=== PATIENT | male | born 1980 | race Caucasian/White ===

== ENCOUNTER 2016-11-24 21:15 | Emergency (ER) | payer OTHER, MEDICARE ==
[~2016-11-24 21:15] MED LIST: ATIVAN1 MG PO; BACTRIM SS PO; CLOZAPINE100 MG PO; FERROUS SULFAT325 M1 PO; FOLIC ACID 1 MG PO; FOLIC ACID1 M1 PO; K-DUR 20MEQ TA20 MEQ PO; KLOR-CON M2020 MEQ PO; KLOR-CON20 MEQ PO; LASIX40 MG PO; LORAZEPAM0.5 MG PO; LORAZEPAM1 MG PO; MASON NATURAL325 MG PO; MULTI VITAMINS1 TAB PO; NEXIUM20 M1 PO; NEXIUM40 M1 PO; NICOTINE PATCH1 EAC1 TOP; ONE DAILY MULT1 EAC2 PO; RISPERIDONE 1 MG1 MG PO; RISPERIDONE1 MG PO; RISPERIDONE2 MG PO; RISPERIDONE3 M1 PO; RISPERIDONE3 MG PO; TYLENOL TAB 32325 MG PO; VITAB121000 PO; VITAMIN B1100 MG PO
--- NOTE | 2016-11-24 22:12 | RADIOLOGY REPORT ---
EXAMINATION: XR PORTABLE CHEST CLINICAL INFORMATION: Cough. COMPARISON: Chest x-ray 03/17/2016 TECHNIQUE: Portable AP portable view of the chest was obtained. 9:50 PM FINDINGS: No significant abnormality is noted involving the heart, lungs, mediastinum, bony thorax or soft tissues. IMPRESSION: Unremarkable examination.
[2016-11-24 22:19] LABS: ABSOLUTE BASOPHIL COUNT 0 /CUMM (0.0-0.2); ABSOLUTE EOSINOPHIL COUNT 0 /CUMM (0.0-0.7); ABSOLUTE GRANULOCYTE CT 10.4 /CUMM (1.4-6.5); ABSOLUTE LYMPH COUNT 1.3 /CUMM (1.2-3.4); ABSOLUTE MONOCYTE COUNT 0.7 /CUMM (0.10-0.60); BASOPHIL % 0.2 % (0.0-2.0); EOSINOPHIL % 0.1 % (0-5); GRANULOCYTE % 83.6 % (42.2-75.2); MEAN CORPUSCULAR HGB 26.5 PG (27.0-31.0); MEAN CORPUSCULAR HGB CONC 31.5 G/DL (33.0-37.0); MEAN CORPUSCULAR VOLUME 84.2 FL (80.0-94.0); MEAN PLATELET VOLUME 8.3 FL (7.4-10.4); PLATELET COUNT 73 /CUMM (130-400); RBC DISTRIBUTION WIDTH 22.8 % (11.5-14.5); RED BLOOD CELL CT 3.32 /CUMM (4.70-6.10); WHITE BLOOD CELL COUNT 12.4 /CUMM (4.8-10.8)
--- NOTE | 2016-11-24 22:24 | ED AMS/SEIZURE/WEAK/DIZZY ---
History of Present Illness General Chief Complaint: Seizure Stated Complaint: BIBA, SEIZURE? Source: patient, family, old records, EMS Exam Limitations: intoxication Vital Signs & Intake/Output Vital Signs & Intake/Output Vital Signs Date Time Temp Pulse Resp B/P Pulse O2 O2 Flow FiO2 Ox Delivery Rate 11/24 2248 98.8 89 17 138/62 96 Room Air 11/24 2209 100 Room Air 11/248 99.9 106 17 132/67 97 Room Air Allergies Coded Allergies: shrimp (BLACKED OUT PER PT 01/22/16) Reconcile Medications Esomeprazole (Nexium) 40 MG CAPSULE.DR 1 TAB PO DAILY STOMACH (Reported) Esomeprazole Magnesium (Nexium) 20 MG CAPSULE.DR 20 MG PO BID ACID REFLUX ( Reported) Folic Acid 1 MG TABLET 1 TAB PO DAILY SUPPLEMENT Folic Acid 1 MG TAB 1 MG PO DAILY FOLIC ACID SUPPLEMENT Multivitamin (One Daily Multivitamin) 1 EACH TABLET 1 TAB PO DAILY SUPPLEMENT Multivitamin (One Daily Multivitamin) 1 TAB TAB 1 TAB PO DAILY SUpplement Nicotine (Nicotine Patch) 1 EACH PATCH.TD24 7 MG TOP DAILY smoking cessation Nicotine (Nicotine Patch) 1 EACH PATCH.TD24 7 MG TOP DAILY smoking cessation Risperidone 3 MG TABLET 1 TAB PO BID SCHIZOPHRENIA Risperidone 3 MG TAB 1 TAB PO BID SCIZOPHRENIA Triage Note: BIBA FROM HOME. PT WITH HISTORY OF SEIZURES. MOTHER CONCERNED PT IS GOING TO HAVE AN IMPENDING SEIZURE. PER EMS PT HAS BEEN DRINKING ALCOHOL AND SMOKING MARIJUANA TODAY. PT WITH HISTORY OF SEIZURES, ELCTROLYTE IMBALANCES. MOTHER STATES PT HAS SLURRED SPEECH WHICH OFTEN COMES BEFORE HIS SEIZURES. UPON ARRIVAL PT AWAKE, ALERT , ORIENTED. SPEECH SLURRED. SKIN WARM AND DRY, DENIES PAIN OR SOB. COMPLAINING OF POOR SLEEPING AND NOT EATING Triage Nurses Notes Reviewed? yes Onset: Just prior to arrival Duration: hour(s):, constant, continues in ED Timing: recent history Injury Environment: home Severity: severe No Modifying Factors: none Associated Symptoms: cough HPI: Patient admits to drinking alcohol and smoking marijuana all day. Mother called EMS presuming he was going to have a seizure. He denies fever chills nausea vomiting diarrhea abdominal pain chest pain shortness of breath headache dysuria rash bleeding. Past History Travel History Traveled to [place] past 21 day No Medical History Any Pertinent Medical History? see below for history Neurological: seizure EENT: NONE Cardiovascular: NONE Respiratory: history of aspiration pneumonia Gastrointestinal: alcoholic hepatitis, GERD, hiatal hernia, upper GI bleed Hepatic: alcoholic hepatitis Renal: NONE Musculoskeletal: NONE Psychiatric: alcohol dependence, anxiety, depression, substance abuse, SCHIZOPHRENIA alcohol abuse Endocrine: psychogenic polydipsia HYPOKALEMIA, HYPOMAGNESEMIA, HYPONATREMIA hypoK+, hypoNa, hypoMg hx hyponatremia hx hypokalemia Blood Disorders: anemia, coagulopathy (intermittent), thrombocytopenia ( intermittent) Cancer(s): NONE STAFF RADIOGRAPHER/Reproductive: N/A Other Medical Hx: Etoh dependence & polysubstance abuse History of MRSA: No History of VRE: Yes History of CDIFF: No Tetanus Vaccine: 05/15/13 Surgical History Surgical History: cholecystectomy Psychosocial History Who do you live with Mother Services at Home Nursing What is your primary language Venezuelan Tobacco Use: Refused to answer ETOH Use: heavy use Illicit Drug Use: marijuana Family History Family History, If Any: FATHER, , Age 27; Cause: Heroin overdose. MOTHER (diabetic). Age 60+. SISTER (healthy). Hx Contributory? No Review of Systems Review of Systems Constitutional: Reports: no symptoms. EENTM: Reports: no symptoms. Respiratory: Reports: no symptoms. Cardiovascular: Reports: no symptoms. GI: Reports: no symptoms. Genitourinary: Reports: no symptoms. Musculoskeletal: Reports: no symptoms. Skin: Reports: no symptoms. Neurological/Psychological: Reports: see HPI, cognitive dysfunction, confusion. Hematologic/Endocrine: Reports: no symptoms. Immunologic/Allergic: Reports: no symptoms. All Other Systems: Reviewed and Negative Physical Exam Physical Exam General Appearance: well developed/nourished, alert, awake, anxious, moderate distress, thin Head: atraumatic, normal appearance Eyes: Left: normal appearance. Right: other (injected). Bilateral: PERRL, EOMI. Ears, Nose, Throat: normal pharynx, normal ENT inspection Neck: normal inspection, supple, full range of motion, no midline tenderness Respiratory: chest non-tender, no respiratory distress, quiet respiration, decreased breath sounds Cardiovascular: regular rate/rhythm, normal peripheral pulses, norml femoral pulses equa Peripheral Pulses: 4+ carotid (R), 4+ carotid (L) Gastrointestinal: normal bowel sounds, soft, non-tender, no organomegaly Back: normal inspection, normal range of motion Extremities: normal range of motion, no ligament instability Neurologic/Psych: awake, alert, oriented x 3, 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 Skin: intact, normal color, warm/dry Lymphatic: no anterior cervical steve Core Measures ACS in differential dx? No CVA/TIA Diagnosis: No Severe Sepsis Present: No Septic Shock Present: No Progress Differential Diagnosis: alcohol intoxication, drug intoxication, electrolyte imbalance, hypoglycemia Plan of Care: Orders Procedure Date/time Status URINE DRUG SCREEN FOR ER ONLY 11/24 2133 Complete MAGNESIUM 11/24 2133 Complete ETHANOL 11/24 2133 Complete COMPREHENSIVE METABOLIC PANEL 11/24 2133 Complete CBC WITHOUT DIFFERENTIAL 11/24 2133 Complete Current Medications Sig/Olivia Start time Last Medication Dose Stop Time Status Admin Potassium Chloride 40 MEQ ONCE ONE 11/25 29 UNVr (Klor) 11/25 30 Laboratory Tests 11/24/162204: Anion Gap 15, Estimated GFR > 60, BUN/Creatinine Ratio 5.7 L, Glucose 115 H, Calcium 7.9 L, Magnesium 1.6, Total Bilirubin 1.4 H, AST 255 H, ALT 76 H, Alkaline Phosphatase 184 H, Total Protein 7.4, Albumin 3.3 L, Globulin 4.1, Albumin/Globulin Ratio 0.8 L, CBC w Diff NO MAN DIFF REQ, RBC 3.32 L, MCV 84.2 , MCH 26.5 L, RDW 22.8 H, MPV 8.3, Gran % 83.6 H, Lymphocytes % 10.4 L, Monocytes % 5.7, Eosinophils % 0.1, Basophils % 0.2, Absolute Granulocytes 10.4 H, Absolute Lymphocytes 1.3, Absolute Monocytes 0.7 H, Absolute Eosinophils 0, Absolute Basophils 0, PUBS MCHC 31.5 L, Serum Alcohol 380.0 11/24/162149: Urine Opiates Screen < 100.00, Methadone Screen < 40, Barbiturate Screen < 60, Ur Phencyclidine Scrn < 6.00, Amphetamines Screen < 100, U Benzodiazepines Scrn < 85, Urine Cocaine Screen < 50, Urine Cannabis Screen > 80.00 H Initial ED EKG: none Departure Departure Time of Disposition: 27 Disposition: HOME OR SELF CARE Condition: Stable Clinical Impression Primary Impression: Alcohol intoxication delirium Secondary Impressions: Hypokalemia Marijuana intoxication Qualifiers: Complication of substance-induced condition: uncomplicated Qualified Code: F12.920 - Cannabis use, unspecified with intoxication, uncomplicated Referrals: TAMIKA JUAN MD (PCP/Family) Departure Forms: General Discharge Information
[2016-11-24 22:48] VITALS: BP 138/62
== END 2016-11-25 00:37 ==
LOC: ERH 21:15
PROVIDERS: Emergency Medicine
DX: F10.121 Alcohol abuse with intoxication delirium (principal); F12.129 Cannabis abuse with intoxication, unspecified; E87.6 Hypokalemia
CPT/HCPCS: 80307; G0480

== ENCOUNTER 2016-12-28 11:10 | Inpatient (IN) | payer OTHER, MEDICARE ==
[~2016-12-28] VITALS: Ht 175.3 cm; Wt 74.8 kg
--- NOTE | 2016-12-28 11:13 | NUR ---
PT SENT IN BY PCP OR LOW K OF 2.6
--- NOTE | 2016-12-28 11:24 | NUR ---
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 PT STATING "THIS IS BULLSHIT, I WANT TO GO HOME, I HAD BLOODWORK LAST MONTH AND IT WAS FINE." PT AWARE OF THE POSSIBLE CONSEQUENCES OF HYPOKALEMIA "THEY TOLD ME I COULD AND THAT'S WHY I'M HERE." PT REPORTS "I HAVE SCHIZOPHRENIA" AND "I TOOK A FEW SIPS THIS MORNING, I'M BUZZED, BUT I'M OKAY. IF YOU LET ME GO HOME, I'LL STOP DRINKING. I DON'T REALLY LIKE TO DRINK MUCH I LIKE TO SMOKE." DENIES ANY SYMPTOMS "I FEEL FINE, JUST BUZZED." SR 70S ON MONITOR. TV ON, AWAITING PROVIDER EVAL.
--- NOTE | 2016-12-28 11:27 | NUR ---
JONO SCHILLING AT BEDSIDE FOR EVAL.
--- NOTE | 2016-12-28 11:42 | ED GI/GU/ABDOMINAL COMPLAINT ---
History of Present Illness General Chief Complaint: General Adult Stated Complaint: SENT IN FOR ABNORMAL LABS K 2.6 Source: patient Exam Limitations: no limitations Allergies Coded Allergies: shrimp (BLACKED OUT PER PT 01/22/16) Reconcile Medications Risperidone Microspheres (Risperdal Consta) 37.5 MG/2 ML SYRINGE 1 SYR IM Q2W SCHIZOPHRENIA (Reported) Triage Note: HERE FOR K OF 2.6 SENT IN BY PCP Triage Nurses Notes Reviewed? yes HPI: This patient is a 36-year-old male with a past medical history including schizophrenia who presented to the emergency department today for evaluation of low potassium. This patient had blood work drawn earlier today with a potassium of 2.6. The patient's mother reported that the patient had blood work done because his eyes have been, "yellow," lately. She reported that he has also not been able to eat or drink much of anything lately because he is violent, "violently," whenever he does. The patient reported, "I feel fine and I just want to go home." He is denying any current abdominal pain, nausea. He reported that he did have him vodka today. He denied any other illicit drug use. The patient denied any fevers, chills, difficulty breathing, chest, numbness or tingling in his extremities, or any other specific symptoms. (TONIE CHOPRA,PETAR) Vital Signs & Intake/Output Vital Signs & Intake/Output Vital Signs Date Time Temp Pulse Resp B/P Pulse O2 O2 Flow FiO2 Ox Delivery Rate 12/30 1430 98.0 68 20 118/70 96 12/30 1118 99.0 112 20 110/70 97 12/30 1100 99.0 112 20 110/70 12/30 0835 99.7 100 16 110/72 99 Room Air 12/29 2322 98.9 105 18 90/50 95 Room Air 12/29 2200 18 90/58 12/29 1800 100.0 102 18 116/80 12/29 1607 100.0 102 18 116/80 92 Room Air 12/29 1600 100.0 102 18 11680 ED Intake and Output 12/30 0000 12/29 1200 Intake Total 3483.5 2350 Output Total 2049 1550 Balance 1433.5 800 Intake, Blood 250 Product Intake, IV 1448.5 2350 Intake, Oral 1785 Number 4 Bowel Movements Output, Urine 2049 1550 Past History Travel History Traveled to [place] past 21 day No Medical History Any Pertinent Medical History? see below for history Neurological: seizure EENT: NONE Cardiovascular: NONE Respiratory: history of aspiration pneumonia Gastrointestinal: alcoholic hepatitis, GERD, hiatal hernia, upper GI bleed Hepatic: alcoholic hepatitis Renal: NONE Musculoskeletal: NONE Psychiatric: alcohol dependence, anxiety, depression, substance abuse, SCHIZOPHRENIA alcohol abuse Endocrine: psychogenic polydipsia HYPOKALEMIA, HYPOMAGNESEMIA, HYPONATREMIA hypoK+, hypoNa, hypoMg hx hyponatremia hx hypokalemia Blood Disorders: anemia, coagulopathy (intermittent), thrombocytopenia ( intermittent) Cancer(s): NONE RESTORATION ECOLOGIST/Reproductive: N/A Other Medical Hx: Etoh dependence & polysubstance abuse History of MRSA: No History of VRE: Yes History of CDIFF: No Tetanus Vaccine: 05/15/13 Surgical History Surgical History: cholecystectomy Psychosocial History Who do you live with Mother Services at Home Nursing What is your primary language Kinyarwanda Tobacco Use: Current Daily Use Daily Tobacco Use Amount/Type: => 5 Cigarettes daily ETOH Use: heavy use Illicit Drug Use: marijuana Family History Family History, If Any: FATHER, , Age 27; Cause: Heroin overdose. MOTHER (diabetic). Age 60+. SISTER (healthy). Hx Contributory? No (PETAR SCHILLING PA-C) Review of Systems Review of Systems Constitutional: Reports: no symptoms. EENTM: Reports: no symptoms. Respiratory: Reports: no symptoms. Cardiovascular: Reports: no symptoms. GI: Reports: see HPI. Genitourinary: Reports: no symptoms. Musculoskeletal: Reports: no symptoms. Skin: Reports: no symptoms. Neurological/Psychological: Reports: no symptoms. All Other Systems: Reviewed and Negative (PETAR SCHILLING PA-C) Physical Exam Physical Exam Gastrointestinal: normal bowel sounds, soft, non-tender, no organomegaly, no rebound or guarding. Negative Monteiro sign. No McBurney's point tenderness. Negative Rovsing sign. Negative psoas sign. Nondistended. No masses appreciated Comments: Well-developed well-nourished person in no acute distress HEENT: Normal EENT exam, head normocephalic/atraumatic Pupils equally round and reactive to light. No scleral icterus Nose is atraumatic. Neck: Supple, no lymphadenopathy Back: Normal gait. Normal inspection Cardiovascular: Regular rate and rhythm with no murmurs, rubs, or gallops Respiratory: Chest nontender. No respiratory distress. Breath sounds clear to auscultation bilaterally Extremity: Normal and equal pulses Neuro: Alert oriented x3, cranial nerves II through XII grossly intact. Skin: No appreciable rash on exposed skin, skin is warm and dry. Psych: Mood and affect is normal, memory and judgment is normal. Core Measures ACS in differential dx? Yes Severe Sepsis Present: No Septic Shock Present: No (PETAR SCHILLING PA-C) Progress Differential Diagnosis: AAA, AMI, appendicitis, biliary colic, bowel obstruction , colon cancer, cholecystitis, diverticulitis, gastritis, hepatitis, ischemic bowel, inflamm bowel dis, pancreatitis, PUD/GERD, perforated viscous, UTI/pyelo Diagnostic Imaging: Viewed by Me: CT Scan. Discussed w/RAD: CT Scan. Radiology Impression: PATIENT: GIOVANNA GARZA PRESENT AGE: 36 PATIENT ACCOUNT NO: [id number] : 80 LOCATION: [facility] ORDERING PHYSICIAN: DOMINIK OLIVER MD SERVICE DATE: 12/28/16- EXAM TYPE: CAT - CT ABD & PELVIS W IV CONTRAST; CT CHEST W IV CONTRAST EXAMINATION: CT CHEST, ABDOMEN AND PELVIS WITH CONTRAST CLINICAL INFORMATION: Cough. Pneumonia. Vomiting. Gastroenteritis, pancreatitis. COMPARISON: Portions of an abdomen pelvis CT performed without IV contrast 06/13/15. TECHNIQUE: Multidetector CT of the chest, abdomen and pelvis. The patient received: Oral contrast: No Intravenous contrast: 95 mL Optiray 320 No contrast reaction reported Sagittal and coronal reformatted images were obtained on the technologist workstation. Total exam dose-length product 441 mGy-cm FINDINGS: Digital actuary: There is no dense area of consolidation. Gas throughout the abdomen and pelvis to the region of rectum. Surgical clips right upper quadrant CHEST: LUNG: No abnormality the central airways. No suspicious mass or consolidation. No edema or groundglass disease. No honeycomb formation. There is equivocal trace thickening of the small airways. PLEURA: No pleural effusion or pneumothorax. MEDIASTINUM: There are no enlarged mediastinal or hilar lymph nodes. There is no pericardial fluid. There is a moderate hiatal hernia. The mid and distal esophageal wall is thickened. VASCULAR: There is no thoracic aortic aneurysm. CHEST WALL/AXILLA: No suspicious abnormality in the axilla or chest wall. ABDOMEN/PELVIS: LIVER, GALLBLADDER, AND BILIARY TREE: Heterogeneous low-attenuation throughout the liver. No suspicious focal liver lesion. Surgical clips in the expected region of the gallbladder. There is no biliary dilation. PANCREAS: No suspicious abnormality SPLEEN: Within normal limits ADRENAL GLANDS: Normal KIDNEYS AND URETERS: Homogeneous symmetric nephrograms. No suspicious mass. No renal calculus. There is no dilation of the urinary collecting system on either side. GASTROINTESTINAL TRACT: There is thickening of the sigmoid colon. There is stranding in the pericolonic fat. There are linear and irregular densities extending from the dome of the bladder and expected region of the uterus and sigmoid colon towards the region of the rectal remnant. This branching irregular pattern with a tiny focus of gas is suspicious for sinus tract/fistula. There is a tiny amount of gas within the urinary bladder. If there has been no instrumentation fistula suspected. There is poor definition of the dome of the bladder/cirrhosis interface with the colon. No abnormal appendix demonstrated. A normal appendix may extend into the midline of the pelvis near the sacral promontory. No significant small bowel dilation. No definite abnormality the stomach. As described there is a hiatal hernia. ABDOMINAL WALL: Small amount of fat protrudes into the left inguinal canal. LYMPHOVASCULAR STRUCTURES AND FLUID: There is no abdominal aortic aneurysm. The portal vein enhances. There are no measurably enlarged abdominal or pelvic lymph nodes. There is a nonspecific mesenteric lymph node in the midline. No drainable fluid collection. BLADDER: As described there is abnormal density and poor definition in the dome of the bladder extending toward the urachal remnant. There is gas present. There is poor definition of the surrounding tissue planes and there may be a fistula. PELVIC VISCERA: No definite abnormality. MUSCULOSKELETAL: No focal bony lesion IMPRESSION: No pneumonia or edema. Hiatal hernia. Thickening of the distal colon with angular and reticular opacities extending toward the dome of the bladder which is irregular and contains a small amount of gas. In the absence of instrumentation the pattern suggest the presence of colovesical fistula. This could be related to diverticulitis. Some clinical correlation is necessary. DICTATED BY: GERRY RODRIGUEZ MD DATE/TIME DICTATED:12/28/161747 MAGNETIC TESTING TECHNICIAN:ERVIN DATE/TIME TRANSCRIBED:12/28/161747 CONFIDENTIAL, DO NOT COPY WITHOUT APPROPRIATE AUTHORIZATION. <Electronically signed in Other Vendor System> SIGNED BY: GERRY RODRIGUEZ MD 12/28/16 1814 Initial ED EKG: normal axis, normal intervals, no ST T wave changes, sinus tachycardia, 90 bpm Comments: 12/28/2016 1:05:13 PM: RN informed me that the patient's mother reported blood in the patient's stool. Patient is refusing rectal examination. (TONIE CHOPRA,PETAR) Plan of Care: Orders Procedure Date/time Status Change service to 12/30 1337 Active Transfer Disposition 12/30 1048 Active Transfer patient to 12/30 0727 Active MAGNESIUM 12/30 0600 Complete CBC WITHOUT DIFFERENTIAL 12/30 0600 Complete BASIC ELECTROLYTES PLUS BUN&CR 12/30 0600 Complete MISSING MEDICATION FORM 12/30 UNK Active CBC WITHOUT DIFFERENTIAL 12/29 1800 Complete Current Medications Sig/Olivia Start time Last Medication Dose Stop Time Status Admin Folic Acid 1 MG DAILY 12/30 2111 AC (Folic Acid) Multivitamins 1 TAB DAILY 12/30 2111 AC (Theragran Vitamins) Thiamine HCl 100 MG DAILY 12/30 2111 AC (Vitamin B1) Risperidone 1 MG Q8P PRN 12/29 161 AC (Risperidone) Trimethobenzamide HCl 200 MG 4 TIMES/DAY PRN 12/28 161 AC (Tigan) Laboratory Tests 12/30/16 0610: Anion Gap 7, Estimated GFR > 60, BUN/Creatinine Ratio 3.3 L, Magnesium 1.7, CBC w Diff MAN DIFF ORDERED, RBC 3.17 L, MCV 88.9, MCH 28.5, RDW 19.5 H, MPV 9.5, Gran % 85.7 H, Lymphocytes % 6.6 L, Monocytes % 6.4, Eosinophils % 1.3, Basophils % 0 L, Absolute Granulocytes 5.8, Absolute Lymphocytes 0.4 L, Absolute Monocytes 0.4, Absolute Eosinophils 0.1, Absolute Basophils 0, Platelet Estimate DECREASED, Polychromasia 1+, Poikilocytosis 1+, Anisocytosis 1+, Stomatocytes 1+, PUBS MCHC 32.0 L 12/29/16 1805: Anion Gap 7, Estimated GFR > 60, BUN/Creatinine Ratio 3.3 L, CBC w Diff NO MAN DIFF REQ, RBC 3.29 L, MCV 87.4, MCH 28.0, RDW 19.4 H, MPV 8.6, Gran % 86.6 H, Lymphocytes % 6.4 L, Monocytes % 5.8, Eosinophils % 0.9, Basophils % 0.3, Absolute Granulocytes 5.7, Absolute Lymphocytes 0.4 L, Absolute Monocytes 0.4, Absolute Eosinophils 0.1, Absolute Basophils 0, PUBS MCHC 32.1 L Departure Departure Disposition: STILL A PATIENT Condition: Stable Clinical Impression Primary Impression: Hypokalemia Secondary Impressions: Pancreatitis Qualifiers: Chronicity: acute Pancreatitis type: alcohol induced Acute pancreatitis complication: unspecified Qualified Code: K85.20 - Alcohol induced acute pancreatitis without necrosis or infection Referrals: TAMIKA JUAN MD (PCP/Family) Departure Forms: Customer Survey General Discharge Information Admission Note Spoke With: SHAWN COELLO MD Documentation of Exam: Documentation of any treatments & extenuating circumstances including Concerns Regarding Discharge (functional status, medication knowledge or non-compliance, living conditions, etc.) that warrant an admission rather than observation: [ This patient is a 36 year old male who presented for low potassium. Potassium 2.4 Elevated pancreatic enzymes. Lactic acid 3.8. Reported rectal bleeding, refused rectal exam and CT abdomen. History of alcohol withdrawal seizures and currently intoxicated. Should be admitted for potassium repleation, IV fluids, follow-up cultures, IV antibiotics, NPO status, gastroenterology consult, possible colonoscopy, alcohol detox, and close monitoring. Premature discharge could prove medically harmful.] (TONIE CHOPRA,PETAR) PA/JEWEL STRINGER Co-Sign Statement Statement: ED Attending supervision documentation- x I saw and evaluated the patient. I have also reviewed all the pertinent lab results and diagnostic results. I agree with the findings and the plan of care as documented in the PA's/JEWEL STRINGER's documentation. [] I have reviewed the ED Record and agree with the PA's/JEWEL STRINGER's documentation. [] Additions or exceptions (if any) to the PAs/JEWEL STRINGER's note and plan are summarized below: [] (EMERSON CARPENTER,WANDY) Thiamine/Pyridoxine (Vitamin in I.V.) Dextrose/Water 1,000 ML (D5W 1000) Laboratory Tests 12/28/16 1622: Anion Gap 12, Estimated GFR > 60, BUN/Creatinine Ratio 6.7 L, Magnesium 1.2 L 12/28/16 1554: Sodium Cancelled, Potassium Cancelled, Chloride Cancelled, Carbon Dioxide Cancelled, Anion Gap Cancelled, BUN Cancelled, Creatinine Cancelled, BUN/ Creatinine Ratio Cancelled, Glucose Cancelled, Calcium Cancelled 12/28/16 1436: Lactic Acid 3.4 H 12/28/16 1300: Urine Opiates Screen < 100.00, Methadone Screen < 40, Barbiturate Screen < 60, Ur Phencyclidine Scrn < 6.00, Amphetamines Screen < 100, U Benzodiazepines Scrn < 85, Urine Cocaine Screen < 50, Urine Cannabis Screen > 80.00 H, Urine Color SHANEKA, Urine Clarity HAZY H, Urine pH 7.5, Ur Specific [place] 1.015, Urine Protein TRACE H, Urine Ketones NEG, Urine Nitrite POS H, Urine Bilirubin POS@ ICTO H, Urine Urobilinogen >=8.0 H, Ur Leukocyte Esterase MOD H, Ur Microscopic SEDIMENT EXAMINED, Urine RBC RARE, Urine WBC 50-75 H, Urine Bacteria MANY H, Urine Hemoglobin TRACE-INTACT H, Urine Glucose 100 H 12/28/16 1212: Magnesium 1.5 L, Total Bilirubin 5.3 H, Direct Bilirubin 4.0 H, AST 265 H, ALT 66, Alkaline Phosphatase 194 H, Total Protein 7.8, Albumin 3.6 12/28/16 1157: Anion Gap 17 H, Estimated GFR > 60, BUN/Creatinine Ratio 7.1, Glucose 117 H, Lactic Acid 3.8 H, Calcium 8.1 L, Total Bilirubin 5.2 H, Direct Bilirubin 3.9 H, AST 263 H, ALT 60, Alkaline Phosphatase 189 H, Troponin I < 0.01, Total Protein 7.7, Albumin 3.5, Globulin 4.2, Albumin/Globulin Ratio 0.8 L, Amylase 90, Lipase 434 H, PT 12.5, INR 1.19 H, APTT 30, CBC w Diff MAN DIFF ORDERED, RBC 3.18 L, MCV 86.3, MCH 27.2, RDW 21.1 H, MPV 8.0, Gran % 79.8 H, Lymphocytes % 9.6 L, Monocytes % 9.6 H, Eosinophils % 1.0, Basophils % 0 L, Absolute Granulocytes 4.6, Absolute Lymphocytes 0.6 L, Absolute Monocytes 0.6, Absolute Eosinophils 0.1, Absolute Basophils 0, Platelet Estimate DECREASED, Polychromasia 1+, Hypochromic-Microcytic 1+, Poikilocytosis FEW, Anisocytosis 1+ , PUBS MCHC 31.5 L, Serum Alcohol 293.0 Microbiology 12/28 1450 URINE ROUT: Urine Culture - CAN Cancelled: Cancelled via OE: ADD ON 12/28 1448 URINE ROUT: Urine Culture - RECD 12/28 1212 BLOOD: Blood Culture - RECD 12/28 1157 BLOOD: Blood Culture - RECD Departure Departure Disposition: STILL A PATIENT Condition: Stable Clinical Impression Primary Impression: Hypokalemia Secondary Impressions: Pancreatitis Qualifiers: Chronicity: acute Pancreatitis type: alcohol induced Acute pancreatitis complication: unspecified Qualified Code: K85.20 - Alcohol induced acute pancreatitis without necrosis or infection Referrals: TAMIKA JUAN MD (PCP/Family) Departure Forms: Customer Survey General Discharge Information Admission Note Spoke With: SHAWN COELLO MD Documentation of Exam: Documentation of any treatments & extenuating circumstances including Concerns Regarding Discharge (functional status, medication knowledge or non-compliance, living conditions, etc.) that warrant an admission rather than observation: [ This patient is a 36 year old male who presented for low potassium. Potassium 2.4 Elevated pancreatic enzymes. Lactic acid 3.8. Reported rectal bleeding, refused rectal exam and CT abdomen. History of alcohol withdrawal seizures and currently intoxicated. Should be admitted for potassium repleation, IV fluids, follow-up cultures, IV antibiotics, NPO status, gastroenterology consult, possible colonoscopy, alcohol detox, and close monitoring. Premature discharge could prove medically harmful.] (TONIE CHOPRA,PETAR) PA/JEWEL STRINGER Co-Sign Statement Statement: ED Attending supervision documentation- x I saw and evaluated the patient. I have also reviewed all the pertinent lab results and diagnostic results. I agree with the findings and the plan of care as documented in the PA's/JEWEL STRINGER's documentation. [] I have reviewed the ED Record and agree with the PA's/JEWEL STRINGER's documentation. [] Additions or exceptions (if any) to the PAs/JEWEL STRINGER's note and plan are summarized below: [] (EMERSON CARPENTER,WANDY)
[2016-12-28] MEDS ORDERED: RISPERDAL37.5 MG/2 IM (11:46)
[2016-12-28 12:14] LABS: ABSOLUTE BASOPHIL COUNT 0 /CUMM (0.0-0.2); ABSOLUTE EOSINOPHIL COUNT 0.1 /CUMM (0.0-0.7); ABSOLUTE GRANULOCYTE CT 4.6 /CUMM (1.4-6.5); ABSOLUTE LYMPH COUNT 0.6 /CUMM (1.2-3.4); ABSOLUTE MONOCYTE COUNT 0.6 /CUMM (0.10-0.60); BASOPHIL % 0 % (0.0-2.0); GRANULOCYTE % 79.8 % (42.2-75.2); HEMATOCRIT 27.4 % (42-52); MEAN CORPUSCULAR HGB 27.2 PG (27.0-31.0); MEAN CORPUSCULAR HGB CONC 31.5 G/DL (33.0-37.0); MEAN CORPUSCULAR VOLUME 86.3 FL (80.0-94.0); PLATELET COUNT 61 /CUMM (130-400); RBC DISTRIBUTION WIDTH 21.1 % (11.5-14.5); RED BLOOD CELL CT 3.18 /CUMM (4.70-6.10); WHITE BLOOD CELL COUNT 5.8 /CUMM (4.8-10.8)
--- NOTE | 2016-12-28 12:24 | NUR ---
IV KCL STARTED; PER PA PT TO RECIEVE PO POTASSIUM 40MEQ Q30MIN AFTER IV DOSE COMPLETE. PT REPEATEDLY ASKING TO GO HOME; AWARE OF PENDING LABS AND ORDERS TO REPLETE POTASSIUM. PT STATES HE CANNOT GIVE URINE SAMPLE AT THIS TIME, AWARE OF NEED.
--- NOTE | 2016-12-28 12:28 | NUR ---
SCRATCHES NOTED TO FOREARMS, ?SELF INFLICITED, HEALING, PT DENIES SI/HI, REPORTS "I JUST HEAR VOICES AND STUFF" STATES HE HAS BEEN MED COMPLIANT AND RECIEVES INJECTIONS OF ANTIPSYCHOTICS Q2WKS. REPORTS GOALS TO "STOP DRINKING, EAT BETTER AND GAIN SOME WEIGHT."
--- NOTE | 2016-12-28 12:37 | NUR ---
PA NOTIFIED THAT VISITING NURSE CALLED WITH CONCERNS FOR POSSIBLE RECTAL BLEEDING. VISITING NURSE REQUESTING TO BE CALLED WHEN PT ADMITTED-ESTEE MIMS [phone].
--- NOTE | 2016-12-28 12:41 | NUR ---
CRITICAL TEST RESULTS [id number] GIOVANNA GARZA 36 M TESTS AND RESULTS: POTASSIUM 2.4 Results received and read back by: THERON CHERY Results received date and time: 12/28/16 1241 The following provider was notified of the results, and read the results back: JONO COLE Notified date and time: 12/28/16 at 1241
--- NOTE | 2016-12-28 12:49 | NUR ---
CRITICAL TEST RESULTS [id number] GIOVANNA GARZA 36 M TESTS AND RESULTS: LACTIC 3.1 Results received and read back by: MIKE SPAULDING Results received date and time: 12/28/16 1249 The following provider was notified of the results, and read the results back: JONO SCHILLING Notified date and time: 12/28/16 at 1247
--- NOTE | 2016-12-28 13:02 | NUR ---
PT CURRENTLY REFUSING CT STATING "THIS IS BULLSHIT, I WANT TO DROP MY INSURANCE AND NEVER COME BACK TO THE HOSPITAL AGAIN." PT IS NOTABLY INTOXICATED AND UNABLE TO REASON WITH PT AT THIS TIME. PA AT BEDSIDE. PT CONTS YELLING OUT AND REPEATEDLY STATING "I WANT TO GO HOME SOON POSSIBLE. I'M NOT STAYING HERE ALL NIGHT."
[2016-12-28 13:03] LABS: PT 12.5 SEC (9.4-12.5); PTT 30 SEC (25-37)
--- NOTE | 2016-12-28 13:22 | NUR ---
PO KCL GIVEN, IV COMPLETE. PT REFUSING CT SCAN AT THIS TIME, PA AWARE.
--- NOTE | 2016-12-28 13:36 | NUR ---
PA INFORMED THAT PT IS REFUSING CT AND DEMANDING TO LEAVE, "I'M SOBER NOW AND I WANT TO GO HOME." PT WAS INFORMED THAT HIS ETOH LEVEL WAS 293 AND HE IS NOT SOBER. PA IN TO SPEAK WITH PT PLAN IS FOR ADMISSION WHICH PT CURRENTLY REFUSING TO PARTICIPATE IN.
[2016-12-28 13:52] VITALS: BP 102/62
--- NOTE | 2016-12-28 13:52 | NUR ---
PT AGREED TO STAY OVERNIGHT AFTER SPEAKING WITH PA. STILL REFUSING CT SCAN. MEDICATED PER EMAR, REMAINS INTOXICATED THOUGH CIWA SCORE 5 DUE TO CHRONIC ANXIETY R/T OTHER PSYCH ISSUES. URINE TRIO SENT.
--- NOTE | 2016-12-28 14:28 | NUR ---
CALL RECIEVED FROM PT'S MOTHER STATING SHE IS HIS CONSERVATOR AND SHE WANTS HIM TO HAVE THE RECTAL EXAM AND CT REGARDLESS OF WHETHER HE AGREES. D/W MOTHER THAT PT CURRENTLY IS INTOXICATED AND MAY BE MORE COOPERATIVE WHEN HE IS SOBER, SHE WAS AGREEABLE TO DISCUSSION OF GI ISSUES WITH HOSPITALIST TEAM TOMORROW AFTER PT IS SOBER. MOTHER UPDATED ON POC WITH AGREEMENT FROM PT. PA UPDATED WELL. AWAITING ADMISSION AT THIS TIME. CONTS TO STATE "I WANT TO GO HOME" EACH TIME HE IS APPROACHED BUT IS REDIRECTABLE AT THIS TIME.
--- NOTE | 2016-12-28 15:10 | NUR ---
CRITICAL TEST RESULTS [id number] GIOVANNA GARZA 36 M TESTS AND RESULTS: LACTIC ACID 3.4 Results received and read back by: THERON CHERY Results received date and time: 12/28/16 9137 The following provider was notified of the results, and read the results back: JONO COLE Notified date and time: 12/28/16 at 1517
--- NOTE | 2016-12-28 15:25 | NUR ---
PT CARE ASSUMED BY THIS RN AT THIS TIME. HOUSE STAFF TO BEDSIDE FOR PT EVALUATION AT THIS TIME.
[2016-12-28 16:14] VITALS: BP 122/78
--- NOTE | 2016-12-28 16:23 | NUR ---
PT BLOOD SENT TO THE LAB
--- NOTE | 2016-12-28 16:38 | PN- Att Addend ---
Attending Addendum Attending Brief Note 36 y/o M with [facility] sig for chronic alcohol abuse, alcoholic liver disease, pancytopenia secondary to alcohol use, alcoholic cardiomyopathy and schizophrenia, hyponatremia was sent by his primary care doctor secondary to having severe hypokalemia. History was partly obtained from the patient and partly from patient's mother over the phone. Patient was recently hospitalized to [facility] with alcohol withdrawal seizures. Upon follow-up with his primary care doctor, she ordered some blood work which shows that he has severe hypokalemia, abnormal LFTs and high bilirubin. Patient also complains off coughing as well as vomiting for the last few days. He also has been having epistaxis. He admits to smoking marijuana but denies snorting it. He denies picking at the nose. He does complain of dark urine and having some difficulty urination. He denies any abdominal pain. He denies any hematemesis but does mention that after he wipes himself he sees some blood. He also has high lactate level on the lab work and acute on chronic anemia. He has abnormal lipase. Patient lives in a separate apartment in his mother's house but she does not get to know about how much she drinks every day. Patient claims that he drinks 3-4 shots of vodka every day. Vital Signs Date Time Temp Pulse Resp B/P Pulse O2 O2 Flow FiO2 Ox Delivery Rate 12/28 1352 97.8 93 18 102/62 12/28 1351 97.8 93 18 102/62 94 Room Air 12/28 1254 97.4 71 20 95/57 96 Room Air 12/28 1226 94 12/28 1114 97.7 84 18 118/71 94 Room Air on exam; aox3, nad. heent; + jaundice, + dry mucous membranes. cv; s1,s2, rrr. resp; + somewhat junky bs. abd; soft, nt, bs+ ext; no edema. Laboratory Tests 12/28 12/28 12/28 1554 1436 1300 Chemistry Sodium Cancelled Potassium Cancelled Chloride Cancelled Carbon Dioxide Cancelled Anion Gap Cancelled BUN Cancelled Creatinine Cancelled BUN/Creatinine Ratio Cancelled Glucose Cancelled Lactic Acid (0.7 - 2.1 mmol/L) 3.4 H Calcium Cancelled Toxicology Urine Opiates Screen (>2000 NG/ML) < 100.00 Methadone Screen (>300 NG/ML) < 40 Barbiturate Screen (>200 NG/ML) < 60 Ur Phencyclidine Scrn (>25 NG/ML) < 6.00 Amphetamines Screen (>1000 NG/ML) < 100 U Benzodiazepines Scrn (>200 NG/ML) < 85 Urine Cocaine Screen (>300 NG/ML) < 50 Urine Cannabis Screen (>50 NG/ML) > 80.00 H Urines Urine Color (YEL,AMB,STR) SHANEKA Urine Clarity (CLEAR) HAZY H Urine pH (5.0 - 8.0) 7.5 Ur Specific [place] (1.001 - 1.035) 1.015 Urine Protein (NEG,<30 MG/DL) TRACE H Urine Ketones (NEG) NEG Urine Nitrite (NEG) POS H Urine Bilirubin (NEG) POS@ICTO H Urine Urobilinogen (0.1 - 1.0 EU/dl) >=8.0 H Ur Leukocyte Esterase (NEG) MOD H Ur Microscopic SEDIMENT EXAMINED Urine RBC (0 - 5 /HPF) RARE Urine WBC (0 - 2 /HPF) 50-75 H Urine Bacteria (NEG/NONE) MANY H Urine Hemoglobin (NEG) TRACE-INTACT H Urine Glucose (N MG/DL) 100 H 12/28 12/28 1212 1157 Chemistry Sodium (137 - 145 mmol/L) 135 L Potassium (3.5 - 5.1 mmol/L) 2.4 *L Chloride (98 - 107 mmol/L) 85 L Carbon Dioxide (22 - 30 mmol/L) 33 H Anion Gap (5 - 16) 17 H BUN (9 - 20 mg/dL) 5 L Creatinine (0.7 - 1.2 mg/dL) 0.7 Estimated GFR (>60 ml/min) > 60 BUN/Creatinine Ratio (7 - 25 %) 7.1 Glucose (65 - 99 mg/dL) 117 H Lactic Acid (0.7 - 2.1 mmol/L) 3.8 H Calcium (8.4 - 10.2 mg/dL) 8.1 L Magnesium (1.6 - 2.3 mg/dL) 1.5 L Total Bilirubin (0.2 - 1.3 mg/dL) 5.3 H 5.2 H Direct Bilirubin (< 0.4 mg/dL) 4.0 H 3.9 H AST (17 - 59 U/L) 265 H 263 H ALT (21 - 72 U/L) 66 60 Alkaline Phosphatase (< 127 U/L) 194 H 189 H Troponin I (<0.11 ng/ml) < 0.01 Total Protein (6.3 - 8.2 g/dL) 7.8 7.7 Albumin (3.5 - 5.0 g/dL) 3.6 3.5 Globulin (1.9 - 4.2 gm/dL) 4.2 Albumin/Globulin Ratio (1.1 - 2.2 %) 0.8 L Amylase (30 - 110 U/L) 90 Lipase (23 - 300 U/L) 434 H Coagulation PT (9.4 - 12.5 SEC) 12.5 INR (0.90 - 1.17) 1.19 H APTT (25 - 37 SEC) 30 Hematology CBC w Diff MAN DIFF ORDERED WBC (4.8 - 10.8 /CUMM) 5.8 RBC (4.70 - 6.10 /CUMM) 3.18 L Hgb (14.0 - 18.0 G/DL) 8.6 L Hct (42 - 52 %) 27.4 L MCV (80.0 - 94.0 FL) 86.3 MCH (27.0 - 31.0 PG) 27.2 RDW (11.5 - 14.5 %) 21.1 H Plt Count (130 - 400 /CUMM) 61 L MPV (7.4 - 10.4 FL) 8.0 Gran % (42.2 - 75.2 %) 79.8 H Lymphocytes % (20.5 - 51.1 %) 9.6 L Monocytes % (1.7 - 9.3 %) 9.6 H Eosinophils % (0 - 5 %) 1.0 Basophils % (0.0 - 2.0 %) 0 L Absolute Granulocytes (1.4 - 6.5 /CUMM) 4.6 Absolute Lymphocytes (1.2 - 3.4 /CUMM) 0.6 L Absolute Monocytes (0.10 - 0.60 /CUMM) 0.6 Absolute Eosinophils (0.0 - 0.7 /CUMM) 0.1 Absolute Basophils (0.0 - 0.2 /CUMM) 0 Platelet Estimate (ADEQUATE) DECREASED Polychromasia 1+ Hypochromic-Microcytic 1+ Poikilocytosis FEW Anisocytosis 1+ PUBS MCHC (33.0 - 37.0 G/DL) 31.5 L Toxicology Serum Alcohol (<10 MG/DL) 293.0 A/P; 36 y/o M with [facility] sig for chronic alcohol abuse, alcoholic liver disease, pancytopenia secondary to alcohol use, alcoholic cardiomyopathy and schizophrenia, hyponatremia is admitted with multiple issues. Patient has severe hypokalemia, hypomagnesemia, dehydration, jaundice with hyperbilirubinemia and abnormal LFTs, alcohol use with intoxication, epistaxis, ? aspiration, UTI. He also has GI bleed but he admits to having hemorrhoids. His last endoscopy and colonoscopy 2 years ago shows that he has nonerosive gastritis as well as diverticulosis. Patient will be admitted to telemetry or floor depending on his pending potassium levels. He will be hydrated with IV fluids. He will be started on banana bag, scheduled IV Ativan as well as CIWA protocol and when necessary Ativan per CIWA. Please type and cross. Please consult ENT for epistaxis. Please obtain a CT chest abdomen and pelvis with IV contrast secondary to patient's consistent vomiting as well as high lactate levels we need to rule out any intra-abdominal pathology. Patient also likely has a UTI. We'll follow-up on the urine culture and cover him with IV antibiotics. Will obtain blood cultures and sputum cultures. We will replete his potassium and magnesium aggressively. Please repeat his chemistries later today as well as his lactate. We'll keep an eye on his H&H and repeat levels in the morning. He will be typed and crossed in case he continues to drop. Pending CT abdomen and pelvis if there is any acute abnormality or pathology, will consider GI evaluation. Please notify psychiatry about patient's admission. DVT px: ALPS secondary to having some cytopenia as well as epistaxis and a drop in H&H. full code.
--- NOTE | 2016-12-28 16:42 | History & Physical ---
SLADE CARPENTER,[facility] 12/28/16 7671: General Information and HPI MD Statement: I have seen and personally examined GIOVANNA GARZA and documented this H& P. The patient is a 36 year old M who presented with a patient stated chief complaint of [weakness, jaundice, alcohol detox]. Source of Information: patient, family, old records Exam Limitations: poor historian History of Present Illness: 36-year-old man with extensive PMH including multiple drug abuse and seizure secondary to alcohol detox yellow 3 months ago, who was sent to the ED by his PCP after she found his potassium at 2.6. Patient is a poor historian, initially patient was refusing admission, he then agreed to stay for 24 hour after consequences of leaving AMA was explained to him. Patient had a seizure while was admitted for alcohol detox at [facility] on October 2016, he started drinking at least 2 shots of vodka immediately after he was discharged, he also uses marijuana daily and smoke 1 PPD since age of 14. For the past 3 weeks Patient was constipated with multiple episodes of nausea and vomiting of nonbloody food particles. He denies fever, chills, abdominal pain or diarrhea. He noticed bright red blood on toilet paper(has history of hemorrhoids). He had endoscopy and colonoscopy 2 years ago that showed nonerosive gastritis and diverticulosis. Patient reported multiple episodes of epistaxis. He almost get one episode a free 3-5 days. He reported bleeding massively on some of the episodes, however he would control the bleeding within 10 minutes on most of them. Patient reported visual and auditory hallucination, he received 1 dose of risperidone every 2 weeks. He denies suicidal ideation or any thoughts of harming others. His mother noticed that he started to drinks a lot of fluid recently. Patient reported increased urinary frequency, feeling of bladder incomplete emptying, and dark urine, but he denies dysuria Allergies/Medications Allergies: Coded Allergies: shrimp (BLACKED OUT PER PT 01/22/16) Past History Travel History Traveled to [place] past 21 day No Medical History Neurological: seizure (during alcohol detox) EENT: NONE Cardiovascular: alcoholic cardiomyopathy stage II Respiratory: history of aspiration pneumonia Gastrointestinal: alcoholic hepatitis, GERD, hiatal hernia, upper GI bleed Renal: NONE Musculoskeletal: NONE Psychiatric: alcohol dependence, anxiety, depression, substance abuse, SCHIZOPHRENIA alcohol abuse Endocrine: psychogenic polydipsia HYPOKALEMIA, HYPOMAGNESEMIA, HYPONATREMIA hypoK+, hypoNa, hypoMg hx hyponatremia hx hypokalemia Blood Disorders: anemia, coagulopathy (intermittent), thrombocytopenia ( intermittent) Cancer(s): NONE CANE WEIGHER/Reproductive: N/A Other Medical Hx: Hypokalemia and hypomagnesemia History of MRSA: No History of VRE: Yes History of CDIFF: No Tetanus Vaccine: 05/15/13 Surgical History Surgical History: cholecystectomy Past Family/Social History Family History Relations & Conditions if any FATHER, , Age 27; Cause: Heroin overdose. MOTHER (diabetic). Age 60+. SISTER (healthy). Psychosocial History Who Do You Live With? spouse (mother), parent Services at Home: Nursing Primary Language: Hungarian ETOH Use: heavy use Illicit Drug Use: marijuana Living Will? no Power of Pile Driver Operator Helper/HCP? yes Name of POA/HCP: Pt's motherMerly [phone] Functional Ability ADLs Independent: dressing, eating, toileting, bathing. Ambulation: independent IADLs Needs Assist: shopping, housework, finances, food prep, telephone, transportation, medication admin. Review of Systems Review of Systems Constitutional: Reports: weakness. Denies: chills, fever. EENTM: Reports: epistaxis. Denies: visual changes, hearing changes. Cardiovascular: Denies: chest pain, palpitations, peripheral edema, syncope. Respiratory: Reports: cough (yellow sputum). Denies: hemoptysis, short of breath, wheezing. GI: Reports: constipation, nausea, vomiting. Denies: diarrhea, distention. Genitourinary: Reports: frequency, hesitation, urgency. Denies: dysuria. Musculoskeletal: Denies: back pain, joint pain. Skin: Reports: no symptoms. Neurological/Psychological: Reports: anxiety, depressed. Comments Visual added due to hallucination Exam & Diagnostic Data Last 24 Hrs of Vital Signs/I&O Vital Signs Date Time Temp Pulse Resp B/P Pulse O2 O2 Flow FiO2 Ox Delivery Rate 12/28 1816 97.4 98 18 115/59 12/28 1739 18 95 Nasal 2.0L Cannula 12/28 1715 97.4 98 18 115/59 89 12/28 1614 97.5 98 18 122/78 12/28 1352 97.8 93 18 102/62 12/28 1351 97.8 93 18 62 94 Room Air 12/28 1254 97.4 71 20 95/57 96 Room Air 12/28 1226 94 12/28 1114 97.7 84 18 118/71 94 Room Air Intake & Output 12/28 1600 12/28 0800 12/28 0000 Intake Total 1500 Output Total 350 Balance 1150 Intake, IV 1100 Intake, Oral 400 Output, Urine 350 Patient 74.843 kg Weight Physical Exam General Appearance Alert, Oriented X3, looks agitated and would like to leave tomorrow morning Skin No Rashes HEENT Atraumatic, PERRLA, EOMI, dehydrated, dry blood around his nose Cardiovascular Regular Rate, Normal S1, Normal S2, No Murmurs Lungs Clear to Auscultation Abdomen Soft, No Tenderness Neurological Normal Speech Extremities No Clubbing, No Cyanosis, No Edema Last 24 Hrs of Labs/Guru: Laboratory Tests 12/28/16 1825: Lactic Acid 3.0 H 12/28/16 1622: Anion Gap 12, Estimated GFR > 60, BUN/Creatinine Ratio 6.7 L, Magnesium 1.2 L 12/28/16 1554: Sodium Cancelled, Potassium Cancelled, Chloride Cancelled, Carbon Dioxide Cancelled, Anion Gap Cancelled, BUN Cancelled, Creatinine Cancelled, BUN/ Creatinine Ratio Cancelled, Glucose Cancelled, Calcium Cancelled 12/28/16 1436: Lactic Acid 3.4 H 12/28/16 1300: Urine Opiates Screen < 100.00, Methadone Screen < 40, Barbiturate Screen < 60, Ur Phencyclidine Scrn < 6.00, Amphetamines Screen < 100, U Benzodiazepines Scrn < 85, Urine Cocaine Screen < 50, Urine Cannabis Screen > 80.00 H, Urine Color SHANEKA, Urine Clarity HAZY H, Urine pH 7.5, Ur Specific [place] 1.015, Urine Protein TRACE H, Urine Ketones NEG, Urine Nitrite POS H, Urine Bilirubin POS@ ICTO H, Urine Urobilinogen >=8.0 H, Ur Leukocyte Esterase MOD H, Ur Microscopic SEDIMENT EXAMINED, Urine RBC RARE, Urine WBC 50-75 H, Urine Bacteria MANY H, Urine Hemoglobin TRACE-INTACT H, Urine Glucose 100 H 12/28/16 1212: Magnesium 1.5 L, Total Bilirubin 5.3 H, Direct Bilirubin 4.0 H, AST 265 H, ALT 66, Alkaline Phosphatase 194 H, Total Protein 7.8, Albumin 3.6 12/28/16 1157: Anion Gap 17 H, Estimated GFR > 60, BUN/Creatinine Ratio 7.1, Glucose 117 H, Lactic Acid 3.8 H, Calcium 8.1 L, Total Bilirubin 5.2 H, Direct Bilirubin 3.9 H, AST 263 H, ALT 60, Alkaline Phosphatase 189 H, Troponin I < 0.01, Total Protein 7.7, Albumin 3.5, Globulin 4.2, Albumin/Globulin Ratio 0.8 L, Amylase 90, Lipase 434 H, PT 12.5, INR 1.19 H, APTT 30, CBC w Diff MAN DIFF ORDERED, RBC 3.18 L, MCV 86.3, MCH 27.2, RDW 21.1 H, MPV 8.0, Gran % 79.8 H, Lymphocytes % 9.6 L, Monocytes % 9.6 H, Eosinophils % 1.0, Basophils % 0 L, Absolute Granulocytes 4.6, Absolute Lymphocytes 0.6 L, Absolute Monocytes 0.6, Absolute Eosinophils 0.1, Absolute Basophils 0, Platelet Estimate DECREASED, Polychromasia 1+, Hypochromic-Microcytic 1+, Poikilocytosis FEW, Anisocytosis 1+ , PUBS MCHC 31.5 L, Serum Alcohol 293.0 Microbiology 12/28 1450 URINE ROUT: Urine Culture - CAN Cancelled: Cancelled via OE: ADD ON 12/28 1448 URINE ROUT: Urine Culture - RECD 12/28 1212 BLOOD: Blood Culture - RECD 12/28 1157 BLOOD: Blood Culture - RECD Assessment/Plan Assessment: 1-alcohol detox * Patient will receive Ativan per [facility] protocol * He will be given banana bag * He will be started on IV fluids 2. Hypomagnesemia and hypokalemia * Will be repleted * BEP daily 3. Hyponatremia * Patient will be given IV normal saline * We will repeat BEP daily 4. UTI * Urine culture was sent * Ceftriaxone 1 g daily IV 5. Epistaxis * CBC daily * Type and cross * ENT was called 6. Transaminitis with abnormal liver function tests and lactic acidosis * CT abdomen and pelvis with IV contrast * 500 mg IV Flagyl every 8 * Tigan for nausea 5. Cough productive of yellow sputum: possible aspiration pneumonia giving the history of vomiting and alcohol abuse * CT chest with IV contrast * Sputum was sent for culture * Blood culture * On IV ceftriaxone and IV Flagyl 7. Psychosis * Psychiatric evaluation the morning 8. Anemia * Most likely because of epistaxis * Given his GI presentation if he continued to drop H&H we will consider calling GI Nothing by mouth DVT Ppx with Alps and no anticoagulants(epistaxis and anemia) Full code As Ranked By This Provider Problem List: 1. ALCOHOL WITHDRAWAL 2. Hypokalemia 3. Elevated bilirubin 4. Elevated liver enzymes 5. UTI (urinary tract infection) 6. Thrombocytopenia 7. Psychosis 8. Cannabis abuse Core Measures/Miscellaneous Acute Coronary Syndrome ACS Diagnosis: No Cerebrovascular Accident CVA/TIA Diagnosis: No Congestive Heart Failure CHF Diagnosis: No Venous Thromboembolism VTE Risk Factors: Acute medical illness, Smoking [facility] prophylaxis d/t: No contraindications No VTE Pharm Prophylaxis d/t: Active bleeding VTE Diagnosis: No VTE Type: NONE VTE Confirmed by (Test): NONE Severe Sepsis Severe Sepsis Present: No BC x2: Yes Lactic Acid x2: Yes IV ABX Broad Spectrum: No Septic Shock Septic Shock Present: No IV Vasopressors started: No Miscellaneous Documentation Attending Case Discussed With: GALA ALVARADO MD Primary Care Physician: TAMIKA JUAN MD Patient sees these Specialists ENT Level of Patient Care: Telemetry DOMINIK OLIVER 12/28/16 1644: General Information and HPI Allergies/Medications Home Med list Risperidone Microspheres (Risperdal Consta) 37.5 MG/2 ML SYRINGE 1 SYR IM Q2W SCHIZOPHRENIA (Reported) Resident Review Statement Resident Statement: discussed with internal combustion engine assembler Other Findings: He is 36-year-old man with past medical history of alcohol abuse with multiple detoxing past, history of alcohol withdrawal seizures, schizophrenia and paranoia risperidone injections every 2 weeks, alcoholic liver disease, alcoholic cardiomyopathy (stage II diastolic heart failure), history of aspiration pneumonia, hyponatremia secondary to psychogenic polydipsia/beer photopenia, electrolyte imbalance like hypokalemia and hypomagnesemia, also history of chronic anemia and thrombocytopenia was sent in to ER by PCP after finding out that his potassium is low, 2.6. When he presented in ER his temperature was 97.7, pulse 84, respiratory rate 18, blood pressure 118/71 and oxygen saturation 94% on room air. Patient did not want to stay in hospital and continuously asking to leave. He is poor historian. Patient reports lightheadedness yesterday. He also admits having poor appetite, vomiting, productive cough bringing up clear phlegm, constipation and finding out bright red blood on toilet paper this morning after wiping, urinary frequency, straining, incomplete bladder emptying, dark urine. He denies any headache, chest pain or discomfort, abdominal pain, leg swelling. He admits smoking 1 pack per day since age of 14. According to patient he drinks 4 short support, every day. Last drink was this morning. He also admits smoking marijuana. He lives with his mother but in a separate apartment that is connected with mother' s house. I also spoke with his mother who told me that he has been vomiting a lot, not able to keep anything down and drinking lot of liquids. She is also concerned about yellowness of his eyes. She told that patient has lost almost 30 pounds in 2 months. Patient saw his psychiatrist, Dr. Lewis at [facility] yesterday. Please note that he was at [place] in October for alcohol withdrawal seizures. He had endoscopy and colonoscopy 2 years ago that showed nonerosive gastritis and diverticulosis. Positive physical exam findings: Yellow conjunctiva, dry mucous membranes Pertinent labs: H&H 8.6/27.4, platelets 61, sodium 135, potassium 2.4, lactic acid 3.8, magnesium 1.5, total bilirubin 5.2, AST 263, alkaline phosphatase 189, lipase 434, INR 1.19. U tox is positive for cannabis. Serum alcohol 293. UA shows hazy urine with positive urine nitrite and leukocyte esterase. Urine WBC count is 50-75. EKG did not show any acute ST-T wave changes. QTC 480 Patient refused any diagnostic imaging including chest x-ray and CT scan. In ER he was given IV fluids, potassium was repleted with both IV and by mouth. He was also given Ativan 2 mg. Mg was also repleted. Assessment and plan He is 36-year-old man with above-mentioned past medical history is going to be admitted on general medicine floor. Problem list 1. Nausea, Vomiting and dehydration most likely secondary to intra-abdominal pathology either biliary or pancreatic 2. Electrolyte imbalance. Hypokalemia and hypomagnesemia 3. Hyponatremia most likely secondary to psychogenic polydipsia versus beer potomania 4. Alcohol abuse 5. Urinary tract infection 6. Elevated liver enzymes most likely secondary to alcohol abuse 7. Epistaxis. No active bleeding right now 8. History of chronic anemia 9. History of thrombocytopenia most likely secondary to myelosuppression because of alcohol abuse 10. Lactic acidosis 11. History of schizophrenia and paranoia We will repeat electrolytes and if potassium is persistently low then we can transfer patient on telemetry. Continue IV hydration. We will convince patient to do CTA chest, abdomen and pelvis. Follow blood and urine cultures. Will start patient on IV ceftriaxone and Flagyl for now. Will start patient on CIWA protocol, IV Ativan 2 mg every 6 hours scheduled and as needed IV Ativan per CIWA. Banana bag. Trend lactic acid. Repeat LFTs in a.m. For epistaxis we will consult ENT. We will also inform psych about patient's admission. Watch for any active bleeding. Will call GI for overt GI bleed. Type and crossmatch. Replete electrolytes as needed. Will keep patient nothing by mouth for now. Pain management pathway. Alps for DVT prophylaxis. Full code. MotherMerly is conservator. CHRISTIANO CARPENTER,[facility] 12/29/16 1229: Attending MD Review Statement Attending Statement Attending MD Statement: examined this patient, discuss w/resident/PA/CELL PHONE REPAIR TECHNICIAN, agreed w/resident/PA/CELL PHONE REPAIR TECHNICIAN, reviewed EMR data (avail), discussed with nursing, reviewed images, amended to note Attending Assessment/Plan: Also see my note.
--- NOTE | 2016-12-28 16:57 | NUR ---
PT AGREEABLE TO CAT SCAN AFTER DISCUSSION WITH HIGH TENSION TESTER. PT TO CAT SCAN VIA STRETCHER AT THIS TIME.
--- NOTE | 2016-12-28 17:07 | NUR ---
PT ASSIGNED ROOM 225.
--- NOTE | 2016-12-28 17:21 | NUR ---
CRITICAL TEST RESULTS [id number] GIOVANNA GARZA 36 M TESTS AND RESULTS: POTASSIUM 2.7 Results received and read back by: PATI SMITH Results received date and time: 12/28/16 1721 The following provider was notified of the results, and read the results back: MEHREEN DYE Notified date and time: 12/28/16 at 1722
--- NOTE | 2016-12-28 18:01 | NUR ---
KCL 20MEQ D5W INFUISNG PER ORDER AT 75ML/HR
--- NOTE | 2016-12-28 18:14 | CT SCAN REPORT ---
EXAMINATION: CT CHEST, ABDOMEN AND PELVIS WITH CONTRAST CLINICAL INFORMATION: Cough. Pneumonia. Vomiting. Gastroenteritis, pancreatitis. COMPARISON: Portions of an abdomen pelvis CT performed without IV contrast 06/13/15. TECHNIQUE: Multidetector CT of the chest, abdomen and pelvis. The patient received: Oral contrast: No Intravenous contrast: 95 mL Optiray 320 No contrast reaction reported Sagittal and coronal reformatted images were obtained on the technologist workstation. Total exam dose-length product 441 mGy-cm FINDINGS: Digital international travel consultant: There is no dense area of consolidation. Gas throughout the abdomen and pelvis to the region of rectum. Surgical clips right upper quadrant CHEST: LUNG: No abnormality the central airways. No suspicious mass or consolidation. No edema or groundglass disease. No honeycomb formation. There is equivocal trace thickening of the small airways. PLEURA: No pleural effusion or pneumothorax. MEDIASTINUM: There are no enlarged mediastinal or hilar lymph nodes. There is no pericardial fluid. There is a moderate hiatal hernia. The mid and distal esophageal wall is thickened. VASCULAR: There is no thoracic aortic aneurysm. CHEST WALL/AXILLA: No suspicious abnormality in the axilla or chest wall. ABDOMEN/PELVIS: LIVER, GALLBLADDER, AND BILIARY TREE: Heterogeneous low-attenuation throughout the liver. No suspicious focal liver lesion. Surgical clips in the expected region of the gallbladder. There is no biliary dilation. PANCREAS: No suspicious abnormality SPLEEN: Within normal limits ADRENAL GLANDS: Normal KIDNEYS AND URETERS: Homogeneous symmetric nephrograms. No suspicious mass. No renal calculus. There is no dilation of the urinary collecting system on either side. GASTROINTESTINAL TRACT: There is thickening of the sigmoid colon. There is stranding in the pericolonic fat. There are linear and irregular densities extending from the dome of the bladder and expected region of the uterus and sigmoid colon towards the region of the rectal remnant. This branching irregular pattern with a tiny focus of gas is suspicious for sinus tract/fistula. There is a tiny amount of gas within the urinary bladder. If there has been no instrumentation fistula suspected. There is poor definition of the dome of the bladder/cirrhosis interface with the colon. No abnormal appendix demonstrated. A normal appendix may extend into the midline of the pelvis near the sacral promontory. No significant small bowel dilation. No definite abnormality the stomach. As described there is a hiatal hernia. ABDOMINAL WALL: Small amount of fat protrudes into the left inguinal canal. LYMPHOVASCULAR STRUCTURES AND FLUID: There is no abdominal aortic aneurysm. The portal vein enhances. There are no measurably enlarged abdominal or pelvic lymph nodes. There is a nonspecific mesenteric lymph node in the midline. No drainable fluid collection. BLADDER: As described there is abnormal density and poor definition in the dome of the bladder extending toward the urachal remnant. There is gas present. There is poor definition of the surrounding tissue planes and there may be a fistula. PELVIC VISCERA: No definite abnormality. MUSCULOSKELETAL: No focal bony lesion IMPRESSION: No pneumonia or edema. Hiatal hernia. Thickening of the distal colon with angular and reticular opacities extending toward the dome of the bladder which is irregular and contains a small amount of gas. In the absence of instrumentation the pattern suggest the presence of colovesical fistula. This could be related to diverticulitis. Some clinical correlation is necessary.
[2016-12-28 18:16] VITALS: BP 115/59
--- NOTE | 2016-12-28 18:52 | NUR ---
CRITICAL TEST RESULTS [id number] GIOVANNA GARZA 36 M TESTS AND RESULTS: LACTIC 3.0 Results received and read back by: PATI SMITH Results received date and time: 12/28/161851 The following provider was notified of the results, and read the results back: ADMINISTRATIVE TECH MARNIE Notified date and time: 12/28/16 at 1856
--- NOTE | 2016-12-28 19:40 | NUR ---
REPORT GIVEN TO YAHAIRA CERVANTES PAGED AT 033 REGARDING MAINTENENCE FLUIDS AND BANANA BAG.
--- NOTE | 2016-12-28 20:17 | NUR ---
PER PROGRAM CONTROL ANALYST ISMAIL RUN BANANA BAG PER EMAR AND HOLD D5W 1/2 NS WITH 20 MEQ K AT 75ML/HR AND NS AT 100ML/HR UNTIL ORDERS ARE UPDATED AFTER EVALUATION OF ORDERS. DISTRIBUTION BOOKED AT THIS TIME.
[2016-12-28 20:38] VITALS: BP 122/68
[2016-12-28 20:58] VITALS: BP 122/64
[2016-12-28 22:53] LABS: ABSOLUTE BASOPHIL COUNT 0 /CUMM (0.0-0.2); ABSOLUTE EOSINOPHIL COUNT 0 /CUMM (0.0-0.7); ABSOLUTE LYMPH COUNT 0.6 /CUMM (1.2-3.4); ABSOLUTE MONOCYTE COUNT 0.3 /CUMM (0.10-0.60); BASOPHIL % 0 % (0.0-2.0); EOSINOPHIL % 0.5 % (0-5); GRANULOCYTE % 81.9 % (42.2-75.2); MEAN CORPUSCULAR HGB 26.9 PG (27.0-31.0); MEAN CORPUSCULAR HGB CONC 31.2 G/DL (33.0-37.0); MEAN CORPUSCULAR VOLUME 86.3 FL (80.0-94.0); MEAN PLATELET VOLUME 8.5 FL (7.4-10.4); RBC DISTRIBUTION WIDTH 21.5 % (11.5-14.5); RED BLOOD CELL CT 2.59 /CUMM (4.70-6.10); WHITE BLOOD CELL COUNT 4.9 /CUMM (4.8-10.8)
[2016-12-28 22:57] LABS: HEMATOCRIT 22.4 % (42-52)
[2016-12-28 22:58] LABS: PLATELET COUNT 49 /CUMM (130-400)
--- NOTE | 2016-12-28 23:27 | Event Note ---
Event Note Event Note: Patient noted to drop his H&H with hgb of 7. His mother was called to obtain consent for blood transfusion and she aggreed to any intervention needed, including blood transfusion. This was witnessed by Dr. Cesar MD. Patient is to receive 2 U along with both KCL and Mag boluses due to hypokalemia/ hypomagnesemia. Due to acute blood loss anemia, history of blood in stool and imaging findings suggestive of colovesical fistula, we have consulted GI. I have discussed patient with Dr. Vaca who suggested monitoring patient closely, watch for further bleeding and transfuse patient as needed. He will see patient in AM. Discussed case with Dr. Allred who suggested obtaining surgical consult for AM. Surgical consult placed for AM with Dr. Sydney DO due to possible colovesicle fistula. Will make surgical PA aware. AM team to be made aware of overnight events.
[2016-12-29] VITALS (9 sets, daily range): BP systolic 90–118; BP diastolic 50–80
--- NOTE | 2016-12-29 02:10 | NUR ---
UPON ASSESSMENT PT'S 02 SAT 84% ON RA. PT DENIES FEELING SOB NO VISIBLE DISTRESS NOTED. WHEEZING HEARD THROUGHOUT, PT REFUSING CXR AT THIS TIME. PT WAS STARTED ON 3L NC, 02 SAT NOW 97%. MARY HOWARD MD AWARE. WILL CONTINE TO MONITOR.
--- NOTE | 2016-12-29 08:16 | PN- Housestaff ---
ANGELA CARPENTER,FRANK 12/29/16 0815: Subjective Follow-up For: Hypokalemia Hypomagnesemia Alcoholic hepatitis UTI Anemia secondary to GI bleed, epistaxis, thrombocytopenia Chronic diarrhea Complaints: no complaints, want to go home Tele-Events Since Last Visit: Know sinus rhythm, heart rate between 90 -100, no any overnight events Subjective: Patient is seen and examined at the bedside. He was oriented to time, place and person. He was following on verbal command. There were tremors in his hands. His sclera is anicteric. He denies of any nausea, vomiting, palpitation, abdominal pain, diarrhea, bleeding per rectum. Review of Systems Constitutional: Reports: weakness. Cardiovascular: Denies: chest pain, edema, orthopena, palpitations. Respiratory: Denies: cough, hemoptysis, orthopnea, short of breath. Gastrointestinal: Denies: abdominal pain, bloating, constipation, diarrhea, distention. Genitourinary: Denies: discharge, dysuria, frequency, hematuria, hesitation. Musculoskeletal: Denies: back pain, gout, joint pain, joint swelling. Skin: Reports: change in skin color. Neurological/Psychological: Reports: anxiety. Objective Last 24 Hrs of Vital Signs/I&O Vital Signs Date Time Temp Pulse Resp B/P Pulse O2 O2 Flow FiO2 Ox Delivery Rate 12/29 1800 100.0 102 18 116/80 12/29 1607 100.0 102 18 116/80 92 Room Air 12/29 1600 100.0 102 18 116/80 12/29 1200 99.9 102 18 118/64 12/29 1000 99.8 102 18 118/64 12/29 0815 99.0 114 18 110/60 93 Room Air 12/29 0800 99.0 114 18 110/60 12/29 0800 93 Room Air 12/29 0230 99.8 12/29 0134 99.6 12/29 0000 Room Air 12/28 2058 100.0 112 18 122/64 93 Room Air Intake & Output 12/29 1600 12/29 0800 12/29 0000 Intake Total 1307.5 2350 250 Output Total 875 1550 300 Balance 432.5 800 -50 Intake, Blood 250 Product Intake, IV 937.5 2350 250 Intake, Oral 120 0 Number 2 Bowel Movements Output, Urine 875 1550 300 Physical Exam General Appearance: Alert, Oriented X3, Cooperative, No Acute Distress Skin: palor HEENT: Atraumatic, PERRLA, EOMI, icterus in sclera Neck: No JVD Cardiovascular: Normal S1, Normal S2 Lungs: Clear to Auscultation, Normal Air Movement Abdomen: Soft, No Tenderness Neurological: Normal Speech, tremors, ? asterexis Extremities: No Clubbing, No Cyanosis, No Edema Vascular: Normal Pulses Current Medications: Current Medications Sig/Olivia Start time Last Medication Dose Route Stop Time Status Admin Acetaminophen 650 MG Q6P PRN 12/28 2345 AC 12/29 PO 0134 Calcium Gluconate 1 GM ONCE ONE 12/29 0800 DC 12/29 Sodium Chloride 100 ML IV 12/29 0859 1036 Ceftriaxone Sodium 1,000 MG DAILY 12/28 1642 AC 12/29 IV 0931 Cyanocobalamin/ 1 BAG DAILY 12/28 1611 AC 12/29 Thiamine/Pyridoxine IV 0931 Dextrose/Water 1,000 ML Lorazepam 0.5 MG ONCE 01/02 0000 DC PO 01/02 0001 Lorazepam 0.5 MG Q6H 01/01 0000 DC PO 01/01 1801 Lorazepam 0.5 MG ONCE ONE 12/31 1800 DC PO 12/31 1801 Lorazepam 1 MG Q6H 12/31 0000 DC PO 12/31 1201 Lorazepam 1.5 MG Q12H 12/30 0600 DC PO 12/30 1801 Lorazepam 1 MG Q12H 12/30 0000 DC PO 12/30 1201 Lorazepam 2 MG Q6 12/28 1800 AC 12/29 IV 1752 Lorazepam 0 Q1P PRN 12/28 1615 AC 12/29 IV 1406 Magnesium Sulfate 1 GM Q2H 12/28 2330 DC 12/29 Dextrose/Water 100 ML IV 12/29 0329 0220 Magnesium Sulfate 1 GM ONCE ONE 12/28 1715 DC 12/28 Dextrose/Water 100 ML IV 12/28 2114 1944 Metronidazole 500 MG Q8H 12/29 0600 AC 12/29 N/A 1 UNIT IV 1322 Metronidazole 500 MG Q8H 12/29 0300 DC N/A 1 UNIT IV Metronidazole 500 MG IQ8 12/28 1645 DC 12/28 N/A 1 UNIT IV 1846 Nicotine 7 MG DAILY 12/28 2153 AC 12/29 TOP 0931 Omeprazole 40 MG BID 12/29 2200 AC PO Patient Medication 1 ED ONE ONE 12/29 1145 DC Teaching ED 12/29 1146 Potassium Chloride 40 MEQ ONCE ONE 12/29 2014 DC PO 12/30 2015 Potassium Chloride 20 MEQ ONCE ONE 12/29 2014 DC PO 12/30 2015 Potassium Chloride 20 MEQ ONCE ONE 12/29 171 DC 12/29 PO 12/29 171 1753 Potassium Chloride 10 MEQ Q1H 12/28 2330 DC 12/29 IV 12/29 0131 0456 Potassium Chloride 20 MEQ Q10H 12/28 2030 DC 12/28 Sodium Chloride 1,000 ML IV 12/29 162 2227 Potassium Chloride 20 MEQ Q13H 12/28 1800 DC 12/28 Dextrose/Sodium 1,000 ML IV 12/29 1959 1801 Chloride Risperidone 1 MG Q8P PRN 12/29 161 AC PO Trimethobenzamide HCl 200 MG 4 TIMES/DAY PRN 12/28 161 AC IM Last 24 Hrs of Lab/Guru Results Last 24 Hrs of Labs/Mics: Laboratory Tests 12/29/16 1805: Anion Gap 7, Estimated GFR > 60, BUN/Creatinine Ratio 3.3 L, CBC w Diff NO MAN DIFF REQ, RBC 3.29 L, MCV 87.4, MCH 28.0, RDW 19.4 H, MPV 8.6, Gran % 86.6 H, Lymphocytes % 6.4 L, Monocytes % 5.8, Eosinophils % 0.9, Basophils % 0.3, Absolute Granulocytes 5.7, Absolute Lymphocytes 0.4 L, Absolute Monocytes 0.4, Absolute Eosinophils 0.1, Absolute Basophils 0, PUBS MCHC 32.1 L 12/29/16 1110: Anion Gap 8, Estimated GFR > 60, BUN/Creatinine Ratio 5.0 L, CBC w Diff NO MAN DIFF REQ, RBC 3.34 L, MCV 87.4, MCH 28.0, RDW 19.3 H, MPV 9.1, Gran % 88.3 H, Lymphocytes % 5.0 L, Monocytes % 5.5, Eosinophils % 0.4, Basophils % 0.8, Absolute Granulocytes 5.7, Absolute Lymphocytes 0.3 L, Absolute Monocytes 0.4, Absolute Eosinophils 0, Absolute Basophils 0.1, PUBS MCHC 32.0 L 12/29/16 1036: CBC w Diff Cancelled, WBC Cancelled, RBC Cancelled, Hgb Cancelled, Hct Cancelled , MCV Cancelled, MCH Cancelled, RDW Cancelled, Plt Count Cancelled, MPV Cancelled, PUBS MCHC Cancelled 12/29/16 1019: Haptoglobin Pending 12/29/16 0628: Anion Gap 5, Estimated GFR > 60, BUN/Creatinine Ratio 5.0 L, Magnesium 1.9, Iron 199 H, TIBC 352, % Saturation 56 H, Ferritin 24.5, Total Bilirubin 7.1 H , Direct Bilirubin 4.9 H, AST 205 H, ALT 52, Alkaline Phosphatase 161 H, Total Protein 6.3, Albumin 2.6 L, PT 13.2 H, INR 1.26 H 12/29/16 0130: Lactic Acid 1.4 12/28/16 2200: Anion Gap 11, Estimated GFR > 60, BUN/Creatinine Ratio 6.7 L, Lactic Acid 2.5 H, Magnesium 1.4 L, CBC w Diff NO MAN DIFF REQ, RBC 2.59 L, MCV 86.3, MCH 26.9 L, RDW 21.5 H, MPV 8.5, Gran % 81.9 H, Lymphocytes % 11.6 L, Monocytes % 6.0 , Eosinophils % 0.5, Basophils % 0 L, Absolute Granulocytes 4.0, Absolute Lymphocytes 0.6 L, Absolute Monocytes 0.3, Absolute Eosinophils 0, Absolute Basophils 0, PUBS MCHC 31.2 L 12/28/16 2100: Magnesium Cancelled Assessment/Plan Assessment: Problem list - Hypokalemia Hypomagnesemia Alcoholic hepatitis Stage II alcoholic cardiomyopathy Anemia secondary to GI bleed, epistaxis, thrombocytopenia Chronic diarrhea Colovesical fistula Multiple substance abuse- marijuana Chronic smoker-1PPD History of hemorrhoids Nonerosive gastritis (endoscopy GERD Hiatal hernia History of upper GI bleed Diverticulosis(colonoscopy History of aspiration pneumonia Schizophrenia Psychogenic polydipsia History of cholecystectomy Hyperkalemia/ Hypomagnesemia - * We will supplement it. * it is K-3.1 today * Advised to give 20meq BID PO Anemia secondary to GI bleed * According to Dr. Antonio patient recently had endoscopy and does not require it now * He advised to continue regular diet * Watch for bleeding * If patient bleed acutely and become hemodynamically unstable than call GI immediately Colovesical fistula - * According to Dr. Antonio. Patient has colovesical fistula since couple of years and according to him. It does not require any repair. * Although patient is complaining of frequency, dysuria and dark urine * We will discuss tomorrow and plan is to place urological consult * we will continue ceftriaxone and metronidazole Chronic alcoholism * Patient is still drinking 2 Vodka daily * We will continue banana bag/thiamine/multivitamin * Regularly watch for withdrawal symptoms including tremors, tachycardia, diarrhea * Ativan according to [facility] protocol * Strict intake output charting * we will follow psyche recommendation Epistaxis - * Patient denies any active bleeding today * We will watch for any signs of bleeding * We will follow ENT recommendations Schizophrenia * Patient does not understand his medical condition and does not have capacity to make the decision according to psychiatrist. * His mother, Omayra is his conservator * He may not leave AMA * The next resperidon Consta 37.5 mg IM every 2 weeks injection is due on January 09, 2017. * We added tablet risperidone 1 milligram every 8 hourly as needed for agitation and injection haloperidol 2 milligrams IM for severe aggression * We will watch for QTC * we will follow psyche rcms Diet-regular diet DVT prophylaxis- early ambulation, avoid haprine CODE STATUS-full code Problem List: 1. Psychogenic polydipsia 2. Hypokalemia 3. ALCOHOL WITHDRAWAL 4. Schizophrenia 5. Anemia 6. Schizophrenia Pain Ratin Pain Location: upper abd Pain Goal: Remain pain free Pain Plan: mild, avoid sedatives Tomorrow's Labs & Rationales: cbc - f/u anemia and GI bleed BEP - f/u hypokalemia Magnesium - Hypomagnesemia DVT/Prophylaxis: SHAWN Hererra MD 12/29/16 1241: Attending MD Review Statement Attending Statement Attending MD Statement: examined this patient, discuss w/resident/PA/[employer] [place], agreed w/resident/PA/[employer] [place], reviewed EMR data (avail) Attending Assessment/Plan: 36M PMH EtOH abuse admitted for acute pancreatitis, alcoholic hepatitis, hypokalemia, and alcohol withdrawal. Patient is confused today and appears tremulous. Hemodynamically stable. Potassium was 2.4 yesterday, received supplementation, now 6.2 today. EKG NSR with no acute changes. Also with rectal bleeding and melena, with drop of Hgb overnight. CT abdomen reads as possible colovesicular fistula. Plan - Continue on telemetry - Recheck potassium - Transfuse if Hgb <7 - GI and surgery consults - Ativan per CIWA - Continue Ceftriaxone and Flagyl for now for possible fistula - Continue IV fluids - DVT PPx
--- NOTE | 2016-12-29 08:21 | Cons- Gastroenterology ---
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 He also indicates occasional BRBPR but does have a history of hemorrhoids, reports history of epistaxis every 3-5 days that resolved within 10 minutes. Previous GI workup: Laparoscopic Partial cholecystectomy (02/06/2013): pathology revealing acute hemorrhagic necrotizing cholecystitis with benign adhesed liver tissue Colonoscopy 01/17/2014) with findings consistent with left-sided diverticulosis/ no evidence of IBD EGD (06/17/2015) findings LA grade D reflux esophagitis status post biopsies. 4 cm hiatal hernia without Vasiliy erosions. Grossly normal small bowel and gastric mucosa s/p random biopsies. H. pylori negative, biopsies at GE junction showed focal goblet cell metaplasia, unremarkable squamous mucosa. EGD (02/15/2016): 1+ nonerosive distal GERD, with minimally irregular Z line at 33 cm. No ectopic islands or gross Jarquin's esophagus seen. 5 cm hiatal hernia pouch, from 33-38 cm. No active upper GI bleeding seen. No evidence of peptic ulcer disease, Lor-Castillo tear, varices, or portal gastropathy. VS on admission: BP 118/71, HR 84, RR 18, SPO2 94% on RA: T 97.7 Physical exam findings on admission: AAO 3, no acute distress. Dried blood around his nostrils. RRR, normal S1/S2. Lungs CTA BL. Normal bowel sounds with no tenderness to palpation. Pertinent labs on admission: H&H 8.6/27.4, platelets 61K, sodium 135, potassium 2.4, chloride 85, bicarbonate 33, BUN/CR 5/0.7 Lactic acid 3.8, glucose 117, calcium 8.1, albumin 3.5, bilirubin 5.2, direct bilirubin 3.9, AST/ALT 263/189, amylase 90, lipase 434, INR 1.19 UA: Hazy, trace protein, positive nitrites, urine bilirubin positive, urobilinogen > 8.0, moderate leukocyte esterase, 50-75 WBCs, many bacteria He is currently being managed for worsening anemia, thrombocytopenia, hypokalemia, hypomagnesemia, hyponatremia, elevated lactic acid, transaminitis, elevated bilirubin/alkaline phosphatase. Mr Woo endorses occasional nosebleeds over the past month, every 1-2 days lasting a few minutes. He also reports occasional bleeding from the piercing on his left ear during this time. He denies any N/V abdominal pain associated with eating, bloody or dark stools. He however does report malodorous stools over the pat 2 days and dizziness that coincides with having a BM. Allergies/Medications Allergies: Coded Allergies: shrimp (BLACKED OUT PER PT 01/22/16) Home Med List: Risperidone Microspheres (Risperdal Consta) 37.5 MG/2 ML SYRINGE 1 SYR IM Q2W SCHIZOPHRENIA (Reported) Past History Travel History Traveled to [place] past 21 day No Medical History Neurological: seizure (during alcohol detox) EENT: NONE Cardiovascular: alcoholic cardiomyopathy stage II Respiratory: history of aspiration pneumonia Gastrointestinal: alcoholic hepatitis, GERD, hiatal hernia, upper GI bleed Renal: NONE Musculoskeletal: NONE Psychiatric: alcohol dependence, anxiety, depression, substance abuse, SCHIZOPHRENIA alcohol abuse Endocrine: psychogenic polydipsia HYPOKALEMIA, HYPOMAGNESEMIA, HYPONATREMIA hypoK+, hypoNa, hypoMg hx hyponatremia hx hypokalemia Blood Disorders: anemia, coagulopathy (intermittent), thrombocytopenia ( intermittent) Cancer(s): NONE WOOL PULLER/Reproductive: N/A Other Medical Hx: Hypokalemia and hypomagnesemia Surgical History Surgical History: cholecystectomy Family History Relations & Conditions If Any: FATHER, , Age 27; Cause: Heroin overdose. MOTHER (diabetic). Age 60+. SISTER (healthy). Psychosocial History Where Do You Live? Home Who Do You Live With? spouse (mother), parent Services at Home: Nursing Primary Language: Occitan Smoking Status: Current Everyday Smoker ETOH Use: heavy use Illicit Drug Use: marijuana Living Will? no Power of Food Selector/HCP? yes Name of POA/HCP: Pt's mother, Merly Woo [phone] Functional Ability ADLs Independent: dressing, eating, toileting, bathing. Ambulation: independent IADLs Needs Assist: shopping, housework, finances, food prep, telephone, transportation, medication admin. Review of Systems Review of Systems Constitutional: Reports: see HPI. EENTM: Reports: see HPI. Cardiovascular: Reports: no symptoms. Respiratory: Reports: cough. GI: Reports: see HPI. Musculoskeletal: Reports: no symptoms. Hematologic/Endocrine: Reports: see HPI. Exam & Diagnostic Data Vital Signs and I&O Vital Signs Date Time Temp Pulse Resp B/P Pulse O2 O2 Flow FiO2 Ox Delivery Rate 12/29 0815 99.0 114 18 110/60 93 Room Air 12/29 0800 99.0 114 18 110/60 12/29 0800 93 Room Air 12/29 0230 99.8 12/29 0134 99.6 12/29 0000 Room Air 12/28 2057 100.0 112 18 122/64 93 Room Air 12/28 2037 97.8 103 18 122/68 12/28 2036 97.9 103 18 122/68 95 Room Air Room Air 12/28 1816 97.4 98 18 115/59 12/28 1739 18 95 Nasal 2.0L Cannula 12/28 1715 97.4 98 18 115/59 89 12/28 1614 97.5 98 18 122/78 12/28 1352 97.8 93 18 102/62 12/28 1351 97.8 93 18 102/62 94 Room Air 12/28 1254 97.4 71 20 95/57 96 Room Air 12/28 1226 94 12/28 1114 97.7 84 18 118/71 94 Room Air Intake & Output 12/29 1600 12/29 0400 12/28 1600 12/28 0400 12/27 1600 12/27 0400 Intake Total 2350 250 1500 Output Total 1550 300 350 Balance 800 -50 1150 Intake, IV 2350 250 1100 Intake, Oral 0 400 Output, Urine 1550 300 350 Patient 165 lb Weight Physical Exam General Appearance: no apparent distress, alert, awake, comfortable Head: normal appearance Eyes: Bilateral: EOMI, other (SCleral icterus present). Ears, Nose, Throat: hearing grossly normal Respiratory: normal breath sounds, Mild expiratory stridor Cardiovascular: regular rate/rhythm, normal peripheral pulses Gastrointestinal: normal bowel sounds, soft, non-tender Extremities: normal range of motion, no edema Results Pertinent Lab Results: Laboratory Tests 12/29 12/29 12/28 0628 0130 2200 Chemistry Sodium (137 - 145 mmol/L) 126 L 127 L Potassium (3.5 - 5.1 mmol/L) 6.2 *H 2.9 *L Chloride (98 - 107 mmol/L) 95 L 90 L Carbon Dioxide (22 - 30 mmol/L) 26 26 Anion Gap (5 - 16) 5 11 BUN (9 - 20 mg/dL) 3 L 4 L Creatinine (0.7 - 1.2 mg/dL) 0.6 L 0.6 L Estimated GFR (>60 ml/min) > 60 > 60 BUN/Creatinine Ratio (7 - 25 %) 5.0 L 6.7 L Lactic Acid (0.7 - 2.1 mmol/L) 1.4 2.5 H Magnesium (1.6 - 2.3 mg/dL) 1.9 1.4 L Total Bilirubin (0.2 - 1.3 mg/dL) 7.1 H Direct Bilirubin (< 0.4 mg/dL) 4.9 H AST (17 - 59 U/L) 205 H ALT (21 - 72 U/L) 52 Alkaline Phosphatase (< 127 U/L) 161 H Total Protein (6.3 - 8.2 g/dL) 6.3 Albumin (3.5 - 5.0 g/dL) 2.6 L Coagulation PT (9.4 - 12.5 SEC) 13.2 H INR (0.90 - 1.17) 1.26 H Hematology CBC w Diff NO MAN DIFF REQ WBC (4.8 - 10.8 /CUMM) 4.9 RBC (4.70 - 6.10 /CUMM) 2.59 L Hgb (14.0 - 18.0 G/DL) 7.0 *L Hct (42 - 52 %) 22.4 L MCV (80.0 - 94.0 FL) 86.3 MCH (27.0 - 31.0 PG) 26.9 L RDW (11.5 - 14.5 %) 21.5 H Plt Count (130 - 400 /CUMM) 49 L MPV (7.4 - 10.4 FL) 8.5 Gran % (42.2 - 75.2 %) 81.9 H Lymphocytes % (20.5 - 51.1 %) 11.6 L Monocytes % (1.7 - 9.3 %) 6.0 Eosinophils % (0 - 5 %) 0.5 Basophils % (0.0 - 2.0 %) 0 L Absolute Granulocytes (1.4 - 6.5 /CUMM) 4.0 Absolute Lymphocytes (1.2 - 3.4 /CUMM) 0.6 L Absolute Monocytes (0.10 - 0.60 /CUMM) 0.3 Absolute Eosinophils (0.0 - 0.7 /CUMM) 0 Absolute Basophils (0.0 - 0.2 /CUMM) 0 PUBS MCHC (33.0 - 37.0 G/DL) 31.2 L 12/28 12/28 12/28 12/28 12/28 2100 1825 1622 1554 1436 Chemistry Sodium (137 - 145 mmol/L) 130 L Cancelled Potassium (3.5 - 5.1 mmol/L) 2.7 *L Cancelled Chloride (98 - 107 mmol/L) 88 L Cancelled Carbon Dioxide (22 - 30 mmol/L) 30 Cancelled Anion Gap (5 - 16) 12 Cancelled BUN (9 - 20 mg/dL) 4 L Cancelled Creatinine (0.7 - 1.2 mg/dL) 0.6 L Cancelled Estimated GFR (>60 ml/min) > 60 BUN/Creatinine Ratio (7 - 25 %) 6.7 L Cancelled Glucose Cancelled Lactic Acid (0.7 - 2.1 mmol/L) 3.0 H 3.4 H Calcium Cancelled Magnesium (1.6 - 2.3 mg/dL) Cancelled 1.2 L 12/28 12/28 1300 1212 Chemistry Magnesium (1.6 - 2.3 mg/dL) 1.5 L Total Bilirubin (0.2 - 1.3 mg/dL) 5.3 H Direct Bilirubin (< 0.4 mg/dL) 4.0 H AST (17 - 59 U/L) 265 H ALT (21 - 72 U/L) 66 Alkaline Phosphatase (< 127 U/L) 194 H Total Protein (6.3 - 8.2 g/dL) 7.8 Albumin (3.5 - 5.0 g/dL) 3.6 Toxicology Urine Opiates Screen (>2000 NG/ML) < 100.00 Methadone Screen (>300 NG/ML) < 40 Barbiturate Screen (>200 NG/ML) < 60 Ur Phencyclidine Scrn (>25 NG/ML) < 6.00 Amphetamines Screen (>1000 NG/ML) < 100 U Benzodiazepines Scrn (>200 NG/ML) < 85 Urine Cocaine Screen (>300 NG/ML) < 50 Urine Cannabis Screen (>50 NG/ML) > 80.00 H Urines Urine Color (YEL,AMB,STR) SHANEKA Urine Clarity (CLEAR) HAZY H Urine pH (5.0 - 8.0) 7.5 Ur Specific [place] (1.001 - 1.035) 1.015 Urine Protein (NEG,<30 MG/DL) TRACE H Urine Ketones (NEG) NEG Urine Nitrite (NEG) POS H Urine Bilirubin (NEG) POS@ICTO H Urine Urobilinogen (0.1 - 1.0 EU/dl) >=8.0 H Ur Leukocyte Esterase (NEG) MOD H Ur Microscopic SEDIMENT EXAMINED Urine RBC (0 - 5 /HPF) RARE Urine WBC (0 - 2 /HPF) 50-75 H Urine Bacteria (NEG/NONE) MANY H Urine Hemoglobin (NEG) TRACE-INTACT H Urine Glucose (N MG/DL) 100 H 12/28 1157 Chemistry Sodium (137 - 145 mmol/L) 135 L Potassium (3.5 - 5.1 mmol/L) 2.4 *L Chloride (98 - 107 mmol/L) 85 L Carbon Dioxide (22 - 30 mmol/L) 33 H Anion Gap (5 - 16) 17 H BUN (9 - 20 mg/dL) 5 L Creatinine (0.7 - 1.2 mg/dL) 0.7 Estimated GFR (>60 ml/min) > 60 BUN/Creatinine Ratio (7 - 25 %) 7.1 Glucose (65 - 99 mg/dL) 117 H Lactic Acid (0.7 - 2.1 mmol/L) 3.8 H Calcium (8.4 - 10.2 mg/dL) 8.1 L Total Bilirubin (0.2 - 1.3 mg/dL) 5.2 H Direct Bilirubin (< 0.4 mg/dL) 3.9 H AST (17 - 59 U/L) 263 H ALT (21 - 72 U/L) 60 Alkaline Phosphatase (< 127 U/L) 189 H Troponin I (<0.11 ng/ml) < 0.01 Total Protein (6.3 - 8.2 g/dL) 7.7 Albumin (3.5 - 5.0 g/dL) 3.5 Globulin (1.9 - 4.2 gm/dL) 4.2 Albumin/Globulin Ratio (1.1 - 2.2 %) 0.8 L Amylase (30 - 110 U/L) 90 Lipase (23 - 300 U/L) 434 H Coagulation PT (9.4 - 12.5 SEC) 12.5 INR (0.90 - 1.17) 1.19 H APTT (25 - 37 SEC) 30 Hematology CBC w Diff MAN DIFF ORDERED WBC (4.8 - 10.8 /CUMM) 5.8 RBC (4.70 - 6.10 /CUMM) 3.18 L Hgb (14.0 - 18.0 G/DL) 8.6 L Hct (42 - 52 %) 27.4 L MCV (80.0 - 94.0 FL) 86.3 MCH (27.0 - 31.0 PG) 27.2 RDW (11.5 - 14.5 %) 21.1 H Plt Count (130 - 400 /CUMM) 61 L MPV (7.4 - 10.4 FL) 8.0 Gran % (42.2 - 75.2 %) 79.8 H Lymphocytes % (20.5 - 51.1 %) 9.6 L Monocytes % (1.7 - 9.3 %) 9.6 H Eosinophils % (0 - 5 %) 1.0 Basophils % (0.0 - 2.0 %) 0 L Absolute Granulocytes (1.4 - 6.5 /CUMM) 4.6 Absolute Lymphocytes (1.2 - 3.4 /CUMM) 0.6 L Absolute Monocytes (0.10 - 0.60 /CUMM) 0.6 Absolute Eosinophils (0.0 - 0.7 /CUMM) 0.1 Absolute Basophils (0.0 - 0.2 /CUMM) 0 Platelet Estimate (ADEQUATE) DECREASED Polychromasia 1+ Hypochromic-Microcytic 1+ Poikilocytosis FEW Anisocytosis 1+ PUBS MCHC (33.0 - 37.0 G/DL) 31.5 L Toxicology Serum Alcohol (<10 MG/DL) 293.0 Assessment/Plan Assessment/Recommendations: 36-year-old gentleman with a PMH of stage II diastolic dysfunction, paranoid schizophrenia, aspiration pneumonia, GERD, multifactorial anemia, colocolonic/ colovesicular fistula on CT in 2013, cholecystitis s/p cholecystectomy in 2012, multiple admissions to [facility] associated with EtOH dependence w/ withdrawal seizures, marijuana use, daily tobacco use at 1 PPD, hyponatremia secondary to beer potomania/polydipsia, hypokalemia and hypomagnesemia who is currently admitted for worsening anemia, thrombocytopenia, hypokalemia, hypomagnesemia, hyponatremia, elevated lactic acid, transaminitis, elevated bilirubin/alkaline phosphatase. CT abdomen pelvis: Thickening of the distal colon with angular and reticular opac the absence of instrumentation the pattern suggest theities extending toward the dome of the bladder which is irregular and contains a small amount of gas. In presence of colovesical fistula. This could be related to diverticulitis. Some clinical correlation is necessary. Problem list: 1. Iron deficiency anemia 2. Elevated bilirubin 3. Transaminitis 4. Elevated lipase 5. Elevated INR 6. Hypokalemia/hyponatremia/Hypomagnesemia Recommendations: 1. Iron deficiency anemia/thrombocytopenia/levated bilirubin * Evidence of iron deficiency/low ferritin in May 2016. Follow-up iron studies on admission sample collected prior to transfusion. Supplement with ferrous sulfate 325mg PO BID if persistently low * In the absence of elevated BUN and previous EGD reports as indicated upper GI bleed less likely at this time. However, in the setting of possible underlying malnutrition 2/2 chronic EtOH use, BUN may not correlate appropriately. Patient may benefit from repeat EGD * Bone marrow suppression in the setting of chronic alcohol use could also be playing a part in anemia/thrombocytopenia * Persistent elevation in direct and total bilirubin. Could be secondary to hemolysis. Obtain workup for hemolysis: LDH, haptoglobin, reticulocyte count. Low-grade temperature with MAXIMUM TEMPERATURE of 100.0. Patient is s/p laparoscopic cholecystectomy but could potentially have developed bile duct stones/sludge/choledocholithiasis. Consider RUQ ultrasound to assess for biliary duct dilation that could explain the elevated bilirubin * CT findings of thickened distal colon may represent diverticulitis/colitis. Guaic stools and if overt BRBPR obtain colorectal/surgical consult 2. Transaminitis * Likely secondary to alcohol hepatitis * Maddreys discriminant function: 12.6. No utility for steroid use * Follow LFTs still normalization, CIWA per protocol, thiamine/folate supplementation 3. Elevated lipase (434) * Negative abdominal pain, CT findings. DDX of pancreatitis unlikely at this time 4. Elevated INR (1.26) * Likely secondary to chronic EtOH use. Continue to monitor 5. Hypokalemia/hyponatremia/Hypomagnesemia * Daily supplementation and follow-up labs Problem List: 1. Iron deficiency anemia 2. Elevated bilirubin 3. Abnormal LFTs 4. Thrombocytopenia 5. Hyponatremia 6. Hypokalemia 7. Hypophosphatemia Consult Acknowledgment - Thank you for your consult request. HARRIET CARPENTER,ALLIE 12/29/16 1534: General Information and HPI Consulting Request Reason for Consult: Abnormal ct scan showing colovesicular fistula, anemia and incrased LFTs. Allergies/Medications Current Medications: Current Medications Sig/Olivia Start time Last Medication Dose Route Stop Time Status Admin Acetaminophen 650 MG Q6P PRN 12/28 2345 AC 12/29 PO 0134 Calcium Gluconate 1 GM ONCE ONE 12/29 0800 DC 12/29 Sodium Chloride 100 ML IV 12/29 0859 1036 Ceftriaxone Sodium 0 .STK-MED ONE 12/28 1737 DC .ROUTE Ceftriaxone Sodium 1,000 MG DAILY 12/28 1642 AC 12/29 IV 0931 Cyanocobalamin/ 1 BAG DAILY 12/28 1611 AC 12/29 Thiamine/Pyridoxine IV 0931 Dextrose/Water 1,000 ML Folic Acid 1 MG DAILY 12/28 1343 DC 12/28 PO 12/30 1001 1351 Lorazepam 0.5 MG ONCE 01/02 0000 DC PO 01/02 0001 Lorazepam 0.5 MG Q6H 01/01 0000 DC PO 01/01 1801 Lorazepam 0.5 MG ONCE ONE 12/31 1800 DC PO 12/31 1801 Lorazepam 1 MG Q6H 12/31 0000 DC PO 12/31 1201 Lorazepam 1.5 MG Q12H 12/30 0600 DC PO 12/30 1801 Lorazepam 1 MG Q12H 12/30 0000 DC PO 12/30 1201 Lorazepam 1.5 MG Q6 12/29 0600 CAN PO 12/29 1801 Lorazepam 2 MG Q6 12/28 1800 AC 12/29 IV 1245 Lorazepam 0 Q1P PRN 12/28 1615 AC 12/29 IV 1406 Lorazepam 2 MG Q2P PRN 12/28 1345 DC PO Lorazepam 1 MG Q2P PRN 12/28 1345 DC PO Lorazepam 2 MG Q6 12/28 1343 DC 12/28 PO 12/29 0001 1351 Magnesium Sulfate 1 GM Q2H 12/28 2330 DC 12/29 Dextrose/Water 100 ML IV 12/29 0329 0220 Magnesium Sulfate 1 GM Q2H 12/28 1800 DC 12/28 Dextrose/Water 100 ML IV 12/28 2159 2039 Magnesium Sulfate 1 GM ONCE ONE 12/28 1715 DC 12/28 Dextrose/Water 100 ML IV 12/28 2114 1944 Metronidazole 500 MG Q8H 12/29 0600 AC 12/29 N/A 1 UNIT IV 1322 Metronidazole 500 MG Q8H 12/29 0300 DC N/A 1 UNIT IV Metronidazole 500 MG IQ8 12/28 1645 DC 12/28 N/A 1 UNIT IV 1846 Multivitamins 1 TAB DAILY 12/28 1343 DC 12/28 PO 1351 Nicotine 7 MG DAILY 12/28 2153 AC 12/29 TOP 0931 Pantoprazole Sodium 0 .STK-MED ONE 12/28 1737 DC IV Pantoprazole Sodium 40 MG ONCE ONE 12/28 1715 DC 12/28 IV 12/28 1716 1750 Patient Medication 1 ED ONE ONE 12/29 1145 DC Teaching ED 12/29 1146 Potassium Chloride 10 MEQ Q1H 12/28 2330 DC 12/29 IV 12/29 0131 0456 Potassium Chloride 20 MEQ Q10H 12/28 2030 DC 12/28 Sodium Chloride 1,000 ML IV 12/29 1629 2227 Potassium Chloride 0 .STK-MED ONE 12/28 1838 DC PO Potassium Chloride 20 MEQ Q13H 12/28 1800 DC 12/28 Dextrose/Sodium 1,000 ML IV 12/29 1959 1801 Chloride Potassium Chloride 40 MEQ ONCE ONE 12/28 1800 DC 12/28 PO 12/28 1801 1846 Sodium Chloride 1,000 ML Q10H 12/28 1645 DC 12/28 IV 12/29 0244 1718 Sodium Chloride 1,000 ML Q13H 12/28 1615 DC 12/28 IV 12/29 1814 1649 Thiamine HCl 100 MG DAILY 12/28 1342 DC 12/28 PO 12/30 1001 1351 Trimethobenzamide HCl 200 MG 4 TIMES/DAY PRN 12/28 1615 AC IM Assessment/Plan Consult Acknowledgment - Thank you for your consult request. Attending MD Review Statement Attending Statement Attending MD Statement: examined this patient, discuss w/resident/PA/BARREL FINISHER, agreed w/resident/PA/BARREL FINISHER, discussed w/nursing Attending Assessment/Plan: Assessment: Mr. Woo is a 36 year old male with multiple medical problems admitted with electrolyte abnormalities and worsening anemia. He has been found to have guaiac positive stool, but he is without over GI bleeding and his hgb has corrected appropriately with transfusion. He has had several endoscopies over the past few years which have shown erosive esophagitis and a hiatal hernia and while it may be reasonable to repeat that as long as he remains without evidence of overt GI bleeding it isn't urgent and it probably is not necessary on this admission as it would be unlikely to global climate change researcher. His LFTs are moderately elevated which is almost certainly secondary to etoh based on the ast /alt ratio and positive etoh level in the ER. His ct scan didn't show any changes suggestive of cirrhosis or biliary dilatation so other than checking an US I don't feel that any further intervention is necessary for this at this time. Finally, he has been noted to have a colon-vesicula fistula on his ct scan which he has had for many years and I suspect it is related to diverticular disease considering his lack of evidence of IBD on a previous colonoscopy. He also apparently has a UTI right now based on the UA so it is possible the tract has now become more formed and this may be the etiology of his UTI so if he continues to have recurrent UTIs it may become necessary to surgically repair the fistula. Recommendations: 1. Advance diet as tolearted. 2. Change to a PO PPI BID 3. Anti-reflux regimen and keep the head of his bed elevated as much as possible, but particulary after meals 4. Follow CBC q12 hours and transfuse as needed to keep hgb > 7 5. Maintain 2 large bore IVs at all times 6. Check a RUQ US 7. Notify GI for signs of overt GI bleeding 8. Send stool studies for c. diff, o and p, culture if diarrhea persists. 9. Correction of electrolytes as per primary medical team 10. Monitor for signs of etoh withdrawal and treat with benzodiazepenes as needed. 11. Treatment of UTI per primary care team 12. Consideration will be given for a gastrogaffin enema and a surgical referral for repair of the fistula if it is appreciated on the gastrogaffin enema, If pt remains without evidence of overt GI bleeding and electrolyte abnormalitites are improved and he is tolerating an oral diet consideration should be given to discharge him home in the am.
[2016-12-29 08:30] LABS: PT 13.2 SEC (9.4-12.5)
--- NOTE | 2016-12-29 11:56 | Cons- Psychiatry ---
Psychiatric Consult Date of Consult: 12/29/16 Reason for Consult: "drug abuse, etoh abuse, visual and auditory hallucinations, psychosis." History of Present Illness: 36 M set to the ED by his PCP for hypokalemia of 2.6 on 12/28/16 at 1113. The patient is well-known to us from previous admissions for ETOH detox, hyponatremia, schizophrenia. He is followed by [facility], Dr. Michel Lewis, psychiatrist. He is on risperidone Consta 37.5 mg IM injection every 2 weeks. The VNA is [facility], and the last visit with Consta injection was on 12/26/16, per Idris, his pillowcase cutter. The next Consta 37.5 mg IM every 2 weeks injection is due on January 09, 2017. Last EKG on 12/29/16 0822: ST, 102 bpm, QTc 464 mS; reviewed by cardiology. He was admitted for hyperkalemia and alcohol detox. Per the H&P: Patient had a seizure while was admitted for alcohol detox at [facility] on October 2016, he started drinking at least 2 shots of vodka immediately after he was discharged, he also uses marijuana daily and smoke 1 PPD since age of 14. For the past 3 weeks Patient was constipated with multiple episodes of nausea and vomiting of nonbloody food particles. He denies fever, chills, abdominal pain or diarrhea. He noticed bright red blood on toilet paper(has history of hemorrhoids). He had endoscopy and colonoscopy 2 years ago that showed nonerosive gastritis and diverticulosis. Patient reported multiple episodes of epistaxis. He almost get one episode a free 3-5 days. He reported bleeding massively on some of the episodes, however he would control the bleeding within 10 minutes on most of them. Patient reported visual and auditory hallucination, he received 1 dose of risperidone every 2 weeks. He denies suicidal ideation or any thoughts of harming others. His mother noticed that he started to drinks a lot of fluid recently. Patient reported increased urinary frequency, feeling of bladder incomplete emptying, and dark urine, but he denies dysuria. Please see the H&P for a full medical history. Last visit with Dr. Lewis, psychiatrist on 12/27/16, who notes continued need of Consta for psychosis despite QTc 527. Patient had refused talk therapies, ??, and Campral. He will return in 2 months. Last visit to home by [facility] 12/23/16 due to mother's call 11/10 ncreased alcohol use and medical issues. Labile affect, anxiety about his mother's possible noted. Patient sleeping during the day, awake at night. He drinks alcohol upon awakening and smokes cannabis. He denies AH, but reports frequent VH, though not disturbing or scary. During a previous visit, he reported AH, which worsened with video mounika. Allergies: Coded Allergies: shrimp (BLACKED OUT PER PT 01/22/16) Current Medications: Current Medications Sig/Olivia Start time Last Medication Dose Route Stop Time Status Admin Acetaminophen 650 MG Q6P PRN 12/28 2345 AC 12/29 PO 0134 Calcium Gluconate 1 GM ONCE ONE 12/29 0800 DC 12/29 Sodium Chloride 100 ML IV 12/29 0859 1036 Ceftriaxone Sodium 0 .STK-MED ONE 12/28 1737 DC .ROUTE Ceftriaxone Sodium 1,000 MG DAILY 12/28 1642 AC 12/29 IV 0931 Cyanocobalamin/ 1 BAG DAILY 12/28 1611 AC 12/29 Thiamine/Pyridoxine IV 0931 Dextrose/Water 1,000 ML Folic Acid 0 .STK-MED ONE 12/28 1348 DC PO Folic Acid 1 MG DAILY 12/28 1343 DC 12/28 PO 12/30 1001 1351 Lorazepam 0.5 MG ONCE 01/02 0000 DC PO 01/02 0001 Lorazepam 0.5 MG Q6H 01/01 0000 DC PO 01/01 1801 Lorazepam 0.5 MG ONCE ONE 12/31 1800 DC PO 12/31 1801 Lorazepam 1 MG Q6H 12/31 0000 DC PO 12/31 1201 Lorazepam 1.5 MG Q12H 12/30 0600 DC PO 12/30 1801 Lorazepam 1 MG Q12H 12/30 0000 DC PO 12/30 1201 Lorazepam 1.5 MG Q6 12/29 0600 CAN PO 12/29 1801 Lorazepam 2 MG Q6 12/28 1800 AC 12/29 IV 0524 Lorazepam 0 Q1P PRN 12/28 1615 AC IV Lorazepam 0 .STK-MED ONE 12/28 1348 DC PO Lorazepam 2 MG ONCE ONE 12/28 1345 DC PO 12/28 1346 Lorazepam 2 MG Q2P PRN 12/28 1345 DC PO Lorazepam 1 MG Q2P PRN 12/28 1345 DC PO Lorazepam 2 MG Q6 12/28 1343 DC 12/28 PO 12/29 0001 1351 Magnesium Oxide 400 MG ONE ONE 12/28 1500 DC 12/28 PO 12/28 1501 1538 Magnesium Sulfate 1 GM Q2H 12/28 2330 DC 12/29 Dextrose/Water 100 ML IV 12/29 0329 0220 Magnesium Sulfate 1 GM Q2H 12/28 1800 DC 12/28 Dextrose/Water 100 ML IV 12/28 2159 2039 Magnesium Sulfate 1 GM ONCE ONE 12/28 1715 DC 12/28 Dextrose/Water 100 ML IV 12/28 2114 1944 Metronidazole 500 MG Q8H 12/29 0600 AC 12/29 N/A 1 UNIT IV 0524 Metronidazole 500 MG Q8H 12/29 0300 DC N/A 1 UNIT IV Metronidazole 500 MG IQ8 12/28 1645 DC 12/28 N/A 1 UNIT IV 1846 Multivitamins 0 .STK-MED ONE 12/28 1349 DC PO Multivitamins 1 TAB DAILY 12/28 1343 DC 12/28 PO 1351 Nicotine 7 MG DAILY 12/28 2153 AC 12/29 TOP 0931 Pantoprazole Sodium 0 .STK-MED ONE 12/28 1737 DC IV Pantoprazole Sodium 40 MG ONCE ONE 12/28 1715 DC 12/28 IV 12/28 1716 1750 Potassium Chloride 10 MEQ Q1H 12/28 2330 DC 12/29 IV 12/29 0131 0456 Potassium Chloride 20 MEQ Q10H 12/28 2030 DC 12/28 Sodium Chloride 1,000 ML IV 12/29 1629 2227 Potassium Chloride 0 .STK-MED ONE 12/28 1838 DC PO Potassium Chloride 20 MEQ Q13H 12/28 1800 DC 12/28 Dextrose/Sodium 1,000 ML IV 12/29 1959 1801 Chloride Potassium Chloride 40 MEQ ONCE ONE 12/28 1800 DC 12/28 PO 12/28 1801 1846 Potassium Chloride 0 .STK-MED ONE 12/28 1349 DC PO Potassium Chloride 0 .STK-MED ONE 12/28 1322 DC PO Potassium Chloride 40 MEQ ONCE ONE 12/28 1305 DC 12/28 PO 12/28 1306 1350 Potassium Chloride 40 MEQ ONCE ONE 12/28 1235 DC 12/28 PO 12/28 1236 1321 Potassium Chloride 10 MEQ ONCE ONE 12/28 1215 DC 12/28 IV 12/28 1216 1224 Sodium Chloride 1,000 ML Q10H 12/28 1645 DC 12/28 IV 12/29 0244 1718 Sodium Chloride 1,000 ML Q13H 12/28 1615 DC 12/28 IV 12/29 1814 1649 Sodium Chloride 1,000 ML BOLUS ONE 12/28 1300 DC 12/28 IV 12/28 1359 1250 Thiamine HCl 0 .STK-MED ONE 12/28 1349 DC PO Thiamine HCl 100 MG DAILY 12/28 1342 DC 12/28 PO 12/30 1001 1351 Trimethobenzamide HCl 200 MG 4 TIMES/DAY PRN 12/28 1615 AC IM Past History Past Medical History Neurological: seizure (during alcohol detox) EENT: NONE Cardiovascular: alcoholic cardiomyopathy stage II Respiratory: history of aspiration pneumonia Gastrointestinal: alcoholic hepatitis, GERD, hiatal hernia, upper GI bleed Renal: NONE Musculoskeletal: NONE Psychiatric: alcohol dependence, anxiety, depression, substance abuse, SCHIZOPHRENIA alcohol abuse Endocrine: psychogenic polydipsia HYPOKALEMIA, HYPOMAGNESEMIA, HYPONATREMIA hypoK+, hypoNa, hypoMg hx hyponatremia hx hypokalemia Blood Disorders: anemia, coagulopathy (intermittent), thrombocytopenia ( intermittent) Cancer(s): NONE 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 Physical Limitations (Interventions): None noted Psychiatric Treatment History Diagnosis: Schizophrenia Alcohol use disorder, severe, recurrent Cannabis use disorder Risk Factors: SA/MH hospitalized, substance abuse, isolate/no social support, poor impulse control, arson, male, Conserved Substance Use/Abuse History Drug Use/Abuse Substances Used/Abused Yes Substance Used/Abused Alcohol How much used/taken 4 shots, per patient How often daily Substance Abuse Treatment Substance Abuse Treatment Past Substance Abuse [place] Yes Assessment/Plan Mental Status Mental Status Exam: A+OX3, knows that he has been admitted for potassium derangement. Denies current AVH, but reports seeing faces this morning at 0300. The patient has auditory disturbances frequently, but not at present. He minimizes his alcohol and cannabis use. He does not believe he needs to be in the hospital, but agrees to stay for now. He denies SI/HI. Reports he feels safe in the hospital. Thought processes are partly linear, but not logical. He perseverates on asking for something to drink, despite just verbalizing understanding the need to limit fluids for his hyponatremia. Lab Results: Laboratory Tests 12/29 12/29 12/29 1110 0628 0130 Chemistry Sodium (137 - 145 mmol/L) Pending 126 L Potassium (3.5 - 5.1 mmol/L) Pending 6.2 *H Chloride (98 - 107 mmol/L) Pending 95 L Carbon Dioxide (22 - 30 mmol/L) Pending 26 Anion Gap (5 - 16) Pending 5 BUN (9 - 20 mg/dL) Pending 3 L Creatinine (0.7 - 1.2 mg/dL) Pending 0.6 L Estimated GFR (>60 ml/min) > 60 BUN/Creatinine Ratio (7 - 25 %) Pending 5.0 L Lactic Acid (0.7 - 2.1 mmol/L) 1.4 Magnesium (1.6 - 2.3 mg/dL) 1.9 Iron (49 - 181 ug/dL) 199 H TIBC (261 - 462 ug/dL) 352 % Saturation (16 - 45 %) 56 H Ferritin (17.9 - 464 ng/mL) Pending Total Bilirubin (0.2 - 1.3 mg/dL) 7.1 H Direct Bilirubin (< 0.4 mg/dL) 4.9 H AST (17 - 59 U/L) 205 H ALT (21 - 72 U/L) 52 Alkaline Phosphatase (< 127 U/L) 161 H Total Protein (6.3 - 8.2 g/dL) 6.3 Albumin (3.5 - 5.0 g/dL) 2.6 L Coagulation PT (9.4 - 12.5 SEC) 13.2 H INR (0.90 - 1.17) 1.26 H Hematology CBC w Diff Pending WBC Pending RBC Pending Hgb Pending Hct Pending MCV Pending MCH Pending RDW Pending Plt Count Pending MPV Pending PUBS MCHC Pending 12/28 12/28 12/28 2200 2100 1825 Chemistry Sodium (137 - 145 mmol/L) 127 L Potassium (3.5 - 5.1 mmol/L) 2.9 *L Chloride (98 - 107 mmol/L) 90 L Carbon Dioxide (22 - 30 mmol/L) 26 Anion Gap (5 - 16) 11 BUN (9 - 20 mg/dL) 4 L Creatinine (0.7 - 1.2 mg/dL) 0.6 L Estimated GFR (>60 ml/min) > 60 BUN/Creatinine Ratio (7 - 25 %) 6.7 L Lactic Acid (0.7 - 2.1 mmol/L) 2.5 H 3.0 H Magnesium (1.6 - 2.3 mg/dL) 1.4 L Cancelled Hematology CBC w Diff NO MAN DIFF REQ WBC (4.8 - 10.8 /CUMM) 4.9 RBC (4.70 - 6.10 /CUMM) 2.59 L Hgb (14.0 - 18.0 G/DL) 7.0 *L Hct (42 - 52 %) 22.4 L MCV (80.0 - 94.0 FL) 86.3 MCH (27.0 - 31.0 PG) 26.9 L RDW (11.5 - 14.5 %) 21.5 H Plt Count (130 - 400 /CUMM) 49 L MPV (7.4 - 10.4 FL) 8.5 Gran % (42.2 - 75.2 %) 81.9 H Lymphocytes % (20.5 - 51.1 %) 11.6 L Monocytes % (1.7 - 9.3 %) 6.0 Eosinophils % (0 - 5 %) 0.5 Basophils % (0.0 - 2.0 %) 0 L Absolute Granulocytes (1.4 - 6.5 /CUMM) 4.0 Absolute Lymphocytes (1.2 - 3.4 /CUMM) 0.6 L Absolute Monocytes (0.10 - 0.60 /CUMM) 0.3 Absolute Eosinophils (0.0 - 0.7 /CUMM) 0 Absolute Basophils (0.0 - 0.2 /CUMM) 0 PUBS MCHC (33.0 - 37.0 G/DL) 31.2 L 12/28 12/28 12/28 1622 1554 1436 Chemistry Sodium (137 - 145 mmol/L) 130 L Cancelled Potassium (3.5 - 5.1 mmol/L) 2.7 *L Cancelled Chloride (98 - 107 mmol/L) 88 L Cancelled Carbon Dioxide (22 - 30 mmol/L) 30 Cancelled Anion Gap (5 - 16) 12 Cancelled BUN (9 - 20 mg/dL) 4 L Cancelled Creatinine (0.7 - 1.2 mg/dL) 0.6 L Cancelled Estimated GFR (>60 ml/min) > 60 BUN/Creatinine Ratio (7 - 25 %) 6.7 L Cancelled Glucose Cancelled Lactic Acid (0.7 - 2.1 mmol/L) 3.4 H Calcium Cancelled Magnesium (1.6 - 2.3 mg/dL) 1.2 L 12/28 12/28 1300 1212 Chemistry Magnesium (1.6 - 2.3 mg/dL) 1.5 L Total Bilirubin (0.2 - 1.3 mg/dL) 5.3 H Direct Bilirubin (< 0.4 mg/dL) 4.0 H AST (17 - 59 U/L) 265 H ALT (21 - 72 U/L) 66 Alkaline Phosphatase (< 127 U/L) 194 H Total Protein (6.3 - 8.2 g/dL) 7.8 Albumin (3.5 - 5.0 g/dL) 3.6 Toxicology Urine Opiates Screen (>2000 NG/ML) < 100.00 Methadone Screen (>300 NG/ML) < 40 Barbiturate Screen (>200 NG/ML) < 60 Ur Phencyclidine Scrn (>25 NG/ML) < 6.00 Amphetamines Screen (>1000 NG/ML) < 100 U Benzodiazepines Scrn (>200 NG/ML) < 85 Urine Cocaine Screen (>300 NG/ML) < 50 Urine Cannabis Screen (>50 NG/ML) > 80.00 H Urines Urine Color (YEL,AMB,STR) SHANEKA Urine Clarity (CLEAR) HAZY H Urine pH (5.0 - 8.0) 7.5 Ur Specific [place] (1.001 - 1.035) 1.015 Urine Protein (NEG,<30 MG/DL) TRACE H Urine Ketones (NEG) NEG Urine Nitrite (NEG) POS H Urine Bilirubin (NEG) POS@ICTO H Urine Urobilinogen (0.1 - 1.0 EU/dl) >=8.0 H Ur Leukocyte Esterase (NEG) MOD H Ur Microscopic SEDIMENT EXAMINED Urine RBC (0 - 5 /HPF) RARE Urine WBC (0 - 2 /HPF) 50-75 H Urine Bacteria (NEG/NONE) MANY H Urine Hemoglobin (NEG) TRACE-INTACT H Urine Glucose (N MG/DL) 100 H 12/28 1157 Chemistry Sodium (137 - 145 mmol/L) 135 L Potassium (3.5 - 5.1 mmol/L) 2.4 *L Chloride (98 - 107 mmol/L) 85 L Carbon Dioxide (22 - 30 mmol/L) 33 H Anion Gap (5 - 16) 17 H BUN (9 - 20 mg/dL) 5 L Creatinine (0.7 - 1.2 mg/dL) 0.7 Estimated GFR (>60 ml/min) > 60 BUN/Creatinine Ratio (7 - 25 %) 7.1 Glucose (65 - 99 mg/dL) 117 H Lactic Acid (0.7 - 2.1 mmol/L) 3.8 H Calcium (8.4 - 10.2 mg/dL) 8.1 L Total Bilirubin (0.2 - 1.3 mg/dL) 5.2 H Direct Bilirubin (< 0.4 mg/dL) 3.9 H AST (17 - 59 U/L) 263 H ALT (21 - 72 U/L) 60 Alkaline Phosphatase (< 127 U/L) 189 H Lactate Dehydrogenase (313 - 618 U/L) 670 H Troponin I (<0.11 ng/ml) < 0.01 Total Protein (6.3 - 8.2 g/dL) 7.7 Albumin (3.5 - 5.0 g/dL) 3.5 Globulin (1.9 - 4.2 gm/dL) 4.2 Albumin/Globulin Ratio (1.1 - 2.2 %) 0.8 L Amylase (30 - 110 U/L) 90 Lipase (23 - 300 U/L) 434 H Coagulation PT (9.4 - 12.5 SEC) 12.5 INR (0.90 - 1.17) 1.19 H APTT (25 - 37 SEC) 30 Hematology CBC w Diff MAN DIFF ORDERED WBC (4.8 - 10.8 /CUMM) 5.8 RBC (4.70 - 6.10 /CUMM) 3.18 L Hgb (14.0 - 18.0 G/DL) 8.6 L Hct (42 - 52 %) 27.4 L MCV (80.0 - 94.0 FL) 86.3 MCH (27.0 - 31.0 PG) 27.2 RDW (11.5 - 14.5 %) 21.1 H Plt Count (130 - 400 /CUMM) 61 L MPV (7.4 - 10.4 FL) 8.0 Gran % (42.2 - 75.2 %) 79.8 H Lymphocytes % (20.5 - 51.1 %) 9.6 L Monocytes % (1.7 - 9.3 %) 9.6 H Eosinophils % (0 - 5 %) 1.0 Basophils % (0.0 - 2.0 %) 0 L Absolute Granulocytes (1.4 - 6.5 /CUMM) 4.6 Absolute Lymphocytes (1.2 - 3.4 /CUMM) 0.6 L Absolute Monocytes (0.10 - 0.60 /CUMM) 0.6 Absolute Eosinophils (0.0 - 0.7 /CUMM) 0.1 Absolute Basophils (0.0 - 0.2 /CUMM) 0 Platelet Estimate (ADEQUATE) DECREASED Polychromasia 1+ Hypochromic-Microcytic 1+ Poikilocytosis FEW Anisocytosis 1+ PUBS MCHC (33.0 - 37.0 G/DL) 31.5 L Toxicology Serum Alcohol (<10 MG/DL) 293.0 Diffential Diagnosis: Schizophrenia Alcohol use disorder, severe, recurrent Cannabis use disorder Impression: The patient will need appropriate alcohol detox management. He will need redirection and distraction to manage his pleas for fluid to drink, as he is prone to hyponatremia. The patient does not understand his medical condition, and does not have the capacity to make a decision about discharge planning. His mother, Merly, is his conservator. We expect that after he is medically clear, he will discharge to home in the care of his mother/conservator. Provisional Treatment Plan: 1. He may not leave AMA, or otherwise, until cleared by psychiatry. 2. Continue ETOH detox management. The patient is a daily drinker, and has a history of seizure in the setting of alcohol withdrawal. 3. Please restart daily thiamine, folate and MVI as the banana bag is finishing. 4. We are awaiting a call from [facility] to verify the patient's last dose and timing of Consta. [NOTE: The [facility] has informed case management of the last injection, so thisis resolved.] 5. Please add risperidone 1 mg PO every 8 hours, as needed, for agitation/ disturbing hallucinations. a. Monitor EKG and hold for arrhythmia or QTc greater than 475 mS. b. Monitor and replete electrolytes to the upper portion of the normal range, especially potassium and magnesium. 6. If violent agitation or aggression, consider haloperidol 2 mg IM as needed, one time, and notify psychiatry for further suggestions. a. Monitor EKG and hold for arrhythmia or QTc greater than 475 mS. b. Monitor and replete electrolytes to the upper portion of the normal range, especially potassium and magnesium. 7. Discharge summary to [facility], Dr. Lewis. 8. The next Consta 37.5 mg IM every 2 weeks injection is due on January 09, 2017. 9. Please advise [facility] of the expected discharge date, so care can be resumed the say of discharge. 10. We will be available for a family meeting, if necessary. We will continue to follow along with you. Juan Farias APRN. Pager [phone]
[2016-12-29 12:12] LABS: ABSOLUTE EOSINOPHIL COUNT 0 /CUMM (0.0-0.7); ABSOLUTE LYMPH COUNT 0.3 /CUMM (1.2-3.4); ABSOLUTE MONOCYTE COUNT 0.4 /CUMM (0.10-0.60)
[2016-12-29 12:37] LABS: ABSOLUTE BASOPHIL COUNT 0.1 /CUMM (0.0-0.2); ABSOLUTE GRANULOCYTE CT 5.7 /CUMM (1.4-6.5); BASOPHIL % 0.8 % (0.0-2.0); EOSINOPHIL % 0.4 % (0-5); GRANULOCYTE % 88.3 % (42.2-75.2); MEAN CORPUSCULAR VOLUME 87.4 FL (80.0-94.0); MEAN PLATELET VOLUME 9.1 FL (7.4-10.4); RBC DISTRIBUTION WIDTH 19.3 % (11.5-14.5)
[2016-12-29 12:39] LABS: HEMATOCRIT 29.1 % (42-52); RED BLOOD CELL CT 3.34 /CUMM (4.70-6.10)
[2016-12-29 13:02] LABS: PLATELET COUNT 51 /CUMM (130-400); WHITE BLOOD CELL COUNT 6.4 /CUMM (4.8-10.8)
--- NOTE | 2016-12-29 16:14 | Patient Discharge Instructions ---
Discharge Instructions General Discharge Information Special Instructions: The next Consta 37.5 mg IM every 2 weeks injection is due on January 09, 2017. Acute Coronary Syndrome Inclusion Criteria At DC or during hospital stay patient has or had the following: Discharge Core Measures Meds if any: Prescribed or Continued at Discharge Meds if any: NOT Prescribed or Continued at Discharge Congestive Heart Failure Inclusion Criteria At DC or during hospital stay patient has or had the following: Discharge Core Measures Meds if any: Prescribed or Continued at Discharge Meds if any: NOT Prescribed or Continued at Discharge Cerebrovascular accident Inclusion Criteria At DC or during hospital stay patient has or had the following: CVA/TIA Diagnosis No Discharge Core Measures Meds if any: Prescribed or Continued at Discharge Meds if any: NOT Prescribed or Continued at Discharge Venous thromboembolism Discharge Core Measures - Per Current guidelines, there needs to be overlap - treatment for the first 5 days of Warfarin therapy. - If discharged on Warfarin prior to 5 days of - overlap therapy, the patient will need to be - assessed for post discharge needs including - *Post discharge parental anticoagulation - *Warfarin and/or parental anticoagulation education - *Follow up date to check INR post discharge Meds if any: Prescribed or Continued at Discharge Note: Overlap Therapy is Warfarin and Anticoagulant Meds if any: NOT Prescribed or Continued at Discharge
[2016-12-29 18:48] LABS: ABSOLUTE BASOPHIL COUNT 0 /CUMM (0.0-0.2); ABSOLUTE EOSINOPHIL COUNT 0.1 /CUMM (0.0-0.7); ABSOLUTE GRANULOCYTE CT 5.7 /CUMM (1.4-6.5); ABSOLUTE LYMPH COUNT 0.4 /CUMM (1.2-3.4); ABSOLUTE MONOCYTE COUNT 0.4 /CUMM (0.10-0.60); BASOPHIL % 0.3 % (0.0-2.0); EOSINOPHIL % 0.9 % (0-5); GRANULOCYTE % 86.6 % (42.2-75.2); HEMATOCRIT 28.8 % (42-52); MEAN CORPUSCULAR HGB CONC 32.1 G/DL (33.0-37.0); MEAN CORPUSCULAR VOLUME 87.4 FL (80.0-94.0); MEAN PLATELET VOLUME 8.6 FL (7.4-10.4); PLATELET COUNT 51 /CUMM (130-400); RBC DISTRIBUTION WIDTH 19.4 % (11.5-14.5); RED BLOOD CELL CT 3.29 /CUMM (4.70-6.10); WHITE BLOOD CELL COUNT 6.6 /CUMM (4.8-10.8)
--- NOTE | 2016-12-29 23:26 | ULTRASOUND REPORT ---
EXAMINATION: US ABDOMEN LIMITED CLINICAL INFORMATION: Right upper quadrant pain. Elevated bilirubin and alkaline phosphatase. COMPARISON: CT chest 12/28/2016 TECHNIQUE: Real-time imaging of the right upper quadrant abdominal viscera. Color Doppler exam utilized. FINDINGS: PANCREAS: Pancreatic head is normal. The pancreatic tail is obscured by bowel gas. LIVER: There is diffuse fatty change with increased echogenicity of liver parenchyma. Liver is enlarged. Right lobe liver measures greater than 25 cm in length. No focal liver lesion. No intrahepatic bile duct dilatation The liver demonstrates normal size, contour and echogenicity. No focal lesion or intrahepatic biliary duct dilatation. GALLBLADDER: Status post cholecystectomy. COMMON BILE DUCT: Normal in caliber measuring 0.6 cm in diameter. RIGHT KIDNEY: Normal. No hydronephrosis. No renal calculi or focal parenchymal lesions. The kidney measures 11.1 cm in maximum dimension. FREE FLUID: None. IMPRESSION: Diffuse fatty change of liver. Hepatomegaly. Status post cholecystectomy. No bile duct dilatation.
[2016-12-30 08:04] LABS: ABSOLUTE BASOPHIL COUNT 0 /CUMM (0.0-0.2); ABSOLUTE EOSINOPHIL COUNT 0.1 /CUMM (0.0-0.7); ABSOLUTE GRANULOCYTE CT 5.8 /CUMM (1.4-6.5); ABSOLUTE LYMPH COUNT 0.4 /CUMM (1.2-3.4); ABSOLUTE MONOCYTE COUNT 0.4 /CUMM (0.10-0.60); BASOPHIL % 0 % (0.0-2.0); EOSINOPHIL % 1.3 % (0-5); GRANULOCYTE % 85.7 % (42.2-75.2); HEMATOCRIT 28.1 % (42-52); MEAN CORPUSCULAR HGB 28.5 PG (27.0-31.0); MEAN CORPUSCULAR VOLUME 88.9 FL (80.0-94.0); MEAN PLATELET VOLUME 9.5 FL (7.4-10.4); PLATELET COUNT 62 /CUMM (130-400); RBC DISTRIBUTION WIDTH 19.5 % (11.5-14.5); RED BLOOD CELL CT 3.17 /CUMM (4.70-6.10)
[2016-12-30 08:35] VITALS: BP 110/72
--- NOTE | 2016-12-30 08:58 | PN- Housestaff ---
ANGELA CARPENTER,FRANK 12/30/16 0858: Subjective Follow-up For: Hypokalemia Hypomagnesemia Alcoholic hepatitis UTI Anemia secondary to GI bleed, epistaxis, thrombocytopenia Chronic diarrhea Complaints: he was agitated, refused for all medication, he was repetatidly asking to go home Tele-Events Since Last Visit: JACI ANDERS Subjective: Patient is seen at the bedside. He was not very cooperative. He was continuously refusing for on medication, and asking for going home. We discussed about his clinical condition and advised to stay in the hospital for further management. It seems that he was not having any insight of his situation. I also discussed with the mother Gayl /Conservator everything in detail and told the situation. She want patient should stay in the hospital and take his all treatment. I also updated that the patient is going to general medical floor and does not need any cardiac monitoring, Review of Systems Constitutional: Denies: no symptoms. Comments: cannt comment because of the patient's clinical situation Objective Last 24 Hrs of Vital Signs/I&O Vital Signs Date Time Temp Pulse Resp B/P Pulse O2 O2 Flow FiO2 Ox Delivery Rate 12/30 1430 98.0 68 20 118/70 96 12/30 1118 99.0 112 20 110/70 97 12/30 0835 99.7 100 16 110/72 99 Room Air 12/29 2322 98.9 105 18 90/50 95 Room Air 12/29 2200 18 90/58 12/29 1800 100.0 102 18 116/80 12/29 1607 100.0 102 18 116/80 92 Room Air 12/29 1600 100.0 102 18 116/80 Intake & Output 12/30 1600 12/30 0800 12/30 0000 Intake Total 840 2176 Output Total 776 1175 Balance 64 1001 Intake, IV 511 Intake, Oral 840 1665 Number 2 Bowel Movements Output, 1 Emesis Output, Urine 775 1175 Physical Exam General Appearance: Alert, Mild Distress HEENT: sclera icteric Current Medications: Current Medications Sig/Olivia Start time Last Medication Dose Route Stop Time Status Admin Acetaminophen 650 MG Q6P PRN 12/28 2345 AC 12/29 PO 0134 Ceftriaxone Sodium 1,000 MG DAILY 12/28 1642 AC 12/30 IV 1115 Cyanocobalamin/ 1 BAG DAILY 12/28 1611 AC 12/29 Thiamine/Pyridoxine IV 0931 Dextrose/Water 1,000 ML Folic Acid 1 MG DAILY 12/30 2111 AC PO Lorazepam 0.5 MG ONCE 01/02 0000 DC PO 01/02 0001 Lorazepam 0.5 MG Q6H 01/01 0000 DC PO 01/01 1801 Lorazepam 0.5 MG ONCE ONE 12/31 1800 DC PO 12/31 1801 Lorazepam 1 MG Q6H 12/31 0000 DC PO 12/31 1201 Lorazepam 2 MG Q8 12/30 1400 AC 12/30 IV 1406 Lorazepam 1.5 MG Q12H 12/30 0600 DC PO 12/30 1801 Lorazepam 1 MG Q12H 12/30 0000 DC PO 12/30 1201 Lorazepam 2 MG Q6 12/28 1800 DC 12/29 IV 1752 Lorazepam 0 Q1P PRN 12/28 1615 AC 12/30 IV 0939 Metronidazole 500 MG Q8H 12/29 0600 AC 12/30 N/A 1 UNIT IV 1116 Multivitamins 1 TAB DAILY 12/30 2111 AC PO Nicotine 14 MG DAILY 12/30 1000 DC 12/30 TOP 0439 Nicotine 21 MG DAILY 12/30 1000 AC 12/30 TOP 0926 Nicotine 7 MG DAILY 12/28 2153 DC 12/29 TOP 0931 Omeprazole 40 MG BID 12/29 2200 AC 12/30 PO 0818 Potassium Chloride 40 MEQ .STK-MED ONE 12/30 0027 DC PO 12/30 0028 Potassium Chloride 40 MEQ ONCE ONE 12/29 2014 DC 12/29 PO 12/30 2015 2253 Potassium Chloride 20 MEQ ONCE ONE 12/29 2014 DC PO 12/29 2016 Potassium Chloride 20 MEQ ONCE ONE 12/29 1715 DC 12/29 PO 12/29 1716 1753 Risperidone 1 MG Q8P PRN 12/29 161 AC PO Thiamine HCl 100 MG DAILY 12/30 2111 AC PO Trimethobenzamide HCl 200 MG 4 TIMES/DAY PRN 12/28 161 AC IM Last 24 Hrs of Lab/Ugru Results Last 24 Hrs of Labs/Mics: Laboratory Tests 12/30/16 0610: Anion Gap 7, Estimated GFR > 60, BUN/Creatinine Ratio 3.3 L, Magnesium 1.7, CBC w Diff MAN DIFF ORDERED, RBC 3.17 L, MCV 88.9, MCH 28.5, RDW 19.5 H, MPV 9.5, Gran % 85.7 H, Lymphocytes % 6.6 L, Monocytes % 6.4, Eosinophils % 1.3, Basophils % 0 L, Absolute Granulocytes 5.8, Absolute Lymphocytes 0.4 L, Absolute Monocytes 0.4, Absolute Eosinophils 0.1, Absolute Basophils 0, Platelet Estimate DECREASED, Polychromasia 1+, Poikilocytosis 1+, Anisocytosis 1+, Stomatocytes 1+, PUBS MCHC 32.0 L 12/29/16 1805: Anion Gap 7, Estimated GFR > 60, BUN/Creatinine Ratio 3.3 L, CBC w Diff NO MAN DIFF REQ, RBC 3.29 L, MCV 87.4, MCH 28.0, RDW 19.4 H, MPV 8.6, Gran % 86.6 H, Lymphocytes % 6.4 L, Monocytes % 5.8, Eosinophils % 0.9, Basophils % 0.3, Absolute Granulocytes 5.7, Absolute Lymphocytes 0.4 L, Absolute Monocytes 0.4, Absolute Eosinophils 0.1, Absolute Basophils 0, PUBS MCHC 32.1 L Assessment/Plan Assessment: Problem list - Hypokalemia Hypomagnesemia Alcoholic hepatitis Stage II alcoholic cardiomyopathy Anemia secondary to GI bleed, epistaxis, thrombocytopenia Chronic diarrhea Colovesical fistula Multiple substance abuse- marijuana Chronic smoker-1PPD History of hemorrhoids Nonerosive gastritis (endoscopy GERD Hiatal hernia History of upper GI bleed Diverticulosis(colonoscopy History of aspiration pneumonia Schizophrenia Psychogenic polydipsia History of cholecystectomy Plan - Transferred to general medical floor. Discussed to , and updated the treatment. Patient is agitated and refusing for all medication. Hyperkalemia/ Hypomagnesemia/hyponatremia - * We will supplement it. * it is K-3.2 today * Advised to give K -20meq BID PO, patient refuses for it. According to nurse he vomited after that. * we will give K 10mEq two infusion today * We will follow BEP/magnesium daily Anemia secondary to GI bleed - Hb 9.0 * According to Dr. Antonio patient recently had endoscopy and does not require it now * He advised to continue regular diet * Watch for bleeding * If patient bleed acutely and become hemodynamically unstable than call GI immediately * We'll follow GI recommendation Colovesical fistula - * According to Dr. Antonio. Patient has colovesical fistula since couple of years and according to him. It does not require any repair. * Although patient is complaining of frequency, dysuria and dark urine * We will consider to place urological consult if needed in future. * We will continue IV ceftriaxone/metronidazole for total 10 to 14 days Chronic alcoholism * Patient is still drinking 2 Vodka daily * we will continue IV fluid-100 mL per hour * We will continue banana bag/thiamine/multivitamin * Regularly watch for withdrawal symptoms including tremors, tachycardia, diarrhea * Ativan according to CIWA protocol * Strict intake output charting * Daily CBC, BEP, LFT, till stabilized * We will follow GI recommendation Epistaxis - * Patient denies any active bleeding today * We will watch for any signs of bleeding * We will follow ENT recommendations Schizophrenia * Patient does not understand his medical condition and does not have capacity to make the decision according to psychiatrist. * His mother, Gina is his conservator * He may not leave AMA * The next resperidon Consta 37.5 mg IM every 2 weeks injection is due on January 09, 2017. * We added tablet risperidone 1 milligram every 8 hourly as needed for agitation and injection haloperidol 2 milligrams IM for severe aggression * We will watch for QTC * We will follow psychiatrist recommendation Diet-regular diet DVT prophylaxis- early ambulation, avoid haprine CODE STATUS-full code Problem List: 1. Alcoholic hepatitis 2. Polysubstance abuse 3. Cannabis abuse 4. Colovesical fistula 5. Psychosis 6. Schizophrenia Pain Ratin Pain Location: upper abdoman Pain Goal: Remain pain free Pain Plan: avoid NSAIDs Tomorrow's Labs & Rationales: CBC -because of anemia and GI bleed, BEP -because of hypokalemia, magnesium -because of hypomagnesemia, LFT -because of alcoholic hepatitis DVT/Prophylaxis: SHAWN Herrera MD 12/30/16 1040: Attending MD Review Statement Attending Statement Attending MD Statement: examined this patient, discuss w/resident/PA/DIRECTOR OF PHYSICAL SECURITY, agreed w/resident/PA/DIRECTOR OF PHYSICAL SECURITY, reviewed EMR data (avail) Attending Assessment/Plan: 36M PMH EtOH abuse admitted for acute pancreatitis, alcoholic hepatitis, hypokalemia, and alcohol withdrawal. Hemodynamically stable. Potassium was 2.4 on admission, received supplementation, then 6.2, now 3.2. EKG NSR with no acute changes. Also with rectal bleeding and melena, Hgb now stable after transfusion. CT abdomen reads as possible colovesicular fistula. Patient is agitated and combative today. He wishes to go home. He does not have capacity at this time to make decisions, as he has no insight and has disorganized speech. He is refusing all his medications at this time. Plan - Discontinue telemetry, transfer to general medicine - Monitor CBC, BEP and LFTs daily until stabilized - Follow psychiatry recommendations - Transfuse if Hgb <7 - GI and surgery consults - Ativan per [facility]WA - Continue Ceftriaxone and Flagyl for now for possible fistula - Continue IV fluids - DVT PPx
[2016-12-30 09:12] LABS: WHITE BLOOD CELL COUNT 6.8 /CUMM (4.8-10.8)
--- NOTE | 2016-12-30 10:29 | NUR ---
HEART RATE 120'S; BP 110/72; TEMP 99.7. MD CRESCENCIO MILLER MADE AWARE.
[2016-12-30 11:00] VITALS: BP 110/70
--- NOTE | 2016-12-30 11:00 | NUR ---
PT TX FROM TELE WITH DX: HYPOKALEMIA, GI BLEED. PT AXO, DENIES PAIN, PT ON RA, HX: VRE, PT ORIENTED TO ROOM, CALL LIGHT AND PLAN OF CARE, PT'S MOTHER AT BEDSIDE.
[2016-12-30 11:18] VITALS: BP 110/70
[2016-12-30 14:30] VITALS: BP 118/70
--- NOTE | 2016-12-30 14:31 | PN- Gastroenterology ---
Assessment/Plan Assessment/Recommendations: Assessment: Mr. Woo is a 36 year old male admitted with electrolyte abnormalities, increased LFTs from etoh and anemia who is currently doing well without evidence of ongoing over GI bleeding. He is tolerating a diet and his hgb has corrected appropriately with transfusion and is stable. He does appear to have a colovesicular fistula on his ct scan which has been there for some time and he had a colonoscopy for this a few years ago which was negative for IBD so I suspect it is diverticular in etiology. He does have a UTI now so it is possible that the fisula may have transformed into a more definitive tract and if he continues to get recurrent UTIs this may require further evaluation and surgical repair if further imaging confirms an abnormal communication, but this can be done as an outpatient. Recommendations: 1. Adavnce diet as tolearted 2. Follow daily CBC and transfuse as needed to maintain hgb > 7 3. Notify GI for signs of overt GI bleeding 4. Treatment of UTI as per primary team 5. Further work up of his possible colovesicular fistual with a gastrograffin enema can be pursued an an outpatient. 6. Monitor for signs of etoh withdrawal and treat with benzodiazepenes as needed 7. Periodically follow LFTs Will sign off at this time, please have him follow up as an outpatient for further work up of the fistula and would ask that GI be consutled for any new GI issues while he is an inpatient. Subjective Subjective: Pt had his diet advanced last night which he is tolerating albeit with a small amount of bilious vomiting after breakfast. He nots seeing a small amount of blood on the toilet paper after having a normal bm. He denies any signficant abdominal pain or diarrhea. Objective Vital Signs and I&Os Vital Signs Date Time Temp Pulse Resp B/P Pulse O2 O2 Flow FiO2 Ox Delivery Rate 12/30 1118 99.0 112 20 110/70 97 12/30 0835 99.7 100 16 110/72 99 Room Air 12/29 2322 98.9 105 18 90/50 95 Room Air 12/29 2200 18 90/58 12/29 1800 100.0 102 18 116/80 12/29 1607 100.0 102 18 116/80 92 Room Air 12/29 1600 100.0 102 18 116/80 Intake & Output 12/30 1600 12/30 0400 12/29 1600 12/29 0400 12/28 1600 12/28 0400 Intake Total 840 2176 3657.5 250 1500 Output Total 776 1175 2425 300 350 Balance 64 1001 1232.5 -50 1150 Intake, Blood 250 Product Intake, IV 511 3287.5 250 1100 Intake, Oral 840 1665 120 0 400 Number 2 2 Bowel Movements Output, 1 Emesis Output, Urine 775 1175 2425 300 350 Patient 165 lb Weight Physical Exam General Appearance: well developed/nourished, no apparent distress, comfortable Head: atraumatic, normal appearance, + scleral icterus Neck: normal inspection, supple, full range of motion Respiratory: normal breath sounds Cardiovascular: regular rate/rhythm Abdomen: normal bowel sounds, soft, non-tender Back: normal inspection, normal range of motion Extremities: normal inspection Skin: intact, normal color Current Medications: Current Medications Sig/Olivia Start time Last Medication Dose Route Stop Time Status Admin Acetaminophen 650 MG Q6P PRN 12/28 2345 AC 12/29 PO 0134 Ceftriaxone Sodium 1,000 MG DAILY 12/28 1642 AC 12/30 IV 1115 Cyanocobalamin/ 1 BAG DAILY 12/28 1611 AC 12/29 Thiamine/Pyridoxine IV 0931 Dextrose/Water 1,000 ML Folic Acid 1 MG DAILY 12/30 2111 AC PO Lorazepam 0.5 MG ONCE 01/02 0000 DC PO 01/02 0001 Lorazepam 0.5 MG Q6H 01/01 0000 DC PO 01/01 1801 Lorazepam 0.5 MG ONCE ONE 12/31 1800 DC PO 12/31 1801 Lorazepam 1 MG Q6H 12/31 0000 DC PO 12/31 1201 Lorazepam 2 MG Q8 12/30 1400 AC 12/30 IV 1406 Lorazepam 1.5 MG Q12H 12/30 0600 DC PO 12/30 1801 Lorazepam 1 MG Q12H 12/30 0000 DC PO 12/30 1201 Lorazepam 2 MG Q6 12/28 1800 DC 12/29 IV 1752 Lorazepam 0 Q1P PRN 12/28 1615 AC 12/30 IV 0939 Metronidazole 500 MG Q8H 12/29 0600 AC 12/30 N/A 1 UNIT IV 1116 Multivitamins 1 TAB DAILY 12/30 2111 AC PO Nicotine 14 MG DAILY 12/30 1000 DC 12/30 TOP 0439 Nicotine 21 MG DAILY 12/30 1000 AC 12/30 TOP 0926 Nicotine 7 MG DAILY 12/28 2153 DC 12/29 TOP 0931 Omeprazole 40 MG BID 12/29 2200 AC 12/30 PO 0818 Potassium Chloride 40 MEQ .STK-MED ONE 12/30 0027 DC PO 12/30 0028 Potassium Chloride 40 MEQ ONCE ONE 12/29 2014 DC 12/29 PO 12/29 Potassium Chloride 20 MEQ ONCE ONE 12/29 2014 DC PO 12/30 2015 Potassium Chloride 20 MEQ ONCE ONE 12/29 1715 DC 12/29 PO 12/29 171 1753 Risperidone 1 MG Q8P PRN 12/29 1615 AC PO Thiamine HCl 100 MG DAILY 12/30 2111 AC PO Trimethobenzamide HCl 200 MG 4 TIMES/DAY PRN 12/28 161 AC IM Results Pertinent Lab Results: Laboratory Tests 12/30 12/29 0610 1805 Chemistry Sodium (137 - 145 mmol/L) 128 L 127 L Potassium (3.5 - 5.1 mmol/L) 3.2 L 3.1 L Chloride (98 - 107 mmol/L) 95 L 93 L Carbon Dioxide (22 - 30 mmol/L) 26 27 Anion Gap (5 - 16) 7 7 BUN (9 - 20 mg/dL) 2 L < 2 L Creatinine (0.7 - 1.2 mg/dL) 0.6 L 0.6 L Estimated GFR (>60 ml/min) > 60 > 60 BUN/Creatinine Ratio (7 - 25 %) 3.3 L 3.3 L Magnesium (1.6 - 2.3 mg/dL) 1.7 Hematology CBC w Diff MAN DIFF ORDERED NO MAN DIFF REQ WBC (4.8 - 10.8 /CUMM) 6.8 6.6 RBC (4.70 - 6.10 /CUMM) 3.17 L 3.29 L Hgb (14.0 - 18.0 G/DL) 9.0 L 9.2 L Hct (42 - 52 %) 28.1 L 28.8 L MCV (80.0 - 94.0 FL) 88.9 87.4 MCH (27.0 - 31.0 PG) 28.5 28.0 RDW (11.5 - 14.5 %) 19.5 H 19.4 H Plt Count (130 - 400 /CUMM) 62 L 51 L MPV (7.4 - 10.4 FL) 9.5 8.6 Gran % (42.2 - 75.2 %) 85.7 H 86.6 H Lymphocytes % (20.5 - 51.1 %) 6.6 L 6.4 L Monocytes % (1.7 - 9.3 %) 6.4 5.8 Eosinophils % (0 - 5 %) 1.3 0.9 Basophils % (0.0 - 2.0 %) 0 L 0.3 Absolute Granulocytes (1.4 - 6.5 /CUMM) 5.8 5.7 Absolute Lymphocytes (1.2 - 3.4 /CUMM) 0.4 L 0.4 L Absolute Monocytes (0.10 - 0.60 /CUMM) 0.4 0.4 Absolute Eosinophils (0.0 - 0.7 /CUMM) 0.1 0.1 Absolute Basophils (0.0 - 0.2 /CUMM) 0 0 Platelet Estimate (ADEQUATE) DECREASED Polychromasia 1+ Poikilocytosis 1+ Anisocytosis 1+ Stomatocytes 1+ PUBS MCHC (33.0 - 37.0 G/DL) 32.0 L 32.1 L 12/29 12/29 12/29 1110 1036 1019 Chemistry Sodium (137 - 145 mmol/L) 128 L Potassium (3.5 - 5.1 mmol/L) 3.1 L Chloride (98 - 107 mmol/L) 92 L Carbon Dioxide (22 - 30 mmol/L) 28 Anion Gap (5 - 16) 8 BUN (9 - 20 mg/dL) 3 L Creatinine (0.7 - 1.2 mg/dL) 0.6 L Estimated GFR (>60 ml/min) > 60 BUN/Creatinine Ratio (7 - 25 %) 5.0 L Hematology CBC w Diff NO MAN DIFF REQ Cancelled WBC (4.8 - 10.8 /CUMM) 6.4 Cancelled RBC (4.70 - 6.10 /CUMM) 3.34 L Cancelled Hgb (14.0 - 18.0 G/DL) 9.3 L Cancelled Hct (42 - 52 %) 29.1 L Cancelled MCV (80.0 - 94.0 FL) 87.4 Cancelled MCH (27.0 - 31.0 PG) 28.0 Cancelled RDW (11.5 - 14.5 %) 19.3 H Cancelled Plt Count (130 - 400 /CUMM) 51 L Cancelled MPV (7.4 - 10.4 FL) 9.1 Cancelled Gran % (42.2 - 75.2 %) 88.3 H Lymphocytes % (20.5 - 51.1 %) 5.0 L Monocytes % (1.7 - 9.3 %) 5.5 Eosinophils % (0 - 5 %) 0.4 Basophils % (0.0 - 2.0 %) 0.8 Absolute Granulocytes (1.4 - 6.5 /CUMM) 5.7 Absolute Lymphocytes (1.2 - 3.4 /CUMM) 0.3 L Absolute Monocytes (0.10 - 0.60 /CUMM) 0.4 Absolute Eosinophils (0.0 - 0.7 /CUMM) 0 Absolute Basophils (0.0 - 0.2 /CUMM) 0.1 PUBS MCHC (33.0 - 37.0 G/DL) 32.0 L Cancelled Haptoglobin Pending 12/29 12/29 12/28 0628 0130 2200 Chemistry Sodium (137 - 145 mmol/L) 126 L 127 L Potassium (3.5 - 5.1 mmol/L) 6.2 *H 2.9 *L Chloride (98 - 107 mmol/L) 95 L 90 L Carbon Dioxide (22 - 30 mmol/L) 26 26 Anion Gap (5 - 16) 5 11 BUN (9 - 20 mg/dL) 3 L 4 L Creatinine (0.7 - 1.2 mg/dL) 0.6 L 0.6 L Estimated GFR (>60 ml/min) > 60 > 60 BUN/Creatinine Ratio (7 - 25 %) 5.0 L 6.7 L Lactic Acid (0.7 - 2.1 mmol/L) 1.4 2.5 H Magnesium (1.6 - 2.3 mg/dL) 1.9 1.4 L Iron (49 - 181 ug/dL) 199 H TIBC (261 - 462 ug/dL) 352 % Saturation (16 - 45 %) 56 H Ferritin (17.9 - 464 ng/mL) 24.5 Total Bilirubin (0.2 - 1.3 mg/dL) 7.1 H Direct Bilirubin (< 0.4 mg/dL) 4.9 H AST (17 - 59 U/L) 205 H ALT (21 - 72 U/L) 52 Alkaline Phosphatase (< 127 U/L) 161 H Total Protein (6.3 - 8.2 g/dL) 6.3 Albumin (3.5 - 5.0 g/dL) 2.6 L Coagulation PT (9.4 - 12.5 SEC) 13.2 H INR (0.90 - 1.17) 1.26 H Hematology CBC w Diff NO MAN DIFF REQ WBC (4.8 - 10.8 /CUMM) 4.9 RBC (4.70 - 6.10 /CUMM) 2.59 L Hgb (14.0 - 18.0 G/DL) 7.0 *L Hct (42 - 52 %) 22.4 L MCV (80.0 - 94.0 FL) 86.3 MCH (27.0 - 31.0 PG) 26.9 L RDW (11.5 - 14.5 %) 21.5 H Plt Count (130 - 400 /CUMM) 49 L MPV (7.4 - 10.4 FL) 8.5 Gran % (42.2 - 75.2 %) 81.9 H Lymphocytes % (20.5 - 51.1 %) 11.6 L Monocytes % (1.7 - 9.3 %) 6.0 Eosinophils % (0 - 5 %) 0.5 Basophils % (0.0 - 2.0 %) 0 L Absolute Granulocytes (1.4 - 6.5 /CUMM) 4.0 Absolute Lymphocytes (1.2 - 3.4 /CUMM) 0.6 L Absolute Monocytes (0.10 - 0.60 /CUMM) 0.3 Absolute Eosinophils (0.0 - 0.7 /CUMM) 0 Absolute Basophils (0.0 - 0.2 /CUMM) 0 PUBS MCHC (33.0 - 37.0 G/DL) 31.2 L 12/28 12/28 12/28 12/28 12/28 2100 1825 1622 1554 1436 Chemistry Sodium (137 - 145 mmol/L) 130 L Cancelled Potassium (3.5 - 5.1 mmol/L) 2.7 *L Cancelled Chloride (98 - 107 mmol/L) 88 L Cancelled Carbon Dioxide (22 - 30 mmol/L) 30 Cancelled Anion Gap (5 - 16) 12 Cancelled BUN (9 - 20 mg/dL) 4 L Cancelled Creatinine (0.7 - 1.2 mg/dL) 0.6 L Cancelled Estimated GFR (>60 ml/min) > 60 BUN/Creatinine Ratio (7 - 25 %) 6.7 L Cancelled Glucose Cancelled Lactic Acid (0.7 - 2.1 mmol/L) 3.0 H 3.4 H Calcium Cancelled Magnesium (1.6 - 2.3 mg/dL) Cancelled 1.2 L 12/28 12/28 1300 1212 Chemistry Magnesium (1.6 - 2.3 mg/dL) 1.5 L Total Bilirubin (0.2 - 1.3 mg/dL) 5.3 H Direct Bilirubin (< 0.4 mg/dL) 4.0 H AST (17 - 59 U/L) 265 H ALT (21 - 72 U/L) 66 Alkaline Phosphatase (< 127 U/L) 194 H Total Protein (6.3 - 8.2 g/dL) 7.8 Albumin (3.5 - 5.0 g/dL) 3.6 Toxicology Urine Opiates Screen (>2000 NG/ML) < 100.00 Methadone Screen (>300 NG/ML) < 40 Barbiturate Screen (>200 NG/ML) < 60 Ur Phencyclidine Scrn (>25 NG/ML) < 6.00 Amphetamines Screen (>1000 NG/ML) < 100 U Benzodiazepines Scrn (>200 NG/ML) < 85 Urine Cocaine Screen (>300 NG/ML) < 50 Urine Cannabis Screen (>50 NG/ML) > 80.00 H Urines Urine Color (YEL,AMB,STR) SHANEKA Urine Clarity (CLEAR) HAZY H Urine pH (5.0 - 8.0) 7.5 Ur Specific [place] (1.001 - 1.035) 1.015 Urine Protein (NEG,<30 MG/DL) TRACE H Urine Ketones (NEG) NEG Urine Nitrite (NEG) POS H Urine Bilirubin (NEG) POS@ICTO H Urine Urobilinogen (0.1 - 1.0 EU/dl) >=8.0 H Ur Leukocyte Esterase (NEG) MOD H Ur Microscopic SEDIMENT EXAMINED Urine RBC (0 - 5 /HPF) RARE Urine WBC (0 - 2 /HPF) 50-75 H Urine Bacteria (NEG/NONE) MANY H Urine Hemoglobin (NEG) TRACE-INTACT H Urine Glucose (N MG/DL) 100 H 12/28 1157 Chemistry Sodium (137 - 145 mmol/L) 135 L Potassium (3.5 - 5.1 mmol/L) 2.4 *L Chloride (98 - 107 mmol/L) 85 L Carbon Dioxide (22 - 30 mmol/L) 33 H Anion Gap (5 - 16) 17 H BUN (9 - 20 mg/dL) 5 L Creatinine (0.7 - 1.2 mg/dL) 0.7 Estimated GFR (>60 ml/min) > 60 BUN/Creatinine Ratio (7 - 25 %) 7.1 Glucose (65 - 99 mg/dL) 117 H Lactic Acid (0.7 - 2.1 mmol/L) 3.8 H Calcium (8.4 - 10.2 mg/dL) 8.1 L Total Bilirubin (0.2 - 1.3 mg/dL) 5.2 H Direct Bilirubin (< 0.4 mg/dL) 3.9 H AST (17 - 59 U/L) 263 H ALT (21 - 72 U/L) 60 Alkaline Phosphatase (< 127 U/L) 189 H Lactate Dehydrogenase (313 - 618 U/L) 670 H Troponin I (<0.11 ng/ml) < 0.01 Total Protein (6.3 - 8.2 g/dL) 7.7 Albumin (3.5 - 5.0 g/dL) 3.5 Globulin (1.9 - 4.2 gm/dL) 4.2 Albumin/Globulin Ratio (1.1 - 2.2 %) 0.8 L Amylase (30 - 110 U/L) 90 Lipase (23 - 300 U/L) 434 H Coagulation PT (9.4 - 12.5 SEC) 12.5 INR (0.90 - 1.17) 1.19 H APTT (25 - 37 SEC) 30 Hematology CBC w Diff MAN DIFF ORDERED WBC (4.8 - 10.8 /CUMM) 5.8 RBC (4.70 - 6.10 /CUMM) 3.18 L Hgb (14.0 - 18.0 G/DL) 8.6 L Hct (42 - 52 %) 27.4 L MCV (80.0 - 94.0 FL) 86.3 MCH (27.0 - 31.0 PG) 27.2 RDW (11.5 - 14.5 %) 21.1 H Plt Count (130 - 400 /CUMM) 61 L MPV (7.4 - 10.4 FL) 8.0 Gran % (42.2 - 75.2 %) 79.8 H Lymphocytes % (20.5 - 51.1 %) 9.6 L Monocytes % (1.7 - 9.3 %) 9.6 H Eosinophils % (0 - 5 %) 1.0 Basophils % (0.0 - 2.0 %) 0 L Absolute Granulocytes (1.4 - 6.5 /CUMM) 4.6 Absolute Lymphocytes (1.2 - 3.4 /CUMM) 0.6 L Absolute Monocytes (0.10 - 0.60 /CUMM) 0.6 Absolute Eosinophils (0.0 - 0.7 /CUMM) 0.1 Absolute Basophils (0.0 - 0.2 /CUMM) 0 Platelet Estimate (ADEQUATE) DECREASED Polychromasia 1+ Hypochromic-Microcytic 1+ Poikilocytosis FEW Anisocytosis 1+ PUBS MCHC (33.0 - 37.0 G/DL) 31.5 L Toxicology Serum Alcohol (<10 MG/DL) 293.0
--- NOTE | 2016-12-30 18:44 | NUR ---
PATIENT REQUESTED NICOTINE PATCH. I NOTED ONE WAS PLACED THIS AM. PATIENT SAID HE TOOK IT OFF, BUT WANTS ONE NOW. PLACED A NEW ONE ON GALLO, AN UNSCHEDULED MED TIME. ORDERED NEW PATCH FOR THE AM. PATIENT STATES HE WILL PROBABLY TAKE OFF TONIGHT.
--- NOTE | 2016-12-30 19:03 | Cons- General Surgery ---
General Information and HPI Consulting Request Date of Consult: 12/30/16 Requested By: CHRISTIANO CARPENTER,GALA History of Present Illness: Patient seen and examined studies especially CTs reviewed on PACS myself to be completed By the imaging, it appears he's possibly had a colovesical fistula for years Very difficult to get a clear history for example whether or not he's had pneumaturia, agree with current antibiotics, consider cystoscopy, other medical conditions also need attention but he will most likely need resection with primary anastomosis. Allergies/Medications Allergies: Coded Allergies: shrimp (BLACKED OUT PER PT 01/22/16) Home Med List: Risperidone Microspheres (Risperdal Consta) 37.5 MG/2 ML SYRINGE 1 SYR IM Q2W SCHIZOPHRENIA (Reported) Current Medications: I reviewed Current Medications Sig/Olivia Start time Last Medication Dose Route Stop Time Status Admin Acetaminophen 650 MG Q6P PRN 12/28 2345 AC 12/29 PO 0134 Ceftriaxone Sodium 1,000 MG DAILY 12/28 1642 AC 12/30 IV 1115 Cyanocobalamin/ 1 BAG DAILY 12/28 1611 AC 12/29 Thiamine/Pyridoxine IV 0931 Dextrose/Water 1,000 ML Folic Acid 1 MG DAILY 12/29 2112 AC PO Lorazepam 0.5 MG ONCE 01/02 0000 DC PO 01/02 0001 Lorazepam 0.5 MG Q6H 01/01 0000 DC PO 01/01 1801 Lorazepam 0.5 MG ONCE ONE 12/31 1800 DC PO 12/31 1801 Lorazepam 1 MG Q6H 12/31 0000 DC PO 12/31 1201 Lorazepam 2 MG Q8 12/30 1400 AC 12/30 IV 1406 Lorazepam 1.5 MG Q12H 12/30 0600 DC PO 12/30 1801 Lorazepam 1 MG Q12H 12/30 0000 DC PO 12/30 1201 Lorazepam 2 MG Q6 12/28 1800 DC 12/29 IV 1752 Lorazepam 0 Q1P PRN 12/28 1615 AC 12/30 IV 0939 Metronidazole 500 MG Q8H 12/29 0600 AC 12/30 N/A 1 UNIT IV 1116 Multivitamins 1 TAB DAILY 12/29 2112 AC PO Nicotine 14 MG DAILY 12/30 1000 DC 12/30 TOP 0439 Nicotine 21 MG DAILY 12/30 1000 AC 12/30 TOP 1841 Nicotine 7 MG DAILY 12/28 2153 DC 12/29 TOP 0931 Omeprazole 40 MG BID 12/29 2200 AC 12/30 PO 0818 Potassium Chloride 10 MEQ Q1H 12/30 1615 DC 12/30 IV 12/30 1716 1639 Potassium Chloride 10 MEQ ONCE ONE 12/30 1500 CAN IV 12/30 1501 Potassium Chloride 10 MEQ ONCE ONE 12/30 1500 CAN IV 12/30 1501 Potassium Chloride 40 MEQ .STK-MED ONE 12/30 0027 DC PO 12/30 0028 Potassium Chloride 40 MEQ ONCE ONE 12/29 2014 DC 12/29 PO 12/29 2016 2253 Potassium Chloride 20 MEQ ONCE ONE 12/29 2014 DC PO 12/30 2015 Risperidone 1 MG Q8P PRN 12/29 161 AC PO Thiamine HCl 100 MG DAILY 12/30 2111 AC PO Trimethobenzamide HCl 200 MG 4 TIMES/DAY PRN 12/28 1615 AC IM Past History Medical History Neurological: seizure (during alcohol detox) EENT: NONE Cardiovascular: alcoholic cardiomyopathy stage II Respiratory: history of aspiration pneumonia Gastrointestinal: alcoholic hepatitis, GERD, hiatal hernia, upper GI bleed Renal: NONE Musculoskeletal: NONE Psychiatric: alcohol dependence, anxiety, depression, substance abuse, SCHIZOPHRENIA alcohol abuse Endocrine: psychogenic polydipsia HYPOKALEMIA, HYPOMAGNESEMIA, HYPONATREMIA hypoK+, hypoNa, hypoMg hx hyponatremia hx hypokalemia Blood Disorders: anemia, coagulopathy (intermittent), thrombocytopenia ( intermittent) Cancer(s): NONE AIR COMMODORE/Reproductive: N/A Other Medical Hx: Hypokalemia and hypomagnesemia Surgical History Pertinent Surgical History: cholecystectomy Family History Relations & Conditions If Any: FATHER, , Age 27; Cause: Heroin overdose. MOTHER (diabetic). Age 60+. SISTER (healthy). Psychosocial History Where Do You Live? Home Who Do You Live With? spouse (mother), parent Services at Home: Nursing Primary Language: [place] Smoking Status: Current Everyday Smoker ETOH Use: heavy use Illicit Drug Use: marijuana Living Will? no Power of User Experience Manager/HCP? yes Name of POA/HCP: Pt's motherMerly [phone] Functional Ability ADLs Independent: dressing, eating, toileting, bathing. Ambulation: independent IADLs Needs Assist: shopping, housework, finances, food prep, telephone, transportation, medication admin. Exam & Diagnostic Data Vital Signs and I&O I reviewed Vital Signs Date Time Temp Pulse Resp B/P Pulse O2 O2 Flow FiO2 Ox Delivery Rate 12/30 1430 98.0 68 20 118/70 96 12/30 1118 99.0 112 20 110/70 97 12/30 1100 99.0 112 20 110/70 12/30 0835 99.7 100 16 110/72 99 Room Air 12/29 2322 98.9 105 18 90/50 95 Room Air 12/29 2200 18 90/58 I reviewed Intake & Output 12/30 1600 12/30 0800 12/30 0000 12/29 1600 12/29 0800 12/29 0000 Intake Total 556 541 7652 1307.5 2350 250 Output Total 776 0999 058 1468 300 Balance 928 43 9398 432.5 800 -50 Intake, Blood 250 Product Intake, IV 511 937.5 2350 250 Intake, Oral 287 003 7360 120 0 Number 2 2 Bowel Movements Output, 1 Emesis Output, Urine 775 2616 583 2292 300 Last 24 Hours of Labs: I reviewed Laboratory Tests 12/30 0610 Chemistry Sodium (137 - 145 mmol/L) 128 L Potassium (3.5 - 5.1 mmol/L) 3.2 L Chloride (98 - 107 mmol/L) 95 L Carbon Dioxide (22 - 30 mmol/L) 26 Anion Gap (5 - 16) 7 BUN (9 - 20 mg/dL) 2 L Creatinine (0.7 - 1.2 mg/dL) 0.6 L Estimated GFR (>60 ml/min) > 60 BUN/Creatinine Ratio (7 - 25 %) 3.3 L Magnesium (1.6 - 2.3 mg/dL) 1.7 Hematology CBC w Diff MAN DIFF ORDERED WBC (4.8 - 10.8 /CUMM) 6.8 RBC (4.70 - 6.10 /CUMM) 3.17 L Hgb (14.0 - 18.0 G/DL) 9.0 L Hct (42 - 52 %) 28.1 L MCV (80.0 - 94.0 FL) 88.9 MCH (27.0 - 31.0 PG) 28.5 RDW (11.5 - 14.5 %) 19.5 H Plt Count (130 - 400 /CUMM) 62 L MPV (7.4 - 10.4 FL) 9.5 Gran % (42.2 - 75.2 %) 85.7 H Lymphocytes % (20.5 - 51.1 %) 6.6 L Monocytes % (1.7 - 9.3 %) 6.4 Eosinophils % (0 - 5 %) 1.3 Basophils % (0.0 - 2.0 %) 0 L Absolute Granulocytes (1.4 - 6.5 /CUMM) 5.8 Absolute Lymphocytes (1.2 - 3.4 /CUMM) 0.4 L Absolute Monocytes (0.10 - 0.60 /CUMM) 0.4 Absolute Eosinophils (0.0 - 0.7 /CUMM) 0.1 Absolute Basophils (0.0 - 0.2 /CUMM) 0 Platelet Estimate (ADEQUATE) DECREASED Polychromasia 1+ Poikilocytosis 1+ Anisocytosis 1+ Stomatocytes 1+ PUBS MCHC (33.0 - 37.0 G/DL) 32.0 L Assessment/Plan Assessment/Plan Patient seen and examined studies especially CTs reviewed on PACS myself to be completed By the imaging, it appears he's possibly had a colovesical fistula for years Very difficult to get a clear history for example whether or not he's had pneumaturia, agree with current antibiotics, consider cystoscopy, other medical conditions also need attention but he will most likely need resection with primary anastomosis. Consult Acknowledgment - Thank you for your consult request.
[2016-12-30 20:00] VITALS: BP 120/70
[2016-12-30 20:11] VITALS: BP 120/70
[2016-12-31] VITALS (8 sets, daily range): BP systolic 104–124; BP diastolic 66–80
[2016-12-31 08:05] LABS: HEMATOCRIT 28.8 % (42-52); MEAN CORPUSCULAR HGB 28.6 PG (27.0-31.0); MEAN CORPUSCULAR HGB CONC 31.7 G/DL (33.0-37.0); MEAN CORPUSCULAR VOLUME 90.2 FL (80.0-94.0); MEAN PLATELET VOLUME 9.4 FL (7.4-10.4); RBC DISTRIBUTION WIDTH 20.1 % (11.5-14.5); RED BLOOD CELL CT 3.19 /CUMM (4.70-6.10)
[2016-12-31 08:12] LABS: ABSOLUTE LYMPH COUNT 0.8 /CUMM (1.2-3.4); BASOPHIL % 0.1 % (0.0-2.0); EOSINOPHIL % 1.9 % (0-5); GRANULOCYTE % 74.5 % (42.2-75.2); PLATELET COUNT 69 /CUMM (130-400); WHITE BLOOD CELL COUNT 6.5 /CUMM (4.8-10.8)
[2016-12-31 08:13] LABS: ABSOLUTE BASOPHIL COUNT 0 /CUMM (0.0-0.2); ABSOLUTE EOSINOPHIL COUNT 0.1 /CUMM (0.0-0.7); ABSOLUTE GRANULOCYTE CT 4.9 /CUMM (1.4-6.5); ABSOLUTE MONOCYTE COUNT 0.7 /CUMM (0.10-0.60)
--- NOTE | 2016-12-31 08:23 | PN- Housestaff ---
VLAD CARPENTER,GE 12/31/16 0822: Subjective Follow-up For: Colovesical fistula Anemia Alcohol withdrawal Hypokalemia Alcoholic hepatitis Epistaxis Schizophrenia Subjective: No acute events overnight. Patient appears agitated and has been asking repeatedly to be discharged home today. Otherwise, he feels well and has no complaints. Review of Systems Constitutional: Reports: no symptoms. Objective Last 24 Hrs of Vital Signs/I&O Vital Signs Date Time Temp Pulse Resp B/P Pulse O2 O2 Flow FiO2 Ox Delivery Rate 12/31 1449 100.2 108 18 108/68 97 12/31 0410 98.9 104 16 110/66 99 Room Air 12/31 0400 98.9 104 16 110/66 12/31 0032 98.5 80 20 114/70 97 Room Air 12/31 0000 98.5 80 20 114/70 12/30 2010 100.3 78 20 120/70 94 Room Air 12/31 1999 100.3 78 20 120/70 Intake & Output 12/31 1600 12/31 0800 12/31 0000 Intake Total 480 500 800 Output Total Balance 480 500 800 Intake, Oral 480 500 800 Number 1 Bowel Movements Physical Exam General Appearance: Alert, Oriented X3, No Acute Distress Skin: Jaundice HEENT: Atraumatic, Mucous Membr. moist/pink, Scleral Icterus Neck: Supple Cardiovascular: Regular Rate, Normal S1, Normal S2 Lungs: Clear to Auscultation Abdomen: Soft, No Tenderness, Positive Bowel Sounds Extremities: No Clubbing, No Cyanosis, No Edema Current Medications: Current Medications Sig/Olivia Start time Last Medication Dose Route Stop Time Status Admin Acetaminophen 650 MG Q6P PRN 12/28 2345 AC 12/29 PO 0134 Ceftriaxone Sodium 1,000 MG DAILY 12/28 1642 AC 12/30 IV 1115 Cyanocobalamin/ 1 BAG DAILY 12/28 1611 AC 12/29 Thiamine/Pyridoxine IV 0931 Dextrose/Water 1,000 ML Folic Acid 1 MG DAILY 12/29 2112 AC PO Lorazepam 0.5 MG ONCE 01/02 0000 DC PO 01/02 0001 Lorazepam 0.5 MG Q6H 01/01 0000 DC PO 01/01 1801 Lorazepam 0.5 MG ONCE ONE 12/31 1800 DC PO 12/31 1801 Lorazepam 1 MG Q6H 12/31 0000 DC PO 12/31 1201 Lorazepam 2 MG Q8 12/30 1400 AC 12/30 IV 2116 Lorazepam 0 Q1P PRN 12/28 1615 AC 12/30 IV 0939 Magnesium Oxide 400 MG Q2 12/31 1000 DC 12/31 PO 12/31 1201 1153 Metronidazole 500 MG Q8H 12/29 0600 AC 12/30 N/A 1 UNIT IV 2240 Multivitamins 1 TAB DAILY 12/30 2111 AC PO Nicotine 21 MG DAILY 12/30 1000 AC 12/31 TOP 0829 Omeprazole 40 MG BID 12/29 2200 AC 12/31 PO 0829 Potassium Chloride 40 MEQ ONCE ONE 12/31 0845 DC 12/31 PO 12/31 0846 1039 Potassium Chloride 10 MEQ Q1H 12/30 1615 DC 12/30 IV 12/30 1716 1935 Potassium Chloride 10 MEQ ONCE ONE 12/30 1500 CAN IV 12/30 1501 Potassium Chloride 10 MEQ ONCE ONE 12/30 1500 CAN IV 12/30 1501 Risperidone 1 MG Q8P PRN 12/29 1615 AC PO Thiamine HCl 100 MG DAILY 12/30 2111 AC PO Trimethobenzamide HCl 200 MG 4 TIMES/DAY PRN 12/28 1615 AC IM Last 24 Hrs of Lab/Guru Results Last 24 Hrs of Labs/Mics: Laboratory Tests 12/31/16 0655: CBC w Diff NO MAN DIFF REQ, RBC 3.19 L, MCV 90.2, MCH 28.6, RDW 20.1 H, MPV 9.4, Gran % 74.5, Lymphocytes % 12.4 L, Monocytes % 11.1 H, Eosinophils % 1.9, Basophils % 0.1, Absolute Granulocytes 4.9, Absolute Lymphocytes 0.8 L, Absolute Monocytes 0.7 H, Absolute Eosinophils 0.1, Absolute Basophils 0, PUBS MCHC 31.7 L 12/31/16 0635: Anion Gap 9, Estimated GFR > 60, BUN/Creatinine Ratio 3.3 L, Magnesium 1.6, Total Bilirubin 6.9 H, Direct Bilirubin 5.8 H, AST 110 H, ALT 45, Alkaline Phosphatase 142 H, Total Protein 6.5, Albumin 2.8 L Assessment/Plan Assessment: 36 y/o F with PMHx of chronic alcohol abuse c/b alcoholic hepatitis, alcoholic cardiomyopathy and pancytopenia and schizophrenia who is admitted with multiple electrolyte abnormalities, elevated LFTs and anemia. #Colovesical fistula: Likely has been present for many years. * Per surgery, patient likely needs cystoscopy and eventually resection with primary anastomosis. * Urology consulted regarding cystoscopy. Appreciate their recs. * Per GI, patient needs gastrograffin enema for further evaluation which can be pursued as outpatient. * Continue ceftriaxone 1 g IV daily and Flagyl 500 mg IV Q8H. #Anemia: H/H stable. No further episodes of GI bleeding. * Continue to monitor H/H with daily CBCs and transfuse as needed to maintain Hgb > 7. * Notify GI for signs of overt GI bleeding including hemodynamical instability. #Alcohol withdrawal: CIWA scores have been running low, mostly 0's. * CIWA protocol to monitor for signs/symptoms of alcohol withdrawal. * Continue oral MVI, thiamine and folic acid. * Continue IV Ativan Q1H PRN per CIWA protocol. #Hypokalemia: K improved, 3.6 today. Mg 1.6. * Repleted with 40 mEq of oral potassium and 800 mEq of oral magnesium. * Continue to monitor K and Mg and replete to K >4 and Mg >2. #Alcoholic hepatitis: LFTs have improved slightly, but still elevated today. AST /ALT 110/45, alkaline phosphatase 142 and total bilirubin 6.9. * Continue to monitor LFTs periodically. #Epistaxis: * ENT consulted. Appreciate their recs. #Schizophrenia: * Psych following. Appreciate their recs. * Patient cannot leave AMA. * Continue risperidone 1 mg PO Q8H PRN for agitation. Diet: Regular DVT PPx: ALPs CODE: FULL Problem List: 1. Colovesical fistula 2. Schizophrenia 3. Alcoholic hepatitis 4. Hypokalemia 5. ALCOHOL WITHDRAWAL 6. Epistaxis 7. Anemia Pain Ratin Pain Location: N/A Pain Goal: Remain pain free Pain Plan: Tylenol 650 mg PO Q6H PRN Tomorrow's Labs & Rationales: CBC to monitor H/H in the setting of anemia BMP to monitor lytes and kidney function in the setting of hypokalemia LFTs in the setting of alcoholic hepatitis CONNOR PEDRO MD 12/31/16 1404: Attending MD Review Statement Attending Statement Attending MD Statement: examined this patient, discuss w/resident/PA/SEAFOOD SPECIALIST, agreed w/resident/PA/SEAFOOD SPECIALIST, discussed with family, reviewed EMR data (avail), discussed with nursing, discussed with case mgmt, reviewed images, amended to note Attending Assessment/Plan: Patient actively ambulating. Does not offer any complaint. Has been seen by GI and surgery. Currently they do not recommend any intervention. As per GI he'll need a Gastrografin enema to delineate the fistula further what can be done as an outpatient. Her surgery patient needs cystoscopy and eventually resection with anastomosis in future. We need urology evaluation for cystoscopy. Continue Ativan as per CIWA protocol for now. Continue antibiotics. Replete potassium as needed. Follow-up psych.
--- NOTE | 2016-12-31 15:55 | NUR ---
PATIENT ALERT AND ORIENTED X 3. AMBULATING IN ALFONSO. REFUSED SOME OF THE 10 AM MEDICATIONS WELL THE 1400 ANTIBIOTICS. SUEDING MACHINE TENDER IMGE AWARE. IMGE IN TO SPEAK WITH PATIENT. PATIENT DENIES ANY PAIN OR DISCOMFORT. ANXIOUS TO GO HOME. SUEDING MACHINE TENDER IN TO LET PATIENT KNOW THAT HE WILL NOT BE DISCHARGED TODAY. WILL CONTINUE TO MONITOR.
--- NOTE | 2016-12-31 23:30 | NUR ---
PT REFUSED 2200 ABX. NIR AWARE . WILL MONITOR
[2017-01-01 06:35] VITALS: BP 114/72
[2017-01-01 07:42] LABS: PT 13.8 SEC (9.4-12.5)
[2017-01-01 07:46] LABS: HEMATOCRIT 28.9 % (42-52); MEAN CORPUSCULAR HGB 28.8 PG (27.0-31.0); MEAN CORPUSCULAR HGB CONC 31.7 G/DL (33.0-37.0); MEAN CORPUSCULAR VOLUME 90.7 FL (80.0-94.0); MEAN PLATELET VOLUME 8.9 FL (7.4-10.4); RBC DISTRIBUTION WIDTH 20.4 % (11.5-14.5); RED BLOOD CELL CT 3.19 /CUMM (4.70-6.10)
--- NOTE | 2017-01-01 08:35 | PN- Housestaff ---
See Addendum Subjective Follow-up For: Colovesical fistula Anemia Alcohol withdrawal Hypokalemia Alcoholic hepatitis Epistaxis Schizophrenia Subjective: Afebrile, patient mildly agitated, he repeatedly ask when he will be discharged. He denies any current complaints. He saturating well on room air. Denies any symptom or signs suggestive of alcohol withdrawal. He denies any recent epistaxis or GI bleeding. Review of Systems Constitutional: Reports: no symptoms. Objective Last 24 Hrs of Vital Signs/I&O Vital Signs Date Time Temp Pulse Resp B/P Pulse O2 O2 Flow FiO2 Ox Delivery Rate 01/01 0635 99.4 88 16 114/72 99 Room Air 12/31 2329 99.3 104 18 124/80 98 Room Air 12/31 2000 98.7 98 14 104/74 12/31 1600 Room Air 12/31 1600 99.7 102 16 108/70 12/31 1449 100.2 108 18 108/68 97 Intake & Output 01/01 1600 01/01 0800 01/01 0000 Intake Total 470 1520 Output Total 400 200 Balance 70 1320 Intake, IV 120 20 Intake, Oral 350 1500 Number 0 Bowel Movements Output, Urine 400 200 Physical Exam General Appearance: Alert, Oriented X3, Cooperative, mildly agitated Skin: No Rashes HEENT: Atraumatic, PERRLA, EOMI, Mucous Membr. moist/pink Cardiovascular: Regular Rate, Normal S1, Normal S2, No Murmurs Lungs: Clear to Auscultation Abdomen: Normal Bowel Sounds, Soft, No Tenderness Neurological: Normal Speech Extremities: No Clubbing, No Cyanosis, No Edema Current Medications: Current Medications Sig/Olivia Start time Last Medication Dose Route Stop Time Status Admin Acetaminophen 650 MG Q6P PRN 12/28 2345 AC 12/29 PO 0134 Ceftriaxone Sodium 1,000 MG DAILY 12/28 1642 AC 01/01 IV 0908 Cyanocobalamin/ 1 BAG DAILY 12/28 1611 AC 12/29 Thiamine/Pyridoxine IV 0931 Dextrose/Water 1,000 ML Folic Acid 1 MG DAILY 12/29 2112 AC PO Lorazepam 0.5 MG ONCE 01/02 0000 DC PO 01/02 0001 Lorazepam 0.5 MG Q6H 01/01 0000 DC PO 01/01 1801 Lorazepam 0.5 MG ONCE ONE 12/31 1800 DC PO 12/31 1801 Lorazepam 2 MG Q8 12/30 1400 AC 01/01 IV 0526 Lorazepam 0 Q1P PRN 12/28 1615 AC 01/01 IV 0324 Magnesium Oxide 400 MG Q2 12/31 1000 DC 12/31 PO 12/31 1201 1153 Magnesium Sulfate 1 GM ONCE ONE 01/01 1145 AC Dextrose/Water 100 ML IV 01/01 1544 Metronidazole 500 MG Q8H 12/29 0600 AC 01/01 N/A 1 UNIT IV 05 Multivitamins 1 TAB DAILY 12/29 211 AC PO Nicotine 21 MG DAILY 12/30 1000 AC 01/01 TOP 0908 Omeprazole 40 MG BID 12/29 2200 AC 01/01 PO 0907 Potassium Chloride 20 MEQ ONCE ONE 01/01 1145 AC PO 01/01 1146 Potassium Chloride 10 MEQ Q1H 01/01 1145 AC IV 01/01 1246 Risperidone 1 MG Q8P PRN 12/29 1615 AC PO Thiamine HCl 100 MG DAILY 12/30 2111 AC PO Trimethobenzamide HCl 200 MG 4 TIMES/DAY PRN 12/28 1615 AC IM Last 24 Hrs of Lab/Guru Results Last 24 Hrs of Labs/Mics: Laboratory Tests 01/01/17 0640: Anion Gap 10, Estimated GFR > 60, BUN/Creatinine Ratio 5.0 L, Magnesium 1.5 L, Total Bilirubin 6.7 H, Direct Bilirubin 5.3 H, AST 110 H, ALT 39, Alkaline Phosphatase 127 H, Total Protein 6.7, Albumin 2.9 L, PT 13.8 H, INR 1.32 H, CBC w Diff NO MAN DIFF REQ, RBC 3.19 L, MCV 90.7, MCH 28.8, RDW 20.4 H, MPV 8.9, Gran % 54.1, Lymphocytes % 31.0, Monocytes % 13.0 H, Eosinophils % 1.9, Basophils % 0 L, Absolute Granulocytes 2.7, Absolute Lymphocytes 1.5, Absolute Monocytes 0.6, Absolute Eosinophils 0.1, Absolute Basophils 0, PUBS MCHC 31.7 L Assessment/Plan Assessment: 36 y/o F with PMHx of chronic alcohol abuse c/b alcoholic hepatitis, alcoholic cardiomyopathy and pancytopenia and schizophrenia who is admitted with multiple electrolyte abnormalities, elevated LFTs and anemia. #Colovesical fistula: Likely has been present for many years. Patient UTI at presentation can be simply because of the fistula. Per surgery, patient likely needs cystoscopy and eventually resection with primary anastomosis. * Urology consulted regarding cystoscopy, we will follow their recommendations. * Per GI, patient needs gastrograffin enema for further evaluation which can be pursued as outpatient. * Continue ceftriaxone 1 g IV daily and Flagyl 500 mg IV Q8H. #Anemia: H/H stable. No further episodes of GI bleeding. * Continue to monitor H/H with daily CBCs and transfuse as needed to maintain Hgb > 7. * Notify GI for signs of overt GI bleeding including hemodynamical instability. #Alcohol withdrawal: CIWA scores have been running low, mostly 0's. * CIWA protocol to monitor for signs/symptoms of alcohol withdrawal. * Continue oral MVI, thiamine and folic acid. * Continue IV Ativan Q1H PRN per CIWA protocol. #Hypokalemia: Today K is 3.3 and Mg is 1.5. We try to replete with IV potassium and magnesium however patient refused any IV medications * Repleted with 40 mEq of oral potassium and 800 mEq of oral magnesium. * Continue to monitor K and Mg and replete to K >4 and Mg >2. #Alcoholic hepatitis: LFTs have improved slightly, but still elevated today. AST /ALT 110/39, alkaline phosphatase 127 and total bilirubin 6.7. * Continue to monitor LFTs periodically. * We ordered a hepatitis panel #Epistaxis: * ENT consulted. Appreciate their recs. #Schizophrenia: * Psych following. Appreciate their recs. * Patient cannot leave AMA. * Continue risperidone 1 mg PO Q8H PRN for agitation. Diet: Regular DVT PPx: ALPs CODE: FULL Problem List: 1. ALCOHOL WITHDRAWAL 2. Hypokalemia 3. Hyponatremia 4. Epistaxis 5. Psychosis Pain Ratin Pain Location: None Pain Goal: Remain pain free Pain Plan: See A&P Tomorrow's Labs & Rationales: CBC and BEP
[2017-01-01 09:20] LABS: PLATELET COUNT 79 /CUMM (130-400); WHITE BLOOD CELL COUNT 4.9 /CUMM (4.8-10.8)
[2017-01-01 09:21] LABS: ABSOLUTE BASOPHIL COUNT 0 /CUMM (0.0-0.2); ABSOLUTE EOSINOPHIL COUNT 0.1 /CUMM (0.0-0.7); ABSOLUTE GRANULOCYTE CT 2.7 /CUMM (1.4-6.5); ABSOLUTE LYMPH COUNT 1.5 /CUMM (1.2-3.4); ABSOLUTE MONOCYTE COUNT 0.6 /CUMM (0.10-0.60); BASOPHIL % 0 % (0.0-2.0); EOSINOPHIL % 1.9 % (0-5); GRANULOCYTE % 54.1 % (42.2-75.2)
--- NOTE | 2017-01-01 11:52 | NUR ---
NOTIFIED PATIENT OF ORDER FOR IV POTASSIUM AND MAGNESIUM FOR LOW ELECTROLYTE LEVELS. PT REFUSED IV AND REQUESTED PO MEDICATIONS. NOTIFIED DR. MARNIE JUNE OF PTS REQUEST.
[2017-01-01 12:00] VITALS: BP 114/70
--- NOTE | 2017-01-01 12:41 | NUR ---
WAS TOLD BY PATIENT THAT HE HAS BEEN VOMITING ON A NEAR DAILY BASIS SINCE MOVING TO [place] IN 2008 AND THAT HE FEELS HE VOMITS MORE WHEN HE GETS STRESSED. PT ALSO SAID HE DRINKS MORE A DAY THAN HE INITIALLY ADMITTED TO. PT VERY ANXIOUS ABOUT PROGNOSIS AND PLAN OF CARE. EXPLAINED TO PATIENT PLAN OF CARE AND GAVE EMOTIONAL SUPPORT. WILL CONTINUE TO MONITOR PT.
--- NOTE | 2017-01-01 13:30 | Transfer of Care Summary ---
Hospital Course Course Hospital Course: Patient is 36 y/o M with PMH of multiple drug abuse,Chronic alcohol abuse ( Seizures at [place] in 2017), alcoholic hepatitis, alcoholic, schizophrenia who was sent to the ED by his PCP after she found his potassium at 2.6. On evaluation he was having hypokalemia, hypomagnesemia, hyponatremia, elevated LFT and Colovesical fistula on CT scan. We admitted patient in telemetry for cardiac monitoring. we repleted K/Mg, transfused 2 Units of blood and took GI consult and psyche consult. GI - advised,no intervention for colovesical fistula and planned endo/conoscopy in future. Psyche advised -Pt cannt leave AMA and use risperidon for Agitation. We requested surgery and urology consult. Pt was continuosly refusing all medication and want to leave. We talked to Omayral/ mother + conservator, she wanted him to be get treated. Later we transfered pt to floor for further management. Assessment/Plan: Problem list - Hypokalemia Hypomagnesemia Alcoholic hepatitis Stage II alcoholic cardiomyopathy Anemia secondary to GI bleed, epistaxis, thrombocytopenia Chronic diarrhea Colovesical fistula Multiple substance abuse- marijuana Chronic smoker-1PPD History of hemorrhoids Nonerosive gastritis (endoscopy GERD Hiatal hernia History of upper GI bleed Diverticulosis(colonoscopy History of aspiration pneumonia Schizophrenia Psychogenic polydipsia History of cholecystectomy Plan - Transferred to general medical floor. Discussed with , and updated the treatment. Patient is agitated and refusing for any treatment. Hyperkalemia/ Hypomagnesemia/hyponatremia - * We will supplement it. * We will follow BEP/magnesium daily Anemia secondary to GI bleed - Hb 9.0 * According to Dr. Antonio patient recently had endoscopy and does not require it now * He advised to continue regular diet * Watch for bleeding * If patient bleed acutely and become hemodynamically unstable than call GI immediately * We'll follow GI recommendation Colovesical fistula - * According to Dr. Antonio. Patient has colovesical fistula since couple of years and according to him. It does not require any repair. * Although patient is complaining of frequency, dysuria and dark urine * We will consider to place urological consult if needed in future. * We will continue IV ceftriaxone/metronidazole for total 10 to 14 days Chronic alcoholism * we will continue IV fluid-100 mL per hour * We will continue banana bag/thiamine/multivitamin * Regularly watch for withdrawal symptoms including tremors, tachycardia, diarrhea * Ativan according to [facility] protocol * Daily CBC, BEP, LFT, till stabilized * We will follow GI recommendation Epistaxis - * Patient denies any active bleeding today * We will watch for any signs of bleeding * We will follow ENT recommendations Schizophrenia * Patient does not understand his medical condition and does not have capacity to make the decision according to psychiatrist. * His mother, Gina is his conservator * He may not leave AMA * The next resperidon Consta 37.5 mg IM every 2 weeks injection is due on January 09, 2017. * We added tablet risperidone 1 milligram every 8 hourly as needed for agitation and injection haloperidol 2 milligrams IM for severe aggression * We will watch for QTC We will follow psychiatrist recommendation Diet-regular diet DVT prophylaxis- early ambulation, avoid haprine CODE STATUS-full code
--- NOTE | 2017-01-01 14:02 | Cons- Urology ---
See Addendum General Information and HPI Consulting Request Date of Consult: 01/01/17 Requested By: GALA ALVARADO MD Reason for Consult: colo-vesical fistula Source of Information: patient Exam Limitations: poor historian History of Present Illness: 36 year old male with electrolyte abnormalities, ethanolism, anemia has on catscan clinical sigmoid colon inflammatory disease?diverticulitis with fistulization to bladder: air in bladder,thickened distal colon, irregular bladder dome pt has pneumaturia. no dysuria ."abdominal fullnes" Allergies/Medications Allergies: Coded Allergies: shrimp (BLACKED OUT PER PT 01/22/16) Home Med List: Risperidone Microspheres (Risperdal Consta) 37.5 MG/2 ML SYRINGE 1 SYR IM Q2W SCHIZOPHRENIA (Reported) Past History Medical History Neurological: seizure (during alcohol detox) EENT: NONE Cardiovascular: alcoholic cardiomyopathy stage II Respiratory: history of aspiration pneumonia Gastrointestinal: alcoholic hepatitis, GERD, hiatal hernia, upper GI bleed Renal: NONE Musculoskeletal: NONE Psychiatric: alcohol dependence, anxiety, depression, substance abuse, SCHIZOPHRENIA alcohol abuse Endocrine: psychogenic polydipsia HYPOKALEMIA, HYPOMAGNESEMIA, HYPONATREMIA hypoK+, hypoNa, hypoMg hx hyponatremia hx hypokalemia Blood Disorders: anemia, coagulopathy (intermittent), thrombocytopenia ( intermittent) Cancer(s): NONE S IRON WORKER/Reproductive: N/A Other Medical Hx: Hypokalemia and hypomagnesemia Surgical History Pertinent Surgical History: cholecystectomy Family History Relations & Conditions If Any: FATHER, , Age 27; Cause: Heroin overdose. MOTHER (diabetic). Age 60+. SISTER (healthy). Psychosocial History Where Do You Live? Home Who Do You Live With? spouse (mother), parent Services at Home: Nursing Primary Language: Greek Smoking Status: Current Everyday Smoker ETOH Use: heavy use Illicit Drug Use: marijuana Living Will? no Power of Java Analyst/HCP? yes Name of POA/HCP: Pt's motherMerly [phone] Functional Ability ADLs Independent: dressing, eating, toileting, bathing. Ambulation: independent IADLs Needs Assist: shopping, housework, finances, food prep, telephone, transportation, medication admin. Exam & Diagnostic Data Vital Signs and I&O Vital Signs Date Time Temp Pulse Resp B/P Pulse O2 O2 Flow FiO2 Ox Delivery Rate 03/26 1200 98.4 110 18 114/70 01/01 0635 99.4 88 16 114/72 99 Room Air 12/31 2329 99.3 104 18 124/80 98 Room Air 12/31 2000 98.7 98 14 104/74 12/31 1600 Room Air 12/31 1600 99.7 102 16 108/70 12/31 1449 100.2 108 18 108/68 97 Intake & Output 01/01 1600 01/01 0800 01/01 0000 12/31 1600 12/31 0800 12/31 0000 Intake Total 470 1520 480 500 800 Output Total 400 200 Balance 70 1320 480 500 800 Intake, IV 120 20 Intake, Oral 350 1500 480 500 800 Number 0 1 Bowel Movements Output, Urine 400 200 Assessment/Plan Assessment/Plan has an e.coli uti warranting antibiotic therapy uti secondary to colo-vesical fistula suggest: cystoscopy per dr. laguna consider renographin enema imaging study eventual colon resection with takedown of fistula Consult Acknowledgment - Thank you for your consult request. Attending MD Review Statement Attending Statement Attending Assessment/Plan: aria munoz md urologist covering for dr. laguna
--- NOTE | 2017-01-01 14:47 | NUR ---
PT REFUSED [address] MARNIE GALEAS NOTIFIED
[2017-01-01 15:18] VITALS: BP 118/78
[2017-01-01 20:00] VITALS: BP 130/80
[2017-01-01 23:34] VITALS: BP 124/90
[2017-01-02 02:18] VITALS: BP 130/64
[2017-01-02 06:00] VITALS: BP 122/78
[2017-01-02 08:00] LABS: HEMATOCRIT 28.1 % (42-52); MEAN CORPUSCULAR HGB 28.8 PG (27.0-31.0); MEAN CORPUSCULAR HGB CONC 31.2 G/DL (33.0-37.0); MEAN CORPUSCULAR VOLUME 92.4 FL (80.0-94.0); MEAN PLATELET VOLUME 8.7 FL (7.4-10.4); PLATELET COUNT 90 /CUMM (130-400); RBC DISTRIBUTION WIDTH 21.6 % (11.5-14.5); RED BLOOD CELL CT 3.05 /CUMM (4.70-6.10); WHITE BLOOD CELL COUNT 5.1 /CUMM (4.8-10.8)
--- NOTE | 2017-01-02 08:21 | PN- Housestaff ---
SLADE CARPENTER,ISORIL 01/02/17 0820: Subjective Follow-up For: Colovesical fistula Anemia Alcohol withdrawal Hypokalemia Alcoholic hepatitis Epistaxis Schizophrenia Subjective: Afebrile, no acute overnight events reported. His potassium still low, nurse yesterday reported that patient induce vomiting. Patient denies any current complaints including abdominal pain, nausea, vomiting, diarrhea or constipation. He reported having dark urine. Review of Systems Constitutional: Reports: see HPI. Objective Last 24 Hrs of Vital Signs/I&O Vital Signs Date Time Temp Pulse Resp B/P Pulse O2 O2 Flow FiO2 Ox Delivery Rate 01/02 06 98.4 87 18 122/78 99 Room Air 01/02 0218 98.1 70 18 130/64 98 Room Air 01/02 0000 Room Air 01/01 2334 98.3 84 18 124/90 99 Room Air 01/01 2000 98.0 80 16 130/80 94 Room Air 01/01 1518 99.3 98 20 118/78 100 Intake & Output 01/02 1600 01/02 0800 01/02 0000 Intake Total 420 580 Output Total Balance 420 580 Intake, IV 120 100 Intake, Oral 300 480 Patient 74.843 kg Weight Physical Exam General Appearance: Alert, Oriented X3, Cooperative, No Acute Distress Skin: No Rashes HEENT: Atraumatic, PERRLA, EOMI, Mucous Membr. moist/pink Cardiovascular: Regular Rate, Normal S1, Normal S2, No Murmurs Lungs: Clear to Auscultation Abdomen: Soft, No Tenderness Extremities: No Edema Current Medications: Current Medications Sig/Olivia Start time Last Medication Dose Route Stop Time Status Admin Acetaminophen 650 MG Q6P PRN 12/28 2345 AC 12/29 PO 0134 Ceftriaxone Sodium 1,000 MG DAILY 12/28 1642 AC 01/02 IV 1001 Cyanocobalamin/ 1 BAG DAILY 12/28 1611 DC 12/29 Thiamine/Pyridoxine IV 0931 Dextrose/Water 1,000 ML Folic Acid 1 MG DAILY 12/29 2112 AC PO Lorazepam 1 MG BID 01/02 1000 AC 01/02 PO 0955 Lorazepam 0.5 MG ONCE 01/02 0000 DC PO 01/02 0001 Lorazepam 2 MG Q8 12/30 1400 DC 01/02 IV 0558 Lorazepam 0 Q1P PRN 12/28 1615 AC 01/01 IV 1231 Metronidazole 500 MG Q8H 01/02 0615 AC 01/02 N/A 1 UNIT IV 0614 Metronidazole 500 MG Q8H 12/29 0600 DC 01/01 N/A 1 UNIT IV 2028 Multivitamins 1 TAB DAILY 12/30 2111 AC 01/01 PO 2028 Nicotine 21 MG DAILY 12/30 1000 AC 01/02 TOP 1001 Omeprazole 40 MG BID 12/29 2200 AC 01/02 PO 1001 Potassium Chloride 10 MEQ Q1H 01/02 0845 DC IV 01/02 0946 Potassium Chloride 40 MEQ ONCE ONE 01/02 0845 DC 01/02 PO 01/02 0846 1000 Potassium Chloride 20 MEQ ONCE ONE 01/01 1800 DC 01/01 PO 01/01 1801 1808 Risperidone 1 MG Q8P PRN 12/29 161 AC PO Thiamine HCl 100 MG DAILY 12/30 2111 AC PO Trimethobenzamide HCl 200 MG 4 TIMES/DAY PRN 12/28 1615 AC IM Last 24 Hrs of Lab/Guru Results Last 24 Hrs of Labs/Mics: Laboratory Tests 01/02/17 0710: Anion Gap 8, Estimated GFR > 60, BUN/Creatinine Ratio 5.0 L, CBC w Diff MAN DIFF ORDERED, RBC 3.05 L, MCV 92.4, MCH 28.8, RDW 21.6 H, MPV 8.7, Segmented Neutrophils 61, Lymphocytes 24, Monocytes 12 H, Eosinophils 3, Platelet Estimate DECREASED, Polychromasia 1+, Hypochromic-Microcytic 1+, Poikilocytosis 1+, Anisocytosis 1+, PUBS MCHC 31.2 L Assessment/Plan Assessment: 36 y/o F with PMHx of chronic alcohol abuse c/b alcoholic hepatitis, alcoholic cardiomyopathy and pancytopenia and schizophrenia who is admitted with multiple electrolyte abnormalities, elevated LFTs and anemia. 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 Patient UTI at presentation can be simply because of the fistula. Patient will go for cystoscopy tomorrow morning. Per GI, patient needs gastrograffin enema. * Continue ceftriaxone 1 g IV daily and Flagyl 500 mg IV Q8H. * We will order Gastrografin enema. * We'll keep patient nothing by mouth starting midnight #Anemia: H/H stable. No further episodes of GI bleeding or epistaxis. * Continue to monitor H/H with daily CBCs and transfuse as needed to maintain Hgb > 7. * Notify GI for signs of overt GI bleeding including hemodynamical instability. #Alcohol withdrawal: CIWA scores have been running low, mostly 0's. * CIWA protocol to monitor for signs/symptoms of alcohol withdrawal. * Continue oral MVI, thiamine and folic acid. #Hypokalemia and hypomagnesemia: Today K is 3.2. * We will replete with 2 runs of 10 mEq IV potassium and oral 40 mEq of potassium. * We will replete magnesium with 1 g IV magnesium sulfate. * Continue to monitor K and Mg and replete to K >4 and Mg >2. #Alcoholic hepatitis: LFTs have improved slightly yesterday, but still elevated to AST/ALT 110/39, alkaline phosphatase 127 and total bilirubin 6.7. * Continue to monitor LFTs periodically. * We ordered a hepatitis panel #Epistaxis: * ENT consulted. #Schizophrenia: Psych following. Appreciate their recs. Patient cannot leave AMA. Continue risperidone 1 mg PO Q8H PRN for agitation. Diet: Regular DVT PPx: ALPs CODE: FULL #Schizophrenia: * Psych following. Appreciate their recs. * Patient cannot leave AMA. * Continue risperidone 1 mg PO Q8H PRN for agitation. Diet: Regular DVT PPx: ALPs CODE: FULL Problem List: 1. Hypokalemia 2. Hyponatremia 3. Schizophrenia 4. Elevated bilirubin 5. Anemia 6. Alcohol intoxication 7. UTI (urinary tract infection) 8. Epistaxis Pain Ratin Pain Location: na Pain Goal: Remain pain free Pain Plan: see A&P Tomorrow's Labs & Rationales: cbc and bep CHRISTIANO CARPENTER,[facility] 01/02/17 1120: Attending MD Review Statement Attending Statement Attending MD Statement: examined this patient, discuss w/resident/PA/SHIP SCRAPER, agreed w/resident/PA/SHIP SCRAPER, discussed with family, discussed with nursing, discussed with case mgmt, reviewed images, amended to note Attending Assessment/Plan: Patient seen and examined, feels ok. Concerned about the cystoscopy. He continues to complain of having dark urine. His potassium is slightly better but his sodium continues to remain on the low side. Vital Signs Date Time Temp Pulse Resp B/P Pulse O2 O2 Flow FiO2 Ox Delivery Rate 01/02 0600 98.4 87 18 122/78 99 Room Air 01/02 0218 98.1 70 18 130/64 98 Room Air 01/02 0000 Room Air 01/01 2334 98.3 84 18 124/90 99 Room Air 01/01 2000 98.0 80 16 130/80 94 Room Air 01/01 1518 99.3 98 20 118/78 100 01/01 1200 98.4 110 18 114/70 on exam; aox3, nad. cv; s1,s2, rrr. resp; clear b/l abd; soft, nt, bs+ ext; no edema. Laboratory Tests 01/02 0710 Chemistry Sodium (137 - 145 mmol/L) 129 L Potassium (3.5 - 5.1 mmol/L) 3.2 L Chloride (98 - 107 mmol/L) 98 Carbon Dioxide (22 - 30 mmol/L) 23 Anion Gap (5 - 16) 8 BUN (9 - 20 mg/dL) 3 L Creatinine (0.7 - 1.2 mg/dL) 0.6 L Estimated GFR (>60 ml/min) > 60 BUN/Creatinine Ratio (7 - 25 %) 5.0 L Hematology CBC w Diff MAN DIFF ORDERED WBC (4.8 - 10.8 /CUMM) 5.1 RBC (4.70 - 6.10 /CUMM) 3.05 L Hgb (14.0 - 18.0 G/DL) 8.8 L Hct (42 - 52 %) 28.1 L MCV (80.0 - 94.0 FL) 92.4 MCH (27.0 - 31.0 PG) 28.8 RDW (11.5 - 14.5 %) 21.6 H Plt Count (130 - 400 /CUMM) 90 L MPV (7.4 - 10.4 FL) 8.7 Segmented Neutrophils (42.2 - 75.2 %) 61 Lymphocytes (20.5 - 51.1 %) 24 Monocytes (1.7 - 9.3 %) 12 H Eosinophils (0 - 5.0 %) 3 Platelet Estimate (ADEQUATE) DECREASED Polychromasia 1+ Hypochromic-Microcytic 1+ Poikilocytosis 1+ Anisocytosis 1+ PUBS MCHC (33.0 - 37.0 G/DL) 31.2 L A/P; 36 y/o M with pmh sig for chronic alcohol abuse, alcoholic liver disease, pancytopenia secondary to alcohol use, alcoholic cardiomyopathy and schizophrenia, hyponatremia was admitted with multiple issues. Patient had severe hypokalemia, hypomagnesemia, dehydration, jaundice with hyperbilirubinemia and abnormal LFTs, alcohol use with intoxication, epistaxis, UTI. During the hospital course patient was also found to have possibility of cholelithiasis fistula. He is on treatment with antibiotics currently for UTI. Patient was seen by urology as well as general surgery. Plan is to do the cystoscopy tomorrow. At this point he is on Ativan taper for his alcohol use. Continue medical regimen folate and thiamine. We will continue to replete his potassium as well as his magnesium. Please repeat magnesium IV. Patient is throwing up and can also replete potassium IV. Patient to go for cystoscopy tomorrow. Depending on the results, will proceed further and will speak with the general surgery. Epistaxis has been resolving H&H is relatively stable after transfusion. Continue risperidone. DVT px: ALPS. D/W patient's mother over the phone.
--- NOTE | 2017-01-02 09:10 | NUR ---
pt attempted to refuse blood work this am. after education provided, pt allowed blood work. refused room to be cleaned. continues to leave room and ambulate around unit after education provided on isolation precautions. POTASSIUM THIS AM 3.2. TO RECEIVE SUPPLEMENT. PT HAS BEEN REFUSING PO MEDICATIONS OR TAKING THEM AND THROWING UP AFTER. SPOKE WITH MD REGARDING THIS. NEED TO MAKE PLAN. WILL REASSESS.
--- NOTE | 2017-01-02 13:05 | NUR ---
PT HAS BEEN REFUSING IV POTASSIUM TODAY. HAVE ATTEMPTED TO GIVE TWICE. PT REFUSED. PT IS NOW REFUSING MAGNESIUM IV AND FLAGYL IV. EDUCATED ON NEED BUT STILL REFUSING. PT'S IV OUT OF DATE AND REFUSING NEW PLACEMENT. CURRENT IV FUNCTIONING AND LOCKED. LODGE OFFICER ISMAIL NOTIFIED. WILL COME SPEAK WITH PT AFTER PT HAS TIME TO CALM DOWN. PT HAD TAKEN PO POTASSIUM THIS AM BUT IT HAS BEEN PASSED IN VERBAL REPORT THAT PT VOMITS PILLS UP. PT STATES HE FEELS LIKE HE IS "BEING POISONED OR OVERDOSE WITH MEDS I DO NOT NEED". RESISTANT TO TEACHING. CHARGE NURSE NOTIFIED. WILL REATTEMPT.
[2017-01-02 14:21] VITALS: BP 112/70
--- NOTE | 2017-01-02 15:41 | NUR ---
AFTER DR. JUNE SPOKE WITH PT REGARDING NEED FOR CT SCAN WITH BOONE AND IV MEDICATIONS, PT ALLOWED NURSING STAFF TO PLACE BOONE. EDUCATION PROVIDED AND CT SCAN CALLED FOR PICKUP FOLLOWING PLACEMENT. IV FLAGYL INTIATED, PT AGREEABLE TO MEDICATIONS KNOWING HE "WILL LEAVE FASTER ONCE HIS MEDICATIONS ARE COMPLETE" AND HE "FEELS BETTER". TWO RNS PRESENT FOR BOONE PLACEMENT AND MEDICATION ADMINISTRATION.
--- NOTE | 2017-01-02 17:22 | CT SCAN REPORT ---
EXAMINATION: CT ABDOMEN AND PELVIS WITHOUT CONTRAST CLINICAL INFORMATION: Evaluate for colovesicular fistula. COMPARISON: CT from 12/28/2016 TECHNIQUE: Multidetector volumetric imaging was performed from the superior aspect of the liver through the pubic symphysis. Sagittal and coronal reformatted images were obtained on the technologist's workstation. Scans were performed before and after introduction of water soluble contrast into the Silva catheter. DLP: 903 mGy-cm FINDINGS: LUNG BASES: The visualized lung bases are unremarkable. LIVER, GALLBLADDER, AND BILIARY TREE: The liver is enlarged, measuring 21 cm in CC dimension. It demonstrates normal shape with decreased attenuation.. No focal hepatic lesion or biliary ductal dilatation is present. Status post cholecystectomy. PANCREAS: Unremarkable. SPLEEN: Unremarkable. ADRENAL GLANDS: Unremarkable. KIDNEYS AND URETERS: The kidneys are normal in size, shape, and attenuation. No hydronephrosis, hydroureter, or calculi seen. No perinephric stranding. BLADDER: A Silva catheter is in place within the bladder lumen. There is again noted abnormal soft tissue thickening at the dome of the bladder with an associated urachal remnant. Gas is present in the region of the urachal remnant. The soft tissue fullness extends to and abuts the sigmoid colon, as seen on coronal image 48/96. After contrast instillation, there is contrast seen filling the bladder lumen. There is no evidence of contrast extravasation. There is no contrast visualized extending into the region of soft tissue at the dome of the bladder which extends to the sigmoid colon. There is therefore no evidence of a colovesicular fistula. GASTROINTESTINAL TRACT: Moderate to large hiatal hernia. The small bowel is not obstructed. There is colonic diverticulosis. Mild inflammatory changes are again noted in the region of the sigmoid colon which could be associated with mild diverticulitis. ABDOMINAL WALL: No significant hernia is appreciated. LYMPH NODES: Normal. VASCULAR: Unremarkable. PELVIC VISCERA: The prostate and seminal vesicles are unremarkable. OSSEOUS STRUCTURES: Unremarkable. IMPRESSION: Abnormal soft tissue thickening in the dome of the bladder associated with a urachal remnant. There is soft tissue attenuation which abuts the adjacent sigmoid colon. Contrast does not extend into this region after instillation, with no definite colovesicular fistula visualized. Of note, this does not fully exclude the presence of a fistula, as the pressure of the cyst may not be sufficient to cause the contrast to extend into this region. There is diverticulosis with mild inflammatory changes in the region of the sigmoid colon which again could represent mild diverticulitis. Hepatobiliary with hepatic steatosis. Moderate to large hiatal hernia.
--- NOTE | 2017-01-02 17:27 | NUR ---
PT ARRIVED TO FLOOR FROM CAT SCAN AT THIS TIME. PER ORDER BOONE REMOVED, 1000 CC CLEAR YELLOW URINE IN BOONE BAG AT THIS TIME. IV ABX STILL INFUSING, ONCE COMPLETED, IV K BOLUSES WILL BE STARTED. PT DENIES PAIN AT THIS TIME, NO C/O'S.
--- NOTE | 2017-01-02 17:56 | PN- Psychiatry ---
Assessment/Plan Impression: 36 M admitted 12/28/16 for hypokalemia of 2.6, hypomagnesemia and other electrolyte abnormalities, elevated LFTs, anemia, epistaxis and alcohol detox. PMHx includes chronic alcohol abuse, schizophrenia, alcoholic hepatitis, alcoholic cardiomyopathy, pancytopenia.He is also being treated for a colovesical fistula/UTI Potassium low today at 3.2; sodium low at 129; last magnesium 0n 01/01/17 low at 1.5 Last EKG on 12/29/[address] 102 bpm, QTc 464 mS The patient has free access to fluids. There are multiple cans of Karena ice tea available, as well as Pepsi soda in his room. The patient is not distressed by his intermittent visual hallucinations, which may be due to alcohol withdrawal. I will leave the as needed (PRN) risperidone order in place, but ask that nursing assess him for worsening of these, or the emergence of auditory hallucinations. Please notify on-call psychiatry, if frightening hallucinations, agitation or confused thinking. CIWA 01/02/17 1600: 6-8-5-9-5-0-8-6-4-8-4-5-5 No scores reflect the presence of AVH. VS 01/02/17 1421: 112/70, 88HR, 97.9m 20RR, 100%RA Last 24 hours, the patient has received lorazepam 5 mg total, all from scheduled dosing. Suggestion: 1. Continue alcohol detox protocol. We suggest that the taper of this medication be no more than 20% daily reduction. Continue daily thiamine, folate and MVI. 2. Please consider a follow-up EKG, since the patient is on a depot antipsychotic medication with as needed doses available, and he has hypomagnesemia and hypokalemia. We are concerned about QTc prolongation and with the electrolyte abnormalities, the possibilty of torsades. 3. Monitor and continue to replete electrolyte abnormalities, especially potassium and magnesium, to the upper portion of their normal ranges. 4. Continue to offer risperidone 1 mg PO every 8 hours, as needed for agitation/ disturbing hallucinations. a. Hold if the EKG shows arrhythmia or if QTc greater than 475 mS. 5. In the event that the patient will be in the hospital on January 09, please arrange for risperidone Consta injection of 37.5 mg IM on that day. The next Consta 37.5 mg IM every 2 weeks injection is due on January 09, 2017. We will continue to follow along with you. Max Farias APRN, PAger 100 Subjective Subjective: The patient was seen today, 01/02/17, at 1730 in room 232. He is dressed in his usual skater clothes, and is enjoying his supper. A+OX3. Denies SI/HI. Denies auditory and visual hallucinations, at this time, but reports that visual disturbances, including seeing a baby in his room, body parts, his friend, and something dripping from the wall recently. These hallucinations are not distressing the patient. He states that he feels safe here. Thought processes are basically logical and linear, but he has little insight into his mental or medical condition, and his judgment is poor. Objective Last 24 Hrs of Vital Signs/I&O Vital Signs Date Time Temp Pulse Resp B/P Pulse O2 O2 Flow FiO2 Ox Delivery Rate 01/02 1421 97.9 88 20 112/70 100 Room Air 01/02 0600 98.4 87 18 122/78 99 Room Air 01/02 0218 98.1 70 18 130/64 98 Room Air 01/02 0000 Room Air 01/01 2334 98.3 84 18 124/90 99 Room Air 01/01 2000 98.0 80 16 130/80 94 Room Air Intake & Output 01/02 1600 01/02 0800 01/02 0000 Intake Total 1030 420 580 Output Total Balance 1030 420 580 Intake, IV 30 120 100 Intake, Oral 1000 300 480 Number 0 Bowel Movements Patient 165 lb Weight Current Medications: Current Medications Sig/Olivia Start time Last Medication Dose Route Stop Time Status Admin Acetaminophen 650 MG Q6P PRN 12/28 2345 AC 12/29 PO 0134 Ceftriaxone Sodium 1,000 MG DAILY 12/28 1642 AC 01/02 IV 1001 Cyanocobalamin/ 1 BAG DAILY 12/28 1611 DC 12/29 Thiamine/Pyridoxine IV 0931 Dextrose/Water 1,000 ML Folic Acid 1 MG DAILY 12/29 2112 AC PO Lorazepam 1 MG BID 01/02 1000 AC 01/02 PO 0955 Lorazepam 0.5 MG ONCE 01/02 0000 DC PO 01/02 0001 Lorazepam 2 MG Q8 12/30 1400 DC 01/02 IV 0558 Lorazepam 0 Q1P PRN 12/28 1615 AC 01/01 IV 1231 Magnesium Sulfate 1 GM ONCE ONE 01/02 1230 DC Dextrose/Water 100 ML IV 01/02 1629 Metronidazole 500 MG Q8H 01/02 0615 AC 01/02 N/A 1 UNIT IV 1527 Metronidazole 500 MG Q8H 12/29 0600 DC 01/01 N/A 1 UNIT IV 202 Multivitamins 1 TAB DAILY 12/29 211 AC 01/01 PO 202 Nicotine 21 MG DAILY 12/30 1000 AC 01/02 TOP 1001 Omeprazole 40 MG BID 12/29 2200 AC 01/02 PO 1001 Patient Medication 1 ED .STK-MED ONE 01/02 1403 DC Teaching ED 01/02 1404 Potassium Chloride 10 MEQ Q1H 01/02 0845 DC IV 01/02 0946 Potassium Chloride 40 MEQ ONCE ONE 01/02 0845 DC 01/02 PO 01/02 0846 1000 Risperidone 1 MG Q8P PRN 12/29 1615 AC PO Thiamine HCl 100 MG DAILY 12/30 2111 AC PO Trimethobenzamide HCl 200 MG 4 TIMES/DAY PRN 12/28 161 AC IM Results Last 24 Hrs of Labs/Mics: Laboratory Tests 01/02 0710 Chemistry Sodium (137 - 145 mmol/L) 129 L Potassium (3.5 - 5.1 mmol/L) 3.2 L Chloride (98 - 107 mmol/L) 98 Carbon Dioxide (22 - 30 mmol/L) 23 Anion Gap (5 - 16) 8 BUN (9 - 20 mg/dL) 3 L Creatinine (0.7 - 1.2 mg/dL) 0.6 L Estimated GFR (>60 ml/min) > 60 BUN/Creatinine Ratio (7 - 25 %) 5.0 L Hematology CBC w Diff MAN DIFF ORDERED WBC (4.8 - 10.8 /CUMM) 5.1 RBC (4.70 - 6.10 /CUMM) 3.05 L Hgb (14.0 - 18.0 G/DL) 8.8 L Hct (42 - 52 %) 28.1 L MCV (80.0 - 94.0 FL) 92.4 MCH (27.0 - 31.0 PG) 28.8 RDW (11.5 - 14.5 %) 21.6 H Plt Count (130 - 400 /CUMM) 90 L MPV (7.4 - 10.4 FL) 8.7 Segmented Neutrophils (42.2 - 75.2 %) 61 Lymphocytes (20.5 - 51.1 %) 24 Monocytes (1.7 - 9.3 %) 12 H Eosinophils (0 - 5.0 %) 3 Platelet Estimate (ADEQUATE) DECREASED Polychromasia 1+ Hypochromic-Microcytic 1+ Poikilocytosis 1+ Anisocytosis 1+ PUBS MCHC (33.0 - 37.0 G/DL) 31.2 L
[2017-01-02 22:30] VITALS: BP 116/78
[2017-01-03] VITALS (9 sets, daily range): BP systolic 100–120; BP diastolic 50–78
--- NOTE | 2017-01-03 04:45 | NUR ---
LATE ENTRY NURSING NOTE: PT ANXIOUS ABOUT PROCEDURE TOMORROW. CLAIMS TO BE EXTREMELY HUNGRY AND THIRSTY. DOES NOT WANT TO BE NPO. REQUESTING TO SPEAK WITH DOCTOR. MD ALEGRIA REPORTED TO BEDSIDE. EXPLAINED PROCEDURE AND MEDICAL RECOMMENDATIONS. PT STATING HE WILL REFUSE PROCEDURE IN AM. RN WILL CONTINUE TO MONITOR.
--- NOTE | 2017-01-03 07:16 | PN- Resident CRCU ---
Impression/Plan Plan DVT/Prophylaxis: mechanical
--- NOTE | 2017-01-03 07:16 | PN- Housestaff ---
See Addendum Subjective Follow-up For: Colovesical fistula Anemia Alcohol withdrawal Hypokalemia Alcoholic hepatitis Epistaxis Schizophrenia Subjective: Afebrile, hemodynamically and H&H stable, patient was agitated and refused all blood work, medications, procedures today, I spoke to the mother who presented later during the day and spoke to her son after which she agreed for our management plan. He reported dysuria that started after the Silva catheter was placed yesterday for the CT scan. Patient will most likely go for cystoscopy by Dr. Fiore later today. Review of Systems Constitutional: Denies: chills, fever, weakness. Cardiovascular: Denies: chest pain, palpitations. Respiratory: Denies: cough, short of breath, wheezing. Gastrointestinal: Denies: abdominal pain, constipation, diarrhea, nausea, vomiting. Genitourinary: Reports: dysuria. Objective Last 24 Hrs of Vital Signs/I&O Vital Signs Date Time Temp Pulse Resp B/P Pulse O2 O2 Flow FiO2 Ox Delivery Rate 01/03 0800 98.0 88 16 100/70 01/03 0600 98.0 88 16 100/70 99 Room Air 01/03 0400 98.1 86 16 100/60 01/03 0306 98.1 86 16 100/60 98 Room Air 01/03 0200 98.1 86 16 100/60 01/03 0000 99.6 89 20 116/78 01/02 2230 99.6 89 20 /78 100 01/02 1421 97.9 88 20 112/70 100 Room Air Intake & Output 01/03 1600 01/03 0800 01/03 0000 Intake Total 600 950 Output Total 2350 1974 Balance -1750 -1025 Intake, IV 600 250 Intake, Oral 0 700 Output, Urine 2350 1974 Physical Exam General Appearance: Alert, Oriented X3, not cooperative and agitated Skin: No Rashes HEENT: Atraumatic, PERRLA, EOMI, Mucous Membr. moist/pink, jaundiced on eye b/l Cardiovascular: Regular Rate, Normal S1, Normal S2, No Murmurs Lungs: Clear to Auscultation, Normal Air Movement Abdomen: Soft, No Tenderness Neurological: Normal Gait, Normal Speech Extremities: No Clubbing, No Cyanosis, No Edema Current Medications: Current Medications Sig/Olivia Start time Last Medication Dose Route Stop Time Status Admin Acetaminophen 650 MG Q6P PRN 12/28 2345 AC 12/29 PO 0134 Ceftriaxone Sodium 1,000 MG DAILY 12/28 1642 AC 01/03 IV 0940 Folic Acid 1 MG AT BEDTIME 01/03 2200 AC PO Folic Acid 1 MG DAILY 12/29 2112 DC PO Lorazepam 0.5 MG BID 01/03 1000 AC 01/03 PO / 0959 0940 Lorazepam 1 MG BID 01/02 1000 DC 01/02 PO 2119 Lorazepam 0 Q1P PRN 12/28 1615 AC 01/01 IV 1231 Magnesium Sulfate 1 GM ONCE ONE 01/02 1230 DC 01/03 Dextrose/Water 100 ML IV 01/02 1629 0005 Metronidazole 500 MG Q8H 01/02 0615 AC 01/03 N/A 1 UNIT IV 0940 Multivitamins 1 TAB AT BEDTIME 01/03 2200 AC PO Multivitamins 1 TAB 0800 01/03 0800 DC PO Multivitamins 1 TAB DAILY 12/29 2112 DC 01/01 PO 2029 Nicotine 21 MG DAILY 12/30 1000 AC 01/03 TOP 0939 Omeprazole 40 MG BID 12/29 2200 AC 01/03 PO 0938 Patient Medication 1 ED .STK-MED ONE 01/02 1403 DC Teaching ED 01/02 1404 Risperidone 1 MG Q8P PRN 12/29 1615 AC PO Sodium Chloride 1,000 ML ONCE ONE 01/02 2345 AC 01/03 IV 01/03 1304 0005 Thiamine HCl 100 MG AT BEDTIME 01/03 2200 AC PO Thiamine HCl 100 MG DAILY 12/29 211 DC PO Trimethobenzamide HCl 200 MG .STK-MED ONE 01/02 2002 DC IM 01/02 2003 Trimethobenzamide HCl 200 MG 4 TIMES/DAY PRN 12/28 1615 AC IM Last 24 Hrs of Lab/Guru Results Last 24 Hrs of Labs/Mics: Laboratory Tests 01/03/17 1023: Sodium Pending, Potassium Pending, Chloride Pending, Carbon Dioxide Pending, Anion Gap Pending, BUN Pending, Creatinine Pending, BUN/Creatinine Ratio Pending , PT 14.3 H, INR 1.37 H, APTT 32, CBC w Diff MAN DIFF ORDERED, RBC 3.16 L, MCV 92.8, MCH 28.7, RDW 20.7 H, MPV 9.1, Gran % 57.2, Lymphocytes % 26.3, Monocytes % 14.9 H, Eosinophils % 1.6, Basophils % 0 L, Absolute Granulocytes 2.8, Absolute Lymphocytes 1.3, Absolute Monocytes 0.7 H, Absolute Eosinophils 0.1, Absolute Basophils 0, Platelet Estimate VERIFIED BY SMEAR, Polychromasia 1+ , Anisocytosis 2+, Stomatocytes 1+, PUBS MCHC 31.0 L Microbiology 01/02 1544 URINE ROUT: Urine Culture - CAN Cancelled: Cancelled via OE: Per MD Decision Assessment/Plan Assessment: 36 y/o F with PMHx of chronic alcohol abuse c/b alcoholic hepatitis, alcoholic cardiomyopathy and pancytopenia and schizophrenia who is admitted with multiple electrolyte abnormalities, elevated LFTs and anemia. #Colovesical fistula/UTI Patient has UTI at presentation that can be simply because of the fistula. Per GI, patient needs gastrograffin enema. CT abdomen and pelvis without contrast; Abnormal soft tissue thickening in the dome of the bladder associated with a urachal remnant. no definite colovesicular fistula visualized. Patient will go for cystoscopy by Dr. Fiore later today. * Continue ceftriaxone 1 g IV daily and Flagyl 500 mg IV Q8H.. * We will follow patient after cystoscopy #Anemia: H/H stable. No further episodes of GI bleeding or epistaxis. * Continue to monitor H/H with daily CBCs and transfuse as needed to maintain Hgb > 7. * Notify GI for signs of overt GI bleeding including hemodynamical instability. #Alcohol withdrawal: CIWA scores have been running low, mostly 0's. * CIWA protocol to monitor for signs/symptoms of alcohol withdrawal. * Continue oral MVI, thiamine and folic acid. #Hypokalemia and hypomagnesemia: Patient refused blood work earlier today, his labs results still pending * We will replete if necessary #Alcoholic hepatitis: Hepatitis panel was negative. He still has elevated bilirubin and jaundice. * Continue to monitor LFTs periodically. #Epistaxis: No further episodes since admission * ENT consulted. #Schizophrenia: He received risperidone every 2 weeks. Psych following. Appreciate their recs. Patient cannot leave AMA. Continue risperidone 1 mg PO Q8H PRN for agitation. * The next Consta 37.5 mg IM every 2 weeks injection is due on January 09, 2017. Diet: This morning he is nothing by mouth for the cystoscopy DVT PPx: ALPs CODE: FULL Problem List: 1. ALCOHOL WITHDRAWAL 2. Hypokalemia 3. Hyponatremia 4. Schizophrenia 5. Elevated bilirubin 6. Anemia 7. Elevated liver enzymes 8. UTI (urinary tract infection) 9. Hiatal hernia 10. Cannabis abuse 11. Epistaxis Pain Ratin Pain Location: na Pain Goal: Remain pain free Pain Plan: see A&P Tomorrow's Labs & Rationales: cbc, bep
--- NOTE | 2017-01-03 09:17 | NUR ---
PT REFUSING IV ABX AND BLOOD WORK, NOTIFIED AND AT BEDSIDE TO ASSESS PT
[2017-01-03 10:41] LABS: ABSOLUTE BASOPHIL COUNT 0 /CUMM (0.0-0.2); ABSOLUTE EOSINOPHIL COUNT 0.1 /CUMM (0.0-0.7); ABSOLUTE GRANULOCYTE CT 2.8 /CUMM (1.4-6.5); ABSOLUTE LYMPH COUNT 1.3 /CUMM (1.2-3.4); ABSOLUTE MONOCYTE COUNT 0.7 /CUMM (0.10-0.60); BASOPHIL % 0 % (0.0-2.0); EOSINOPHIL % 1.6 % (0-5); GRANULOCYTE % 57.2 % (42.2-75.2); HEMATOCRIT 29.3 % (42-52); MEAN CORPUSCULAR HGB 28.7 PG (27.0-31.0); MEAN CORPUSCULAR VOLUME 92.8 FL (80.0-94.0); MEAN PLATELET VOLUME 9.1 FL (7.4-10.4); PLATELET COUNT 135 /CUMM (130-400); RBC DISTRIBUTION WIDTH 20.7 % (11.5-14.5); RED BLOOD CELL CT 3.16 /CUMM (4.70-6.10); WHITE BLOOD CELL COUNT 4.8 /CUMM (4.8-10.8)
[2017-01-03 10:48] LABS: PT 14.3 SEC (9.4-12.5); PTT 32 SEC (25-37)
--- NOTE | 2017-01-03 14:45 | NUR ---
PT TO OR FOR CYSTOSCOPY
--- NOTE | 2017-01-03 20:11 | NUR ---
PT ASKING MULTIPLE QUESTIONS/ APPEARS ANXIOUS, REFUSING ATIVAN AT THIS TIME, SCHEDULED DOSE FOR HS WILL BE GIVEN, ASKING "WHY AM I HERE? IM FINE, THEY DIDNT FIND ANYTHING TODAY, DID THEY?" "IS MY BLOOD OKAY? IS THERE ANYTHING WRONG" "MY PEE IS DARK" CALL PLACED TO DIE STORAGE WORKER AT THIS TIME TO COME SPEAK WITH PT REGARDING RESULTS OF TODAYS CYSTO AND TO ANSWER PT'S QUESTIONS. WILL CONTINUE TO MONITOR. SHIFT NOTE- PT IS ALERT ORIENTED X 3, ARRIVED FROM PACU APPROX 1700. DENIED PAIN AT THAT TIME, UNABLE TO VOID INITIALLY, VOIDED AT THIS TIME 50 CC DARK [place]/ORANGE COLOR URINE. STATES SOME BURNING UPON URINATION. IVF DC. TOLERATING PO FLUIDS AND FOOD WELL. NO N/V. INDEP IN ROOM. WILL CONTINUE TO MONITOR.
[2017-01-04 02:00] VITALS: BP 116/78
[2017-01-04 02:18] VITALS: BP 116/78
[2017-01-04 08:00] VITALS: BP 116/78
--- NOTE | 2017-01-04 08:00 | NUR ---
PT REFUSE BLOOD WORK, AWARE, CONTINUE TO MONITOR
--- NOTE | 2017-01-04 08:09 | PN- Housestaff ---
[facility] 0809: Subjective Follow-up For: Bladder mass Anemia Alcohol withdrawal Hypokalemia Alcoholic hepatitis Epistaxis Schizophrenia Subjective: Afebrile, hemodynamically stable, patient was agitated and refused all blood work, medications, procedures this morning. He went for cystoscopy by Dr. Fiore yesterday. He want to know the result of cystoscopy. he reported mild dysuria, with n hematouria Review of Systems Constitutional: Reports: see HPI. Objective Last 24 Hrs of Vital Signs/I&O Vital Signs Date Time Temp Pulse Resp B/P Pulse O2 O2 Flow FiO2 Ox Delivery Rate 01/04 1507 98.2 88 20 120/70 99 01/04 0800 98.9 100 20 116/78 01/04 0218 98.9 100 20 11678 97 Room Air 01/04 0200 98.9 100 20 11678 01/03 2235 99.6 99 20 102/50 98 01/03 2008 98.9 97 20 110/70 98 Room Air Intake & Output 01/04 1600 01/04 0800 01/04 0000 Intake Total 1620 700 Output Total 200 50 Balance 1420 650 Intake, IV 120 Intake, Oral 1500 700 Number 0 Bowel Movements Output, Urine 200 50 Physical Exam General Appearance: Alert, Oriented X3, Mild Distress, non coperative Skin: No Rashes, jaundiced HEENT: Atraumatic, PERRLA, EOMI, Mucous Membr. moist/pink Cardiovascular: Regular Rate, Normal S1, Normal S2, No Murmurs Lungs: Clear to Auscultation, Normal Air Movement Abdomen: Soft, No Tenderness Neurological: Normal Gait, Normal Speech Extremities: No Clubbing, No Cyanosis, No Edema Current Medications: Current Medications Sig/Olivia Start time Last Medication Dose Route Stop Time Status Admin Acetaminophen 650 MG Q6P PRN 12/28 2345 AC 12/29 PO 0134 Ceftriaxone Sodium 1,000 MG DAILY 12/28 1642 DC 01/04 IV 1033 Folic Acid 1 MG AT BEDTIME 01/03 2200 AC PO Lorazepam 0.5 MG BID 01/03 1000 DC 01/04 PO 01/10 0959 1032 Lorazepam 0 Q1P PRN 12/28 1615 DC 01/01 IV 1231 Metronidazole 500 MG Q8H 01/02 0615 AC 01/03 N/A 1 UNIT IV 2303 Multivitamins 1 TAB AT BEDTIME 01/03 2200 AC 01/03 PO 2105 Nicotine 21 MG DAILY 12/30 1000 AC 01/03 TOP 0939 Omeprazole 40 MG BID 12/29 2199 AC 01/04 PO 1032 Potassium Chloride 40 MEQ ONCE ONE 01/04 1630 DC PO 01/04 1631 Risperidone 1 MG Q8P PRN 12/29 1615 AC PO Thiamine HCl 100 MG AT BEDTIME 01/03 2200 AC PO Trimethobenzamide HCl 200 MG 4 TIMES/DAY PRN 12/28 1615 AC IM Last 24 Hrs of Lab/Guru Results Last 24 Hrs of Labs/Mics: Laboratory Tests 01/04/17 1600: Sodium Pending, Potassium Pending, Chloride Pending, Carbon Dioxide Pending, Anion Gap Pending, BUN Pending, Creatinine Pending, BUN/Creatinine Ratio Pending , Magnesium Pending, Total Bilirubin Pending, Direct Bilirubin Pending, AST Pending, ALT Pending, Alkaline Phosphatase Pending, Total Protein Pending, Albumin Pending, CBC w Diff NO MAN DIFF REQ, RBC 3.08 L, MCV 92.7, MCH 28.9, RDW 20.5 H, MPV 9.2, Gran % 57.2, Lymphocytes % 22.4, Monocytes % 18.0 H, Eosinophils % 1.6, Basophils % 0.8, Absolute Granulocytes 3.6, Absolute Lymphocytes 1.4, Absolute Monocytes 1.1 H, Absolute Eosinophils 0.1, Absolute Basophils 0.1, PUBS MCHC 31.2 L Assessment/Plan Assessment: 36 y/o F with PMHx of chronic alcohol abuse c/b alcoholic hepatitis, alcoholic cardiomyopathy and pancytopenia and schizophrenia who is admitted with multiple electrolyte abnormalities, elevated LFTs and anemia. #Bladder mass/UTI Patient has UTI at presentation.. CT abdomen and pelvis without contrast; Abnormal soft tissue thickening in the dome of the bladder associated with a urachal remnant. no definite colovesicular fistula visualized. Yesterday patient went for cystoscopy by Dr. Fiore, no fistula was visualized however there was a mass, a biopsy was taken the results will be back after 1 week. Patient can be discharged tomorrow if otherwise stable. * Continue ceftriaxone 1 g IV daily * We will switch Flagyl 500 mg IV Q8H. to oral * We will instruct patient to follow-up with Dr. Fiore after 1 week to review the biopsy results #Anemia: H/H stable. No further episodes of GI bleeding or epistaxis. * Continue to monitor H/H with daily CBCs and transfuse as needed to maintain Hgb > 7. * Notify GI for signs of overt GI bleeding including hemodynamical instability. #Alcohol withdrawal: CIWA scores have been running low, mostly 0's. * We will DC Ativan today * Continue oral MVI, thiamine and folic acid. #Hypokalemia and hypomagnesemia: Patient refused blood work earlier today, his labs results still pending * We will replete if necessary * Patient will be started on potassium 20 mg daily #Alcoholic hepatitis: Hepatitis panel was negative. He still has elevated bilirubin and jaundice. * We will repeat LFTs tomorrow #Epistaxis: No further episodes since admission * ENT consulted. #Schizophrenia: He received risperidone every 2 weeks. Patient cannot leave AMA. Continue risperidone 1 mg PO Q8H PRN for agitation. * The next Consta 37.5 mg IM every 2 weeks injection is due on January 09, 2017. Diet: Regular diet DVT PPx: ALPs CODE: FULL Problem List: 1. ALCOHOL WITHDRAWAL 2. Hypokalemia 3. Hyponatremia 4. Schizophrenia 5. Elevated bilirubin 6. Anemia 7. UTI (urinary tract infection) 8. Hiatal hernia 9. Epistaxis Pain Ratin Pain Location: na Pain Goal: Remain pain free Pain Plan: see A&P Tomorrow's Labs & Rationales: cbc, bep, liver function, mg CHRISTIANO CARPENTER,[facility] 01/04/17 1307: Attending MD Review Statement Attending Statement Attending MD Statement: examined this patient, discuss w/resident/PA/TEACHER OF THE EMOTIONALLY DISTURBED, agreed w/resident/PA/TEACHER OF THE EMOTIONALLY DISTURBED, reviewed EMR data (avail), discussed with nursing, reviewed images, amended to note Attending Assessment/Plan: Patient seen and he had a lot of questions. He wants to know when can go home. At this point we are trying to contact Dr. Fiore to see exactly what he found during the procedure yesterday with cystoscopy. We need to know Estelle to call the surgery. At this point patient is currently on ceftriaxone and metronidazole for possible colovesical fistula. Recommend changing metronidazole to oral. Last dose of Ativan this morning. He stopped Ativan. Further management and disposition plan depends on the details of urologic procedure as well as question if patient needs to be seen by surgery or not. I explained all this to the patient and he understood. He still refusing his blood work.
[2017-01-04 15:07] VITALS: BP 120/70
[2017-01-04 16:27] LABS: ABSOLUTE BASOPHIL COUNT 0.1 /CUMM (0.0-0.2); ABSOLUTE EOSINOPHIL COUNT 0.1 /CUMM (0.0-0.7); ABSOLUTE GRANULOCYTE CT 3.6 /CUMM (1.4-6.5); ABSOLUTE LYMPH COUNT 1.4 /CUMM (1.2-3.4); ABSOLUTE MONOCYTE COUNT 1.1 /CUMM (0.10-0.60); BASOPHIL % 0.8 % (0.0-2.0); EOSINOPHIL % 1.6 % (0-5); GRANULOCYTE % 57.2 % (42.2-75.2); HEMATOCRIT 28.5 % (42-52); MEAN CORPUSCULAR HGB 28.9 PG (27.0-31.0); MEAN CORPUSCULAR HGB CONC 31.2 G/DL (33.0-37.0); MEAN CORPUSCULAR VOLUME 92.7 FL (80.0-94.0); MEAN PLATELET VOLUME 9.2 FL (7.4-10.4); PLATELET COUNT 167 /CUMM (130-400); RBC DISTRIBUTION WIDTH 20.5 % (11.5-14.5); RED BLOOD CELL CT 3.08 /CUMM (4.70-6.10); WHITE BLOOD CELL COUNT 6.3 /CUMM (4.8-10.8)
[2017-01-04 22:45] VITALS: BP 110/78
[2017-01-05 06:43] VITALS: BP 118/80
--- NOTE | 2017-01-05 07:48 | PN- Housestaff ---
[facility] 01/05/17 0748: Subjective Follow-up For: Bladder mass Anemia Alcohol withdrawal Hypokalemia Alcoholic hepatitis Epistaxis Schizophrenia Subjective: Afebrile, hemodynamically stable, alert and oriented X3. Patient reported seeing shadows of people walk all over his room throughout the night. He also was hearing voices. Patient denies any suicidal or homicidal thoughts, however every time I asked about what the voices is telling him he changed the subject. Patient did not sleep last night, he says most likely because I'm excited for being discharged today. Review of Systems Constitutional: Reports: see HPI. Objective Last 24 Hrs of Vital Signs/I&O Vital Signs Date Time Temp Pulse Resp B/P Pulse O2 O2 Flow FiO2 Ox Delivery Rate 01/05 0643 98.9 103 20 118/80 99 Room Air 01/04 2245 99.5 115 20 110/78 98 Room Air 01/04 1507 98.2 88 20 120/70 99 01/04 0800 98.9 100 20 116/78 Intake & Output 01/05 0800 01/05 0000 01/04 1600 Intake Total 320 409 9624 Output Total 350 Balance 0 700 1500 Intake, Oral 372 140 6867 Number 0 Bowel Movements Output, Urine 350 Physical Exam General Appearance: Alert, Oriented X3, Cooperative, No Acute Distress HEENT: Atraumatic, PERRLA, EOMI, Mucous Membr. moist/pink Cardiovascular: Regular Rate, Normal S1, Normal S2, No Murmurs Lungs: Clear to Auscultation, Normal Air Movement Abdomen: Soft, No Tenderness Neurological: Normal Gait, Normal Speech Extremities: No Clubbing, No Cyanosis, No Edema Other Physical Findings: Tattoos all over his body Current Medications: Current Medications Sig/Olivia Start time Last Medication Dose Route Stop Time Status Admin Acetaminophen 650 MG Q6P PRN 12/28 2345 AC 12/29 PO 0134 Ceftriaxone Sodium 1,000 MG DAILY 12/28 1642 DC 01/04 IV 1033 Folic Acid 1 MG AT BEDTIME 01/03 2200 AC PO Lorazepam 0.5 MG BID 01/03 1000 DC 01/04 PO 01/10 0959 1032 Lorazepam 0 Q1P PRN 12/28 1615 DC 01/01 IV 1231 Metronidazole 500 MG Q8 01/04 1738 AC 01/05 PO 0635 Metronidazole 500 MG Q8 01/04 1735 DC PO Metronidazole 500 MG Q8H 01/02 0615 DC 01/03 N/A 1 UNIT IV 2303 Multivitamins 1 TAB AT BEDTIME 01/03 2200 AC 01/04 PO 1953 Nicotine 21 MG DAILY 12/30 1000 AC 01/03 TOP 0939 Omeprazole 40 MG BID 12/29 2199 AC 01/04 PO 1953 Potassium Chloride 40 MEQ ONCE ONE 01/04 1630 DC 01/04 PO 01/04 163 195 Risperidone 1 MG Q8P PRN 12/29 161 AC PO Thiamine HCl 100 MG AT BEDTIME 01/03 2200 AC PO Trimethobenzamide HCl 200 MG 4 TIMES/DAY PRN 12/28 161 AC IM Last 24 Hrs of Lab/Guru Results Last 24 Hrs of Labs/Mics: Laboratory Tests 01/04/17 1600: Anion Gap 10, Estimated GFR > 60, BUN/Creatinine Ratio 3.3 L, Magnesium 1.6, Total Bilirubin 3.2 H, Direct Bilirubin 2.4 H, AST 92 H, ALT 43, Alkaline Phosphatase 123, Total Protein 6.9, Albumin 3.0 L, CBC w Diff NO MAN DIFF REQ, RBC 3.08 L, MCV 92.7, MCH 28.9, RDW 20.5 H, MPV 9.2, Gran % 57.2, Lymphocytes % 22.4, Monocytes % 18.0 H, Eosinophils % 1.6, Basophils % 0.8, Absolute Granulocytes 3.6, Absolute Lymphocytes 1.4, Absolute Monocytes 1.1 H, Absolute Eosinophils 0.1, Absolute Basophils 0.1, PUBS MCHC 31.2 L Assessment/Plan Assessment: 36 y/o F with PMHx of chronic alcohol abuse c/b alcoholic hepatitis, alcoholic cardiomyopathy and pancytopenia and schizophrenia who is admitted with multiple electrolyte abnormalities, elevated LFTs and anemia. #Bladder mass/UTI Patient has UTI at presentation. CT abdomen and pelvis without contrast; Abnormal soft tissue thickening in the dome of the bladder associated with a urachal remnant. no definite colovesicular fistula visualized. 2 days ago patient went for cystoscopy by Dr. Fiore, no fistula was visualized however there was a mass, a biopsy was taken the results will be back after 1 week. Patient is stable, if his blood work come back within normal limits he most likely will be discharged later today. This morning he had one episode of vomiting and was found to have +1 lower extremity edema bilaterally up to the ankle. The mother was updated about the patient care plan by me personally. * We will switch him to Cipro to finish a total of 10 days * We will discontinue Flagyl 500 mg IV Q8H. to oral * Patient will receive 20 mg of IV Lasix * We will watch him until the end of the day, if he tolerates lunch without any further episodes of vomiting he will be discharged. * We will instruct patient to follow-up with Dr. Fiore after 1 week to review the biopsy results #Anemia: H/H stable. No further episodes of GI bleeding or epistaxis. * Continue to monitor H/H with daily CBCs and transfuse as needed to maintain Hgb > 7. * Notify GI for signs of overt GI bleeding including hemodynamical instability. #Alcohol withdrawal: CIWA scores have been running low, mostly 0's. * Ativan was DC'd yesterday after tapered per CIWA * Continue oral MVI, thiamine and folic acid. #Hypokalemia and hypomagnesemia: Potassium is within normal limits however his magnesium still low * We will replete his magnesium today * Patient will be discharged on potassium 20 mg daily and magnesium 400 twice a day. He'll be instructed to follow up with his primary care doctor within 1 week. #Alcoholic hepatitis: Hepatitis panel was negative. He still has elevated bilirubin and jaundice. * We will repeat LFTs tomorrow #Epistaxis: No further episodes since admission * ENT consulted. #Schizophrenia: He received risperidone every 2 weeks. Patient cannot leave AMA. Continue risperidone 1 mg PO Q8H PRN for agitation. * The next Consta 37.5 mg IM every 2 weeks injection is due on January 09, 2017. Diet: Regular diet DVT PPx: ALPs CODE: FULL Problem List: 1. ALCOHOL WITHDRAWAL 2. Hypokalemia 3. Hyponatremia 4. Schizophrenia 5. Elevated bilirubin 6. Epistaxis 7. Bladder mass Pain Ratin Pain Location: na Pain Goal: Remain pain free Pain Plan: see A&P Tomorrow's Labs & Rationales: None as patient most likely discharged today, if he stays we will order CBC and BEP GALA ALVARADO MD 01/05/17 1137: Attending MD Review Statement Attending Statement Attending MD Statement: examined this patient, discuss w/resident/PA/IMPORT CUSTOMS CLEARING AGENT, agreed w/resident/PA/IMPORT CUSTOMS CLEARING AGENT, discussed with family, reviewed EMR data (avail), discussed with nursing, discussed with case mgmt, amended to note Attending Assessment/Plan: Patient seen and examined, he was vomiting this morning. He claims that he ate too much and he ate peppers patient did not agree with him. Patient's nurse is also concerned that his legs are swollen. Vital Signs Date Time Temp Pulse Resp B/P Pulse O2 O2 Flow FiO2 Ox Delivery Rate 01/05 0800 98.9 103 20 118/80 01/05 0643 98.9 103 20 118/80 99 Room Air 01/04 2245 99.5 115 20 110/78 98 Room Air 01/04 1507 98.2 88 20 120/70 99 on exam; aox3, nad cv; s1,s2,rrr resp; clear abd; soft, nt, bs+ ext; no edema. Laboratory Tests 01/05 01/04 0745 1600 Chemistry Sodium (137 - 145 mmol/L) 134 L 131 L Potassium (3.5 - 5.1 mmol/L) 3.9 3.9 Chloride (98 - 107 mmol/L) 98 97 L Carbon Dioxide (22 - 30 mmol/L) 25 23 Anion Gap (5 - 16) 10 10 BUN (9 - 20 mg/dL) < 2 L < 2 L Creatinine (0.7 - 1.2 mg/dL) 0.6 L 0.6 L Estimated GFR (>60 ml/min) > 60 > 60 BUN/Creatinine Ratio (7 - 25 %) 3.3 L 3.3 L Magnesium (1.6 - 2.3 mg/dL) 1.5 L 1.6 Total Bilirubin (0.2 - 1.3 mg/dL) 3.1 H 3.2 H Direct Bilirubin (< 0.4 mg/dL) 2.3 H 2.4 H AST (17 - 59 U/L) 79 H 92 H ALT (21 - 72 U/L) 42 43 Alkaline Phosphatase (< 127 U/L) 126 123 Total Protein (6.3 - 8.2 g/dL) 7.3 6.9 Albumin (3.5 - 5.0 g/dL) 3.2 L 3.0 L Hematology CBC w Diff NO MAN DIFF REQ NO MAN DIFF REQ WBC (4.8 - 10.8 /CUMM) 6.4 6.3 RBC (4.70 - 6.10 /CUMM) 3.29 L 3.08 L Hgb (14.0 - 18.0 G/DL) 9.7 L 8.9 L Hct (42 - 52 %) 30.5 L 28.5 L MCV (80.0 - 94.0 FL) 92.6 92.7 MCH (27.0 - 31.0 PG) 29.4 28.9 RDW (11.5 - 14.5 %) 20.3 H 20.5 H Plt Count (130 - 400 /CUMM) 194 167 MPV (7.4 - 10.4 FL) 9.5 9.2 Gran % (42.2 - 75.2 %) 57.4 57.2 Lymphocytes % (20.5 - 51.1 %) 23.4 22.4 Monocytes % (1.7 - 9.3 %) 16.7 H 18.0 H Eosinophils % (0 - 5 %) 1.4 1.6 Basophils % (0.0 - 2.0 %) 1.1 0.8 Absolute Granulocytes (1.4 - 6.5 /CUMM) 3.7 3.6 Absolute Lymphocytes (1.2 - 3.4 /CUMM) 1.5 1.4 Absolute Monocytes (0.10 - 0.60 /CUMM) 1.1 H 1.1 H Absolute Eosinophils (0.0 - 0.7 /CUMM) 0.1 0.1 Absolute Basophils (0.0 - 0.2 /CUMM) 0.1 0.1 PUBS MCHC (33.0 - 37.0 G/DL) 31.7 L 31.2 L A/P; 36 y/o M with pmh sig for chronic alcohol abuse, alcoholic liver disease, pancytopenia secondary to alcohol use, alcoholic cardiomyopathy and schizophrenia, hyponatremia was admitted with multiple issues. Patient had severe hypokalemia, hypomagnesemia, dehydration, jaundice with hyperbilirubinemia and abnormal LFTs, alcohol use with intoxication, epistaxis, UTI. During the hospital course patient underwent cystoscopy for a possibility of colovesical fistula. Cystoscopy did not show any evidence of fistula but it does show a bladder mass which has been biopsied. Results are pending. ELectrolytes have improved including his potassium and sodium. Magnesium was still low therefore will give him some magnesium. Initial plan was to discharge the patient this morning but because he had vomited this a.m., will watch him for a few more hours to make sure that the vomiting does not happen again. Also for his 1+ lower extremity edema, will give him a dose of IV Lasix with some potassium repletion as well as magnesium repletion. We'll continue him on his multivitamin, folate and thiamine and later today he will be discharged if he remains stable. He will follow up with his PCP, Dr. Antonio, Dr. Fiore and psych as outpatient. He will be continued on cipro x 2 more days. His mother was updated by Dr. Dupont.
[2017-01-05 08:00] VITALS: BP 118/80
--- NOTE | 2017-01-05 08:36 | Patient Discharge Instructions ---
Discharge Instructions General Discharge Information You were seen/treated for: -Blood in urin -Alcohol detox -yellow colored skin and eyes (Jaundice) -Abnormal liver function Special Instructions: Please follow up to take you next Consta 37.5 mg IM every 2 weeks, injection is due on January 09, 2017. please follow up with PCP, urology, and GI within one week. PLEASE FOLLOW UP WITH UROLOGY DR. WERNER WITHIN ONE WEEK TO DISCUSS THE RESULT OF YOUR BLADDER SAMPLE please come back if symptoms did not improve or got worse Diet Continue normal diet: Yes Recommended Diet: Regular Activity Full Activity/No Limits: Yes Activity Self Limited: Yes Acute Coronary Syndrome Inclusion Criteria At DC or during hospital stay patient has or had the following: ACS DIAGNOSIS No Discharge Core Measures Meds if any: Prescribed or Continued at Discharge Meds if any: NOT Prescribed or Continued at Discharge Congestive Heart Failure Inclusion Criteria At DC or during hospital stay patient has or had the following: CHF DIAGNOSIS No Discharge Core Measures Meds if any: Prescribed or Continued at Discharge Meds if any: NOT Prescribed or Continued at Discharge Cerebrovascular accident Inclusion Criteria At DC or during hospital stay patient has or had the following: CVA/TIA Diagnosis No Discharge Core Measures Meds if any: Prescribed or Continued at Discharge Meds if any: NOT Prescribed or Continued at Discharge Venous thromboembolism Inclusion Criteria VTE Diagnosis No VTE Type NONE VTE Confirmed by (Test) NONE Discharge Core Measures - Per Current guidelines, there needs to be overlap - treatment for the first 5 days of Warfarin therapy. - If discharged on Warfarin prior to 5 days of - overlap therapy, the patient will need to be - assessed for post discharge needs including - *Post discharge parental anticoagulation - *Warfarin and/or parental anticoagulation education - *Follow up date to check INR post discharge At least 5 days overlap therapy as Inpatient No Meds if any: Prescribed or Continued at Discharge Note: Overlap Therapy is Warfarin and Anticoagulant Meds if any: NOT Prescribed or Continued at Discharge
[2017-01-05 08:53] LABS: ABSOLUTE BASOPHIL COUNT 0.1 /CUMM (0.0-0.2); ABSOLUTE EOSINOPHIL COUNT 0.1 /CUMM (0.0-0.7); ABSOLUTE GRANULOCYTE CT 3.7 /CUMM (1.4-6.5); ABSOLUTE LYMPH COUNT 1.5 /CUMM (1.2-3.4); ABSOLUTE MONOCYTE COUNT 1.1 /CUMM (0.10-0.60); BASOPHIL % 1.1 % (0.0-2.0); EOSINOPHIL % 1.4 % (0-5); GRANULOCYTE % 57.4 % (42.2-75.2); HEMATOCRIT 30.5 % (42-52); MEAN CORPUSCULAR HGB 29.4 PG (27.0-31.0); MEAN CORPUSCULAR HGB CONC 31.7 G/DL (33.0-37.0); MEAN CORPUSCULAR VOLUME 92.6 FL (80.0-94.0); MEAN PLATELET VOLUME 9.5 FL (7.4-10.4); PLATELET COUNT 194 /CUMM (130-400); RBC DISTRIBUTION WIDTH 20.3 % (11.5-14.5); RED BLOOD CELL CT 3.29 /CUMM (4.70-6.10); WHITE BLOOD CELL COUNT 6.4 /CUMM (4.8-10.8)
[2017-01-05] MEDS ORDERED: FLAGYL250 M1 PO (09:00)
[2017-01-05] MEDS ORDERED: POTASSIUM CHLO20 ME2 PO (09:00)
[2017-01-05] MEDS ORDERED: CIPRO500 M1 PO (09:00)
[2017-01-05] MEDS ORDERED: MAGNESIUM400 M1 PO (09:57)
--- NOTE | 2017-01-05 12:57 | Operative Report ---
Operative/Inv Procedure Report Surgery Date: 01/03/17 Name of Procedure: cystoscopy: turbt Pre-Operative Diagnosis: bladder mass. gross hematuria Post-Operative Diagnosis: same Estimated Blood Loss: scant Surgeon/Factory Superintendent: AMANDEEP WERNER MD-UROLOGY Anesthesia: local monitored anesthesi Specimens: BLADDER MASS CHIPS Complications: NONE Operative/Procedure Note Note: The patient was taken to the operating room, and placed on the OR table in supine position. Timeout was performed, with the patient awake, to confirm correct patient, procedure, anesthesia, antibiotics, and other pertinent marce- operative information. After adequate anesthesia and antibiotics, the patient was then placed in lithotomy stirrups, draped and prepped in usual surgical fashion. A 26 Grenadian resectoscope sheath with a 30 angle lens, and 24 Grenadian loop, was inserted into the urethra, and advanced into the bladder without difficulty. Upon entering the bladder, the bladder was noted to be mildly trabeculated. Both ureteral orifices were in their orthotopic position, with clear reflux bilaterally. A solitary 3 Cm smooth SOLID-CESSIL lesion was visualized on the dome of the bladder. No other tumors were seen on thorough and systematic surveillance. Under direct visualization, a 1.5 cm portion of the lesion was resected from superficial to deeper layers.The tumor fragments were evacuated, and sent to pathology. Cauterization of the base of the tumor resection was performed, in order to achieve good hemostasis. The bladder was copiously irrigated once again with 3 L of sorbitol. The resectoscope was removed leaving the bladder full. The bladder was drained by placing a 16 Grenadian Silva catheter, without difficulty, and with clear fluid. 10 mL of sterile water was placed in the balloon, and the Silva will be removed in the recovery room. The patient tolerated procedure well was then taken to recovery room in satisfactory condition. Findings: SOLID CESSILE MASS AT DOME OF BLADDER: NO FISTULA Discharge Disposition: PACU CC: AMANDEEP WERNER MD
--- NOTE | 2017-01-05 13:42 | Discharge Summary ---
Visit Information Visit Dates Admission Date: 12/28/16 Discharge Date: 01/06/17 Hospital Course Course Attending Physician: GALA ALVARADO MD Primary Care Physician: DRAKE CARPENTER,TAMIKA Hospital Course: 36 -year-old male with PMHx of chronic alcohol abuse, alcoholic hepatitis, alcoholic cardiomyopathy and schizophrenia who is admitted with multiple electrolyte abnormalities, elevated LFTs and anemia. #Bladder mass/UTI Patient had UTI at presentation. CT abdomen and pelvis without contrast showed Abnormal soft tissue thickening in the dome of the bladder associated with a urachal remnant but no definite colovesicular fistula visualized. He had cystoscopy done by Dr. Fiore, no fistula was visualized however there was a mass, a biopsy was taken during the procedure and results will be back after 1 week of the procedure. During this admission patient was treated for UTI by IV ceftriaxone that was switched to Cipro (total 10 days). He received a Flagyl IV for possible gastroenteritis. He was instructed to follow-up with Dr. Fiore within 1 week of discharge to review the biopsy results. #Normocytic Anemia: Patient presented with multiple episodes of epistaxis and few episodes of bright red blood on the toilet paper. His H&H on admission was low for which she received 2 packed RBCs. Through the admission his H/H was stable and no further episodes of GI bleeding or epistaxis was observed. On discharge patient was instructed to follow up with GI within 1 week. Patient was instructed to follow with ENT as an outpatient to address epistaxis episodes. #Alcohol withdrawal: Patient had a chronic alcohol abuse history, he was on Ativan as per [facility] protocol. He received banana bag, patient was discharged on MVI, thiamine and folic acid. #Hypokalemia and hypomagnesemia: During admission patient had multiple blood work that shows hypokalemia and hypomagnesemia. Patient reported multiple episodes of vomiting. Induced vomiting is suspected. We measured and repleted magnesium and potassium as necessary during this admission.he was discharged on potassium 20 mg daily and magnesium 400 twice a day. He was instructed to follow up with his primary care doctor within 1 week. #Abnormal liver function most likely secondary to alcoholic hepatitis: Patient has a chronic alcohol abuse history. On admission he had transaminitis and abnormally elevated bilirubin . He had jaundice on examination. Hepatitis panel was negative. We trended his liver function. Patient was instructed to follow up with GI and primary care doctor as an outpatient #Schizophrenia: He receives risperidone every 2 weeks. He was started on risperidone 1 mg PO Q8H PRN for agitation as per psychiatric recommendation.his next dose of Consta 37.5 mg IM is due on January 09, 2017. He was instructed to follow-up with his psychiatric [facility] to receive his scheduled dose. All details of imaging that was done during this admission can be found below Allergies: Coded Allergies: shrimp (BLACKED OUT PER PT 01/22/16) Pertinent Lab Results: SERVICE DATE: 12/28/16-EXAM TYPE: CAT - CT ABD & PELVIS W IV CONTRAST; CT CHEST W IV CONTRAST EXAMINATION: CT CHEST, ABDOMEN AND PELVIS WITH CONTRAST CLINICAL INFORMATION: Cough. Pneumonia. Vomiting. Gastroenteritis, pancreatitis. COMPARISON: Portions of an abdomen pelvis CT performed without IV contrast 06/13/15. TECHNIQUE: Multidetector CT of the chest, abdomen and pelvis. The patient received: Oral contrast: No Intravenous contrast: 95 mL Optiray 320 No contrast reaction reported Sagittal and coronal reformatted images were obtained on the technologist workstation. Total exam dose-length product 441 mGy-cm FINDINGS: Digital powertrain engineer: There is no dense area of consolidation. Gas throughout the abdomen and pelvis to the region of rectum. Surgical clips right upper quadrant CHEST: LUNG: No abnormality the central airways. No suspicious mass or consolidation. No edema or groundglass disease. No honeycomb formation. There is equivocal trace thickening of the small airways. PLEURA: No pleural effusion or pneumothorax. MEDIASTINUM: There are no enlarged mediastinal or hilar lymph nodes. There is no pericardial fluid. There is a moderate hiatal hernia. The mid and distal esophageal wall is thickened. VASCULAR: There is no thoracic aortic aneurysm. CHEST WALL/AXILLA: No suspicious abnormality in the axilla or chest wall. ABDOMEN/PELVIS: LIVER, GALLBLADDER, AND BILIARY TREE: Heterogeneous low-attenuation throughout the liver. No suspicious focal liver lesion. Surgical clips in the expected region of the gallbladder. There is no biliary dilation. PANCREAS: No suspicious abnormality SPLEEN: Within normal limits ADRENAL GLANDS: Normal KIDNEYS AND URETERS: Homogeneous symmetric nephrograms. No suspicious mass. No renal calculus. There is no dilation of the urinary collecting system on either side. GASTROINTESTINAL TRACT: There is thickening of the sigmoid colon. There is stranding in the pericolonic fat. There are linear and irregular densities extending from the dome of the bladder and expected region of the uterus and sigmoid colon towards the region of the rectal remnant. This branching irregular pattern with a tiny focus of gas is suspicious for sinus tract/fistula. There is a tiny amount of gas within the urinary bladder. If there has been no instrumentation fistula suspected. There is poor definition of the dome of the bladder/cirrhosis interface with the colon. No abnormal appendix demonstrated. A normal appendix may extend into the midline of the pelvis near the sacral promontory. No significant small bowel dilation. No definite abnormality the stomach. As described there is a hiatal hernia. ABDOMINAL WALL: Small amount of fat protrudes into the left inguinal canal. LYMPHOVASCULAR STRUCTURES AND FLUID: There is no abdominal aortic aneurysm. The portal vein enhances. There are no measurably enlarged abdominal or pelvic lymph nodes. There is a nonspecific mesenteric lymph node in the midline. No drainable fluid collection. BLADDER: As described there is abnormal density and poor definition in the dome of the bladder extending toward the urachal remnant. There is gas present. There is poor definition of the surrounding tissue planes and there may be a fistula. PELVIC VISCERA: No definite abnormality. MUSCULOSKELETAL: No focal bony lesion IMPRESSION: No pneumonia or edema. Hiatal hernia. Thickening of the distal colon with angular and reticular opacities extending toward the dome of the bladder which is irregular and contains a small amount of gas. In the absence of instrumentation the pattern suggest the presence of colovesical fistula. This could be related to diverticulitis. Some clinical correlation is necessary. DICTATED BY: GERRY RODRIGUEZ MD DATE/TIME DICTATED:12/28/161747 CORRECTIONAL GUARD:ERVIN DATE/TIME TRANSCRIBED:12/28/161747 CONFIDENTIAL, DO NOT COPY WITHOUT APPROPRIATE AUTHORIZATION. SERVICE DATE: 12/28/16-EXAM TYPE: CAT - CT ABD & PELVIS W IV CONTRAST; CT CHEST W IV CONTRAST EXAMINATION: CT CHEST, ABDOMEN AND PELVIS WITH CONTRAST CLINICAL INFORMATION: Cough. Pneumonia. Vomiting. Gastroenteritis, pancreatitis. COMPARISON: Portions of an abdomen pelvis CT performed without IV contrast 06/13/15. TECHNIQUE: Multidetector CT of the chest, abdomen and pelvis. The patient received: Oral contrast: No Intravenous contrast: 95 mL Optiray 320 No contrast reaction reported Sagittal and coronal reformatted images were obtained on the technologist workstation. Total exam dose-length product 441 mGy-cm FINDINGS: Digital powertrain engineer: There is no dense area of consolidation. Gas throughout the abdomen and pelvis to the region of rectum. Surgical clips right upper quadrant CHEST: LUNG: No abnormality the central airways. No suspicious mass or consolidation. No edema or groundglass disease. No honeycomb formation. There is equivocal trace thickening of the small airways. PLEURA: No pleural effusion or pneumothorax. MEDIASTINUM: There are no enlarged mediastinal or hilar lymph nodes. There is no pericardial fluid. There is a moderate hiatal hernia. The mid and distal esophageal wall is thickened. VASCULAR: There is no thoracic aortic aneurysm. CHEST WALL/AXILLA: No suspicious abnormality in the axilla or chest wall. ABDOMEN/PELVIS: LIVER, GALLBLADDER, AND BILIARY TREE: Heterogeneous low-attenuation throughout the liver. No suspicious focal liver lesion. Surgical clips in the expected region of the gallbladder. There is no biliary dilation. PANCREAS: No suspicious abnormality SPLEEN: Within normal limits ADRENAL GLANDS: Normal KIDNEYS AND URETERS: Homogeneous symmetric nephrograms. No suspicious mass. No renal calculus. There is no dilation of the urinary collecting system on either side. GASTROINTESTINAL TRACT: There is thickening of the sigmoid colon. There is stranding in the pericolonic fat. There are linear and irregular densities extending from the dome of the bladder and expected region of the uterus and sigmoid colon towards the region of the rectal remnant. This branching irregular pattern with a tiny focus of gas is suspicious for sinus tract/fistula. There is a tiny amount of gas within the urinary bladder. If there has been no instrumentation fistula suspected. There is poor definition of the dome of the bladder/cirrhosis interface with the colon. No abnormal appendix demonstrated. A normal appendix may extend into the midline of the pelvis near the sacral promontory. No significant small bowel dilation. No definite abnormality the stomach. As described there is a hiatal hernia. ABDOMINAL WALL: Small amount of fat protrudes into the left inguinal canal. LYMPHOVASCULAR STRUCTURES AND FLUID: There is no abdominal aortic aneurysm. The portal vein enhances. There are no measurably enlarged abdominal or pelvic lymph nodes. There is a nonspecific mesenteric lymph node in the midline. No drainable fluid collection. BLADDER: As described there is abnormal density and poor definition in the dome of the bladder extending toward the urachal remnant. There is gas present. There is poor definition of the surrounding tissue planes and there may be a fistula. PELVIC VISCERA: No definite abnormality. MUSCULOSKELETAL: No focal bony lesion IMPRESSION: No pneumonia or edema. Hiatal hernia. Thickening of the distal colon with angular and reticular opacities extending toward the dome of the bladder which is irregular and contains a small amount of gas. In the absence of instrumentation the pattern suggest the presence of colovesical fistula. This could be related to diverticulitis. Some clinical correlation is necessary. DICTATED BY: GERRY RODRIGUEZ MD DATE/TIME DICTATED:12/28/161747 CORRECTIONAL GUARD:RAD.DE LA O DATE/TIME TRANSCRIBED:12/28/161747 CONFIDENTIAL, DO NOT COPY WITHOUT APPROPRIATE AUTHORIZATION. SERVICE DATE: 12/29/16-EXAM TYPE: US - US-LIMITED ABDOMEN EXAMINATION: US ABDOMEN LIMITED CLINICAL INFORMATION: Right upper quadrant pain. Elevated bilirubin and alkaline phosphatase. COMPARISON: CT chest 12/28/2016 TECHNIQUE: Real-time imaging of the right upper quadrant abdominal viscera. Color Doppler exam utilized. FINDINGS: PANCREAS: Pancreatic head is normal. The pancreatic tail is obscured by bowel gas. LIVER: There is diffuse fatty change with increased echogenicity of liver parenchyma. Liver is enlarged. Right lobe liver measures greater than 25 cm in length. No focal liver lesion. No intrahepatic bile duct dilatation The liver demonstrates normal size, contour and echogenicity. No focal lesion or intrahepatic biliary duct dilatation. GALLBLADDER: Status post cholecystectomy. COMMON BILE DUCT: Normal in caliber measuring 0.6 cm in diameter. RIGHT KIDNEY: Normal. No hydronephrosis. No renal calculi or focal parenchymal lesions. The kidney measures 11.1 cm in maximum dimension. FREE FLUID: None. IMPRESSION: Diffuse fatty change of liver. Hepatomegaly. Status post cholecystectomy. No bile duct dilatation. DICTATED BY: TIM ZUNIGA MD DATE/TIME DICTATED:12/29/162319 CORRECTIONAL GUARD:RAD.DE LA O DATE/TIME TRANSCRIBED:12/29/162319 CONFIDENTIAL, DO NOT COPY WITHOUT APPROPRIATE AUTHORIZATION. SERVICE DATE: 01/02/17-EXAM TYPE: CAT - CT ABD & PELVIS W/O IV CONTRAS EXAMINATION: CT ABDOMEN AND PELVIS WITHOUT CONTRAST CLINICAL INFORMATION: Evaluate for colovesicular fistula. COMPARISON: CT from 12/28/2016 TECHNIQUE: Multidetector volumetric imaging was performed from the superior aspect of the liver through the pubic symphysis. Sagittal and coronal reformatted images were obtained on the technologist's workstation. Scans were performed before and after introduction of water soluble contrast into the Silva catheter. DLP: 903 mGy-cm FINDINGS: LUNG BASES: The visualized lung bases are unremarkable. LIVER, GALLBLADDER, AND BILIARY TREE: The liver is enlarged, measuring 21 cm in CC dimension. It demonstrates normal shape with decreased attenuation.. No focal hepatic lesion or biliary ductal dilatation is present. Status post cholecystectomy. PANCREAS: Unremarkable. SPLEEN: Unremarkable. ADRENAL GLANDS: Unremarkable. KIDNEYS AND URETERS: The kidneys are normal in size, shape, and attenuation. No hydronephrosis, hydroureter, or calculi seen. No perinephric stranding. BLADDER: A Silva catheter is in place within the bladder lumen. There is again noted abnormal soft tissue thickening at the dome of the bladder with an associated urachal remnant. Gas is present in the region of the urachal remnant. The soft tissue fullness extends to and abuts the sigmoid colon, as seen on coronal image 48/96. After contrast instillation, there is contrast seen filling the bladder lumen. There is no evidence of contrast extravasation. There is no contrast visualized extending into the region of soft tissue at the dome of the bladder which extends to the sigmoid colon. There is therefore no evidence of a colovesicular fistula. GASTROINTESTINAL TRACT: Moderate to large hiatal hernia. The small bowel is not obstructed. There is colonic diverticulosis. Mild inflammatory changes are again noted in the region of the sigmoid colon which could be associated with mild diverticulitis. ABDOMINAL WALL: No significant hernia is appreciated. LYMPH NODES: Normal. VASCULAR: Unremarkable. PELVIC VISCERA: The prostate and seminal vesicles are unremarkable. OSSEOUS STRUCTURES: Unremarkable. IMPRESSION: Abnormal soft tissue thickening in the dome of the bladder associated with a urachal remnant. There is soft tissue attenuation which abuts the adjacent sigmoid colon. Contrast does not extend into this region after instillation, with no definite colovesicular fistula visualized. Of note, this does not fully exclude the presence of a fistula, as the pressure of the cyst may not be sufficient to cause the contrast to extend into this region. There is diverticulosis with mild inflammatory changes in the region of the sigmoid colon which again could represent mild diverticulitis. Hepatobiliary with hepatic steatosis. Moderate to large hiatal hernia. DICTATED BY: LETICIA CARPENTER,SARAH DATE/TIME DICTATED:01/02/171709 CORRECTIONAL GUARD:ERVIN DATE/TIME TRANSCRIBED:01/02/171709 CONFIDENTIAL, DO NOT COPY WITHOUT APPROPRIATE AUTHORIZATION. Disposition Summary Disposition Principal Diagnosis: 1.Bladder mass 2.Normocytic anemia 3.Alcoholic hepatitis Additional Diagnosis: 1.Hypokalemia 2.Hypomagnesemia 3.Alcohol withdrawal 4.Epistaxis Discharge Disposition: home or self care Discharge Instructions General Discharge Information Code Status: Full Code Patient's Diet: Regular as tolerated Patient's Activity: Patient can be active as tolerated Follow-Up Instructions/Appts: 1.Please follow-up with primary care doctor within 1 week 2.Please follow-up with GI within 1 week 3.Please follow-up with ENT within 1 week 4.Please follow-up with urology Dr. Fiore within 1 week 5.Please follow up with [facility] to receive your scheduled dose. Medications at Discharge Discharge Medications: Continue taking these medications: Risperidone Microspheres (Risperdal Consta) 37.5 MG/2 ML SYRINGE 1 Syringe INTRAMUSC EVERY 2 WEEKS Qty = 1 Start taking the following new medications: Ciprofloxacin HCl (Cipro) 500 MG TABLET 1 Tablet ORAL TWICE DAILY Qty = 3 No Refills Potassium Chloride (Potassium Chloride) 20 MEQ TAB.ER.PRT 1 Tablet ORAL DAILY Qty = 15 No Refills Magnesium Oxide (Magnesium) 400 MG CAPSULE 1 Capsule ORAL TWICE DAILY Qty = 30 No Refills Instructions: . Folic Acid (Folic Acid) 1 MG TABLET 1 Milligram ORAL AT BEDTIME Qty = 30 No Refills Comments: Last Taken: Time:REFUSED AT THE HOSP Thiamine HCl (Vitamin B-1) 100 MG TABLET 100 Milligram ORAL AT BEDTIME Qty = 30 No Refills Multivitamin (One Daily Multivitamin) 1 EACH TABLET 1 Tablet ORAL AT BEDTIME Qty = 30 No Refills Comments: Last Taken:01/05/2017 Time:10PM Copies To: DRAKE CARPENTER,TAMIKA; SONNY FIORE MD, MD,ALLIE
--- NOTE | 2017-01-05 14:16 | PN- Urology ---
Surgical Brief Attending Note Brief Attending Note: PT OVERALL COMFORTABLE. VSS AFEBRILE. ABD SOFT. VOIDING WELL. PATHOLOGY PENDING DISCUSSED WITH PT ; OK TO DISCHARGE PER MEDICINE AND F/U IN 2 WEEKS FOR PATHOLOGY RESULT AND PLAN.
--- NOTE | 2017-01-05 14:20 | NUR ---
PT VOMITTED AFTER EATING BREAKFAST AND LUNCH TODAY, NOTIFIED
[2017-01-05 22:36] VITALS: BP 120/70
[2017-01-06] VITALS: BP 120/70
[2017-01-06 02:00] VITALS: BP 120/70
[2017-01-06 04:00] VITALS: BP 120/70
[2017-01-06 06:00] VITALS: BP 120/70
[2017-01-06 06:42] VITALS: BP 114/70
--- NOTE | 2017-01-06 07:18 | PN- Housestaff ---
[facility] 01/06/17 0718: Subjective Follow-up For: Bladder mass Anemia Alcohol withdrawal Hypokalemia Alcoholic hepatitis Epistaxis Schizophrenia Subjective: Afebrile, hemodynamically stable. His lower extremity edema improved. He did not have any further episodes of nausea or vomiting. He denies any current complaints. Patient is stable and will most likely be discharged this morning. Review of Systems Constitutional: Reports: no symptoms. Objective Last 24 Hrs of Vital Signs/I&O Vital Signs Date Time Temp Pulse Resp B/P Pulse O2 O2 Flow FiO2 Ox Delivery Rate 01/06 08 98.4 86 18 120/72 01/06 0642 98.9 90 20 114/70 98 Room Air 01/06 0600 99.5 94 18 120/70 01/06 0400 99.5 94 18 120/70 01/06 0200 99.5 94 18 120/70 01/06 0000 99.5 94 18 120/70 01/05 2236 99.5 94 20 120/70 99 Room Air Intake & Output 01/06 1600 01/06 0800 01/06 0000 Intake Total 300 720 Output Total Balance 300 720 Intake, Oral 300 720 Physical Exam General Appearance: Alert, Oriented X3, Cooperative, No Acute Distress Skin: No Rashes HEENT: Atraumatic, PERRLA, EOMI, Mucous Membr. moist/pink Cardiovascular: Regular Rate, Normal S1, Normal S2, No Murmurs Lungs: Clear to Auscultation, Normal Air Movement Abdomen: Normal Bowel Sounds, Soft, No Tenderness Neurological: Normal Gait, Normal Speech Extremities: No Clubbing, No Cyanosis, No Edema Current Medications: Current Medications Sig/Olivia Start time Last Medication Dose Route Stop Time Status Admin Acetaminophen 650 MG Q6P PRN 12/28 2345 DCD 12/29 PO 0134 Diphenhydramine HCl 25 MG ONCE ONE 01/06 0045 CAN PO 01/06 0046 Folic Acid 1 MG AT BEDTIME 01/03 2200 DCD PO Insulin Human Regular 4 UNITS .STK-MED ONE 01/06 0537 DC IV 01/06 0538 Metronidazole 500 MG Q8 01/04 1738 DCD 01/06 PO 0619 Multivitamins 1 TAB AT BEDTIME 01/03 2200 DCD 01/05 PO 2138 Nicotine 21 MG DAILY 12/30 1000 DCD 01/06 TOP 0834 Omeprazole 40 MG BID 12/29 2199 DCD 01/06 PO 0834 Risperidone 1 MG Q8P PRN 12/29 1615 DCD PO Thiamine HCl 100 MG AT BEDTIME 01/03 2200 DCD PO Trimethobenzamide HCl 200 MG 4 TIMES/DAY PRN 12/28 1615 DCD IM Assessment/Plan Assessment: 36 y/o F with PMHx of chronic alcohol abuse c/b alcoholic hepatitis, alcoholic cardiomyopathy and pancytopenia and schizophrenia who is admitted with multiple electrolyte abnormalities, elevated LFTs and anemia. #Bladder mass/UTI Patient has UTI at presentation. CT abdomen and pelvis without contrast; Abnormal soft tissue thickening in the dome of the bladder associated with a urachal remnant. no definite colovesicular fistula visualized. 3 days ago patient went for cystoscopy by Dr. Fiore, no fistula was visualized however there was a mass, a biopsy was taken the results will be back after 1 week. Patient is stable and will be discharged today. * He will be discharged on ciprofloxacin to finish a total of 10 days * We will instruct patient to follow-up with Dr. Fiore after 1 week to review the biopsy results. #Anemia: H/H stable. No further episodes of GI bleeding or epistaxis. * Continue to monitor H/H with daily CBCs and transfuse as needed to maintain Hgb > 7. * Notify GI for signs of overt GI bleeding including hemodynamical instability #Hypokalemia and hypomagnesemia: Potassium is within normal limits however his magnesium still low * We will replete his magnesium today * Patient will be discharged on potassium 20 mg daily and magnesium 400 twice a day. He'll be instructed to follow up with his primary care doctor within 1 week. #Alcoholic hepatitis: Hepatitis panel was negative. He still has elevated bilirubin and jaundice. * We will repeat LFTs tomorrow #Epistaxis: No further episodes since admission * ENT consulted. #Schizophrenia: He received risperidone every 2 weeks. Patient cannot leave AMA. * The next Consta 37.5 mg IM every 2 weeks injection is due on January 09, 2017. Diet: Regular diet DVT PPx: ALPs CODE: FULL Problem List: 1. Epistaxis 2. Schizophrenia 3. Bladder mass 4. Iron deficiency anemia Pain Ratin Pain Location: na Pain Goal: Remain pain free Pain Plan: See A&P Tomorrow's Labs & Rationales: none as he is discharged today GALA ALVARADO MD 01/06/17 1141: Attending MD Review Statement Attending Statement Attending MD Statement: examined this patient, discuss w/resident/PA/FOOD SERVICE WORKER, agreed w/resident/PA/FOOD SERVICE WORKER, discussed with family, reviewed EMR data (avail), discussed with nursing, discussed with case mgmt, amended to note Attending Assessment/Plan: Patient seen and examined, feeling overall better. He has not vomited this morning. He continues to refuse labs. Overall his vital signs are stable. He is medically stable for discharge home today. He will follow per Dr. Fiore as an outpatient. He will be discharged on couple of more days of antibiotics. We will continue him on his multivitamin, folate and thiamine. Patient to follow-up with his primary care doctor as an outpatient.
[2017-01-06 08:00] VITALS: BP 120/72
[2017-01-06] MEDS ORDERED: CIPRO500 M1 PO (09:16)
[2017-01-06] MEDS ORDERED: POTASSIUM CHLO20 ME2 PO (09:16)
--- NOTE | 2017-01-06 09:38 | NUR ---
PT REFUSING AM LABS TODAY. ATTENDING PHYSICAN DR. ALVARADO NOTIFIED. NO FURTHER ORDERS AT THIS TIME. WILL CONT TO MONITOR
[2017-01-06] MEDS ORDERED: FOLIC ACID1 M1 PO (10:22)
[2017-01-06] MEDS ORDERED: ONE DAILY MULT1 EAC2 PO (10:22)
[2017-01-06] MEDS ORDERED: MAGNESIUM400 M1 PO (10:22)
[2017-01-06] MEDS ORDERED: VITAMIN B-1100 MG PO (10:22)
== END 2017-01-06 11:00 | disposition home health service (06) | DRG 669 ==
LOC: ENRESERVTM → ENRESERVDT → CANRESERV → ERH 11:10 → 2NA 15:40 → 1NO 15:40 → ERHI 15:40 → EDBEDREQ 17:43 → 1NO 20:42 → 2NA 12-30 10:49
PROVIDERS: Dermatology; Internal Medicine; Internal Medicine Hematology & Oncology; Physician Assistant; Student in an Organized Health Care Education/Training Program; ADMIT Hospitalist
PROC: 30233N1 Transfusion of Nonautologous Red Blood Cells into Peripheral Vein, Percutaneous Approach (ICD-10-PCS; 2016-12-29)
PROC: 0TBB8ZZ Excision of Bladder, Via Natural or Artificial Opening Endoscopic (ICD-10-PCS; principal; 2017-01-03)
DX: N32.89 Other specified disorders of bladder (principal); D61.818 Other pancytopenia; E87.2 Acidosis; I42.6 Alcoholic cardiomyopathy; E87.1 Hypo-osmolality and hyponatremia; D62 Acute posthemorrhagic anemia; F20.0 Paranoid schizophrenia; K92.2 Gastrointestinal hemorrhage, unspecified; D69.59 Other secondary thrombocytopenia; E83.42 Hypomagnesemia; F50.89 Other specified eating disorder; F10.239 Alcohol dependence with withdrawal, unspecified; N39.0 Urinary tract infection, site not specified; N32.1 Vesicointestinal fistula; E87.6 Hypokalemia; R31.0 Gross hematuria; E86.0 Dehydration; F12.10 Cannabis abuse, uncomplicated; K70.10 Alcoholic hepatitis without ascites; K44.9 Diaphragmatic hernia without obstruction or gangrene; B96.20 Unspecified Escherichia coli [E. coli] as the cause of diseases classified elsewhere; K21.9 Gastro-esophageal reflux disease without esophagitis; F17.210 Nicotine dependence, cigarettes, uncomplicated
CPT/HCPCS: 1NP; 2NAP; 36415; 74176; 74177; 80307; 81001; 82436; 83010; 86920; 87040; 87086; 88305; 93005; 93010; 96365; 96366; 96374; 96375; 99233; 99291; G0480; J0610; J0696; J1815; J1940; J3250; J3490; J7042; J7060; P9016

== ENCOUNTER 2017-02-10 07:04 | Inpatient (IN) | payer OTHER, MEDICARE ==
[2017-02-10] VITALS (7 sets, daily range): BP systolic 100–129; BP diastolic 52–70
[~2017-02-10] VITALS: Ht 175.3 cm; Wt 80.5 kg
[~2017-02-10 07:04] MED LIST changes: +CIPRO500 M1 PO; +FLAGYL250 M1 PO; +MAGNESIUM400 M1 PO; +POTASSIUM CHLO20 ME2 PO; +RISPERDAL37.5 MG/2 IM; +VITAMIN B-1100 MG PO
--- NOTE | 2017-02-10 07:15 | ED CRITICAL CARE ---
History of Present Illness General Chief Complaint: General Adult Stated Complaint: ? GI BLEED Source: patient, old records, EMS Exam Limitations: confusion Vital Signs & Intake/Output Vital Signs & Intake/Output Vital Signs Date Time Temp Pulse Resp B/P B/P Pulse O2 O2 Flow FiO2 Mean Ox Delivery Rate 02/20 1531 99.0 18 18 100/70 98 02/20 0648 99.0 96 18 100/68 100 Room Air 02/20 0600 99.0 96 18 100/68 02/20 0400 99.3 98 20 98/58 02/20 0000 99.3 98 20 98/58 02/19 2221 99.3 98 20 98/58 100 Room Air 02/19 2200 99.3 98 20 98/58 02/19 2000 98.7 94 20 90/58 ED Intake and Output 02/20 0000 02/19 1200 Intake Total 1320 600 Output Total Balance 1320 600 Intake, Oral 1320 600 Number 3 Bowel Movements Allergies Coded Allergies: shrimp (BLACKED OUT PER PT 01/22/16) Reconcile Medications Folic Acid 1 MG TABLET 1 MG PO AT BEDTIME SUPPLEMENT Magnesium Oxide (Magnesium) 400 MG CAPSULE 1 CAP PO BID hypomagnesemia . Multivitamin (One Daily Multivitamin) 1 EACH TABLET 1 TAB PO AT BEDTIME SUPPLEMENT Potassium Chloride 20 MEQ TAB.ER.PRT 1 TAB PO DAILY hypokalemia Risperidone Microspheres (Risperdal Consta) 37.5 MG/2 ML SYRINGE 1 SYR IM Q2W SCHIZOPHRENIA (Reported) Thiamine HCl (Vitamin B-1) 100 MG TABLET 100 MG PO AT BEDTIME SUPPLEMENTS Triage Nurses Notes Reviewed? yes Onset: Gradual Duration: day(s): (few) Timing: recent history Injury Environment: home Severity: moderate, severe Associated Symptoms: confusion, headache HPI: This is a 36-year-old male with a well-known history of alcohol abuse, alcoholic liver and heart disease who presents via EMS from home for chief complaint of multiple similar episodes. The family called EMS yesterday to the house twice but he refused to come. Today he presents hypotensive. He had a few syncopal episodes in the field. Patient was found to be hypotensive 70 over for 40. They report that he had multiple episodes of vomiting overnight. Patient denies diarrhea but that was reported initially. He denies any chest pain or pressure as of breath. He is alert and awake and oriented 2. He states he last drank 2 days ago. Typically he drinks 4 shots of vodka daily. He gets Risperdal injections every 2 weeks by visiting nurses to his home. He admits to smoking marijuana and cigarettes but denies any other illicit drug use. Patient denies any abdominal pain or back pain. He is covered in some over table 2 days ago. He was having and headaches initially but states that the headaches since resolved. Past History Travel History Traveled to [place] past 21 day No Medical History Any Pertinent Medical History? see below for history Neurological: seizure (during alcohol detox) EENT: NONE Cardiovascular: alcoholic cardiomyopathy stage II Respiratory: history of aspiration pneumonia Gastrointestinal: alcoholic hepatitis, GERD, hiatal hernia, upper GI bleed Renal: NONE Musculoskeletal: NONE Psychiatric: alcohol dependence, anxiety, depression, substance abuse, SCHIZOPHRENIA alcohol abuse Endocrine: psychogenic polydipsia HYPOKALEMIA, HYPOMAGNESEMIA, HYPONATREMIA hypoK+, hypoNa, hypoMg hx hyponatremia hx hypokalemia Blood Disorders: anemia, coagulopathy (intermittent), thrombocytopenia ( intermittent) Cancer(s): NONE PEARL MAKER/Reproductive: N/A Other Medical Hx: Hypokalemia and hypomagnesemia History of MRSA: No History of VRE: Yes History of CDIFF: No Tetanus Vaccine: 05/15/13 Surgical History Surgical History: cholecystectomy Psychosocial History Who do you live with Mother Services at Home Nursing What is your primary language Burkinan Tobacco Use: Current Daily Use Daily Tobacco Use Amount/Type: => 5 Cigarettes daily ETOH Use: heavy use Illicit Drug Use: marijuana Family History Family History, If Any: FATHER, , Age 27; Cause: Heroin overdose. MOTHER (diabetic). Age 60+. SISTER (healthy). Hx Contributory? No Review of Systems Review of Systems Constitutional: Denies: chills, fever. Eyes: Denies: blurred vision. Ears, Nose, Throat, Mouth: Reports: no symptoms. Respiratory: Denies: cough, short of breath. Cardiovascular: Denies: chest pain. Gastrointestinal/Abdominal: Reports: nausea, vomiting. Genitourinary: Reports: no symptoms. Musculoskeletal: Reports: no symptoms. Skin: Reports: no symptoms. Neurological/Psychological: Reports: confusion, headache. All Other Systems: Reviewed and Negative Physical Exam Physical Exam General Appearance: alert, awake, mild distress, moderate distress, thin Head: atraumatic Eyes: Bilateral: PERRL, EOMI. Ears, Nose, Throat, Mouth: hearing grossly normal, moist mucous membrane Neck: normal inspection, supple, full range of motion Respiratory: normal breath sounds, chest non-tender, no respiratory distress Cardiovascular: regular rate/rhythm Peripheral Pulses: 2+ radial (R), 2+ radial (L) Gastrointestinal: soft, non-tender Back: normal inspection, normal range of motion, BRUISING Neurologic/Psych: awake, alert, ORIENTED X 2 Core Measures ACS in differential dx? No CVA/TIA Diagnosis: No Severe Sepsis Present: No Septic Shock Present: No Progress Differential Diagnoses I considered the following diagnoses in my evaluation of the patient: [Alcohol abuse, alcoholic gastritis, GI bleed, intracranial hemorrhage, alcoholic liver disease, varices,] Plan of Care: Orders Procedure Date/time Status CBC WITHOUT DIFFERENTIAL 02/20 0840 Complete Continuous Observation Monitor 02/20 0800 Active BASIC ELECTROLYTES PLUS BUN&CR 02/20 0600 Complete Current Medications Sig/Olivia Start time Last Medication Dose Stop Time Status Admin Risperidone 37.5 MG Q 2 WEEKS 02/20 1000 AC 02/20 (RisperdalCONSTA 0922 37.5MG INJ) Omeprazole 40 MG DAILY AC 02/18 1325 AC 02/20 (Prilosec) 0528 Nicotine 21 MG DAILY 02/16 2007 AC 02/20 (Nicoderm) 0920 Folic Acid 1 MG DAILY 02/14 1301 AC 02/17 (Folic Acid) 0902 Multivitamins 1 TAB DAILY 02/14 1301 AC 02/20 (Theragran Vitamins) 0920 Thiamine HCl 50 MG DAILY 02/14 1301 AC 02/17 (Vitamin B1) 0903 Docusate Sodium 100 MG DAILY NEEDED PRN 02/14 1015 AC (Colace) Senna 187 MG AT BEDTIME PRN 02/14 1015 AC 02/14 (Senokot) 1538 Trimethobenzamide HCl 200 MG TID PRN 02/10 1630 AC 02/16 (Tigan) 1427 Potassium Chloride 20 MEQ BID 02/10 1000 AC 02/20 (K-Dur) 0920 Laboratory Tests 02/20/17 0932: CBC w Diff NO MAN DIFF REQ, RBC 3.01 L, MCV 90.1, MCH 29.0, RDW 19.6 H, MPV 10.5 H, Gran % 78.9 H, Lymphocytes % 11.8 L, Monocytes % 7.8, Eosinophils % 0.9, Basophils % 0.6, Absolute Granulocytes 7.1 H, Absolute Lymphocytes 1.1 L, Absolute Monocytes 0.7 H, Absolute Eosinophils 0.1, Absolute Basophils 0.1, PUBS MCHC 32.2 L 02/20/17 0725: Anion Gap 9, Estimated GFR > 60, BUN/Creatinine Ratio 6.7 L saline, reglan, iv fluids ordered. labs ordered. iv potassium ordered in fluids. sodium 121. patient awake, alert, oriented x 2. d/wdr hola for admission covering the ICU. (DANY CARPENTER,LAST) Diagnostic Imaging: Viewed by Me: CT Scan. Discussed w/RAD: CT Scan. Radiology Impression: PATIENT: GIOVANNA GARZA PRESENT AGE: 36 PATIENT ACCOUNT NO: [id number] : 80 LOCATION: [facility] ORDERING PHYSICIAN: LAST SAENZ MD SERVICE DATE: 02/10/17 EXAM TYPE: CAT - CT HEAD WO IV CONTRAST EXAMINATION: CT HEAD WITHOUT CONTRAST CLINICAL INFORMATION: Multiple full, bruising, confused. COMPARISON: CT scan of the head 10/28/2015. TECHNIQUE: Contiguous axial imaging was performed from the skull base to vertex without intravenous administration of contrast. DLP: 623.9 mGy-cm FINDINGS: There is no evidence of acute intracranial hemorrhage or territorial infarction. No abnormal mass effect or midline shift is seen. Allen to white matter differentiation is well preserved. No extra-axial fluid collections are identified. The ventricles are normal in size. There is no abnormal attenuation within the brain parenchyma. There are no acute osseous findings. There is a mild scalp contusion over the right parietal area. The mastoid air cells and visualized portions of the paranasal sinuses are well aerated. IMPRESSION: 1. There are no acute intracranial findings. 2. There is a right parietal scalp contusion. DICTATED BY: SAY RENNER MD DATE/TIME DICTATED:02/10/17805 COMMUNICATIONS TECH:ERVIN DATE/TIME TRANSCRIBED:02/10/17805 CONFIDENTIAL, DO NOT COPY WITHOUT APPROPRIATE AUTHORIZATION. <Electronically signed in Other Vendor System> SIGNED BY: SAY RENNER MD 02/10/1715 Initial ED EKG: SINUS RHYTHM, PROLONGED qtc Departure Departure Time of Disposition: 853 Disposition: STILL A PATIENT Condition: Stable Clinical Impression Primary Impression: STEPHANIE (acute kidney injury) Secondary Impressions: Alcohol abuse, GI bleed, Hypochloremic alkalosis, Hypokalemia, Lactic acid acidosis Referrals: TAMIKA JUAN MD (PCP/Family) Departure Forms: Customer Survey General Discharge Information Admission Note Spoke With: DELPHINE HECK MD Documentation of Exam: Documentation of any treatments & extenuating circumstances including Concerns Regarding Discharge (functional status, medication knowledge or non-compliance, living conditions, etc.) that warrant an admission rather than observation: [ICU ] Critical Care Note Critical Care Note Critical Care Time: 75-104 min Microbiology 02/11 940 URINE ROUT: Urine Culture - ORD 02/10 900 BLOOD: Blood Culture - RECD 02/10 849 BLOOD: Blood Culture - RECD 02/11 820 URINE ROUT: Urine Culture - RECD Diagnostic Imaging: Viewed by Me: CT Scan. Discussed w/RAD: CT Scan. Radiology Impression: PATIENT: GIOVANNA GARZA PRESENT AGE: 36 PATIENT ACCOUNT NO: [id number] : 80 LOCATION: [facility] ORDERING PHYSICIAN: LAST SAENZ MD SERVICE DATE: 02/10/17 EXAM TYPE: CAT - CT HEAD WO IV CONTRAST EXAMINATION: CT HEAD WITHOUT CONTRAST CLINICAL INFORMATION: Multiple full, bruising, confused. COMPARISON: CT scan of the head 10/28/2015. TECHNIQUE: Contiguous axial imaging was performed from the skull base to vertex without intravenous administration of contrast. DLP: 623.9 mGy-cm FINDINGS: There is no evidence of acute intracranial hemorrhage or territorial infarction. No abnormal mass effect or midline shift is seen. Allen to white matter differentiation is well preserved. No extra-axial fluid collections are identified. The ventricles are normal in size. There is no abnormal attenuation within the brain parenchyma. There are no acute osseous findings. There is a mild scalp contusion over the right parietal area. The mastoid air cells and visualized portions of the paranasal sinuses are well aerated. IMPRESSION: 1. There are no acute intracranial findings. 2. There is a right parietal scalp contusion. DICTATED BY: SAY RENNER MD DATE/TIME DICTATED:02/10/17805 COMMUNICATIONS TECH:ERVIN DATE/TIME TRANSCRIBED:02/10/17805 CONFIDENTIAL, DO NOT COPY WITHOUT APPROPRIATE AUTHORIZATION. <Electronically signed in Other Vendor System> SIGNED BY: SAY RENNER MD 02/10/17814 Initial ED EKG: SINUS RHYTHM, PROLONGED qtc Departure Departure Time of Disposition: 853 Disposition: STILL A PATIENT Condition: Stable Clinical Impression Primary Impression: GI bleed Secondary Impressions: STEPHANIE (acute kidney injury), Hyperchloremic metabolic acidosis, Hypokalemia, Lactic acid acidosis Referrals: TAMIKA JUAN MD (PCP/Family) Departure Forms: Customer Survey General Discharge Information Admission Note Spoke With: HOLA CARPENTER,DELPHINE Santana Documentation of Exam: Documentation of any treatments & extenuating circumstances including Concerns Regarding Discharge (functional status, medication knowledge or non-compliance, living conditions, etc.) that warrant an admission rather than observation: [ICU ]
[2017-02-10 07:38] LABS: ABSOLUTE BASOPHIL COUNT 0 /CUMM (0.0-0.2); ABSOLUTE EOSINOPHIL COUNT 0 /CUMM (0.0-0.7); ABSOLUTE LYMPH COUNT 1.5 /CUMM (1.2-3.4); ABSOLUTE MONOCYTE COUNT 2.3 /CUMM (0.10-0.60); BASOPHIL % 0 % (0.0-2.0); EOSINOPHIL % 0 % (0-5); GRANULOCYTE % 78.5 % (42.2-75.2); HEMATOCRIT 33.9 % (42-52); MEAN CORPUSCULAR HGB 28.6 PG (27.0-31.0); MEAN CORPUSCULAR HGB CONC 32.4 G/DL (33.0-37.0); MEAN CORPUSCULAR VOLUME 88.2 FL (80.0-94.0); MEAN PLATELET VOLUME 11.4 FL (7.4-10.4); PLATELET COUNT 99 /CUMM (130-400); RBC DISTRIBUTION WIDTH 20.4 % (11.5-14.5); RED BLOOD CELL CT 3.85 /CUMM (4.70-6.10); WHITE BLOOD CELL COUNT 17.8 /CUMM (4.8-10.8)
--- NOTE | 2017-02-10 08:15 | CT SCAN REPORT ---
EXAMINATION: CT HEAD WITHOUT CONTRAST CLINICAL INFORMATION: Multiple full, bruising, confused. COMPARISON: CT scan of the head 10/28/2015. TECHNIQUE: Contiguous axial imaging was performed from the skull base to vertex without intravenous administration of contrast. DLP: 623.9 mGy-cm FINDINGS: There is no evidence of acute intracranial hemorrhage or territorial infarction. No abnormal mass effect or midline shift is seen. Allen to white matter differentiation is well preserved. No extra-axial fluid collections are identified. The ventricles are normal in size. There is no abnormal attenuation within the brain parenchyma. There are no acute osseous findings. There is a mild scalp contusion over the right parietal area. The mastoid air cells and visualized portions of the paranasal sinuses are well aerated. IMPRESSION: 1. There are no acute intracranial findings. 2. There is a right parietal scalp contusion.
[2017-02-10 08:26] LABS: PT 15.1 SEC (9.4-12.5); PTT 27 SEC (25-37)
--- NOTE | 2017-02-10 09:57 | History & Physical ---
SOREN STONE 02/10/17 0957: General Information and HPI MD Statement: I have seen and personally examined GIOVANNA GARZA and documented this H& P. The patient is a 36 year old M who presented with a patient stated chief complaint of intractable vomiting and dizziness since yesterday []. Source of Information: patient, old records Exam Limitations: poor historian History of Present Illness: Patient is 36-year-old gentleman with past medical history significant for chronic alcohol abuse with alcoholic hepatitis, alcoholic cardiomyopathy, schizophrenia, bladder mass status post biopsy not significant for any malignancy with questionable colovesical fistula, multiple episodes of severe electrolyte imbalance in the past, history of polydipsia came with chief complaint of intractable vomiting which was coffee-ground and dizziness with fall. Patient lives at home with his mother who is taking care of him call 911 twice yesterday but patient refused to come to ER and this morning he became very dizzy and fell and at last agreeable to come to emergency room. He was given IV fluids en route to emergency room and he had one episode of coffee- ground emesis in ER. On admission his blood pressure was 81/43 mmHg that dropped down to 76/45 and was given 2 boluses of normal saline resulted in normal blood pressure to 120/60 which later on again dipped down to systolic 90s. His oxygen saturation was fine on 2 L of nasal cannula he remained afebrile He denied fever, cough, hemoptysis, lower extremity edema, shortness of breath, chest pain, chest pressure, any urinary complaints. He endorses for having dizziness and lightheadedness. He admits that he had couple of shots of vodka yesterday and multiple episodes of vomiting which was dark brown in color. His history was very unreliable and he is very poor historian. I tried to call his mother but her form was on voice mail and primary team will contact her mother later. Allergies/Medications Allergies: Coded Allergies: shrimp (BLACKED OUT PER PT 01/22/16) Home Med list Folic Acid 1 MG TABLET 1 MG PO AT BEDTIME SUPPLEMENT Magnesium Oxide (Magnesium) 400 MG CAPSULE 1 CAP PO BID hypomagnesemia . Multivitamin (One Daily Multivitamin) 1 EACH TABLET 1 TAB PO AT BEDTIME SUPPLEMENT Potassium Chloride 20 MEQ TAB.ER.PRT 1 TAB PO DAILY hypokalemia Risperidone Microspheres (Risperdal Consta) 37.5 MG/2 ML SYRINGE 1 SYR IM Q2W SCHIZOPHRENIA (Reported) Thiamine HCl (Vitamin B-1) 100 MG TABLET 100 MG PO AT BEDTIME SUPPLEMENTS Compliance With Home Meds: UNKNOWN Past History Travel History Traveled to [place] past 21 day No Medical History Neurological: seizure (during alcohol detox) EENT: NONE Cardiovascular: alcoholic cardiomyopathy stage II Respiratory: history of aspiration pneumonia Gastrointestinal: alcoholic hepatitis, GERD, hiatal hernia, upper GI bleed Renal: NONE Musculoskeletal: NONE Psychiatric: alcohol dependence, anxiety, depression, substance abuse, SCHIZOPHRENIA alcohol abuse Endocrine: psychogenic polydipsia HYPOKALEMIA, HYPOMAGNESEMIA, HYPONATREMIA hypoK+, hypoNa, hypoMg hx hyponatremia hx hypokalemia Blood Disorders: anemia, coagulopathy (intermittent), thrombocytopenia ( intermittent) Cancer(s): NONE PIPE STEM ALIGNER/Reproductive: N/A Other Medical Hx: Hypokalemia and hypomagnesemia History of MRSA: No History of VRE: Yes History of CDIFF: No Tetanus Vaccine: 05/15/13 Surgical History Surgical History: cholecystectomy Past Family/Social History Family History Relations & Conditions if any FATHER, , Age 27; Cause: Heroin overdose. MOTHER (diabetic). Age 60+. SISTER (healthy). Psychosocial History Who Do You Live With? spouse (mother), parent Services at Home: Nursing Primary Language: Mauritanian ETOH Use: heavy use Illicit Drug Use: marijuana Living Will? no Power of Cook Helper Vegetable/HCP? yes Name of POA/HCP: Pt's motherMerly [phone] Functional Ability ADLs Independent: dressing, eating, toileting, bathing. Ambulation: independent IADLs Needs Assist: shopping, housework, finances, food prep, telephone, transportation, medication admin. Review of Systems Review of Systems Constitutional: Reports: chills, diaphoresis. Denies: fever. EENTM: Denies: blurred vision, double vision. Cardiovascular: Denies: chest pain, edema, orthopena. Respiratory: Denies: cough, hemoptysis, orthopnea. GI: Reports: nausea, vomiting. Genitourinary: Denies: dysuria, frequency. Musculoskeletal: Denies: gout, joint pain. Skin: Reports: see HPI. Exam & Diagnostic Data Last 24 Hrs of Vital Signs/I&O Vital Signs Date Time Temp Pulse Resp B/P B/P Pulse O2 O2 Flow FiO2 Mean Ox Delivery Rate 02/10 1044 99.0 98 20 115/56 100 Nasal 2.0L Cannula 02/10 1026 102 20 113/62 100 Nasal 2.0L Cannula 02/10 0951 101 20 99/50 84 Nasal 4.0L Cannula 02/10 0855 99.6 100 20 107/51 98 Nasal 2.0L Cannula 02/10 0824 100 120/60 02/10 0810 97 20 99/66 98 Nasal 2.0L Cannula 02/10 0744 96/51 02/10 0744 98 Room Air 02/10 0731 94 99/44 02/10 0726 97 20 76/45 99 Room Air 02/10 0711 98.5 98 20 81/43 99 Room Air Intake & Output 02/10 1600 02/10 0800 02/10 0000 Intake Total Output Total Balance Patient 180 lb Weight Weight Estimated Measurement Method Physical Exam General Appearance Alert, Oriented X3, Cooperative, No Acute Distress Skin No Significant Lesion Cardiovascular Normal S1, Normal S2, No Murmurs, tachycardic Lungs Normal Air Movement Abdomen Soft, No Tenderness, No Hepatospenomegaly Neurological Normal Speech, Strength at 5/5 X4 Ext Extremities No Clubbing, No Cyanosis, No Edema Last 24 Hrs of Labs/Guru: Laboratory Tests 02/10/17 1028: CBC w Diff Pending, WBC Pending, RBC Pending, Hgb Pending, Hct Pending, MCV Pending, MCH Pending, RDW Pending, Plt Count Pending, MPV Pending, PUBS MCHC Pending 02/10/17 0950: pH 7.51 H, pCO2 37, pO2 58 L, HCO3 29 H, ABG O2 Sat (Measured) 84.0 L, Carboxyhemoglobin 2.1, O2 Concentration % 4L, O2 Delivery Method NC, Phlebotomy Draw Site RIGHT RADIAL 02/10/17 0820: Urine Opiates Screen < 100.00, Methadone Screen < 40, Barbiturate Screen < 60, Ur Phencyclidine Scrn < 6.00, Amphetamines Screen < 100, U Benzodiazepines Scrn < 85, Urine Cocaine Screen < 50, Urine Cannabis Screen 77.70 H, Urine Color SHANEKA, Urine Clarity CLDY H, Urine pH 6.0, Ur Specific [place] 1.025, Urine Protein 100 H, Urine Ketones 15 H, Urine Nitrite NEG, Urine Bilirubin POS@ICTO H, Urine Urobilinogen 2.0 H, Ur Leukocyte Esterase MOD H, Ur Microscopic SEDIMENT EXAMINED, Urine RBC 25-50 H, Urine WBC > 75 H, Ur Epithelial Cells FEW, Urine Bacteria PACKD H, Urine Hemoglobin LARGE H, Urine Glucose NEG 02/10/17712: Creatine Kinase Cancelled, Serum Alcohol Cancelled 02/10/17712: Anion Gap > 41.0 H, Estimated GFR 25 L, BUN/Creatinine Ratio 9.0, Glucose 115 H, Lactic Acid > 24.0 H, Calcium 8.5, Magnesium 1.6, Total Bilirubin 4.0 H, AST 310 H, ALT 87 H, Alkaline Phosphatase 135 H, Creatine Kinase 661 H, Troponin I 0.06, Total Protein 8.1, Albumin 4.3, Globulin 3.8, Albumin/Globulin Ratio 1.1, Lipase 497 H, PT 15.1 H, INR 1.44 H, APTT 27, CBC w Diff MAN DIFF ORDERED, RBC 3.85 L, MCV 88.2, MCH 28.6, RDW 20.4 H, MPV 11.4 H, Gran % 78.5 H, Lymphocytes % 8.7 L, Monocytes % 12.8 H, Eosinophils % 0, Basophils % 0 L, Absolute Granulocytes 14.0 H, Absolute Lymphocytes 1.5, Absolute Monocytes 2.3 H, Absolute Eosinophils 0, Absolute Basophils 0, Platelet Estimate DECREASED, Normochromic RBCs VERIFIED, Polychromasia , Anisocytosis 1+, PUBS MCHC 32.4 L , Serum Alcohol 104.0 02/10/1712: Bicarbonate Actual 33 H, Mixed VBG pH 7.63 H, Mixed VBG pCO2 63 H, Mixed VBG O2 Saturation 14 L, Carboxyhemoglobin 2.1, O2 Concentration % RA, Temperature 98.5, O2 Delivery Method RA, Phlebotomy Draw Site LAC Microbiology 02/11 940 URINE ROUT: Urine Culture - ORD 02/10 900 BLOOD: Blood Culture - RECD 02/10 849 BLOOD: Blood Culture - RECD 02/11 820 URINE ROUT: Urine Culture - RECD Diagnostic Data Other Results SERVICE DATE: 02/10/17 EXAM TYPE: CAT - CT HEAD WO IV CONTRAST EXAMINATION: CT HEAD WITHOUT CONTRAST CLINICAL INFORMATION: Multiple full, bruising, confused. COMPARISON: CT scan of the head 10/28/2015. TECHNIQUE: Contiguous axial imaging was performed from the skull base to vertex without intravenous administration of contrast. DLP: 623.9 mGy-cm FINDINGS: There is no evidence of acute intracranial hemorrhage or territorial infarction. No abnormal mass effect or midline shift is seen. Allen to white matter differentiation is well preserved. No extra-axial fluid collections are identified. The ventricles are normal in size. There is no abnormal attenuation within the brain parenchyma. There are no acute osseous findings. There is a mild scalp contusion over the right parietal area. The mastoid air cells and visualized portions of the paranasal sinuses are well aerated. IMPRESSION: 1. There are no acute intracranial findings. 2. There is a right parietal scalp contusion. Assessment/Plan Assessment: Patient is 36-year-old gentleman with past medical history significant for schizophrenia, alcoholic hepatitis, alcohol abuse, alcoholic cardiomyopathy with normal ejection fraction, multiple electrolyte imbalance in the past, bladder mass status post biopsy not significant for any malignancy, questionable colovesical fistula, polydipsia came with intractable vomiting resulted in multiple electrolyte imbalances including hyponatremia severe hypochloremia, hypochloremic metabolic acidosis, acute kidney injury with leukocytosis. We will admit patient in ICU and will take care for the following problems Problem list 1. Hypotension most likely due to excessive vomiting and volume contractured 2. Severe hypochloremia/hypochloremic metabolic acidosis due to excessive vomiting 3. Hyponatremia with history of polydipsia 4. Leukocytosis 5. Schizophrenia 6. Alcohol abuse/alcoholic hepatitis 7. Hypokalemia 8. Hypophosphatemia 9. AK I Plan 1. We will admit patient in ICU 2. We will aggressively replete his electrolytes including potassium and magnesium 3. We will repeat labs every 4-6 hours for potassium, magnesium, sodium and will make sure that his sodium will not replaced very quickly. 4. We will give him IV fluids and banana bag and keep him nothing by mouth for now restricted his oral free water. 5. Nephrology consultation was placed to due to severe hypochloremia, hyponatremia, acute kidney injury. 6. We will start patient on Cipro and Flagyl. 7. His chest x-ray was normal without any evidence of acute cardiopulmonary pathology. 8. We will do CT abdomen and pelvis to look for any intra-abdominal pathology/ ascites. 9. We will monitor him according to CIWA protocol for alcohol withdrawal 10. Psych consultation was placed due to his schizophrenia on risperidone. 11. We will monitor intake and output 12. Urine and blood culture were sent and we will follow-up Alps for DVT prophylaxis as platelets were low Nothing by mouth Patient is full code As Ranked By This Provider Problem List: 1. Hyponatremia 2. Hypokalemia 3. Schizophrenia 4. Lactic acid acidosis Core Measures/Miscellaneous Acute Coronary Syndrome ACS Diagnosis: No Cerebrovascular Accident CVA/TIA Diagnosis: No Congestive Heart Failure CHF Diagnosis: No Venous Thromboembolism VTE Risk Factors: Acute medical illness No [facility] VTE prophylaxis d/t: No contraindications No VTE Pharm Prophylaxis d/t: Blood coag disorder VTE Diagnosis: No VTE Type: NONE VTE Confirmed by (Test): NONE Severe Sepsis Severe Sepsis Present: No BC x2: Yes Lactic Acid x2: Yes IV ABX Broad Spectrum: No Septic Shock Septic Shock Present: No IV Vasopressors started: No Miscellaneous Documentation Attending Case Discussed With: DELPHINE HECK MD Primary Care Physician: TAMIKA JUAN MD Patient sees these Specialists Psychiatry Level of Patient Care: Critical Care (CRI) Consults Needed: Consulting Specialty: Nephrology Consulting Physician: Tom Morales MD Resident Review Statement Resident Statement: examined this patient DELPHINE HECK MD 02/10/17 1336: Attending MD Review Statement Attending Statement Attending MD Statement: examined this patient, discuss w/resident/PA/CALIBRATION SPECIALIST, agreed w/resident/PA/CALIBRATION SPECIALIST, discussed with family, reviewed EMR data (avail), discussed with nursing, discussed with case mgmt, reviewed images, amended to note Attending Assessment/Plan: Seen and examined indepently History as above Physical Exam General Appearance Alert, Oriented X3, Cooperative, No Acute Distress Skin No Significant Lesion Cardiovascular Normal S1, Normal S2, No Murmurs, tachycardic Lungs Normal Air Movement Abdomen Soft, No Tenderness, No Hepatospenomegaly Neurological Normal Speech, Strength at 5/5 X4 Ext Extremities No Clubbing, No Cyanosis, No Edema 36-year-old man with background of alcoholism, alcoholic hepatitis, schizophrenia, polydipsia among other problems as noted above, with history of recurrent admissions for acute kidney injury and multiple electrolyte disturbances. He now comes in with the same series of events preceded by alcohol intake, nausea, vomiting and very high fluid intake Issues include SIg electrolyte abnormality due to multiple factors as outlined by renal Sig etoh use with etoh hepatitis with MDS of 18 Sig etoh with pending DT Severe acidosis with combined metabolic alkalosis with profound hypokalemia due to polydipsia free water with worsening hyponatremia due to persistent ADH secretion related to his psychoactive medications Severe hypokalemia, hyper oh natremia and Yandy chloremia with persistent vomiting and volume contraction Probable alcoholic ketoacidosis Acute renal failure related to volume contraction and above noted issues Significant schizophrenia with multiple issues Recent suspicion for a colovesicular fistula but the patient did have evaluation for this which appeared to be unlikely and patient did have a biopsy of the bladder which was nonrevealing. Chronic and recurrent sigmoid dilated tic low doses with diverticulitis with associated colovesicular fistula noted there is persistent extraluminal gas overlying the bladder dome which appears to be similar from 5 weeks ago Hiatal hernia Significant hepatomegaly with ongoing alcoholism Recurrent urinary tract infection with multiple gram-negative organisms Previous history of cardiomyopathy with preserved ejection fraction Significant leukocytosis PLAN Continue IV fluids see renal note Monitor electrolytes every 4 hours Continue to follow CPK and QTC Aggressively replace magnesium and potassium Slowly try to increase sodium Keep nothing by mouth Ultrasound of the kidney if the renal function does not improve. Patient does not seem to have any obstructive uropathy as he already had a CT scans ultrasound may not add much value Follow psychiatric consult Intravenous antibiotics panculture If the patient continues to do poorly and infectious disease consult should be obtained Prognosis very poor Patient critically ill total time spent 45 minutes
--- NOTE | 2017-02-10 11:17 | RADIOLOGY REPORT ---
EXAMINATION: XR PORTABLE CHEST CLINICAL INFORMATION: History of intractable vomiting and hypoxia. Fluid resuscitation. Evaluate for congestive heart failure. COMPARISON: CXR from 11/24/2016 TECHNIQUE: Portable AP view of the chest was obtained. FINDINGS: Lungs are well expanded and clear. No pulmonary edema, pneumothorax or pleural effusion. Cardiac silhouette is normal in size. The mediastinal and hilar contours are normal. Moderate-sized hiatal hernia. Minimal pleural thickening subjacent to the left lateral sixth rib. No acute skeletal abnormality. IMPRESSION: - No acute cardiopulmonary abnormality. - Moderate sized hiatal hernia.
[2017-02-10 11:32] LABS: ABSOLUTE BASOPHIL COUNT 0 /CUMM (0.0-0.2); ABSOLUTE EOSINOPHIL COUNT 0 /CUMM (0.0-0.7); BASOPHIL % 0 % (0.0-2.0); EOSINOPHIL % 0 % (0-5); MEAN CORPUSCULAR VOLUME 89.2 FL (80.0-94.0)
[2017-02-10 12:00] LABS: ABSOLUTE GRANULOCYTE CT 12.3 /CUMM (1.4-6.5); ABSOLUTE LYMPH COUNT 0.9 /CUMM (1.2-3.4); ABSOLUTE MONOCYTE COUNT 1.1 /CUMM (0.10-0.60); MEAN CORPUSCULAR HGB 28.7 PG (27.0-31.0); MEAN CORPUSCULAR HGB CONC 32.2 G/DL (33.0-37.0); MEAN PLATELET VOLUME 10.8 FL (7.4-10.4); RBC DISTRIBUTION WIDTH 20.8 % (11.5-14.5); WHITE BLOOD CELL COUNT 14.3 /CUMM (4.8-10.8)
--- NOTE | 2017-02-10 12:10 | CT SCAN REPORT ---
EXAMINATION: CT ABDOMEN AND PELVIS WITHOUT CONTRAST CLINICAL INFORMATION: Intractable vomiting. Evaluate for small bowel obstruction. COMPARISON: CT of abdomen and pelvis from 01/02/2017. TECHNIQUE: Multidetector volumetric imaging was performed from the superior aspect of the liver through the pubic symphysis. Sagittal and coronal reformatted images were obtained on the technologist's workstation. DLP: 337 mGy-cm FINDINGS: LUNG BASES: No acute findings within the visualized lung bases. No basilar consolidation or pleural effusion. LIVER, GALLBLADDER, AND BILIARY TREE: Gallbladder is surgically absent. There is hepatomegaly with right hepatic lobe measuring approximately 22 cm in craniocaudal dimension. No suspicious, focal hepatic lesion or intrahepatic bile duct dilatation. PANCREAS: Unremarkable. SPLEEN: Prominent spleen is 14 cm in craniocaudal dimension. No focal splenic lesion. ADRENAL GLANDS: Unremarkable. KIDNEYS AND URETERS: Kidneys are normal size, cortical thickness and attenuation. No nephrolithiasis or hydroureteronephrosis. BLADDER: The wall of the bladder dome is chronically thickened and there is chronic fat stranding around the bladder dome and adjacent sigmoid colon. Small amount of gas is present within the lumen of the bladder -- suggesting presence of a colovesical fistula. GASTROINTESTINAL TRACT: Again noted is a [id number] hiatal hernia. Loops of bowel are normal in caliber. There are multiple diverticula of the left colon. There is persistent fat stranding around the sigmoid colon adjacent to the urinary bladder dome and, in this area, there is a persistent collection of extraluminal gas that extends from the anteroinferior wall of the sigmoid colon to the bladder dome (images [id number], series 2). The findings are suggestive of chronic and/or recurrent sigmoid diverticulitis and persistent colovesical fistula. ABDOMINAL WALL: Unremarkable. LYMPH NODES: No pathologic sized lymph nodes within the abdomen or pelvis. VASCULAR: Abdominal aorta is normal in caliber. PELVIC VISCERA: Prostate gland is normal in size. No pelvic free fluid. There is minimal protrusion of fat into the proximal left inguinal canal. OSSEOUS STRUCTURES: Unremarkable. IMPRESSION: 1. Chronic and/or recurrent sigmoid colon diverticulitis and associated colovesical fistula. The persistent extraluminal gas overlying the bladder dome could be located within the fistula tract and/or within a chronic, small abscess cavity; this remains similar in appearance compared to 01/02/2017. 2. Diffuse hepatic steatosis and hepatosplenomegaly. Note that hepatic steatosis can be due to alcoholic and/or nonalcoholic etiologies. 3. Moderate-to large hiatal hernia.
--- NOTE | 2017-02-10 12:17 | Cons- Nephrology ---
General Information and HPI Consulting Request Date of Consult: 02/10/17 Requested By: UMANG CARPENTER,DELPHINE Santana Reason for Consult: Acute kidney injury and multiple electrolyte abnormalities History of Present Illness: The patient is a 36-year-old man who has had multiple admissions to this hospital with severe electrolyte abnormalities and acute kidney injury. He has a background of schizophrenia, chronic alcoholism and alcoholic hepatitis. He was now admitted because of weakness, dizziness and coffee ground emesis. Found to be hypotensive with severe hyponatremia, hypokalemia, metabolic alkalosi, lactic acidosis, mildly elevated LFTs and acute kidney injury with a serum creatinine of 2.9 with a baseline of 0.6 as recently as 01/05/17. CK level 661. He was hypotensive in the emergency department and given three 1 L boluses of normal saline. He is currently on D5W with potassium at 100 mL per hour. Blood pressure has improved but is still low. He has been awake and alert throughout all of this asking for fluids to drink. He admits to having several shots of vodka a day but denies exposure to contrast, antibiotics or NSAIDs. There is been no fever or skin rash. Past medical history positive for chronic alcoholism, alcoholic hepatitis, schizophrenia, polydipsia, multiple admissions with STEPHANIE and multiple electrolyte abnormalities including hyponatremia, hypokalemia and metabolic alkalosis, seizures, aspiration pneumonia and upper GI bleed. Medications: See below Allergies: shrimp; no known medication allergies Family history: Father at age 27 from heroin overdose, mother diabetic, no family history of kidney disease. Social history: Lives with his mother, chronic alcohol abuse primarily vodka, marijuana, denies IV drug abuse. Allergies/Medications Allergies: Coded Allergies: shrimp (BLACKED OUT PER PT 01/22/16) Home Med List: Folic Acid 1 MG TABLET 1 MG PO AT BEDTIME SUPPLEMENT Magnesium Oxide (Magnesium) 400 MG CAPSULE 1 CAP PO BID hypomagnesemia . Multivitamin (One Daily Multivitamin) 1 EACH TABLET 1 TAB PO AT BEDTIME SUPPLEMENT Potassium Chloride 20 MEQ TAB.ER.PRT 1 TAB PO DAILY hypokalemia Risperidone Microspheres (Risperdal Consta) 37.5 MG/2 ML SYRINGE 1 SYR IM Q2W SCHIZOPHRENIA (Reported) Thiamine HCl (Vitamin B-1) 100 MG TABLET 100 MG PO AT BEDTIME SUPPLEMENTS Current Medications: Current Medications Sig/Olivia Start time Last Medication Dose Route Stop Time Status Admin Ceftriaxone Sodium 0 .STK-MED ONE 02/10 0903 DC .ROUTE Ceftriaxone Sodium 1,000 MG ONCE ONE 02/10 0845 DC 05 IV 05 0846 0902 Ciprofloxacin 400 MG Q12H 02/10 1200 AC Dextrose/Water 200 ML IV Cyanocobalamin/ 1 BAG DAILY 02/10 1041 AC 05 Thiamine/Pyridoxine IV 1228 Sodium Chloride 1,000 ML Heparin Sodium 5,000 UNIT Q8 02/10 1400 CAN (Porcine) SC Lorazepam 0 Q1P PRN 02/10 1045 AC IV Magnesium Oxide 400 MG ONE ONE 02/10 1000 DC PO 02/10 1001 Magnesium Sulfate 1 GM ONCE ONE 02/10 1045 AC 02/10 Dextrose/Water 100 ML IV 02/10 1444 1050 Metoclopramide HCl 0 .STK-MED ONE 02/10 0718 DC .ROUTE Metoclopramide HCl 10 MG ONCE ONE 02/10 0715 DC 02/10 IV 02/10 0716 0716 Metronidazole 500 MG IQ8 02/10 1600 AC N/A 1 UNIT IV Pantoprazole Sodium 40 MG DAILY 02/11 1000 AC IV Pantoprazole Sodium 40 MG ONCE ONE 02/10 0745 DC 05 IV 05 0746 0720 Pantoprazole Sodium 0 .STK-MED ONE 02/10 0725 DC IV Potassium Chloride 20 MEQ BID 02/10 1000 AC PO Potassium Chloride 10 MEQ ONCE ONE 02/10 0815 DC 05/05 IV 05 0816 0840 Potassium Chloride 10 MEQ ONCE ONE 02/10 0815 DC 05 IV 05 0816 0820 Potassium Chloride 40 MEQ ONCE ONE 02/10 0815 DC PO 02/10 0816 Potassium Chloride 20 MEQ Q10H 02/10 0815 AC 05 Dextrose/Water 1,000 ML IV 0840 Sodium Chloride 1,000 ML BOLUS ONE 02/10 0945 DC 05/05 IV 05 1044 0940 Sodium Chloride 1,000 ML BOLUS ONE 02/10 0945 DC 05/ IV 05 1044 0940 Sodium Chloride 1,000 ML BOLUS ONE 02/10 0715 DC 05/ IV 05/ 0814 0716 Review of Systems Review of Systems: Constitutional: Reports: chills, diaphoresis. Denies: fever. EENTM: Denies: blurred vision, double vision. Cardiovascular: Denies: chest pain, edema, orthopena. Respiratory: Denies: cough, hemoptysis, orthopnea. GI: Reports: nausea, vomiting. Genitourinary: Denies: dysuria, frequency. Musculoskeletal: Denies: gout, joint pain. Skin: Reports: see HPI. Past History Travel History Traveled to [place] past 21 day No Medical History Neurological: seizure (during alcohol detox) EENT: NONE Cardiovascular: alcoholic cardiomyopathy stage II Respiratory: history of aspiration pneumonia Gastrointestinal: alcoholic hepatitis, GERD, hiatal hernia, upper GI bleed Renal: NONE Musculoskeletal: NONE Psychiatric: alcohol dependence, anxiety, depression, substance abuse, SCHIZOPHRENIA alcohol abuse Endocrine: psychogenic polydipsia HYPOKALEMIA, HYPOMAGNESEMIA, HYPONATREMIA hypoK+, hypoNa, hypoMg hx hyponatremia hx hypokalemia Blood Disorders: anemia, coagulopathy (intermittent), thrombocytopenia ( intermittent) Cancer(s): NONE 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 MOTHER (diabetic). Age 60+. SISTER (healthy). Psychosocial History Who Do You Live With? spouse (mother), parent Services at Home: Nursing Primary Language: [place] Verdean ETOH Use: heavy use Illicit Drug Use: marijuana Living Will? no Power of Show Host/HCP? yes Name of POA/HCP: Pt's mother, Merly Woo [phone] Functional Ability ADLs Independent: dressing, eating, toileting, bathing. Ambulation: independent IADLs Needs Assist: shopping, housework, finances, food prep, telephone, transportation, medication admin. Exam & Diagnostic Data Vital Signs and I&O Vital Signs Date Time Temp Pulse Resp B/P B/P Pulse O2 O2 Flow FiO2 Mean Ox Delivery Rate 02/10 1153 98.8 98 20 110/60 95 Nasal 2.0L Cannula 02/10 1044 99.0 98 20 115/56 100 Nasal 2.0L Cannula 02/10 1026 102 20 113/62 100 Nasal 2.0L Cannula 02/10 0951 101 20 99/50 84 Nasal 4.0L Cannula 02/10 0855 99.6 100 20 107/51 98 Nasal 2.0L Cannula 02/10 0824 100 120/60 02/10 0810 97 20 99/66 98 Nasal 2.0L Cannula 02/10 0744 96/51 02/10 0744 98 Room Air 02/10 0731 94 99/44 02/10 0726 97 20 76/45 99 Room Air 02/10 0711 98.5 98 20 81/43 99 Room Air Intake & Output 02/10 04002/09 040 Intake Total Output Total Balance Patient 180 lb Weight Weight Estimated Measurement Method Physical Exam: General: Well-developed, heavily tattooed white male, awake and alert, requesting water Skin: Heavily tatooed, no rash or jaundice HEENT: Conjunctivae pink, sclerae anicteric, mucous membranes moist Neck: Without masses or thyromegaly, no supraclavicular or cervical adenopathy Chest: Clear to P&A Heart: Regular rate and rhythm without S3 or rub Abdomen: Soft and nontender without palpable masses; liver is palpable just below the right costal margin and is soft and nonnodular Extremities: Without cyanosis or edema Neuro: No focal findings, no asterixis or myoclonus Assessment/Plan Assessment/Recommendations Assessment: 36-year-old man with background of alcoholism, alcoholic hepatitis, schizophrenia, polydipsia among other problems as noted above, with history of recurrent admissions for acute kidney injury and multiple electrolyte disturbances. He now comes in with the same series of events preceded by alcohol intake, nausea, vomiting and very high fluid intake. The acute kidney injury should respond to volume resuscitation (as it is primarily prerenal) which should also improve his hyponatremia. Although SIADH cannot be ruled in or ruled out at this time, I suspect that in addition to his hyponatremia being due to volume contraction, he has a tendency towards hyponatremia due to persistent ADH secretion related to his psychoactive medication regimen. There is no evidence for rhabdomyolysis at this time. The metabolic alkalosis is related to the hypokalemia and vomiting/volume contraction while lactic acidosis is on the basis of hypotension and alcohol. Positive urine ketones also suggests an element of alcoholic ketoacidosis. The alkalosis process is predominant as his is alkaline (he is "alkalemic"). Recommendations: 1. Monitor electrolytes every 4hrs for now 2. Recheck CK later today along with a serum phosphorus level 3. Phosphorus, magnesium, LFTs and CPK levels should be checked daily 4. Change IV to normal saline +40 mEq of KCl per liter at 125 mL per hour but would be ready to change back to D5W should his sodium be rising too quickly. Goal is a serum sodium in the high 120s by tomorrow morning 5. Renal ultrasound if renal function fails to improve with hydration 6. Psych consult
[2017-02-10 12:18] LABS: HEMATOCRIT 24.8 % (42-52); RED BLOOD CELL CT 2.78 /CUMM (4.70-6.10)
[2017-02-10 12:21] LABS: PLATELET COUNT 59 /CUMM (130-400)
--- NOTE | 2017-02-10 12:51 | Cons- Psychiatry ---
Psychiatric Consult Date of Consult: 02/10/17 Reason for Consult: "schizophrenia on risperidone" Ordered by Chandu Matthew MD History of Present Illness: Identifying Info: 36-year-old single conserved male well-known to this service presents to [facility] emergency department by ambulance on 02/10/2017 with a question of GI bleed. Subsequently found to have an STEPHANIE with metabolic acidosis as well as severe electrolyte abnormalities and transferred to critical care unit. CC: "I'm dying of thirst." HPI: Most recently dc from on 01/05/17 after admission for medical problems r/t drinking as well as bladder mass and UTI. Pt is an unreliable informant due to confusion though he has consistantly reported consuing 4 shots of vodka daily since dc. He reports he has not eaten in 4 days. Called mother and conservator Merly Woo ([phone]) and left message to return call. Spoke to [facility] ([phone]) staff including Rosa M ([id number]) Hospital Liaison , Lu ([id number]) Shareholder, and Sheree ([id number]) Outdoor Landscape Architect who have been in close contact with patient and family. They report the patient made the statement "I don't want to live anymore and want to ," and has been making similar statements over the past few weeks. There is no clear precipitating incident and this is atypical behavior for this patient. He has been consuming fluids and alcohol but stopped eating in an effort to end his own life resulting in a significant amount of weight loss. He has been avoiding appointments with medical providers. Recently he is been not leaving his room, isolating and covering all the windows. At present they are planning to try to find the patient's long-term psychiatric placement once stabilized. Confirm current psychotropic regimen includes on Risperidal Consta 37.5mg q 2 weeks. They believe he is due for his next injection on 02/13/17 however pt reports he received last on 02/06/17. If he did not miss any doses based his previous dc instructions he would be due for his shot on 02/06/17, this will need to be confirmed by his mother or his VNA. PMH: Please see the H&P for a complete listing Alcoholic hepatitis, alcoholic cardiomyopathy, schizophrenia, bladder mass status post biopsy not significant for any malignancy with questionable colovesical fistula, multiple episodes of severe electrolyte imbalance in the past, history of polydipsia Past Psych History: -Outpatient Currently treated at [facility] -Inpatient Multiple [facility] stays dating back at least to 1999 Multiple evaluations by consult service including 3 in the past year Family Psych History: Unobtained Substance History ETOH & MJ BAL 0.104 on admit, +MJ -Treatment [facility] Family Substance History: Unobtained Social: Single. Unemployed. Lives with his mother in [place]. Abuse/Trauma: Unobtained Current Home Psychotropic Medications: Risperidal Contsa 37.5mg IM q 2weeks Current Hospital Psychotropic Medications: Med Lorazepam IV Q1P PRN 02/10/17 1045 Allergies: Coded Allergies: shrimp (BLACKED OUT PER PT 01/22/16) Current Medications: Current Medications Sig/Olivia Start time Last Medication Dose Route Stop Time Status Admin Ceftriaxone Sodium 0 .STK-MED ONE 02/10 0903 DC .ROUTE Ceftriaxone Sodium 1,000 MG ONCE ONE 02/10 0845 DC 02/10 IV 02/10 0846 0902 Ciprofloxacin 400 MG Q12H 02/10 1200 AC Dextrose/Water 200 ML IV Cyanocobalamin/ 1 BAG DAILY 02/10 1041 AC 05 Thiamine/Pyridoxine IV 1228 Sodium Chloride 1,000 ML Heparin Sodium 5,000 UNIT Q8 02/10 1400 CAN (Porcine) SC Lorazepam 0 Q1P PRN 02/10 1045 AC IV Magnesium Oxide 400 MG ONE ONE 02/10 1000 DC PO 02/10 1001 Magnesium Sulfate 1 GM ONCE ONE 02/10 1045 AC 02/10 Dextrose/Water 100 ML IV 02/10 1444 1050 Metoclopramide HCl 0 .STK-MED ONE 02/10 0718 DC .ROUTE Metoclopramide HCl 10 MG ONCE ONE 02/10 0715 DC 02/10 IV 02/10 0716 0716 Metronidazole 500 MG IQ8 02/10 1600 AC N/A 1 UNIT IV Pantoprazole Sodium 40 MG DAILY 02/11 1000 AC IV Pantoprazole Sodium 40 MG ONCE ONE 02/10 0745 DC 02/10 IV 02/10 0746 0720 Pantoprazole Sodium 0 .STK-MED ONE 02/10 0725 DC IV Potassium Chloride 20 MEQ BID 02/10 1000 AC PO Potassium Chloride 10 MEQ ONCE ONE 02/10 0815 DC 05/05 IV 02/10 0816 0840 Potassium Chloride 10 MEQ ONCE ONE 02/10 0815 DC 05/05 IV 02/10 0816 0820 Potassium Chloride 40 MEQ ONCE ONE 02/10 0815 DC PO 02/10 0816 Potassium Chloride 20 MEQ Q10H 02/10 0815 AC 02/10 Dextrose/Water 1,000 ML IV 0840 Sodium Chloride 1,000 ML BOLUS ONE 02/10 0945 DC 05/ IV 05 1044 0940 Sodium Chloride 1,000 ML BOLUS ONE 02/10 0945 DC 05/ IV 05/05 1044 0940 Sodium Chloride 1,000 ML BOLUS ONE 02/10 0715 DC 05/ IV 02/10 0814 0716 Past History Past Medical History Neurological: seizure (during alcohol detox) EENT: NONE Cardiovascular: alcoholic cardiomyopathy stage II Respiratory: history of aspiration pneumonia Gastrointestinal: alcoholic hepatitis, GERD, hiatal hernia, upper GI bleed Hepatic: ALCOHOLIC LIVER DISEASE Renal: NONE Musculoskeletal: NONE Psychiatric: alcohol dependence, anxiety, depression, substance abuse, SCHIZOPHRENIA alcohol abuse Endocrine: psychogenic polydipsia HYPOKALEMIA, HYPOMAGNESEMIA, HYPONATREMIA hypoK+, hypoNa, hypoMg hx hyponatremia hx hypokalemia Blood Disorders: anemia, coagulopathy (intermittent), thrombocytopenia ( intermittent) Cancer(s): NONE 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 Physical Limitations (Interventions): None noted Psychiatric Treatment History Psych Treatment Psychiatric Treatment Yes (as above) Diagnosis: Schizophrenia Alcohol use disorder, severe, recurrent Cannabis use disorder Risk Factors: SA/MH hospitalized, substance abuse, isolate/no social support, poor impulse control, arson, male, Conserved Substance Use/Abuse History Drug Use/Abuse Substances Used/Abused Yes (as above) Substance Abuse Treatment Substance Abuse Treatment Past Substance Abuse [place] Yes Assessment/Plan Mental Status Mental Status Exam: Mental Status Exam Presentation/Appearance: Cooperative with evaluation to best of his ability but has difficulty participating due to confusion. Hospital garb. Orientation: Oriented to self and place, unable to name month or day Sensorium: Awake and alert Eye contact: Appropriate Affect: Somewhat constricted Mood: "dying of thirst" Depression: Denies Anxiety: Endorses Thought Content: - Endorses AVH but has difficulty describing - Denies SI/HI, PI. However informants report he is actively suicidal. - Denies Hopeless/Helpless Thoughts Thought Process: Tangential Associations: Somewhat loose Speech: Repetitive, rapid, normal tone Judgment: Poor Insight: Poor Cognition: Memory: Altered at present Attention/Concentration: Impaired Fund of Knowledge: Unable to assess Abstractions: Unable to assess MMSE: Did not complete Brief ROS Gait: Not observed Sleep: Reports no sleep x 3 days Appetite: Reports hasn't eaten x 4 days Energy: "tired" IADLs/ADLs: With assistance Lab Results: Laboratory Tests 02/10/17 1028: CBC w Diff NO MAN DIFF REQ, RBC 2.78 L, MCV 89.2, MCH 28.7, RDW 20.8 H, MPV 10.8 H, Gran % 86.0 H, Lymphocytes % 6.1 L, Monocytes % 7.9, Eosinophils % 0, Basophils % 0 L, Absolute Granulocytes 12.3 H, Absolute Lymphocytes 0.9 L, Absolute Monocytes 1.1 H, Absolute Eosinophils 0, Absolute Basophils 0, PUBS MCHC 32.2 L 02/10/17 0950: pH 7.51 H, pCO2 37, pO2 58 L, HCO3 29 H, ABG O2 Sat (Measured) 84.0 L, Carboxyhemoglobin 2.1, O2 Concentration % 4L, O2 Delivery Method NC, Phlebotomy Draw Site RIGHT RADIAL 02/10/17 0820: Urine Opiates Screen < 100.00, Methadone Screen < 40, Barbiturate Screen < 60, Ur Phencyclidine Scrn < 6.00, Amphetamines Screen < 100, U Benzodiazepines Scrn < 85, Urine Cocaine Screen < 50, Urine Cannabis Screen 77.70 H, Urine Color SHANEKA, Urine Clarity CLDY H, Urine pH 6.0, Ur Specific [place] 1.025, Urine Protein 100 H, Urine Ketones 15 H, Urine Nitrite NEG, Urine Bilirubin POS@ICTO H, Urine Urobilinogen 2.0 H, Ur Leukocyte Esterase MOD H, Ur Microscopic SEDIMENT EXAMINED, Urine RBC 25-50 H, Urine WBC > 75 H, Ur Epithelial Cells FEW, Urine Bacteria PACKD H, Urine Hemoglobin LARGE H, Urine Glucose NEG 02/10/17 0713: Creatine Kinase Cancelled, Serum Alcohol Cancelled 02/10/17 0713: Anion Gap > 41.0 H, Estimated GFR 25 L, BUN/Creatinine Ratio 9.0, Glucose 115 H, Lactic Acid > 24.0 H, Calcium 8.5, Phosphorus 5.4 H, Magnesium 1.6, Total Bilirubin 4.0 H, AST 310 H, ALT 87 H, Alkaline Phosphatase 135 H, Creatine Kinase 661 H, Troponin I 0.06, Total Protein 8.1, Albumin 4.3, Globulin 3.8, Albumin/Globulin Ratio 1.1, Lipase 497 H, PT 15.1 H, INR 1.44 H, APTT 27, CBC w Diff MAN DIFF ORDERED, RBC 3.85 L, MCV 88.2, MCH 28.6, RDW 20.4 H, MPV 11.4 H, Gran % 78.5 H, Lymphocytes % 8.7 L, Monocytes % 12.8 H, Eosinophils % 0, Basophils % 0 L, Absolute Granulocytes 14.0 H, Absolute Lymphocytes 1.5, Absolute Monocytes 2.3 H, Absolute Eosinophils 0, Absolute Basophils 0, Platelet Estimate DECREASED, Normochromic RBCs VERIFIED, Polychromasia , Anisocytosis 1+, PUBS MCHC 32.4 L, Serum Alcohol 104.0 02/10/17 0712: Bicarbonate Actual 33 H, Mixed VBG pH 7.63 H, Mixed VBG pCO2 63 H, Mixed VBG O2 Saturation 14 L, Carboxyhemoglobin 2.1, O2 Concentration % RA, Temperature 98.5, O2 Delivery Method RA, Phlebotomy Draw Site LAC Microbiology 02/10 1136 UPPER RESP: Surveillance Culture - ORD 02/10 0940 URINE ROUT: Urine Culture - ORD 02/10 0900 BLOOD: Blood Culture - RECD 02/10 0849 BLOOD: Blood Culture - RECD 02/10 0820 URINE ROUT: Urine Culture - RECD Diffential Diagnosis: Schizophrenia Polydipsia Alcohol use disorder, severe Cannabis use disorder Impression: 36-year-old single conserved male well-known to this service with a history of similar presentations today reported to be experiencing suicidality. While the patient presently denies it his suicidality is confirmed by his outpatient care providers who state the patient has been actively trying to kill himself by consuming alcohol and not eating. This is a departure from his baseline and normal presentation. At present he represents a serious threat to self and may be gravely disabled as well which necessitates psychiatric hospitalization once medically stable. His treaters are planning to find the patient long-term placement. Provisional Treatment Plan: 1. PEC written placed in chart for attending signature. Patient may not leave hospital AMA without psychiatric clearance. 2. Plan for psychiatric admission once medically clear. 3. Continue CIWA and medicate appropriately including vitamin supplementation. 4. 1:1 sitter. 5. Plan to administer Risperdal Consta shot on either 02/13/17 or 02/20/17, we will clarify dosing schedule. Thank you for including psychiatry in this case we'll continue to follow.
[2017-02-10 17:48] LABS: ABSOLUTE BASOPHIL COUNT 0 /CUMM (0.0-0.2); ABSOLUTE EOSINOPHIL COUNT 0 /CUMM (0.0-0.7); ABSOLUTE GRANULOCYTE CT 9.6 /CUMM (1.4-6.5); ABSOLUTE LYMPH COUNT 0.9 /CUMM (1.2-3.4); ABSOLUTE MONOCYTE COUNT 1.1 /CUMM (0.10-0.60); BASOPHIL % 0.1 % (0.0-2.0); EOSINOPHIL % 0 % (0-5); GRANULOCYTE % 83.2 % (42.2-75.2); MEAN CORPUSCULAR HGB CONC 32.5 G/DL (33.0-37.0); MEAN CORPUSCULAR VOLUME 89.3 FL (80.0-94.0); RBC DISTRIBUTION WIDTH 20.2 % (11.5-14.5); RED BLOOD CELL CT 2.54 /CUMM (4.70-6.10); WHITE BLOOD CELL COUNT 11.6 /CUMM (4.8-10.8)
[2017-02-10 17:54] LABS: HEMATOCRIT 22.7 % (42-52); PLATELET COUNT 44 /CUMM (130-400)
--- NOTE | 2017-02-10 18:53 | Event Note ---
Event Note Event Note: Per Nursing staff, patient has had approximately 10 episodes of mouthful hematemesis since this morning. The repeat labs were significant for a drop in hemoglobin to 7.4. Transfusion consent was obtained from his mother. Patient will be transfused with 1 unit of blood and will repeat CBC post transfusion. GI consult service requested.
--- NOTE | 2017-02-10 19:15 | Event Note ---
Event Note Event Note: S: Labs from this evening reveals that the patient's H&H has drastically fallen. His last H&H was 7.4 and 22.7. The patient has continued to have episodes of cough mixed with phlegm and some evidence of nirav blood. B: An urgent callback was placed with the GI service. Patient is hemodynamically stable and restnig in bed. A/P: A conversation with Dr. Antonio who has reviewed the pertinent data and imaging studies.. We will begin the patient on Protonix drip. We will also keep the patient nothing by mouth overnight. Dr Antonio has mentioned that in the event the patient should deteriorate clinically and any evidence of nirav blood with clots are visible, he is to be notified immediately and the patient would like to go for an endoscope. If the patient remained stable overnight the patient will likely be scoped in the morning. Additionally we will transfuse the patient one unit. Repeat CBC at 2100. The nurse (Ingrid) was informed of our plan and details of the discussion. Resident was made aware. Will sign out to the PM team.
[2017-02-10 22:12] LABS: ABSOLUTE BASOPHIL COUNT 0 /CUMM (0.0-0.2); ABSOLUTE EOSINOPHIL COUNT 0 /CUMM (0.0-0.7); ABSOLUTE GRANULOCYTE CT 9.3 /CUMM (1.4-6.5); ABSOLUTE LYMPH COUNT 0.7 /CUMM (1.2-3.4); ABSOLUTE MONOCYTE COUNT 0.9 /CUMM (0.10-0.60); BASOPHIL % 0 % (0.0-2.0); EOSINOPHIL % 0.1 % (0-5); HEMATOCRIT 20.8 % (42-52); MEAN CORPUSCULAR HGB 28.5 PG (27.0-31.0); MEAN CORPUSCULAR HGB CONC 32.8 G/DL (33.0-37.0); MEAN PLATELET VOLUME 10.9 FL (7.4-10.4); RBC DISTRIBUTION WIDTH 20.3 % (11.5-14.5); RED BLOOD CELL CT 2.39 /CUMM (4.70-6.10)
[2017-02-10 22:20] LABS: GRANULOCYTE % 84.7 % (42.2-75.2); PLATELET COUNT 49 /CUMM (130-400)
[2017-02-11] VITALS (14 sets, daily range): BP systolic 95–142; BP diastolic 54–80
[2017-02-11 01:48] LABS: ABSOLUTE BASOPHIL COUNT 0 /CUMM (0.0-0.2); ABSOLUTE EOSINOPHIL COUNT 0 /CUMM (0.0-0.7); ABSOLUTE MONOCYTE COUNT 0.9 /CUMM (0.10-0.60); BASOPHIL % 0 % (0.0-2.0); MEAN CORPUSCULAR HGB 28.3 PG (27.0-31.0)
[2017-02-11 01:55] LABS: ABSOLUTE GRANULOCYTE CT 7.5 /CUMM (1.4-6.5); ABSOLUTE LYMPH COUNT 0.6 /CUMM (1.2-3.4); EOSINOPHIL % 0.4 % (0-5); GRANULOCYTE % 82.5 % (42.2-75.2); HEMATOCRIT 21.6 % (42-52); MEAN CORPUSCULAR HGB CONC 32.9 G/DL (33.0-37.0); MEAN PLATELET VOLUME 9.4 FL (7.4-10.4); RBC DISTRIBUTION WIDTH 19.4 % (11.5-14.5); RED BLOOD CELL CT 2.52 /CUMM (4.70-6.10)
[2017-02-11 02:10] LABS: PLATELET COUNT 40 /CUMM (130-400)
[2017-02-11 06:41] LABS: ABSOLUTE BASOPHIL COUNT 0 /CUMM (0.0-0.2); ABSOLUTE EOSINOPHIL COUNT 0.1 /CUMM (0.0-0.7); ABSOLUTE GRANULOCYTE CT 5.5 /CUMM (1.4-6.5); ABSOLUTE LYMPH COUNT 0.6 /CUMM (1.2-3.4); ABSOLUTE MONOCYTE COUNT 0.7 /CUMM (0.10-0.60); BASOPHIL % 0.1 % (0.0-2.0); EOSINOPHIL % 0.9 % (0-5); GRANULOCYTE % 80.2 % (42.2-75.2); HEMATOCRIT 24.6 % (42-52); MEAN CORPUSCULAR HGB 29.2 PG (27.0-31.0); MEAN CORPUSCULAR HGB CONC 33.5 G/DL (33.0-37.0); MEAN CORPUSCULAR VOLUME 87.3 FL (80.0-94.0); MEAN PLATELET VOLUME 9.4 FL (7.4-10.4); RED BLOOD CELL CT 2.82 /CUMM (4.70-6.10); WHITE BLOOD CELL COUNT 6.9 /CUMM (4.8-10.8)
[2017-02-11 06:42] LABS: PLATELET COUNT 38 /CUMM (130-400)
--- NOTE | 2017-02-11 07:39 | Cons- Gastroenterology ---
General Information and HPI Consulting Request Date of Consult: 02/11/17 Requested By: UMANG CARPENTER,DELPHINE Santana Reason for Consult: Hematemesis. Anemia. Source of Information: patient, old records Exam Limitations: poor historian History of Present Illness: Mr. Woo is a 36 year old male with multiple medical problems including schizophrenia, etoh abuse and numerous hospitalizations for electrolyte abnormalities secondary to polydipsia who presented to yesterday with reports of coffee ground emesis, dizziness and a fall. The pt had a recent hospitalization for electrolyte abnormalies during which time he underwent a cystoscopy for what appeared to be a bladder mass and a colovesicular fistula on imaging that was negative for such findings. He was discharged a few weeks ago and he failed to come to the office for a shceduled follow up apppointment a few weeks ago, but his mother did come into the office to get results of the cystoscopy and biopsies and reported that he was drinking heavily since discharge and he refused to come to the office. The day before admission he began having vomiting, but he only agreed to come to the ER after a fall yesterday morning. On route to the ER he had one episode of what was described as coffee ground emesis. He was also hypotensive in the ambulance with a BP of 81/43 for which he was given IVF with some improvement. He is a poor historian but other then dizziness and the vomiting he is without other complaints. He denies any abdominal pain, chest pain, shortness of breath or any fevers. He does admit to several episodes of vomiting yesterday of coffee ground material which apparently starts after coughing. In the ER he was found to have multiple electrolyte abnormalities, but he was afebrile and hemodynamically stable. He was admitted to the ICU where he continued to have bouts of coffee ground emesis which was described as a scant amount and without any clots of blood. He was noted to be guaiac positive in the ER, but he has been without melena or brbpr. His Hgb fell to 6.8 last night for which he has been transfused with one unti of PRBCs with correction of his hgb to 8.3. He has been started on an IV protonix drip and has been kept NPO. He has been given potassium supplementation and IVF for the hypokalemia and hyponatremia respectively, but he continues to have a low potassium of < 3 and his sodium is still low at 127 today. Allergies/Medications Allergies: Coded Allergies: shrimp (BLACKED OUT PER PT 01/22/16) Home Med List: Folic Acid 1 MG TABLET 1 MG PO AT BEDTIME SUPPLEMENT Magnesium Oxide (Magnesium) 400 MG CAPSULE 1 CAP PO BID hypomagnesemia . Multivitamin (One Daily Multivitamin) 1 EACH TABLET 1 TAB PO AT BEDTIME SUPPLEMENT Potassium Chloride 20 MEQ TAB.ER.PRT 1 TAB PO DAILY hypokalemia Risperidone Microspheres (Risperdal Consta) 37.5 MG/2 ML SYRINGE 1 SYR IM Q2W SCHIZOPHRENIA (Reported) Thiamine HCl (Vitamin B-1) 100 MG TABLET 100 MG PO AT BEDTIME SUPPLEMENTS Current Medications: Current Medications Sig/Olivia Start time Last Medication Dose Route Stop Time Status Admin Ceftriaxone Sodium 0 .STK-MED ONE 02/10 0903 DC .ROUTE Ceftriaxone Sodium 1,000 MG ONCE ONE 02/10 0845 DC 02/10 IV 02/10 0846 0902 Ciprofloxacin 400 MG Q12H 02/10 1200 AC 02/11 Dextrose/Water 200 ML IV 0003 Cyanocobalamin/ 1 BAG DAILY 02/10 1041 AC 02/10 Thiamine/Pyridoxine IV 1228 Sodium Chloride 1,000 ML Heparin Sodium 5,000 UNIT Q8 02/10 1400 CAN (Porcine) SC Lorazepam 0 Q1P PRN 02/10 1045 AC 02/10 IV 1830 Magnesium Oxide 400 MG ONE ONE 02/10 1000 DC PO 02/10 1001 Magnesium Sulfate 1 GM Q2H 02/10 1945 DC 02/10 Dextrose/Water 100 ML IV 02/10 2344 2206 Magnesium Sulfate 1 GM ONCE ONE 02/10 1045 DC 02/10 Dextrose/Water 100 ML IV 02/10 1444 1050 Metronidazole 500 MG IQ8 02/10 1600 AC 02/11 N/A 1 UNIT IV 0003 Pantoprazole Sodium 40 MG DAILY 02/11 1000 CAN IV Pantoprazole Sodium 80 MG ONCE ONE 02/10 191 DC 02/10 IV 02/10 1916 1949 Pantoprazole Sodium 40 MG Q5H 02/10 1900 AC 02/11 Sodium Chloride 100 ML IV 0505 Pantoprazole Sodium 40 MG ONCE ONE 02/10 0745 DC 02/10 IV 02/10 0746 0720 Potassium Chloride 10 MEQ Q1H 02/11 0715 AC IV 02/11 0916 Potassium Chloride 10 MEQ Q1H 05/06 0230 DC 05/06 IV 05/06 0331 0406 Potassium Chloride 10 MEQ Q1H 05/05 2300 DC 05/06 IV 05/ 0001 0003 Potassium Chloride 10 MEQ Q1H 05/05 1830 DC 05/05 IV 05/05 2131 2137 Potassium Chloride 10 MEQ ONCE ONE /05 1415 DC 05/05 IV 05/05 1416 1400 Potassium Chloride 10 MEQ ONCE ONE 02/10 1415 DC 05/05 IV 05/ 1416 1400 Potassium Chloride 40 MEQ Q8H 05/ 1315 AC 05/06 Sodium Chloride 1,000 ML IV 0507 Potassium Chloride 40 MEQ Q8H 02/10 1315 CAN Sodium Chloride 1,000 ML IV Potassium Chloride 20 MEQ BID 02/10 1000 AC PO Potassium Chloride 10 MEQ ONCE ONE 02/10 0815 DC 05/05 IV 05/ 0816 0840 Potassium Chloride 10 MEQ ONCE ONE 02/10 0815 DC 05/05 IV 05/ 0816 0820 Potassium Chloride 40 MEQ ONCE ONE 02/10 0815 DC PO 05 0816 Potassium Chloride 20 MEQ Q10H / 0815 DC 05/ Dextrose/Water 1,000 ML IV 0840 Potassium Phosphate 15 mMol ONE ONE 02/11 0730 UNVr Sodium Chloride 250 ML IV 05/ 1133 Potassium Phosphate 15 mMol ONE ONE 02/10 1945 DC 05/05 Sodium Chloride 250 ML IV 05/ 2348 2315 Sodium Chloride 1,000 ML BOLUS ONE 02/10 0945 DC 05/05 IV 05/05 1044 0940 Sodium Chloride 1,000 ML BOLUS ONE 02/10 0945 DC 05/05 IV 05/05 1044 0940 Sodium Chloride 1,000 ML BOLUS ONE 02/10 0715 DC 05/05 IV 05/05 0814 0716 Trimethobenzamide HCl 200 MG TID PRN 05/05 1630 AC 05/05 IM 1710 Past History Travel History Traveled to [place] past 21 day No Medical History Blood Transfusion Hx: No Neurological: seizure (during alcohol detox) EENT: NONE Cardiovascular: alcoholic cardiomyopathy stage II Respiratory: history of aspiration pneumonia Gastrointestinal: alcoholic hepatitis, GERD, hiatal hernia, upper GI bleed Hepatic: ALCOHOLIC LIVER DISEASE Renal: NONE Musculoskeletal: NONE Psychiatric: alcohol dependence, anxiety, depression, substance abuse, SCHIZOPHRENIA alcohol abuse Endocrine: psychogenic polydipsia HYPOKALEMIA, HYPOMAGNESEMIA, HYPONATREMIA hypoK+, hypoNa, hypoMg hx hyponatremia hx hypokalemia Blood Disorders: anemia, coagulopathy (intermittent), thrombocytopenia ( intermittent) Cancer(s): NONE DOCENT COORDINATOR/Reproductive: N/A Other Medical Hx: Hypokalemia and hypomagnesemia Surgical History Surgical History: cholecystectomy Family History Relations & Conditions If Any: FATHER, , Age 27; Cause: Heroin overdose. MOTHER (diabetic). Age 60+. SISTER (healthy). Psychosocial History Where Do You Live? Home Who Do You Live With? spouse (mother), parent Services at Home: Nursing Primary Language: Tongan Smoking Status: Current Everyday Smoker ETOH Use: heavy use Illicit Drug Use: marijuana Living Will? no Power of Manager Regional Sales/HCP? yes Name of POA/HCP: Pt's motherMerly [phone] Functional Ability ADLs Independent: dressing, eating, toileting, bathing. Ambulation: independent IADLs Needs Assist: shopping, housework, finances, food prep, telephone, transportation, medication admin. Review of Systems Review of Systems: A full 12 point review of systems was not obtainable secondary to his underlying mental health issues. Exam & Diagnostic Data Vital Signs and I&O Vital Signs Date Time Temp Pulse Resp B/P B/P Pulse O2 O2 Flow FiO2 Mean Ox Delivery Rate / 0600 98.5 96 22 117/73 05/06 0400 98.0 104 18 99/66 05/06 0400 93 Nasal 3.0L Cannula / 0200 96 26 105/54 05/06 0000 99.8 102 23 120/60 05/06 0000 99.8 102 23 120/60 93 Nasal 3.0L Cannula 05/06 0000 93 Nasal 3.0L Cannula 05/05 2200 109 20 100/60 05/05 2000 99.7 98 24 124/60 05/05 2000 92 Nasal 2.0L Cannula 05/05 1815 111 26 129/63 05/05 1600 97.8 115 20 110/70 05/05 1600 92 Nasal 2.0L Cannula 05/05 1600 98.8 115 22 110/70 92 Nasal 2.0L Cannula 05/05 1400 98.0 96 22 112/52 05/05 1232 98.8 98 20 110/60 05/05 1153 95 Nasal 2.0L Cannula 05/05 1153 98.8 98 20 110/60 95 Nasal 2.0L Cannula 02/10 1044 99.0 98 20 115/56 100 Nasal 2.0L Cannula 02/10 1026 102 20 113/62 100 Nasal 2.0L Cannula 02/10 0951 101 20 99/50 84 Nasal 4.0L Cannula 02/10 0855 99.6 100 20 107/51 98 Nasal 2.0L Cannula 02/10 0824 100 120/60 02/10 0810 97 20 99/66 98 Nasal 2.0L Cannula 02/10 0744 96/51 02/10 0744 98 Room Air Intake & Output 02/11 0400 02/10 1600 02/10 0400 02/09 1600 02/09 0400 Intake Total 1607 1557 4225 Output Total 1000 500 570 Balance 607 1057 3655 Intake, Blood 74 Product Intake, IV 1607 1483 4225 Intake, Oral 0 0 Number 1 Bowel Movements Output, Urine 1000 500 570 Patient 178 lb Weight Weight Bed scale Measurement Method Physical Exam General Appearance: well developed/nourished, no apparent distress, alert, awake , anxious, comfortable Head: atraumatic, normal appearance Eyes: Bilateral: normal appearance. Ears, Nose, Throat: normal pharynx, normal ENT inspection Neck: normal inspection, supple, full range of motion Respiratory: normal breath sounds, chest non-tender, no respiratory distress Cardiovascular: regular rate/rhythm Gastrointestinal: normal bowel sounds, soft, non-tender Rectal: deferred Back: normal inspection, normal range of motion Extremities: normal inspection, normal range of motion, no edema Neurologic/Psych: no motor/sensory deficits, awake, alert, oriented x 3 Skin: intact, normal color, warm/dry Results Pertinent Lab Results: Laboratory Tests 02/1115 0129 Chemistry Sodium (137 - 145 mmol/L) 127 L 123 L Potassium (3.5 - 5.1 mmol/L) 2.6 *L 2.5 *L Chloride (98 - 107 mmol/L) 81 L 76 L Carbon Dioxide (22 - 30 mmol/L) 39 H 42 H Anion Gap (5 - 16) 8 5 BUN (9 - 20 mg/dL) 23 H 25 H Creatinine (0.7 - 1.2 mg/dL) 1.1 1.2 Estimated GFR (>60 ml/min) > 60 > 60 Glucose (65 - 99 mg/dL) 81 97 Calcium (8.4 - 10.2 mg/dL) 6.3 L 6.2 L Phosphorus (2.5 - 4.5 mg/dL) 1.0 L 1.5 L Magnesium (1.6 - 2.3 mg/dL) 2.2 2.3 Total Bilirubin (0.2 - 1.3 mg/dL) 3.9 H 3.6 H AST (17 - 59 U/L) 199 H 182 H ALT (21 - 72 U/L) 66 62 Albumin (3.5 - 5.0 g/dL) 2.4 L 2.3 L Hematology CBC w Diff NO MAN DIFF REQ NO MAN DIFF REQ WBC (4.8 - 10.8 /CUMM) 6.9 9.0 RBC (4.70 - 6.10 /CUMM) 2.82 L 2.52 L Hgb (14.0 - 18.0 G/DL) 8.3 L 7.1 *L Hct (42 - 52 %) 24.6 L 21.6 L MCV (80.0 - 94.0 FL) 87.3 86.0 MCH (27.0 - 31.0 PG) 29.2 28.3 RDW (11.5 - 14.5 %) 19.0 H 19.4 H Plt Count (130 - 400 /CUMM) 38 L 40 L MPV (7.4 - 10.4 FL) 9.4 9.4 Gran % (42.2 - 75.2 %) 80.2 H 82.5 H Lymphocytes % (20.5 - 51.1 %) 8.2 L 6.9 L Monocytes % (1.7 - 9.3 %) 10.6 H 10.2 H Eosinophils % (0 - 5 %) 0.9 0.4 Basophils % (0.0 - 2.0 %) 0.1 0 L Absolute Granulocytes (1.4 - 6.5 /CUMM) 5.5 7.5 H Absolute Lymphocytes (1.2 - 3.4 /CUMM) 0.6 L 0.6 L Absolute Monocytes (0.10 - 0.60 /CUMM) 0.7 H 0.9 H Absolute Eosinophils (0.0 - 0.7 /CUMM) 0.1 0 Absolute Basophils (0.0 - 0.2 /CUMM) 0 0 PUBS MCHC (33.0 - 37.0 G/DL) 33.5 32.9 L 02/106 2130 Chemistry Sodium (137 - 145 mmol/L) 121 L Potassium (3.5 - 5.1 mmol/L) 2.3 *L Chloride (98 - 107 mmol/L) 72 L Carbon Dioxide (22 - 30 mmol/L) 42 H Anion Gap (5 - 16) 7 BUN (9 - 20 mg/dL) 27 H Creatinine (0.7 - 1.2 mg/dL) 1.4 H Estimated GFR (>60 ml/min) 57 L Glucose (65 - 99 mg/dL) 90 Lactic Acid (0.7 - 2.1 mmol/L) Cancelled 1.6 Calcium (8.4 - 10.2 mg/dL) 6.2 L Phosphorus (2.5 - 4.5 mg/dL) 1.4 L Magnesium (1.6 - 2.3 mg/dL) 1.5 L Total Bilirubin (0.2 - 1.3 mg/dL) 3.6 H AST (17 - 59 U/L) 204 H ALT (21 - 72 U/L) 72 Albumin (3.5 - 5.0 g/dL) 2.6 L Hematology CBC w Diff NO MAN DIFF REQ WBC (4.8 - 10.8 /CUMM) 11.0 H RBC (4.70 - 6.10 /CUMM) 2.39 L Hgb (14.0 - 18.0 G/DL) 6.8 *L Hct (42 - 52 %) 20.8 L MCV (80.0 - 94.0 FL) 87.0 MCH (27.0 - 31.0 PG) 28.5 RDW (11.5 - 14.5 %) 20.3 H Plt Count (130 - 400 /CUMM) 49 L MPV (7.4 - 10.4 FL) 10.9 H Gran % (42.2 - 75.2 %) 84.7 H Lymphocytes % (20.5 - 51.1 %) 6.8 L Monocytes % (1.7 - 9.3 %) 8.4 Eosinophils % (0 - 5 %) 0.1 Basophils % (0.0 - 2.0 %) 0 L Absolute Granulocytes (1.4 - 6.5 /CUMM) 9.3 H Absolute Lymphocytes (1.2 - 3.4 /CUMM) 0.7 L Absolute Monocytes (0.10 - 0.60 /CUMM) 0.9 H Absolute Eosinophils (0.0 - 0.7 /CUMM) 0 Absolute Basophils (0.0 - 0.2 /CUMM) 0 PUBS MCHC (33.0 - 37.0 G/DL) 32.8 L 02/10 02/10 02/10 1655 1500 1255 Chemistry Sodium (137 - 145 mmol/L) 122 L Cancelled Potassium (3.5 - 5.1 mmol/L) 2.1 *L Cancelled Chloride (98 - 107 mmol/L) 70 L Cancelled Carbon Dioxide (22 - 30 mmol/L) 43 H Cancelled Anion Gap (5 - 16) 9 Cancelled BUN (9 - 20 mg/dL) 25 H Cancelled Creatinine (0.7 - 1.2 mg/dL) 1.7 H Cancelled Estimated GFR (>60 ml/min) 46 L Glucose (65 - 99 mg/dL) 101 H Cancelled Lactic Acid (0.7 - 2.1 mmol/L) 5.9 H Calcium (8.4 - 10.2 mg/dL) 6.2 L Cancelled Phosphorus (2.5 - 4.5 mg/dL) 2.3 L Cancelled Magnesium (1.6 - 2.3 mg/dL) 1.5 L Cancelled Total Bilirubin (0.2 - 1.3 mg/dL) 3.4 H Cancelled AST (17 - 59 U/L) 224 H Cancelled ALT (21 - 72 U/L) 74 H Cancelled Creatine Kinase (55 - 170 U/L) 844 H Albumin (3.5 - 5.0 g/dL) 2.6 L Cancelled Hematology CBC w Diff NO MAN DIFF REQ Cancelled WBC (4.8 - 10.8 /CUMM) 11.6 H Cancelled RBC (4.70 - 6.10 /CUMM) 2.54 L Cancelled Hgb (14.0 - 18.0 G/DL) 7.4 *L Cancelled Hct (42 - 52 %) 22.7 L Cancelled MCV (80.0 - 94.0 FL) 89.3 Cancelled MCH (27.0 - 31.0 PG) 29.0 Cancelled RDW (11.5 - 14.5 %) 20.2 H Cancelled Plt Count (130 - 400 /CUMM) 44 L Cancelled MPV (7.4 - 10.4 FL) 11.0 H Cancelled Gran % (42.2 - 75.2 %) 83.2 H Lymphocytes % (20.5 - 51.1 %) 7.4 L Monocytes % (1.7 - 9.3 %) 9.3 Eosinophils % (0 - 5 %) 0 Basophils % (0.0 - 2.0 %) 0.1 Absolute Granulocytes (1.4 - 6.5 /CUMM) 9.6 H Absolute Lymphocytes (1.2 - 3.4 /CUMM) 0.9 L Absolute Monocytes (0.10 - 0.60 /CUMM) 1.1 H Absolute Eosinophils (0.0 - 0.7 /CUMM) 0 Absolute Basophils (0.0 - 0.2 /CUMM) 0 PUBS MCHC (33.0 - 37.0 G/DL) 32.5 L Cancelled 02/10 02/10 02/10 1255 1028 0955 Chemistry Sodium (137 - 145 mmol/L) 122 L Potassium (3.5 - 5.1 mmol/L) 1.9 *L Chloride (98 - 107 mmol/L) 69 L Carbon Dioxide (22 - 30 mmol/L) 38 H Anion Gap (5 - 16) 15 BUN (9 - 20 mg/dL) 24 H Creatinine (0.7 - 1.2 mg/dL) 2.0 H Estimated GFR (>60 ml/min) 38 L Glucose (65 - 99 mg/dL) 118 H Lactic Acid Cancelled Calcium (8.4 - 10.2 mg/dL) 6.2 L Phosphorus (2.5 - 4.5 mg/dL) 3.0 Magnesium (1.6 - 2.3 mg/dL) 1.5 L Total Bilirubin (0.2 - 1.3 mg/dL) 3.7 H AST (17 - 59 U/L) 260 H ALT (21 - 72 U/L) 75 H Albumin (3.5 - 5.0 g/dL) 2.7 L Hematology CBC w Diff NO MAN DIFF REQ WBC (4.8 - 10.8 /CUMM) 14.3 H RBC (4.70 - 6.10 /CUMM) 2.78 L Hgb (14.0 - 18.0 G/DL) 8.0 L Hct (42 - 52 %) 24.8 L MCV (80.0 - 94.0 FL) 89.2 MCH (27.0 - 31.0 PG) 28.7 RDW (11.5 - 14.5 %) 20.8 H Plt Count (130 - 400 /CUMM) 59 L MPV (7.4 - 10.4 FL) 10.8 H Gran % (42.2 - 75.2 %) 86.0 H Lymphocytes % (20.5 - 51.1 %) 6.1 L Monocytes % (1.7 - 9.3 %) 7.9 Eosinophils % (0 - 5 %) 0 Basophils % (0.0 - 2.0 %) 0 L Absolute Granulocytes (1.4 - 6.5 /CUMM) 12.3 H Absolute Lymphocytes (1.2 - 3.4 /CUMM) 0.9 L Absolute Monocytes (0.10 - 0.60 /CUMM) 1.1 H Absolute Eosinophils (0.0 - 0.7 /CUMM) 0 Absolute Basophils (0.0 - 0.2 /CUMM) 0 PUBS MCHC (33.0 - 37.0 G/DL) 32.2 L 05/05 05/05 0950 0820 Blood Gas pH (7.35 - 7.45 PH) 7.51 H pCO2 (35 - 45 TORR) 37 pO2 (80 - 100 TORR) 58 L HCO3 (21 - 28 MEQ/L) 29 H ABG O2 Sat (Measured) (>96.0 %) 84.0 L Carboxyhemoglobin (1.5 - 5.0 %) 2.1 O2 Concentration % 4L O2 Delivery Method NC Miscellaneous Phlebotomy Draw Site RIGHT RADIAL Toxicology Urine Opiates Screen (>2000 NG/ML) < 100.00 Methadone Screen (>300 NG/ML) < 40 Barbiturate Screen (>200 NG/ML) < 60 Ur Phencyclidine Scrn (>25 NG/ML) < 6.00 Amphetamines Screen (>1000 NG/ML) < 100 U Benzodiazepines Scrn (>200 NG/ML) < 85 Urine Cocaine Screen (>300 NG/ML) < 50 Urine Cannabis Screen (>50 NG/ML) 77.70 H Urines Urine Color (YEL,AMB,STR) SHANEKA Urine Clarity (CLEAR) CLDY H Urine pH (5.0 - 8.0) 6.0 Ur Specific Stone (1.001 - 1.035) 1.025 Urine Protein (NEG,<30 MG/DL) 100 H Urine Ketones (NEG) 15 H Urine Nitrite (NEG) NEG Urine Bilirubin (NEG) POS@ICTO H Urine Urobilinogen (0.1 - 1.0 EU/dl) 2.0 H Ur Leukocyte Esterase (NEG) MOD H Ur Microscopic SEDIMENT EXAMINED Urine RBC (0 - 5 /HPF) 25-50 H Urine WBC (0 - 2 /HPF) > 75 H Ur Epithelial Cells (NONE,FEW) FEW Urine Bacteria (NEG/NONE) PACKD H Urine Hemoglobin (NEG) LARGE H Urine Glucose (N MG/DL) NEG 02/10 02/10 02/10 0713 0713 0712 Blood Gas Bicarbonate Actual (22 - 26 MEQ/L) 33 H Mixed VBG pH (7.31 - 7.41 PH) 7.63 H Mixed VBG pCO2 (41 - 51 TORR) 63 H Mixed VBG O2 Saturation (35 - 45 TORR) 14 L Carboxyhemoglobin (1.5 - 5.0 %) 2.1 O2 Concentration % RA Temperature (97.0 - 100.0 FARH) 98.5 O2 Delivery Method RA Chemistry Sodium (137 - 145 mmol/L) 121 L Potassium (3.5 - 5.1 mmol/L) 2.3 *L Chloride (98 - 107 mmol/L) < 50 L Carbon Dioxide (22 - 30 mmol/L) 30 Anion Gap (5 - 16) > 41.0 H BUN (9 - 20 mg/dL) 26 H Creatinine (0.7 - 1.2 mg/dL) 2.9 H Estimated GFR (>60 ml/min) 25 L BUN/Creatinine Ratio (7 - 25 %) 9.0 Glucose (65 - 99 mg/dL) 115 H Lactic Acid (0.7 - 2.1 mmol/L) > 24.0 H Calcium (8.4 - 10.2 mg/dL) 8.5 Phosphorus (2.5 - 4.5 mg/dL) 5.4 H Magnesium (1.6 - 2.3 mg/dL) 1.6 Total Bilirubin (0.2 - 1.3 mg/dL) 4.0 H AST (17 - 59 U/L) 310 H ALT (21 - 72 U/L) 87 H Alkaline Phosphatase (< 127 U/L) 135 H Creatine Kinase (55 - 170 U/L) Cancelled 661 H Troponin I (<0.11 ng/ml) 0.06 Total Protein (6.3 - 8.2 g/dL) 8.1 Albumin (3.5 - 5.0 g/dL) 4.3 Globulin (1.9 - 4.2 gm/dL) 3.8 Albumin/Globulin Ratio (1.1 - 2.2 %) 1.1 Lipase (23 - 300 U/L) 497 H Coagulation PT (9.4 - 12.5 SEC) 15.1 H INR (0.90 - 1.17) 1.44 H APTT (25 - 37 SEC) 27 Hematology CBC w Diff MAN DIFF ORDERED WBC (4.8 - 10.8 /CUMM) 17.8 H RBC (4.70 - 6.10 /CUMM) 3.85 L Hgb (14.0 - 18.0 G/DL) 11.0 L Hct (42 - 52 %) 33.9 L MCV (80.0 - 94.0 FL) 88.2 MCH (27.0 - 31.0 PG) 28.6 RDW (11.5 - 14.5 %) 20.4 H Plt Count (130 - 400 /CUMM) 99 L MPV (7.4 - 10.4 FL) 11.4 H Gran % (42.2 - 75.2 %) 78.5 H Lymphocytes % (20.5 - 51.1 %) 8.7 L Monocytes % (1.7 - 9.3 %) 12.8 H Eosinophils % (0 - 5 %) 0 Basophils % (0.0 - 2.0 %) 0 L Absolute Granulocytes (1.4 - 6.5 /CUMM) 14.0 H Absolute Lymphocytes (1.2 - 3.4 /CUMM) 1.5 Absolute Monocytes (0.10 - 0.60 /CUMM) 2.3 H Absolute Eosinophils (0.0 - 0.7 /CUMM) 0 Absolute Basophils (0.0 - 0.2 /CUMM) 0 Platelet Estimate (ADEQUATE) DECREASED Normochromic RBCs VERIFIED Polychromasia Anisocytosis 1+ PUBS MCHC (33.0 - 37.0 G/DL) 32.4 L Miscellaneous Phlebotomy Draw Site LAC Toxicology Serum Alcohol (<10 MG/DL) Cancelled 104.0 Imaging/Other Studies: EXAM TYPE: CAT - CT ABD & PELVIS W/O IV CONTRAS EXAMINATION: CT ABDOMEN AND PELVIS WITHOUT CONTRAST CLINICAL INFORMATION: Intractable vomiting. Evaluate for small bowel obstruction. COMPARISON: CT of abdomen and pelvis from 01/02/2017. TECHNIQUE: Multidetector volumetric imaging was performed from the superior aspect of the liver through the pubic symphysis. Sagittal and coronal reformatted images were obtained on the technologist's workstation. DLP: 337 mGy-cm FINDINGS: LUNG BASES: No acute findings within the visualized lung bases. No basilar consolidation or pleural effusion. LIVER, GALLBLADDER, AND BILIARY TREE: Gallbladder is surgically absent. There is hepatomegaly with right hepatic lobe measuring approximately 22 cm in craniocaudal dimension. No suspicious, focal hepatic lesion or intrahepatic bile duct dilatation. PANCREAS: Unremarkable. SPLEEN: Prominent spleen is 14 cm in craniocaudal dimension. No focal splenic lesion. ADRENAL GLANDS: Unremarkable. KIDNEYS AND URETERS: Kidneys are normal size, cortical thickness and attenuation. No nephrolithiasis or hydroureteronephrosis. BLADDER: The wall of the bladder dome is chronically thickened and there is chronic fat stranding around the bladder dome and adjacent sigmoid colon. Small amount of gas is present within the lumen of the bladder -- suggesting presence of a colovesical fistula. GASTROINTESTINAL TRACT: Again noted is a mybkuler-of-cmwav hiatal hernia. Loops of bowel are normal in caliber. There are multiple diverticula of the left colon. There is persistent fat stranding around the sigmoid colon adjacent to the urinary bladder dome and, in this area, there is a persistent collection of extraluminal gas that extends from the anteroinferior wall of the sigmoid colon to the bladder dome (images [id number], series 2). The findings are suggestive of chronic and/or recurrent sigmoid diverticulitis and persistent colovesical fistula. ABDOMINAL WALL: Unremarkable. LYMPH NODES: No pathologic sized lymph nodes within the abdomen or pelvis. VASCULAR: Abdominal aorta is normal in caliber. PELVIC VISCERA: Prostate gland is normal in size. No pelvic free fluid. There is minimal protrusion of fat into the proximal left inguinal canal. OSSEOUS STRUCTURES: Unremarkable. IMPRESSION: 1. Chronic and/or recurrent sigmoid colon diverticulitis and associated colovesical fistula. The persistent extraluminal gas overlying the bladder dome could be located within the fistula tract and/or within a chronic, small abscess cavity; this remains similar in appearance compared to 01/02/2017. 2. Diffuse hepatic steatosis and hepatosplenomegaly. Note that hepatic steatosis can be due to alcoholic and/or nonalcoholic etiologies. 3. Moderate-to large hiatal hernia. Assessment/Plan Assessment/Recommendations: Assessment: Mr. Woo is a 36 year old male with multiple medical problems who was again admitted yesterday with hypokalemia and hyponatremia associated with hyotension, coffee ground emesis and anemia. His coffee ground emesis is likely secondary to erosive esophagitis or a dirk friend tear considering he has had similar episodes in the past and an endoscopy last year and the year before only showed erosive esophagitis and a hiatal hernia without evidence of varices or PUD. While he has become profoundly anemic on this admission and while there is certainly a componenet of GI blood loss contribuitng to that I feel that the anemia is likely mulifactorial and primarily related to bone marrow suppression from etoh and anemia of chronic disease considering his baselline hgb over the past few years has been around 8-10. Also as he is without melena, brbpr, or a significant elevation in his BUN/Cr ratio he is unlikely to be having a hemodynamically significant gi bleed and as his vomiting has improved with antiemetics and he has responded appropriately to transfusion will defer an endoscopy until his electrolytes are improved. 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 Recommendations: 1. Continue IV protonix drip 2. Follow CBC q8-12 hours and transfuse as needed to keep hgb > 7 3. Notify GI for signs of overt GI bleeding 4. Avoid NSAIDs 5. Administer anti-emetics as needed 6. Anti-reflux measures (ie. keep head of bed elevated) 7. Correction of electrolytes as per nephrology and critical care team 8. Diet as tolerated today and would keep NPO after midnight in anticipation of a possible repeat EGD in the am if his electrolyes have improved, but may defer this if remains without any further overt GI bleeding. 9. Monitor for signs f etoh withdrawal and treat with benzodiazepenes as needed. I will continue to follow this patient and make further recommendations based on his clinical course and results of repeat blood work and the endoscopy if it is done. Problem List: 1. Hypokalemia 2. Hyponatremia 3. Alcohol intoxication 4. Elevated liver enzymes 5. Hematemesis 6. Alcoholic hepatitis 7. Esophagitis 8. Hiatal hernia 9. GI bleed Copies To: DRAKE CARPENTER,TAMIKA Consult Acknowledgment - Thank you for your consult request.
--- NOTE | 2017-02-11 08:06 | PN- Resident CRCU ---
Subjective HPI/CRCU Issues: 1. Hypotension most likely due to excessive vomiting and volume contractured 2. Severe hypochloremia/hypochloremic metabolic acidosis due to excessive vomiting 3. Hyponatremia with history of polydipsia 4. Leukocytosis 5. Schizophrenia 6. Alcohol abuse/alcoholic hepatitis 7. Hypokalemia 8. Hypophosphatemia 9. STEPHANIE 24 Hour Events: NO OVERNIGHT EVENTS ON TELE. Objective Vital Signs & I&O Last 8 Hrs of Vitals and I&O: Max Temp 99.8 MT 90-102 RR 19-33 BP systolic 99-117 BP diastolic 54-73 SO2 93-95% on 3L NC I 1607 O 1000 Exam General Appearance: well developed/nourished, no apparent distress, alert, awake , oriented to time and person but not place, speech is mostly non-coherent. Head: atraumatic, normal appearance Ears, Nose, Throat: normal pharynx, normal ENT inspection Neck: normal inspection, supple, full range of motion Respiratory: chest non-tender, scattred wheezing and rhonchi on both sides Cardiovascular: regular rate/rhythm Gastrointestinal: normal bowel sounds, soft, non-tender Extremities: normal capillary refill, normal range of motion, no edema Cranial Nerves: normal hearing, normal speech, PERRL Skin: intact, normal color, warm/dry Skin Temp/Moisture Exam: Warm/Dry Sepsis Skin Exam (color): Normal for Ethnicity Back: normal inspection, normal range of motion Current Medications: Current Medications Sig/Olivia Start time Last Medication Dose Route Stop Time Status Admin Ciprofloxacin 400 MG Q12H 02/10 1200 AC 02/11 Dextrose/Water 200 ML IV 0003 Cyanocobalamin/ 1 BAG DAILY 02/10 1041 02/10 Thiamine/Pyridoxine IV 1228 Sodium Chloride 1,000 ML Lorazepam 0 Q1P PRN 02/10 1045 02/11 IV 0758 Magnesium Sulfate 1 GM Q2H 02/10 1945 DC 02/10 Dextrose/Water 100 ML IV 02/10 2344 2206 Magnesium Sulfate 1 GM ONCE ONE 02/10 1045 DC 05 Dextrose/Water 100 ML IV 02/10 1444 1050 Metronidazole 500 MG IQ8 02/10 1600 AC 02/11 N/A 1 UNIT IV 0758 Nicotine 21 MG DAILY 02/11 1000 AC 02/11 TOP 1052 Pantoprazole Sodium 40 MG DAILY 02/11 1000 CAN IV Pantoprazole Sodium 80 MG ONCE ONE 02/10 1915 DC 05/ IV 02/10 1916 1949 Pantoprazole Sodium 40 MG Q5H / 1900 AC 05/ Sodium Chloride 100 ML IV 0758 Potassium Chloride 10 MEQ Q1H / 0715 DC 05/ IV 02/11 0916 1010 Potassium Chloride 10 MEQ Q1H / 0230 DC 05/ IV 02/11 0331 0406 Potassium Chloride 10 MEQ Q1H 02/10 2300 DC 05/ IV 05 0001 0003 Potassium Chloride 10 MEQ Q1H 02/10 1830 DC 05/ IV 02/10 2131 2137 Potassium Chloride 10 MEQ ONCE ONE 02/10 1415 DC 05/ IV 02/10 1416 1400 Potassium Chloride 10 MEQ ONCE ONE 02/10 1415 DC 05/ IV 02/10 1416 1400 Potassium Chloride 40 MEQ Q8H 02/10 1315 AC 05/06 Sodium Chloride 1,000 ML IV 0507 Potassium Chloride 40 MEQ Q8H 02/10 1315 CAN Sodium Chloride 1,000 ML IV Potassium Chloride 20 MEQ BID 02/10 1000 AC PO Potassium Chloride 20 MEQ Q10H / 0815 DC 05 Dextrose/Water 1,000 ML IV 0840 Potassium Phosphate 15 mMol ONE ONE 02/11 0730 AC / Sodium Chloride 250 ML IV 02/11 1133 1015 Potassium Phosphate 15 mMol ONE ONE 02/10 1945 DC 02/10 Sodium Chloride 250 ML IV 02/10 2348 2315 Trimethobenzamide HCl 200 MG TID PRN 02/10 1630 AC 02/10 IM 1710 Impression/Plan Impression/Problem List Impression: Patient is 36-year-old gentleman with past medical history significant for schizophrenia, alcoholic hepatitis, alcohol abuse, alcoholic cardiomyopathy with normal ejection fraction, multiple electrolyte imbalance in the past, bladder mass status post biopsy not significant for any malignancy, 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 Problem list and plan: Respiratory * Lung exam unremarkable, CXR shows no acute cardiopulmonary abnormality, with moderate sized hiatal hernia. ID * Leukocytosis of 17.8 on admission, no fever * Urine and blood culture were sent and we will follow-up * Started on IV Cipro and Flagyl * continue to monitor vital signs for fever Cardiac * Heart exam NL, EKG unremarkable, troponin (-), chest x-ray was normal without any evidence of acute cardiopulmonary pathology * Hypotension (down to 76/45 on admission) most likely due to excessive vomiting and volume contractured * Currently BP 112/80, continue IV fluids and monitor BP closely Heme * H/H 11.0/33.9 on admission * patient has had several episodes of bloody emesis * H/H dropped to 6.8/20.8, was transfused 1 unit blood yesterday and H/H is now up to 8.3/24.6 * repeat CBC in am Metabolic * Hematemesis, nausea/vomiting: on IV protonix, Cipro and Flagyl, CT abdomen and pelvis showing evidence of a possible colovesicular fistula, similar to findings on 01/02/17. Will ask surgery to evaluate the patient. (Of note, Urology evaluated him during previous admission in December 2016 and did not find any fistula, there was a bladder mass that was resected and pathology was benign. * STEPHANIE: BUN and Cr of 26 and 2.9 on admission, most likelt prerenal in the setting of hypotension and dehydration, improved to 1.1/23 today. will continue to monitor kidney funciton. * Severe hypochloremia/hypochloremic metabolic acidosis due to excessive vomiting: cl <50 on admission, Cl is 81 today, will continue IV Normal Saline, controling N/V with Tigan and monitor electrolyets. * Hypokalemia, Hypophosphatemia: repeat labs every 4-6 hours for potassium, magnesium, sodium and will make sure that his sodium will not replaced very quickly. * Alcohol abuse/alcoholic hepatitis: IV fluids and banana bag, on Ativan per CIWA protocol * Hyponatremia with history of polydipsia: keep him nothing by mouth for now restricted his oral free water * Nephrology consult in place due to severe hypochloremia, hyponatremia, acute kidney injury will follow recommendations Neuro/Psych * Schizophrenia * psych consult in place * Patient was agitated during the day and was pulling on his lines and trying to get out of the bed, we started him on renzo and x4 soft restraints, also started on ativan drip Alps for DVT prophylaxis as platelets were low Nothing by mouth Full Code Problem List: 1. Hypokalemia 2. ALCOHOL WITHDRAWAL 3. Hyponatremia 4. Schizophrenia 5. Anemia 6. Alcohol intoxication 7. Elevated liver enzymes 8. Leukocytosis 9. Psychogenic polydipsia 10. Thrombocytopenia 11. Hematemesis 12. Hiatal hernia 13. STEPHANIE (acute kidney injury) 14. GI bleed 15. Lactic acid acidosis Pain Ratin Tomorrow's Labs & Rationales: CBC (acute blood loss anemia) ICU bundle (monitor electrolytes, kidney fx, LFT) Plan DVT/Prophylaxis: mechanical
--- NOTE | 2017-02-11 10:04 | PN- CRCU ---
Subjective HPI/Critical Care Issues: Patient is awake alert conversant. There's been no further hematemesis. She is status post 1 unit of packed cells. Serum sodium is slowly correcting. Objective Current Medications: Current Medications Sig/Olivia Start time Last Medication Dose Route Stop Time Status Admin Ciprofloxacin 400 MG Q12H 05/ 1200 AC 05 Dextrose/Water 200 ML IV 0003 Cyanocobalamin/ 1 BAG DAILY 02/10 1041 AC 05 Thiamine/Pyridoxine IV 1228 Sodium Chloride 1,000 ML Heparin Sodium 5,000 UNIT Q8 02/10 1400 CAN (Porcine) SC Lorazepam 0 Q1P PRN 02/10 1045 AC 02/11 IV 0758 Magnesium Oxide 400 MG ONE ONE 02/10 1000 DC PO 02/10 1001 Magnesium Sulfate 1 GM Q2H 02/10 1945 DC 05 Dextrose/Water 100 ML IV 02/10 2344 2206 Magnesium Sulfate 1 GM ONCE ONE 02/10 1045 DC 05 Dextrose/Water 100 ML IV 02/10 1444 1050 Metronidazole 500 MG IQ8 02/10 1600 AC 02/11 N/A 1 UNIT IV 0758 Nicotine 21 MG DAILY 02/11 1000 AC TOP Pantoprazole Sodium 40 MG DAILY 02/11 1000 CAN IV Pantoprazole Sodium 80 MG ONCE ONE 02/10 1915 DC 05/ IV 02/10 1916 1949 Pantoprazole Sodium 40 MG Q5H / 1900 AC 05/ Sodium Chloride 100 ML IV 0758 Potassium Chloride 10 MEQ Q1H / 0715 DC 05/ IV / 0916 0912 Potassium Chloride 10 MEQ Q1H / 0230 DC 05/ IV / 0331 0406 Potassium Chloride 10 MEQ Q1H / 2300 DC 05/06 IV 05/ 0001 0003 Potassium Chloride 10 MEQ Q1H / 1830 DC 05/05 IV 05 2131 2137 Potassium Chloride 10 MEQ ONCE ONE 02/10 1415 DC 05/05 IV 05 1416 1400 Potassium Chloride 10 MEQ ONCE ONE 02/10 1415 DC 05/05 IV 05/ 1416 1400 Potassium Chloride 40 MEQ Q8H 05/05 1315 AC 05/06 Sodium Chloride 1,000 ML IV 0507 Potassium Chloride 40 MEQ Q8H / 1315 CAN Sodium Chloride 1,000 ML IV Potassium Chloride 20 MEQ BID 05/05 1000 AC PO Potassium Chloride 20 MEQ Q10H 02/10 0815 DC 02/10 Dextrose/Water 1,000 ML IV 0840 Potassium Phosphate 15 mMol ONE ONE 02/11 0730 AC Sodium Chloride 250 ML IV 02/11 1133 Potassium Phosphate 15 mMol ONE ONE 02/10 1945 DC 02/10 Sodium Chloride 250 ML IV 02/10 2348 2315 Sodium Chloride 1,000 ML BOLUS ONE 02/10 0945 DC 02/10 IV 02/10 1044 0940 Sodium Chloride 1,000 ML BOLUS ONE 02/10 0945 DC 02/10 IV 02/10 1044 0940 Trimethobenzamide HCl 200 MG TID PRN 02/10 1630 AC 02/10 IM 1710 Vital Signs & I&O Last 24 Hrs of Vitals and I&O: Vital Signs Date Time Temp Pulse Resp B/P B/P Pulse O2 O2 Flow FiO2 Mean Ox Delivery Rate 02/11 08 99.4 101 18 112/80 05 0800 99.4 101 18 112/80 94 Nasal 3.0L Cannula 02/11 0800 94 Nasal 3.0L Cannula 02/11 0600 98.5 96 22 117/73 05/ 0400 98.0 104 18 99/66 05/ 0400 93 Nasal 3.0L Cannula 02/11 0200 96 26 105/54 05/06 0000 99.8 102 23 120/60 05/ 0000 99.8 102 23 120/60 93 Nasal 3.0L Cannula 02/11 0000 93 Nasal 3.0L Cannula 02/10 2200 109 20 100/60 05 1999 99.7 98 24 124/60 0505 2000 92 Nasal 2.0L Cannula 02/10 1815 111 26 129/63 05/05 1600 97.8 115 20 110/70 05/05 1600 92 Nasal 2.0L Cannula 05 1600 98.8 115 22 110/70 92 Nasal 2.0L Cannula 0505 1400 98.0 96 22 112/52 05/05 1232 98.8 98 20 110/60 05/05 1153 95 Nasal 2.0L Cannula 05 1153 98.8 98 20 110/60 95 Nasal 2.0L Cannula 05 1044 99.0 98 20 115/56 100 Nasal 2.0L Cannula 02/10 1026 102 20 113/62 100 Nasal 2.0L Cannula Intake & Output 02/11 1600 05/06 0800 05/06 0000 Intake Total 1607 1557 Output Total 1000 500 Balance 607 1057 Intake, Blood 74 Product Intake, IV 1607 1483 Intake, Oral 0 Number 1 Bowel Movements Output, Urine 1000 500 And saturation 3 L 94% exam of his chest shows clear lung aguirre cardiac exam shows normal S1 and S2 without murmurs abdomen is without tenderness rest x-ray shows no pulmonary infiltrates Impression/Plan Impression/Plan Impression/Plan: 36-year-old with long-standing alcohol abuse admitted with electrolyte abnormalities and upper GI bleeding. Electrolyte abnormalities or slowly correcting there's been no further hematemesis Recommendations: Continue normal saline monitoring serum sodium every 4 hours consult with nephrology this morning regarding timing to convert to D5 half normal. Continue aggressive potassium repletion. Continue to monitor hematocrit closely and transfuse for hematocrit less than 22. 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 Will need surgical evaluation of colovesical fistula as a complication of diverticulitis. Assess his thyroid function.
[2017-02-11 11:38] LABS: ABSOLUTE BASOPHIL COUNT 0 /CUMM (0.0-0.2); ABSOLUTE EOSINOPHIL COUNT 0.1 /CUMM (0.0-0.7); ABSOLUTE GRANULOCYTE CT 4.2 /CUMM (1.4-6.5); ABSOLUTE LYMPH COUNT 0.6 /CUMM (1.2-3.4); ABSOLUTE MONOCYTE COUNT 0.7 /CUMM (0.10-0.60); BASOPHIL % 0.2 % (0.0-2.0); EOSINOPHIL % 1.5 % (0-5); GRANULOCYTE % 75.2 % (42.2-75.2); HEMATOCRIT 25.3 % (42-52); MEAN CORPUSCULAR HGB 29.1 PG (27.0-31.0); MEAN CORPUSCULAR HGB CONC 33.1 G/DL (33.0-37.0); MEAN CORPUSCULAR VOLUME 87.9 FL (80.0-94.0); MEAN PLATELET VOLUME 9.7 FL (7.4-10.4); RBC DISTRIBUTION WIDTH 18.8 % (11.5-14.5); RED BLOOD CELL CT 2.88 /CUMM (4.70-6.10); WHITE BLOOD CELL COUNT 5.6 /CUMM (4.8-10.8)
[2017-02-11 11:51] LABS: PT 15.6 SEC (9.4-12.5); PTT 27 SEC (25-37)
[2017-02-11 12:05] LABS: PLATELET COUNT 37 /CUMM (130-400)
--- NOTE | 2017-02-11 16:52 | PN- Nephrology ---
Assessment/Plan Assessment: 1. Acute kidney injury largely resolved, 2. Alcohol abuse 3. Hyponatremia. Likely hypovolemic hyponatremia. I do not see that urine sodium was sent on this admission. In terms of his correction, it is at this 0.0 0.22 mEq hour. This is a safe level of correction. 4. Jaundice Suggestion: 1. Continue with fluids for now, may be able to decrease the rate. 2. It may be too late to send a repeat urine sodium and creatinine. Subjective Subjective: Confused. Becoming somewhat agitated. Withdrawal protocol in place Review of Systems: Unobtainable Objective Vital Signs and I&Os Vital Signs Date Time Temp Pulse Resp B/P B/P Pulse O2 O2 Flow FiO2 Mean Ox Delivery Rate 02/11 1200 94 Nasal 2.0L Cannula 02/11 1030 99.0 110 24 108/80 05/ 0800 99.4 101 18 112/80 05/ 0800 99.4 101 18 112/80 94 Nasal 3.0L Cannula / 0800 94 Nasal 3.0L Cannula / 0600 98.5 96 22 117/73 05/06 0400 98.0 104 18 99/66 05/ 0400 93 Nasal 3.0L Cannula / 0200 96 26 105/54 05/06 0000 99.8 102 23 120/60 05/06 0000 99.8 102 23 120/60 93 Nasal 3.0L Cannula 05/06 0000 93 Nasal 3.0L Cannula /05 2200 109 20 100/60 05/05 1999 99.7 98 24 124/60 /05 1999 92 Nasal 2.0L Cannula 02/10 1815 111 26 129/63 Intake & Output 02/11 1600 05/06 0400 05/ 1600 05/05 0400 / 1600 05/ 0400 Intake Total 1607 1557 4225 Output Total 1000 500 570 Balance 607 1057 3655 Intake, Blood 74 Product Intake, IV 1607 1483 4225 Intake, Oral 0 0 Number 1 Bowel Movements Output, Urine 1000 500 570 Patient 178 lb Weight Weight Bed scale Measurement Method Physical Exam General Appearance: well developed/nourished, no apparent distress, awake Head: atraumatic, normal appearance Ears, Nose, Throat: normal pharynx, hearing grossly normal, jaundiced Neck: normal inspection, supple, trachea mid line Respiratory: normal breath sounds Cardiovascular: regular rate/rhythm, edema Peripheral Pulses: 3+ tibialis posterior (R), 3+ tibialis posterior (L), 3+ dorsalis pedis (R), 3+ dorsalis pedis (L) Abdomen: normal bowel sounds, soft, non-tender Extremities: normal inspection, normal capillary refill Neurologic/Psychiatric: awake, alert, somewhat agitated Results Pertinent Lab Results: Laboratory Tests 02/11 02/11 1020 0615 Chemistry Sodium (137 - 145 mmol/L) 127 L 127 L Potassium (3.5 - 5.1 mmol/L) 3.0 L 2.6 *L Chloride (98 - 107 mmol/L) 84 L 81 L Carbon Dioxide (22 - 30 mmol/L) 36 H 39 H Anion Gap (5 - 16) 7 8 BUN (9 - 20 mg/dL) 21 H 23 H Creatinine (0.7 - 1.2 mg/dL) 1.1 1.1 Estimated GFR (>60 ml/min) > 60 > 60 Glucose (65 - 99 mg/dL) 72 81 Calcium (8.4 - 10.2 mg/dL) 6.5 L 6.3 L Phosphorus (2.5 - 4.5 mg/dL) 0.7 *L 1.0 L Magnesium (1.6 - 2.3 mg/dL) 2.2 2.2 Total Bilirubin (0.2 - 1.3 mg/dL) 4.0 H 3.9 H AST (17 - 59 U/L) 209 H 199 H ALT (21 - 72 U/L) 70 66 Creatine Kinase (55 - 170 U/L) 890 H Albumin (3.5 - 5.0 g/dL) 2.4 L 2.4 L TSH (0.270 - 4.200 uIU/mL) 1.160 Free T4 (0.79 - 2.35 ng/dL) 1.85 Coagulation PT (9.4 - 12.5 SEC) 15.6 H INR (0.90 - 1.17) 1.49 H APTT (25 - 37 SEC) 27 Hematology CBC w Diff NO MAN DIFF REQ NO MAN DIFF REQ WBC (4.8 - 10.8 /CUMM) 5.6 6.9 RBC (4.70 - 6.10 /CUMM) 2.88 L 2.82 L Hgb (14.0 - 18.0 G/DL) 8.4 L 8.3 L Hct (42 - 52 %) 25.3 L 24.6 L MCV (80.0 - 94.0 FL) 87.9 87.3 MCH (27.0 - 31.0 PG) 29.1 29.2 RDW (11.5 - 14.5 %) 18.8 H 19.0 H Plt Count (130 - 400 /CUMM) 37 L 38 L MPV (7.4 - 10.4 FL) 9.7 9.4 Gran % (42.2 - 75.2 %) 75.2 80.2 H Lymphocytes % (20.5 - 51.1 %) 10.9 L 8.2 L Monocytes % (1.7 - 9.3 %) 12.2 H 10.6 H Eosinophils % (0 - 5 %) 1.5 0.9 Basophils % (0.0 - 2.0 %) 0.2 0.1 Absolute Granulocytes (1.4 - 6.5 /CUMM) 4.2 5.5 Absolute Lymphocytes (1.2 - 3.4 /CUMM) 0.6 L 0.6 L Absolute Monocytes (0.10 - 0.60 /CUMM) 0.7 H 0.7 H Absolute Eosinophils (0.0 - 0.7 /CUMM) 0.1 0.1 Absolute Basophils (0.0 - 0.2 /CUMM) 0 0 PUBS MCHC (33.0 - 37.0 G/DL) 33.1 33.5 /02/10 0129 2156 Chemistry Sodium (137 - 145 mmol/L) 123 L Potassium (3.5 - 5.1 mmol/L) 2.5 *L Chloride (98 - 107 mmol/L) 76 L Carbon Dioxide (22 - 30 mmol/L) 42 H Anion Gap (5 - 16) 5 BUN (9 - 20 mg/dL) 25 H Creatinine (0.7 - 1.2 mg/dL) 1.2 Estimated GFR (>60 ml/min) > 60 Glucose (65 - 99 mg/dL) 97 Lactic Acid Cancelled Calcium (8.4 - 10.2 mg/dL) 6.2 L Phosphorus (2.5 - 4.5 mg/dL) 1.5 L Magnesium (1.6 - 2.3 mg/dL) 2.3 Total Bilirubin (0.2 - 1.3 mg/dL) 3.6 H AST (17 - 59 U/L) 182 H ALT (21 - 72 U/L) 62 Albumin (3.5 - 5.0 g/dL) 2.3 L Hematology CBC w Diff NO MAN DIFF REQ WBC (4.8 - 10.8 /CUMM) 9.0 RBC (4.70 - 6.10 /CUMM) 2.52 L Hgb (14.0 - 18.0 G/DL) 7.1 *L Hct (42 - 52 %) 21.6 L MCV (80.0 - 94.0 FL) 86.0 MCH (27.0 - 31.0 PG) 28.3 RDW (11.5 - 14.5 %) 19.4 H Plt Count (130 - 400 /CUMM) 40 L MPV (7.4 - 10.4 FL) 9.4 Gran % (42.2 - 75.2 %) 82.5 H Lymphocytes % (20.5 - 51.1 %) 6.9 L Monocytes % (1.7 - 9.3 %) 10.2 H Eosinophils % (0 - 5 %) 0.4 Basophils % (0.0 - 2.0 %) 0 L Absolute Granulocytes (1.4 - 6.5 /CUMM) 7.5 H Absolute Lymphocytes (1.2 - 3.4 /CUMM) 0.6 L Absolute Monocytes (0.10 - 0.60 /CUMM) 0.9 H Absolute Eosinophils (0.0 - 0.7 /CUMM) 0 Absolute Basophils (0.0 - 0.2 /CUMM) 0 PUBS MCHC (33.0 - 37.0 G/DL) 32.9 L /05 05/ 2130 1655 Chemistry Sodium (137 - 145 mmol/L) 121 L 122 L Potassium (3.5 - 5.1 mmol/L) 2.3 *L 2.1 *L Chloride (98 - 107 mmol/L) 72 L 70 L Carbon Dioxide (22 - 30 mmol/L) 42 H 43 H Anion Gap (5 - 16) 7 9 BUN (9 - 20 mg/dL) 27 H 25 H Creatinine (0.7 - 1.2 mg/dL) 1.4 H 1.7 H Estimated GFR (>60 ml/min) 57 L 46 L Glucose (65 - 99 mg/dL) 90 101 H Lactic Acid (0.7 - 2.1 mmol/L) 1.6 Calcium (8.4 - 10.2 mg/dL) 6.2 L 6.2 L Phosphorus (2.5 - 4.5 mg/dL) 1.4 L 2.3 L Magnesium (1.6 - 2.3 mg/dL) 1.5 L 1.5 L Total Bilirubin (0.2 - 1.3 mg/dL) 3.6 H 3.4 H AST (17 - 59 U/L) 204 H 224 H ALT (21 - 72 U/L) 72 74 H Creatine Kinase (55 - 170 U/L) 844 H Albumin (3.5 - 5.0 g/dL) 2.6 L 2.6 L Hematology CBC w Diff NO MAN DIFF REQ NO MAN DIFF REQ WBC (4.8 - 10.8 /CUMM) 11.0 H 11.6 H RBC (4.70 - 6.10 /CUMM) 2.39 L 2.54 L Hgb (14.0 - 18.0 G/DL) 6.8 *L 7.4 *L Hct (42 - 52 %) 20.8 L 22.7 L MCV (80.0 - 94.0 FL) 87.0 89.3 MCH (27.0 - 31.0 PG) 28.5 29.0 RDW (11.5 - 14.5 %) 20.3 H 20.2 H Plt Count (130 - 400 /CUMM) 49 L 44 L MPV (7.4 - 10.4 FL) 10.9 H 11.0 H Gran % (42.2 - 75.2 %) 84.7 H 83.2 H Lymphocytes % (20.5 - 51.1 %) 6.8 L 7.4 L Monocytes % (1.7 - 9.3 %) 8.4 9.3 Eosinophils % (0 - 5 %) 0.1 0 Basophils % (0.0 - 2.0 %) 0 L 0.1 Absolute Granulocytes (1.4 - 6.5 /CUMM) 9.3 H 9.6 H Absolute Lymphocytes (1.2 - 3.4 /CUMM) 0.7 L 0.9 L Absolute Monocytes (0.10 - 0.60 /CUMM) 0.9 H 1.1 H Absolute Eosinophils (0.0 - 0.7 /CUMM) 0 0 Absolute Basophils (0.0 - 0.2 /CUMM) 0 0 PUBS MCHC (33.0 - 37.0 G/DL) 32.8 L 32.5 L 02/10 02/10 02/10 1500 1255 1255 Chemistry Sodium (137 - 145 mmol/L) Cancelled 122 L Potassium (3.5 - 5.1 mmol/L) Cancelled 1.9 *L Chloride (98 - 107 mmol/L) Cancelled 69 L Carbon Dioxide (22 - 30 mmol/L) Cancelled 38 H Anion Gap (5 - 16) Cancelled 15 BUN (9 - 20 mg/dL) Cancelled 24 H Creatinine (0.7 - 1.2 mg/dL) Cancelled 2.0 H Estimated GFR (>60 ml/min) 38 L Glucose (65 - 99 mg/dL) Cancelled 118 H Lactic Acid (0.7 - 2.1 mmol/L) 5.9 H Calcium (8.4 - 10.2 mg/dL) Cancelled 6.2 L Phosphorus (2.5 - 4.5 mg/dL) Cancelled 3.0 Magnesium (1.6 - 2.3 mg/dL) Cancelled 1.5 L Total Bilirubin (0.2 - 1.3 mg/dL) Cancelled 3.7 H AST (17 - 59 U/L) Cancelled 260 H ALT (21 - 72 U/L) Cancelled 75 H Albumin (3.5 - 5.0 g/dL) Cancelled 2.7 L Hematology CBC w Diff Cancelled WBC Cancelled RBC Cancelled Hgb Cancelled Hct Cancelled MCV Cancelled MCH Cancelled RDW Cancelled Plt Count Cancelled MPV Cancelled PUBS MCHC Cancelled 02/10 02/10 1028 0955 Chemistry Lactic Acid Cancelled Hematology CBC w Diff NO MAN DIFF REQ WBC (4.8 - 10.8 /CUMM) 14.3 H RBC (4.70 - 6.10 /CUMM) 2.78 L Hgb (14.0 - 18.0 G/DL) 8.0 L Hct (42 - 52 %) 24.8 L MCV (80.0 - 94.0 FL) 89.2 MCH (27.0 - 31.0 PG) 28.7 RDW (11.5 - 14.5 %) 20.8 H Plt Count (130 - 400 /CUMM) 59 L MPV (7.4 - 10.4 FL) 10.8 H Gran % (42.2 - 75.2 %) 86.0 H Lymphocytes % (20.5 - 51.1 %) 6.1 L Monocytes % (1.7 - 9.3 %) 7.9 Eosinophils % (0 - 5 %) 0 Basophils % (0.0 - 2.0 %) 0 L Absolute Granulocytes (1.4 - 6.5 /CUMM) 12.3 H Absolute Lymphocytes (1.2 - 3.4 /CUMM) 0.9 L Absolute Monocytes (0.10 - 0.60 /CUMM) 1.1 H Absolute Eosinophils (0.0 - 0.7 /CUMM) 0 Absolute Basophils (0.0 - 0.2 /CUMM) 0 PUBS MCHC (33.0 - 37.0 G/DL) 32.2 L 05/05 05/05 0950 0820 Blood Gas pH (7.35 - 7.45 PH) 7.51 H pCO2 (35 - 45 TORR) 37 pO2 (80 - 100 TORR) 58 L HCO3 (21 - 28 MEQ/L) 29 H ABG O2 Sat (Measured) (>96.0 %) 84.0 L Carboxyhemoglobin (1.5 - 5.0 %) 2.1 O2 Concentration % 4L O2 Delivery Method NC Miscellaneous Phlebotomy Draw Site RIGHT RADIAL Toxicology Urine Opiates Screen (>2000 NG/ML) < 100.00 Methadone Screen (>300 NG/ML) < 40 Barbiturate Screen (>200 NG/ML) < 60 Ur Phencyclidine Scrn (>25 NG/ML) < 6.00 Amphetamines Screen (>1000 NG/ML) < 100 U Benzodiazepines Scrn (>200 NG/ML) < 85 Urine Cocaine Screen (>300 NG/ML) < 50 Urine Cannabis Screen (>50 NG/ML) 77.70 H Urines Urine Color (YEL,AMB,STR) SHANEKA Urine Clarity (CLEAR) CLDY H Urine pH (5.0 - 8.0) 6.0 Ur Specific Raphine (1.001 - 1.035) 1.025 Urine Protein (NEG,<30 MG/DL) 100 H Urine Ketones (NEG) 15 H Urine Nitrite (NEG) NEG Urine Bilirubin (NEG) POS@ICTO H Urine Urobilinogen (0.1 - 1.0 EU/dl) 2.0 H Ur Leukocyte Esterase (NEG) MOD H Ur Microscopic SEDIMENT EXAMINED Urine RBC (0 - 5 /HPF) 25-50 H Urine WBC (0 - 2 /HPF) > 75 H Ur Epithelial Cells (NONE,FEW) FEW Urine Bacteria (NEG/NONE) PACKD H Urine Hemoglobin (NEG) LARGE H Urine Glucose (N MG/DL) NEG 02/10 02/10 02/10 0713 0713 0712 Blood Gas Bicarbonate Actual (22 - 26 MEQ/L) 33 H Mixed VBG pH (7.31 - 7.41 PH) 7.63 H Mixed VBG pCO2 (41 - 51 TORR) 63 H Mixed VBG O2 Saturation (35 - 45 TORR) 14 L Carboxyhemoglobin (1.5 - 5.0 %) 2.1 O2 Concentration % RA Temperature (97.0 - 100.0 FARH) 98.5 O2 Delivery Method RA Chemistry Sodium (137 - 145 mmol/L) 121 L Potassium (3.5 - 5.1 mmol/L) 2.3 *L Chloride (98 - 107 mmol/L) < 50 L Carbon Dioxide (22 - 30 mmol/L) 30 Anion Gap (5 - 16) > 41.0 H BUN (9 - 20 mg/dL) 26 H Creatinine (0.7 - 1.2 mg/dL) 2.9 H Estimated GFR (>60 ml/min) 25 L BUN/Creatinine Ratio (7 - 25 %) 9.0 Glucose (65 - 99 mg/dL) 115 H Lactic Acid (0.7 - 2.1 mmol/L) > 24.0 H Calcium (8.4 - 10.2 mg/dL) 8.5 Phosphorus (2.5 - 4.5 mg/dL) 5.4 H Magnesium (1.6 - 2.3 mg/dL) 1.6 Total Bilirubin (0.2 - 1.3 mg/dL) 4.0 H AST (17 - 59 U/L) 310 H ALT (21 - 72 U/L) 87 H Alkaline Phosphatase (< 127 U/L) 135 H Creatine Kinase (55 - 170 U/L) Cancelled 661 H Troponin I (<0.11 ng/ml) 0.06 Total Protein (6.3 - 8.2 g/dL) 8.1 Albumin (3.5 - 5.0 g/dL) 4.3 Globulin (1.9 - 4.2 gm/dL) 3.8 Albumin/Globulin Ratio (1.1 - 2.2 %) 1.1 Lipase (23 - 300 U/L) 497 H Coagulation PT (9.4 - 12.5 SEC) 15.1 H INR (0.90 - 1.17) 1.44 H APTT (25 - 37 SEC) 27 Hematology CBC w Diff MAN DIFF ORDERED WBC (4.8 - 10.8 /CUMM) 17.8 H RBC (4.70 - 6.10 /CUMM) 3.85 L Hgb (14.0 - 18.0 G/DL) 11.0 L Hct (42 - 52 %) 33.9 L MCV (80.0 - 94.0 FL) 88.2 MCH (27.0 - 31.0 PG) 28.6 RDW (11.5 - 14.5 %) 20.4 H Plt Count (130 - 400 /CUMM) 99 L MPV (7.4 - 10.4 FL) 11.4 H Gran % (42.2 - 75.2 %) 78.5 H Lymphocytes % (20.5 - 51.1 %) 8.7 L Monocytes % (1.7 - 9.3 %) 12.8 H Eosinophils % (0 - 5 %) 0 Basophils % (0.0 - 2.0 %) 0 L Absolute Granulocytes (1.4 - 6.5 /CUMM) 14.0 H Absolute Lymphocytes (1.2 - 3.4 /CUMM) 1.5 Absolute Monocytes (0.10 - 0.60 /CUMM) 2.3 H Absolute Eosinophils (0.0 - 0.7 /CUMM) 0 Absolute Basophils (0.0 - 0.2 /CUMM) 0 Platelet Estimate (ADEQUATE) DECREASED Normochromic RBCs VERIFIED Polychromasia Anisocytosis 1+ PUBS MCHC (33.0 - 37.0 G/DL) 32.4 L Miscellaneous Phlebotomy Draw Site LAC Toxicology Serum Alcohol (<10 MG/DL) Cancelled 104.0
[2017-02-12] VITALS (13 sets, daily range): BP systolic 11–116; BP diastolic 49–80
[2017-02-12 04:54] LABS: ABSOLUTE BASOPHIL COUNT 0 /CUMM (0.0-0.2); ABSOLUTE EOSINOPHIL COUNT 0.1 /CUMM (0.0-0.7); ABSOLUTE GRANULOCYTE CT 2.1 /CUMM (1.4-6.5); ABSOLUTE LYMPH COUNT 0.8 /CUMM (1.2-3.4); ABSOLUTE MONOCYTE COUNT 0.4 /CUMM (0.10-0.60); BASOPHIL % 0.7 % (0.0-2.0); EOSINOPHIL % 4.3 % (0-5); GRANULOCYTE % 59.4 % (42.2-75.2); HEMATOCRIT 25.7 % (42-52); MEAN CORPUSCULAR HGB 29.1 PG (27.0-31.0); MEAN CORPUSCULAR HGB CONC 32.6 G/DL (33.0-37.0); MEAN CORPUSCULAR VOLUME 89.3 FL (80.0-94.0); MEAN PLATELET VOLUME 8.8 FL (7.4-10.4); PLATELET COUNT 44 /CUMM (130-400); RED BLOOD CELL CT 2.88 /CUMM (4.70-6.10); WHITE BLOOD CELL COUNT 3.5 /CUMM (4.8-10.8)
--- NOTE | 2017-02-12 06:50 | PN- Resident CRCU ---
Subjective HPI/CRCU Issues: Mr. Woo was seen and examined this morning. He is resting comfortably in bed. He is oriented 2, however is somnolent and has difficulty maintaining concentration during the encounter. Denies any fever, chills, nausea, vomiting. Denies any active pain. He currently has a sitter in place. 24 Hour Events: No Reports Objective Vital Signs & I&O Last 8 Hrs of Vitals and I&O: T: 98.6 HR: 78-114 SR/ST RR: 18-34 Aute: 83/59-122/73 UO: SI: 1250 SII:2500 SIII: 1975 Exam General Appearance: no apparent distress, alert, anxious, lethargic Head: atraumatic, normal appearance Respiratory: normal breath sounds, chest non-tender, no respiratory distress, quiet respiration, lungs clear Cardiovascular: regular rate/rhythm Gastrointestinal: normal bowel sounds, soft, non-tender Extremities: normal capillary refill, Bilaterral Upper Extremity Edema Cranial Nerves: normal hearing Skin: intact Current Medications: Current Medications Sig/Olivia Start time Last Medication Dose Route Stop Time Status Admin Ciprofloxacin 400 MG Q12H 02/10 1200 AC 02/12 Dextrose/Water 200 ML IV 0037 Cyanocobalamin/ 1 BAG DAILY 02/10 1041 AC 02/11 Thiamine/Pyridoxine IV 1140 Sodium Chloride 1,000 ML Lorazepam 2 MG ONE ONE 02/11 1730 DC 05/ IV 02/11 1731 1730 Lorazepam 100 MG Q24H 02/11 1715 AC 02/11 Sodium Chloride 1,000 ML IV 1755 Lorazepam 2 MG TID 02/11 1600 DC 02/11 PO 1339 Lorazepam 0 Q1P PRN 02/10 1045 DC 05 IV 1640 Metronidazole 500 MG IQ8 02/10 1600 AC 02/12 N/A 1 UNIT IV 0807 Nicotine 21 MG DAILY 02/11 1000 AC 02/12 TOP 0813 Pantoprazole Sodium 40 MG BID 02/11 2250 AC 02/12 IV 0808 Pantoprazole Sodium 40 MG Q5H 02/10 1900 DC 05/ Sodium Chloride 100 ML IV 1640 Phosphate 250 MG ONCE ONE 02/11 1215 DC 05/ PO 02/11 1216 1409 Potassium Chloride 10 MEQ Q1H 02/12 0815 DC 02/12 IV 02/12 0916 1057 Potassium Chloride 10 MEQ Q1H 02/12 0815 DC IV 02/12 0916 Potassium Chloride 10 MEQ Q1H 02/12 0815 CAN IV 02/12 0916 Potassium Chloride 60 MEQ ONCE ONE 02/11 1930 DC PO 02/11 1931 Potassium Chloride 10 MEQ Q1H 02/11 1930 DC 05/06 IV 02/11 203 2200 Potassium Chloride 40 MEQ ONCE ONE 02/11 1215 DC 05/06 PO / 1216 1339 Potassium Chloride 40 MEQ Q8H 02/10 1315 AC 02/11 Sodium Chloride 1,000 ML IV 2215 Potassium Chloride 20 MEQ BID 02/10 1000 AC 05/ PO 1000 Potassium Phosphate 15 mMol ONE ONE 02/12 0815 CAN Sodium Chloride 250 ML IV 02/12 1218 Potassium Phosphate 15 mMol ONE ONE 02/11 1930 DC / Sodium Chloride 250 ML IV 02/11 2333 2219 Sodium Phosphate 15 mMol ONE ONE 02/12 0815 AC 02/12 Sodium Chloride 250 ML IV 02/12 1218 1057 Trimethobenzamide HCl 200 MG TID PRN 02/10 1630 AC 02/10 IM 1710 Impression/Plan Impression/Problem List Impression: Patient is 36-year-old gentleman with past medical history significant for schizophrenia, alcoholic hepatitis, alcohol abuse, alcoholic cardiomyopathy with normal ejection fraction, multiple electrolyte imbalance in the past, bladder mass status post biopsy not significant for any malignancy, 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 Problem list and plan: Respiratory * Lung exam unremarkable. ID * Leukocytosis of 17.8 on admission, no fever * Urine and blood culture were sent and we will follow-up * Urine culture positive for Citrobacter. May consider tailoring antibiotics with appropriate sensitivities. * Continue on IV Cipro and Flagyl * continue to monitor vital signs for fever Cardiac * Heart exam NL, EKG unremarkable, troponin (-), chest x-ray was normal without any evidence of acute cardiopulmonary pathology * Hypotension (down to 76/45 on admission) most likely due to excessive vomiting and volume contractured * Currently BP 116/77, continue IV fluids and monitor BP closely Heme * H/H 11.0/33.9 on admission * patient has had several episodes of bloody emesis * H/H dropped to 6.8/20.8, was transfused 1 unit blood yesterday and H/H is now up to 8.4/25.7 * repeat CBC Q12 hours. Metabolic * Hematemesis, nausea/vomiting: on IV protonix, Cipro and Flagyl, CT abdomen and pelvis showing evidence of a possible colovesicular fistula, similar to findings on 01/02/17. Will ask surgery to evaluate the patient. (Of note, Urology evaluated him during previous admission in December 2016 and did not find any fistula, there was a bladder mass that was resected and pathology was benign. * STEPHANIE: BUN and Cr of 26 and 2.9 on admission, most likelt prerenal in the setting of hypotension and dehydration, improved to 6/0.7 today. will continue to monitor kidney funciton. * Severe hypochloremia/hypochloremic metabolic acidosis due to excessive vomiting: cl <50 on admission, Cl is 81 today, will continue IV Normal Saline, controling N/V with Tigan and monitor electrolyets. * Hypokalemia, Hypophosphatemia: repeat labs every 4-6 hours for potassium, magnesium, sodium and will make sure that his sodium will not replaced very quickly. * Alcohol abuse/alcoholic hepatitis: IV fluids and banana bag, on Ativan per CIWA protocol * Nephrology consult in place due to severe hypochloremia, hyponatremia, acute kidney injury will follow recommendations Neuro/Psych * Schizophrenia * psych consult in place * Patient was agitated during the day and was pulling on his lines and trying to get out of the bed, we started him on renzo soft restraints, also started on ativan drip. CIWA: 13,16,11,6,10,10 Alps for DVT prophylaxis as platelets were low Nothing by mouth, swallow evaluation in a.m. Full Code Problem List: 1. Alcohol intoxication 2. Elevated liver enzymes Pain Ratin Tomorrow's Labs & Rationales: CBC ICU Bundle Plan DVT/Prophylaxis: mechanical
--- NOTE | 2017-02-12 10:54 | PN- CRCU ---
Subjective HPI/Critical Care Issues: Patient is awake but confused hyponatremia is improved. Objective Current Medications: Current Medications Sig/Olivia Start time Last Medication Dose Route Stop Time Status Admin Ciprofloxacin 400 MG Q12H 02/10 1200 AC 02/12 Dextrose/Water 200 ML IV 0037 Cyanocobalamin/ 1 BAG DAILY 02/10 1041 AC / Thiamine/Pyridoxine IV 1140 Sodium Chloride 1,000 ML Lorazepam 2 MG ONE ONE 02/11 1730 DC 05/ IV 02/11 1731 1730 Lorazepam 100 MG Q24H / 1715 AC 02/11 Sodium Chloride 1,000 ML IV 1755 Lorazepam 2 MG TID 02/11 1600 DC 02/11 PO 1339 Lorazepam 0 Q1P PRN 02/10 1045 DC 02/11 IV 1640 Metronidazole 500 MG IQ8 02/10 1600 AC 02/12 N/A 1 UNIT IV 0807 Nicotine 21 MG DAILY 02/11 1000 AC 02/12 TOP 0813 Pantoprazole Sodium 40 MG BID 02/11 2250 AC 02/12 IV 0808 Pantoprazole Sodium 40 MG Q5H / 1900 DC 05/ Sodium Chloride 100 ML IV 1640 Phosphate 250 MG ONCE ONE 02/11 1215 DC 05/ PO 05/ 1216 1409 Potassium Chloride 10 MEQ Q1H 02/12 0815 DC 05/ IV / 0916 0946 Potassium Chloride 10 MEQ Q1H / 0815 DC IV 02/12 0916 Potassium Chloride 10 MEQ Q1H / 0815 CAN IV / 0916 Potassium Chloride 60 MEQ ONCE ONE 02/11 1930 DC PO 05/ 1931 Potassium Chloride 10 MEQ Q1H 05/06 1930 DC 05/06 IV 05/06 2031 2200 Potassium Chloride 40 MEQ ONCE ONE 02/11 1215 DC 05/06 PO 05/06 1216 1339 Potassium Chloride 40 MEQ Q8H 05/05 1315 AC 05/ Sodium Chloride 1,000 ML IV 2215 Potassium Chloride 20 MEQ BID 05/05 1000 AC PO Potassium Phosphate 15 mMol ONE ONE /07 0815 CAN Sodium Chloride 250 ML IV 05/07 1218 Potassium Phosphate 15 mMol ONE ONE 05/06 1930 DC 05/06 Sodium Chloride 250 ML IV 05/ 2333 2219 Potassium Phosphate 15 mMol ONE ONE 02/11 0730 DC 05/06 Sodium Chloride 250 ML IV 05/ 1133 1015 Sodium Phosphate 15 mMol ONE ONE 02/12 815 Sodium Chloride 250 ML IV 02/12 1218 Trimethobenzamide HCl 200 MG TID PRN 02/10 1630 AC 02/10 IM 1710 Vital Signs & I&O Last 24 Hrs of Vitals and I&O: Vital Signs Date Time Temp Pulse Resp B/P B/P Pulse O2 O2 Flow FiO2 Mean Ox Delivery Rate 02/12 600 97 29 100/60 02/12 0400 98.3 105 30 115/80 02/12 0400 98 Nasal 2.0L Cannula 02/12 0200 80 18 89/53 05 0000 83 18 108/70 05/ 0000 97.5 83 18 108/70 93 Nasal 2.0L Cannula 02/12 0000 93 Nasal 2.0L Cannula 02/11 2200 88 21 97/61 02/11 2000 96.6 92 22 110/60 02/11 2000 93 Room Air / 1845 122 24 138/80 02/11 1745 110 22 128/70 02/11 1645 98.9 106 24 142/70 02/11 1600 98.9 106 24 142/70 94 Room Air / 1600 94 Room Air / 1410 110 20 95/66 05/ 1230 98.6 112 22 134/64 02/11 1200 94 Nasal 2.0L Cannula Intake & Output 02/12 1600 02/12 0800 02/12 0000 Intake Total 1742 1685 Output Total 1975 2500 Balance -233 -815 Intake, IV 1742 1445 Intake, Oral 0 240 Number 0 0 Bowel Movements Output, Urine 1974 2500 Oxygen saturation 2 L 94-98% exam of his chest shows clear lung aguirre cardiac exam shows a regular S1 and S2 abdomen is soft nontender Impression/Plan Impression/Plan Impression/Plan: 36-year-old with long-standing alcohol abuse admitted with electrolyte abnormalities and upper GI bleeding. Electrolyte abnormalities or slowly correcting there's been no further hematemesis Recommendations: Continue IV fluids per nephrology recommendations. Complete course of antibiotics. Will need swallowing evaluation tomorrow.
--- NOTE | 2017-02-12 13:48 | PN- Gastroenterology ---
Assessment/Plan Assessment/Recommendations: Assessment: Mr. Woo is a 36 year old male with multiple medical problems who was again admitted 2 days ago with hypokalemia and hyponatremia associated with hyotension, coffee ground emesis and anemia. His coffee ground emesis is likely secondary to erosive esophagitis or a dirk friend tear considering he has had similar episodes in the past and an endoscopy last year and the year before that only showed erosive esophagitis on a hiatal hernia without evidence of varices or PUD. While he has become profoundly anemic on this admission and while there is certainly a componenet of GI blood loss contribuitng to that I feel that the anemia is likely mulifactorial and primarily related to bone marrow suppression from etoh and anemia of chronic disease considering his baselline hgb over the past few years has been around 8-10. As his vomiting has stopped, his hgb has been stable since initial transfusion, he is without any melena or brbpr and as he had 2 endoscopies over the past year with similar presentation during which time no therapeutics were performed to stop any active bleeeding I don't feel an EGD is necessary on this admission. 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 Recommendations: 1. Decrease protonix to IV daily 2. Follow CBC q12 hours and transfuse as needed to keep hgb > 7 3. Notify GI for signs of overt GI bleeding 4. Avoid NSAIDs 5. Administer anti-emetics as needed 6. Anti-reflux measures (ie. keep head of bed elevated) 7. Correction of electrolytes as per nephrology and critical care team 8. Treatment of etoh withdrawal symptoms as per critical care team 9. Periodically follow LFTs I will sign off at this time and ask that GI be reconsulted for any new GI issues or any recurrent bleeding. Problem List: 1. ALCOHOL WITHDRAWAL 2. Anemia 3. Alcoholic hepatitis 4. Hiatal hernia 5. Esophagitis 6. GI bleed Subjective Subjective: Pt is without any further vomiting since admission. He has been without any melena or brbpr. His hgb has been stable since transfusion. he is currently in a vest restraint and has been receiving benzodiazepenes for etoh withdrawal symptoms. Objective Vital Signs and I&Os Vital Signs Date Time Temp Pulse Resp B/P B/P Pulse O2 O2 Flow FiO2 Mean Ox Delivery Rate 05/ 1200 97.8 104 24 108/62 05/ 1200 97 Nasal 2.0L Cannula 05/07 1100 100 24 100/57 05/07 1000 102 22 112/72 05/07 0800 99.1 97 24 108/74 05/07 0800 100 Nasal 2.0L Cannula 05/ 0800 99.1 97 24 108/74 100 Nasal 2.0L Cannula 05/07 0600 97 29 100/60 05/07 0400 98.3 105 30 115/80 05/07 0400 98 Nasal 2.0L Cannula 05/ 0200 80 18 89/53 05/07 0000 83 18 108/70 05/07 0000 97.5 83 18 108/70 93 Nasal 2.0L Cannula / 0000 93 Nasal 2.0L Cannula / 2200 88 21 97/61 /1999 96.6 92 22 110/60 05/06 2000 93 Room Air 05/06 1845 122 24 138/80 05/06 1745 110 22 128/70 05/06 1645 98.9 106 24 142/70 05/06 1600 98.9 106 24 142/70 94 Room Air 05/06 1600 94 Room Air 05/06 1410 110 20 95/66 Intake & Output / 1600 05/07 0400 05/06 1600 05/06 0400 05/05 1600 05/05 0400 Intake Total 1742 1685 4688 1557 4225 Output Total 1974 2499 2250 500 570 Balance -233 -815 2438 1057 3655 Intake, Blood 74 Product Intake, IV 1742 1445 4208 1483 4225 Intake, Oral 0 240 480 0 Number 0 0 1 Bowel Movements Output, Urine 1974 2499 2250 500 570 Patient 178 lb Weight Weight Bed scale Measurement Method Physical Exam General Appearance: well developed/nourished, sedated Head: atraumatic, normal appearance Neck: normal inspection, supple, full range of motion Respiratory: normal breath sounds, chest non-tender Cardiovascular: regular rate/rhythm Abdomen: normal bowel sounds, soft, non-tender Extremities: normal inspection, no edema Skin: intact, normal color, warm/dry Current Medications: Current Medications Sig/Olivia Start time Last Medication Dose Route Stop Time Status Admin Ciprofloxacin 400 MG Q12H 02/10 1200 AC 02/12 Dextrose/Water 200 ML IV 1206 Cyanocobalamin/ 1 BAG DAILY 02/10 1041 AC 05/ Thiamine/Pyridoxine IV 1140 Sodium Chloride 1,000 ML Lorazepam 2 MG ONE ONE 02/11 1730 DC 02/11 IV 02/11 1731 1730 Lorazepam 100 MG Q24H 02/11 1715 AC 02/11 Sodium Chloride 1,000 ML IV 1755 Lorazepam 2 MG TID 02/11 1600 DC 02/11 PO 1339 Lorazepam 0 Q1P PRN 02/10 1045 DC 02/11 IV 1640 Metronidazole 500 MG IQ8 02/10 1600 AC 02/12 N/A 1 UNIT IV 0807 Nicotine 21 MG DAILY 02/11 1000 AC 02/12 TOP 0813 Pantoprazole Sodium 40 MG BID 02/11 2250 AC 02/12 IV 0808 Pantoprazole Sodium 40 MG Q5H 02/10 1900 DC 02/11 Sodium Chloride 100 ML IV 1640 Potassium Chloride 10 MEQ Q1H 02/12 0815 DC 05/ IV / 0916 1057 Potassium Chloride 10 MEQ Q1H 02/12 0815 DC 05/ IV 02/12 0916 1305 Potassium Chloride 10 MEQ Q1H / 0815 CAN IV 02/12 0916 Potassium Chloride 60 MEQ ONCE ONE 02/11 1930 DC PO 05/ 1931 Potassium Chloride 10 MEQ Q1H 05/06 1930 DC 05/ IV / 2031 2200 Potassium Chloride 40 MEQ Q8H /05 1315 AC 05/ Sodium Chloride 1,000 ML IV 2215 Potassium Chloride 20 MEQ BID 05/05 1000 AC 05/07 PO 1000 Potassium Phosphate 15 mMol ONE ONE / 0815 CAN Sodium Chloride 250 ML IV 05/ 1218 Potassium Phosphate 15 mMol ONE ONE / 1930 DC 05/ Sodium Chloride 250 ML IV / 2333 2219 Sodium Phosphate 15 mMol ONE ONE / 0815 DC 05/ Sodium Chloride 250 ML IV 05/ 1218 1057 Trimethobenzamide HCl 200 MG TID PRN 05 1630 AC 05 IM 1710 Results Pertinent Lab Results: Laboratory Tests 02/12 02/11 05/06 0415 2230 1830 Chemistry Sodium (137 - 145 mmol/L) 133 L Cancelled Cancelled Potassium (3.5 - 5.1 mmol/L) 3.5 Cancelled Cancelled Chloride (98 - 107 mmol/L) 98 Cancelled Cancelled Carbon Dioxide (22 - 30 mmol/L) 27 Cancelled Cancelled Anion Gap (5 - 16) 8 Cancelled Cancelled BUN (9 - 20 mg/dL) 10 Cancelled Cancelled Creatinine (0.7 - 1.2 mg/dL) 0.8 Cancelled Cancelled Estimated GFR (>60 ml/min) > 60 Glucose (65 - 99 mg/dL) 84 Cancelled Cancelled Calcium (8.4 - 10.2 mg/dL) 6.7 L Cancelled Cancelled Phosphorus (2.5 - 4.5 mg/dL) 2.0 L Cancelled Cancelled Magnesium (1.6 - 2.3 mg/dL) 2.2 Cancelled Cancelled Total Bilirubin (0.2 - 1.3 mg/dL) 3.9 H Cancelled Cancelled AST (17 - 59 U/L) 232 H Cancelled Cancelled ALT (21 - 72 U/L) 73 H Cancelled Cancelled Creatine Kinase (55 - 170 U/L) 533 H Albumin (3.5 - 5.0 g/dL) 2.4 L Cancelled Cancelled Hematology CBC w Diff NO MAN DIFF REQ WBC (4.8 - 10.8 /CUMM) 3.5 L RBC (4.70 - 6.10 /CUMM) 2.88 L Hgb (14.0 - 18.0 G/DL) 8.4 L Hct (42 - 52 %) 25.7 L MCV (80.0 - 94.0 FL) 89.3 MCH (27.0 - 31.0 PG) 29.1 RDW (11.5 - 14.5 %) 19.0 H Plt Count (130 - 400 /CUMM) 44 L MPV (7.4 - 10.4 FL) 8.8 Gran % (42.2 - 75.2 %) 59.4 Lymphocytes % (20.5 - 51.1 %) 22.9 Monocytes % (1.7 - 9.3 %) 12.7 H Eosinophils % (0 - 5 %) 4.3 Basophils % (0.0 - 2.0 %) 0.7 Absolute Granulocytes (1.4 - 6.5 /CUMM) 2.1 Absolute Lymphocytes (1.2 - 3.4 /CUMM) 0.8 L Absolute Monocytes (0.10 - 0.60 /CUMM) 0.4 Absolute Eosinophils (0.0 - 0.7 /CUMM) 0.1 Absolute Basophils (0.0 - 0.2 /CUMM) 0 PUBS MCHC (33.0 - 37.0 G/DL) 32.6 L 02/11 02/11 1645 1020 Chemistry Sodium (137 - 145 mmol/L) 131 L 127 L Potassium (3.5 - 5.1 mmol/L) 3.2 L 3.0 L Chloride (98 - 107 mmol/L) 89 L 84 L Carbon Dioxide (22 - 30 mmol/L) 32 H 36 H Anion Gap (5 - 16) 9 7 BUN (9 - 20 mg/dL) 16 21 H Creatinine (0.7 - 1.2 mg/dL) 0.9 1.1 Estimated GFR (>60 ml/min) > 60 > 60 Glucose (65 - 99 mg/dL) 75 72 Calcium (8.4 - 10.2 mg/dL) 6.7 L 6.5 L Phosphorus (2.5 - 4.5 mg/dL) 1.0 L 0.7 *L Magnesium (1.6 - 2.3 mg/dL) 2.2 2.2 Total Bilirubin (0.2 - 1.3 mg/dL) 4.5 H 4.0 H AST (17 - 59 U/L) 242 H 209 H ALT (21 - 72 U/L) 69 70 Creatine Kinase (55 - 170 U/L) 890 H Albumin (3.5 - 5.0 g/dL) 2.6 L 2.4 L Coagulation PT (9.4 - 12.5 SEC) 15.6 H INR (0.90 - 1.17) 1.49 H APTT (25 - 37 SEC) 27 Hematology CBC w Diff NO MAN DIFF REQ WBC (4.8 - 10.8 /CUMM) 5.6 RBC (4.70 - 6.10 /CUMM) 2.88 L Hgb (14.0 - 18.0 G/DL) 8.4 L Hct (42 - 52 %) 25.3 L MCV (80.0 - 94.0 FL) 87.9 MCH (27.0 - 31.0 PG) 29.1 RDW (11.5 - 14.5 %) 18.8 H Plt Count (130 - 400 /CUMM) 37 L MPV (7.4 - 10.4 FL) 9.7 Gran % (42.2 - 75.2 %) 75.2 Lymphocytes % (20.5 - 51.1 %) 10.9 L Monocytes % (1.7 - 9.3 %) 12.2 H Eosinophils % (0 - 5 %) 1.5 Basophils % (0.0 - 2.0 %) 0.2 Absolute Granulocytes (1.4 - 6.5 /CUMM) 4.2 Absolute Lymphocytes (1.2 - 3.4 /CUMM) 0.6 L Absolute Monocytes (0.10 - 0.60 /CUMM) 0.7 H Absolute Eosinophils (0.0 - 0.7 /CUMM) 0.1 Absolute Basophils (0.0 - 0.2 /CUMM) 0 PUBS MCHC (33.0 - 37.0 G/DL) 33.1 05/06 05/06 0615 0129 Chemistry Sodium (137 - 145 mmol/L) 127 L 123 L Potassium (3.5 - 5.1 mmol/L) 2.6 *L 2.5 *L Chloride (98 - 107 mmol/L) 81 L 76 L Carbon Dioxide (22 - 30 mmol/L) 39 H 42 H Anion Gap (5 - 16) 8 5 BUN (9 - 20 mg/dL) 23 H 25 H Creatinine (0.7 - 1.2 mg/dL) 1.1 1.2 Estimated GFR (>60 ml/min) > 60 > 60 Glucose (65 - 99 mg/dL) 81 97 Calcium (8.4 - 10.2 mg/dL) 6.3 L 6.2 L Phosphorus (2.5 - 4.5 mg/dL) 1.0 L 1.5 L Magnesium (1.6 - 2.3 mg/dL) 2.2 2.3 Total Bilirubin (0.2 - 1.3 mg/dL) 3.9 H 3.6 H AST (17 - 59 U/L) 199 H 182 H ALT (21 - 72 U/L) 66 62 Albumin (3.5 - 5.0 g/dL) 2.4 L 2.3 L TSH (0.270 - 4.200 uIU/mL) 1.160 Free T4 (0.79 - 2.35 ng/dL) 1.85 Hematology CBC w Diff NO MAN DIFF REQ NO MAN DIFF REQ WBC (4.8 - 10.8 /CUMM) 6.9 9.0 RBC (4.70 - 6.10 /CUMM) 2.82 L 2.52 L Hgb (14.0 - 18.0 G/DL) 8.3 L 7.1 *L Hct (42 - 52 %) 24.6 L 21.6 L MCV (80.0 - 94.0 FL) 87.3 86.0 MCH (27.0 - 31.0 PG) 29.2 28.3 RDW (11.5 - 14.5 %) 19.0 H 19.4 H Plt Count (130 - 400 /CUMM) 38 L 40 L MPV (7.4 - 10.4 FL) 9.4 9.4 Gran % (42.2 - 75.2 %) 80.2 H 82.5 H Lymphocytes % (20.5 - 51.1 %) 8.2 L 6.9 L Monocytes % (1.7 - 9.3 %) 10.6 H 10.2 H Eosinophils % (0 - 5 %) 0.9 0.4 Basophils % (0.0 - 2.0 %) 0.1 0 L Absolute Granulocytes (1.4 - 6.5 /CUMM) 5.5 7.5 H Absolute Lymphocytes (1.2 - 3.4 /CUMM) 0.6 L 0.6 L Absolute Monocytes (0.10 - 0.60 /CUMM) 0.7 H 0.9 H Absolute Eosinophils (0.0 - 0.7 /CUMM) 0.1 0 Absolute Basophils (0.0 - 0.2 /CUMM) 0 0 PUBS MCHC (33.0 - 37.0 G/DL) 33.5 32.9 L /02/10 2156 2130 Chemistry Sodium (137 - 145 mmol/L) 121 L Potassium (3.5 - 5.1 mmol/L) 2.3 *L Chloride (98 - 107 mmol/L) 72 L Carbon Dioxide (22 - 30 mmol/L) 42 H Anion Gap (5 - 16) 7 BUN (9 - 20 mg/dL) 27 H Creatinine (0.7 - 1.2 mg/dL) 1.4 H Estimated GFR (>60 ml/min) 57 L Glucose (65 - 99 mg/dL) 90 Lactic Acid (0.7 - 2.1 mmol/L) Cancelled 1.6 Calcium (8.4 - 10.2 mg/dL) 6.2 L Phosphorus (2.5 - 4.5 mg/dL) 1.4 L Magnesium (1.6 - 2.3 mg/dL) 1.5 L Total Bilirubin (0.2 - 1.3 mg/dL) 3.6 H AST (17 - 59 U/L) 204 H ALT (21 - 72 U/L) 72 Albumin (3.5 - 5.0 g/dL) 2.6 L Hematology CBC w Diff NO MAN DIFF REQ WBC (4.8 - 10.8 /CUMM) 11.0 H RBC (4.70 - 6.10 /CUMM) 2.39 L Hgb (14.0 - 18.0 G/DL) 6.8 *L Hct (42 - 52 %) 20.8 L MCV (80.0 - 94.0 FL) 87.0 MCH (27.0 - 31.0 PG) 28.5 RDW (11.5 - 14.5 %) 20.3 H Plt Count (130 - 400 /CUMM) 49 L MPV (7.4 - 10.4 FL) 10.9 H Gran % (42.2 - 75.2 %) 84.7 H Lymphocytes % (20.5 - 51.1 %) 6.8 L Monocytes % (1.7 - 9.3 %) 8.4 Eosinophils % (0 - 5 %) 0.1 Basophils % (0.0 - 2.0 %) 0 L Absolute Granulocytes (1.4 - 6.5 /CUMM) 9.3 H Absolute Lymphocytes (1.2 - 3.4 /CUMM) 0.7 L Absolute Monocytes (0.10 - 0.60 /CUMM) 0.9 H Absolute Eosinophils (0.0 - 0.7 /CUMM) 0 Absolute Basophils (0.0 - 0.2 /CUMM) 0 PUBS MCHC (33.0 - 37.0 G/DL) 32.8 L 05/05 05/05 05 1655 1500 1255 Chemistry Sodium (137 - 145 mmol/L) 122 L Cancelled Potassium (3.5 - 5.1 mmol/L) 2.1 *L Cancelled Chloride (98 - 107 mmol/L) 70 L Cancelled Carbon Dioxide (22 - 30 mmol/L) 43 H Cancelled Anion Gap (5 - 16) 9 Cancelled BUN (9 - 20 mg/dL) 25 H Cancelled Creatinine (0.7 - 1.2 mg/dL) 1.7 H Cancelled Estimated GFR (>60 ml/min) 46 L Glucose (65 - 99 mg/dL) 101 H Cancelled Lactic Acid (0.7 - 2.1 mmol/L) 5.9 H Calcium (8.4 - 10.2 mg/dL) 6.2 L Cancelled Phosphorus (2.5 - 4.5 mg/dL) 2.3 L Cancelled Magnesium (1.6 - 2.3 mg/dL) 1.5 L Cancelled Total Bilirubin (0.2 - 1.3 mg/dL) 3.4 H Cancelled AST (17 - 59 U/L) 224 H Cancelled ALT (21 - 72 U/L) 74 H Cancelled Creatine Kinase (55 - 170 U/L) 844 H Albumin (3.5 - 5.0 g/dL) 2.6 L Cancelled Hematology CBC w Diff NO MAN DIFF REQ Cancelled WBC (4.8 - 10.8 /CUMM) 11.6 H Cancelled RBC (4.70 - 6.10 /CUMM) 2.54 L Cancelled Hgb (14.0 - 18.0 G/DL) 7.4 *L Cancelled Hct (42 - 52 %) 22.7 L Cancelled MCV (80.0 - 94.0 FL) 89.3 Cancelled MCH (27.0 - 31.0 PG) 29.0 Cancelled RDW (11.5 - 14.5 %) 20.2 H Cancelled Plt Count (130 - 400 /CUMM) 44 L Cancelled MPV (7.4 - 10.4 FL) 11.0 H Cancelled Gran % (42.2 - 75.2 %) 83.2 H Lymphocytes % (20.5 - 51.1 %) 7.4 L Monocytes % (1.7 - 9.3 %) 9.3 Eosinophils % (0 - 5 %) 0 Basophils % (0.0 - 2.0 %) 0.1 Absolute Granulocytes (1.4 - 6.5 /CUMM) 9.6 H Absolute Lymphocytes (1.2 - 3.4 /CUMM) 0.9 L Absolute Monocytes (0.10 - 0.60 /CUMM) 1.1 H Absolute Eosinophils (0.0 - 0.7 /CUMM) 0 Absolute Basophils (0.0 - 0.2 /CUMM) 0 PUBS MCHC (33.0 - 37.0 G/DL) 32.5 L Cancelled 02/10 02/10 02/10 1255 1028 0955 Chemistry Sodium (137 - 145 mmol/L) 122 L Potassium (3.5 - 5.1 mmol/L) 1.9 *L Chloride (98 - 107 mmol/L) 69 L Carbon Dioxide (22 - 30 mmol/L) 38 H Anion Gap (5 - 16) 15 BUN (9 - 20 mg/dL) 24 H Creatinine (0.7 - 1.2 mg/dL) 2.0 H Estimated GFR (>60 ml/min) 38 L Glucose (65 - 99 mg/dL) 118 H Lactic Acid Cancelled Calcium (8.4 - 10.2 mg/dL) 6.2 L Phosphorus (2.5 - 4.5 mg/dL) 3.0 Magnesium (1.6 - 2.3 mg/dL) 1.5 L Total Bilirubin (0.2 - 1.3 mg/dL) 3.7 H AST (17 - 59 U/L) 260 H ALT (21 - 72 U/L) 75 H Albumin (3.5 - 5.0 g/dL) 2.7 L Hematology CBC w Diff NO MAN DIFF REQ WBC (4.8 - 10.8 /CUMM) 14.3 H RBC (4.70 - 6.10 /CUMM) 2.78 L Hgb (14.0 - 18.0 G/DL) 8.0 L Hct (42 - 52 %) 24.8 L MCV (80.0 - 94.0 FL) 89.2 MCH (27.0 - 31.0 PG) 28.7 RDW (11.5 - 14.5 %) 20.8 H Plt Count (130 - 400 /CUMM) 59 L MPV (7.4 - 10.4 FL) 10.8 H Gran % (42.2 - 75.2 %) 86.0 H Lymphocytes % (20.5 - 51.1 %) 6.1 L Monocytes % (1.7 - 9.3 %) 7.9 Eosinophils % (0 - 5 %) 0 Basophils % (0.0 - 2.0 %) 0 L Absolute Granulocytes (1.4 - 6.5 /CUMM) 12.3 H Absolute Lymphocytes (1.2 - 3.4 /CUMM) 0.9 L Absolute Monocytes (0.10 - 0.60 /CUMM) 1.1 H Absolute Eosinophils (0.0 - 0.7 /CUMM) 0 Absolute Basophils (0.0 - 0.2 /CUMM) 0 PUBS MCHC (33.0 - 37.0 G/DL) 32.2 L 05/05 05/05 0950 0820 Blood Gas pH (7.35 - 7.45 PH) 7.51 H pCO2 (35 - 45 TORR) 37 pO2 (80 - 100 TORR) 58 L HCO3 (21 - 28 MEQ/L) 29 H ABG O2 Sat (Measured) (>96.0 %) 84.0 L Carboxyhemoglobin (1.5 - 5.0 %) 2.1 O2 Concentration % 4L O2 Delivery Method NC Miscellaneous Phlebotomy Draw Site RIGHT RADIAL Toxicology Urine Opiates Screen (>2000 NG/ML) < 100.00 Methadone Screen (>300 NG/ML) < 40 Barbiturate Screen (>200 NG/ML) < 60 Ur Phencyclidine Scrn (>25 NG/ML) < 6.00 Amphetamines Screen (>1000 NG/ML) < 100 U Benzodiazepines Scrn (>200 NG/ML) < 85 Urine Cocaine Screen (>300 NG/ML) < 50 Urine Cannabis Screen (>50 NG/ML) 77.70 H Urines Urine Color (YEL,AMB,STR) SHANEKA Urine Clarity (CLEAR) CLDY H Urine pH (5.0 - 8.0) 6.0 Ur Specific [place] (1.001 - 1.035) 1.025 Urine Protein (NEG,<30 MG/DL) 100 H Urine Ketones (NEG) 15 H Urine Nitrite (NEG) NEG Urine Bilirubin (NEG) POS@ICTO H Urine Urobilinogen (0.1 - 1.0 EU/dl) 2.0 H Ur Leukocyte Esterase (NEG) MOD H Ur Microscopic SEDIMENT EXAMINED Urine RBC (0 - 5 /HPF) 25-50 H Urine WBC (0 - 2 /HPF) > 75 H Ur Epithelial Cells (NONE,FEW) FEW Urine Bacteria (NEG/NONE) PACKD H Urine Hemoglobin (NEG) LARGE H Urine Glucose (N MG/DL) NEG 02/10 02/10 02/10 0713 0713 0712 Blood Gas Bicarbonate Actual (22 - 26 MEQ/L) 33 H Mixed VBG pH (7.31 - 7.41 PH) 7.63 H Mixed VBG pCO2 (41 - 51 TORR) 63 H Mixed VBG O2 Saturation (35 - 45 TORR) 14 L Carboxyhemoglobin (1.5 - 5.0 %) 2.1 O2 Concentration % RA Temperature (97.0 - 100.0 FARH) 98.5 O2 Delivery Method RA Chemistry Sodium (137 - 145 mmol/L) 121 L Potassium (3.5 - 5.1 mmol/L) 2.3 *L Chloride (98 - 107 mmol/L) < 50 L Carbon Dioxide (22 - 30 mmol/L) 30 Anion Gap (5 - 16) > 41.0 H BUN (9 - 20 mg/dL) 26 H Creatinine (0.7 - 1.2 mg/dL) 2.9 H Estimated GFR (>60 ml/min) 25 L BUN/Creatinine Ratio (7 - 25 %) 9.0 Glucose (65 - 99 mg/dL) 115 H Lactic Acid (0.7 - 2.1 mmol/L) > 24.0 H Calcium (8.4 - 10.2 mg/dL) 8.5 Phosphorus (2.5 - 4.5 mg/dL) 5.4 H Magnesium (1.6 - 2.3 mg/dL) 1.6 Total Bilirubin (0.2 - 1.3 mg/dL) 4.0 H AST (17 - 59 U/L) 310 H ALT (21 - 72 U/L) 87 H Alkaline Phosphatase (< 127 U/L) 135 H Creatine Kinase (55 - 170 U/L) Cancelled 661 H Troponin I (<0.11 ng/ml) 0.06 Total Protein (6.3 - 8.2 g/dL) 8.1 Albumin (3.5 - 5.0 g/dL) 4.3 Globulin (1.9 - 4.2 gm/dL) 3.8 Albumin/Globulin Ratio (1.1 - 2.2 %) 1.1 Lipase (23 - 300 U/L) 497 H Coagulation PT (9.4 - 12.5 SEC) 15.1 H INR (0.90 - 1.17) 1.44 H APTT (25 - 37 SEC) 27 Hematology CBC w Diff MAN DIFF ORDERED WBC (4.8 - 10.8 /CUMM) 17.8 H RBC (4.70 - 6.10 /CUMM) 3.85 L Hgb (14.0 - 18.0 G/DL) 11.0 L Hct (42 - 52 %) 33.9 L MCV (80.0 - 94.0 FL) 88.2 MCH (27.0 - 31.0 PG) 28.6 RDW (11.5 - 14.5 %) 20.4 H Plt Count (130 - 400 /CUMM) 99 L MPV (7.4 - 10.4 FL) 11.4 H Gran % (42.2 - 75.2 %) 78.5 H Lymphocytes % (20.5 - 51.1 %) 8.7 L Monocytes % (1.7 - 9.3 %) 12.8 H Eosinophils % (0 - 5 %) 0 Basophils % (0.0 - 2.0 %) 0 L Absolute Granulocytes (1.4 - 6.5 /CUMM) 14.0 H Absolute Lymphocytes (1.2 - 3.4 /CUMM) 1.5 Absolute Monocytes (0.10 - 0.60 /CUMM) 2.3 H Absolute Eosinophils (0.0 - 0.7 /CUMM) 0 Absolute Basophils (0.0 - 0.2 /CUMM) 0 Platelet Estimate (ADEQUATE) DECREASED Normochromic RBCs VERIFIED Polychromasia Anisocytosis 1+ PUBS MCHC (33.0 - 37.0 G/DL) 32.4 L Miscellaneous Phlebotomy Draw Site LAC Toxicology Serum Alcohol (<10 MG/DL) Cancelled 104.0
[2017-02-12 20:43] LABS: ABSOLUTE BASOPHIL COUNT 0 /CUMM (0.0-0.2); ABSOLUTE EOSINOPHIL COUNT 0.2 /CUMM (0.0-0.7); ABSOLUTE GRANULOCYTE CT 3.1 /CUMM (1.4-6.5); ABSOLUTE LYMPH COUNT 0.4 /CUMM (1.2-3.4); ABSOLUTE MONOCYTE COUNT 0.4 /CUMM (0.10-0.60); BASOPHIL % 0.2 % (0.0-2.0); EOSINOPHIL % 4.4 % (0-5); GRANULOCYTE % 74.6 % (42.2-75.2); HEMATOCRIT 25.6 % (42-52); MEAN CORPUSCULAR HGB 29.2 PG (27.0-31.0); MEAN CORPUSCULAR HGB CONC 32.7 G/DL (33.0-37.0); MEAN CORPUSCULAR VOLUME 89.1 FL (80.0-94.0); MEAN PLATELET VOLUME 8.4 FL (7.4-10.4); RBC DISTRIBUTION WIDTH 18.7 % (11.5-14.5); RED BLOOD CELL CT 2.87 /CUMM (4.70-6.10)
[2017-02-12 21:12] LABS: PLATELET COUNT 45 /CUMM (130-400); WHITE BLOOD CELL COUNT 4.1 /CUMM (4.8-10.8)
[2017-02-13] VITALS (11 sets, daily range): BP systolic 84–128; BP diastolic 45–75
[2017-02-13 05:22] LABS: ABSOLUTE BASOPHIL COUNT 0 /CUMM (0.0-0.2); ABSOLUTE EOSINOPHIL COUNT 0.2 /CUMM (0.0-0.7); ABSOLUTE GRANULOCYTE CT 2.6 /CUMM (1.4-6.5); ABSOLUTE LYMPH COUNT 0.5 /CUMM (1.2-3.4); ABSOLUTE MONOCYTE COUNT 0.5 /CUMM (0.10-0.60); BASOPHIL % 1.1 % (0.0-2.0); EOSINOPHIL % 4.5 % (0-5); GRANULOCYTE % 68.3 % (42.2-75.2); HEMATOCRIT 25.7 % (42-52); MEAN CORPUSCULAR HGB 29.2 PG (27.0-31.0); MEAN CORPUSCULAR HGB CONC 32.8 G/DL (33.0-37.0); MEAN CORPUSCULAR VOLUME 89.3 FL (80.0-94.0); MEAN PLATELET VOLUME 8.4 FL (7.4-10.4); PLATELET COUNT 58 /CUMM (130-400); RBC DISTRIBUTION WIDTH 18.8 % (11.5-14.5); RED BLOOD CELL CT 2.88 /CUMM (4.70-6.10); WHITE BLOOD CELL COUNT 3.8 /CUMM (4.8-10.8)
--- NOTE | 2017-02-13 07:05 | PN- Resident CRCU ---
See Addendum Subjective HPI/CRCU Issues: Mr. Woo seen and examined at bedside this AM. He remained lethargic. He had a bedside swallow eval this AM and passed- will be started on pureed and thins. Exam and review of systems limited secodary to clinical condition and confusion. 24 Hour Events: Patient continues sedation on ativan drip. No reported overnight events. Objective Vital Signs & I&O Last 8 Hrs of Vitals and I&O: Intake & Output 02/13 1600 Intake Total 1325 Output Total 1150 Balance 175 Intake, IV 1325 Intake, Oral 0 Number 0 Bowel Movements Output, Urine 1150 Exam General Appearance: well developed/nourished, no apparent distress Head: atraumatic, normal appearance Ears, Nose, Throat: normal pharynx Neck: normal inspection Respiratory: normal breath sounds, chest non-tender, no respiratory distress, quiet respiration Cardiovascular: regular rate/rhythm Gastrointestinal: normal bowel sounds, soft, non-tender Extremities: normal inspection Cranial Nerves: normal hearing Skin: intact Skin Temp/Moisture Exam: Warm/Dry Current Medications: Current Medications Sig/Olivia Start time Last Medication Dose Route Stop Time Status Admin Ciprofloxacin 400 MG Q12H 02/10 1200 DC 02/12 Dextrose/Water 200 ML IV 2320 Cyanocobalamin/ 1 BAG DAILY 02/10 1041 AC 02/13 Thiamine/Pyridoxine IV 1052 Sodium Chloride 1,000 ML Lorazepam 100 MG Q16H /08 1100 AC / Dextrose/Water 1,000 ML IV 1051 Lorazepam 100 MG Q20H / 1700 DC 02/12 Sodium Chloride 1,000 ML IV 1739 Magnesium Sulfate 1 GM ONCE ONE 02/13 0945 DC 02/13 Dextrose/Water 100 ML IV 02/13 1344 0959 Metronidazole 500 MG IQ8 / 1600 DC 08 N/A 1 UNIT IV 0858 Nicotine 21 MG DAILY 02/11 1000 DC / TOP 0901 Pantoprazole Sodium 40 MG DAILY 02/13 1000 AC / IV 0902 Potassium Chloride 40 MEQ Q13H 02/13 0900 DC Sodium Chloride 1,000 ML IV Potassium Chloride 10 MEQ Q1H 02/13 0745 DC /08 IV 02/13 0846 1053 Potassium Chloride 20 MEQ Q1H 02/13 0730 DC IV 02/13 0831 Potassium Chloride 10 MEQ Q1H 05/07 1845 DC 05/07 IV 05/07 1946 2034 Potassium Chloride 40 MEQ Q13H /07 1730 DC 05/07 Sodium Chloride 1,000 ML IV 2333 Potassium Chloride 40 MEQ Q8H / 1315 DC 05/06 Sodium Chloride 1,000 ML IV 2215 Potassium Chloride 20 MEQ BID 05/05 1000 AC 05/07 PO 1000 Trimethobenzamide HCl 200 MG TID PRN 02/10 1630 AC 05/ IM 1710 CXR Findings: IMPRESSION: - No acute cardiopulmonary abnormality. - Moderate sized hiatal hernia. CT Scan Findings: Head CT: IMPRESSION: 1. There are no acute intracranial findings. 2. There is a right parietal scalp contusion. Abdomen/pelvis CT: IMPRESSION: 1. Chronic and/or recurrent sigmoid colon diverticulitis and associated colovesical fistula. The persistent extraluminal gas overlying the bladder dome could be located within the fistula tract and/or within a chronic, small abscess cavity; this remains similar in appearance compared to 01/02/2017. 2. Diffuse hepatic steatosis and hepatosplenomegaly. Note that hepatic steatosis can be due to alcoholic and/or nonalcoholic etiologies. 3. Moderate-to large hiatal hernia. Impression/Plan Impression/Problem List Impression: Mr. Woo is a 36 year old male with PMH schizophrenia, chronic alcoholism, alcoholic hepatitis, alcoholic cardiomyopathy, polydipsia, chronic colovesicle fistula, multiple admissions with electrolyte abnormalities (hyponatremia, hypokalemia, metabolic alkalosis), seizures and GI bleed who presents with weakness, dizziness and hematemesis found to have severe electrolyte abnormalities. Patient is currently in the ICU for the following issues: Respiratory 1. Mechanical ventilation * Patient remains critically ill, continue mechanical ventilation * Ativan for sedation, decrease to 5 mg/hr by tomorrow * Ativan boluses as needed as we come down on drip * F/U CXR in AM Infectious 1. Leukocytosis with + urine culture * Resolved, WBC this AM 3.8 * Though patient has + urine cultures, unable to obtain symptoms from the patient at this time given his clinical condition * ID consult appreciated, suggested this may be 2/2 chronic colonization from colovesicle fistula * I have discussed this case with Dr. Zeny MD in regards to CT findings suggesting colovesicle fistula and colonoscopy without such findings- she suggested we may consider CT with rectal contrast (water soluble). Will order in AM when radiologist present. * Hold off antibiotics at this time * BC x 2 show no growth to date Cardiac 1. Cardiomyopathy with preserved ejection fraction * Hemodynamically stable * Tele monitoring to continue Heme 1. Hematemsis, resolving * Likely 2/2 erosive gastritis vs dirk friend tear * GI consult appreciated, notify them with any overt GI bleed * Continue IV protonix daily * Avoid NSAIDS * Periodic LFTs * Continue banana bag daily with MV, foliac acid, thiamine 2. Anemia * Likely 2/2 both GI losses and chronic ETOH abuse * Type and screen sent * Trend CBC, transfuse if Hgb<7 Metabolic 1. STEPHANIE and electrolyte disturbances, including hyponatremia/hypokalemia/ hypophosphatemia * STEPHANIE prerenal (hypotension/dehydration) and has resolved, monitor BEP daily * Hyponatremia likely 2/2 volume contraction and possibly secondary to ADH secretion from psychoactive medications, slowly improving * IVF resuscitation and trend labs * K again low to 3.4 today, s/p repletion, monitor frequently 2. Metabolic alkalosis with lactic acidosis * 2/2 volume contraction with hypotension on admission * Improved * Nephro rec's appreciated * Continue to monitor ICU bundle frequently 4. ETOH abuse and hepatitis * IV fluids including banana bag * CIWA protocol * Appreciate GI input Alimentary * Patient s/p swallow eval today, passed * Regular diet with puree and thins Neuro 1. Suicidaility * PEC in chart * Continue to follow psych recommendations * 1:1 sitter to continue * Patient continues on ativan, will decrease to 5 mg/h for tomorrow 2. Schizophrenia * Risperidone Consta 37.5 mg to be ordered for 02/10/17 Skin * Continue repositioning while on mechanical ventilation FULL CODE DVTP: ALPS Mild pain pathway Diet: puree and regular Problem List: 1. Lactic acid acidosis 2. Hyperchloremic metabolic acidosis 3. GI bleed 4. Bladder mass 5. Schizophrenia 6. Colovesical fistula 7. Alcohol intoxication delirium 8. Cannabis abuse 9. STEPHANIE (acute kidney injury) 10. Esophagitis 11. Alcohol abuse 12. Alcoholic hepatitis 13. Polysubstance abuse Pain Ratin Tomorrow's Labs & Rationales: CBC (monitor WBC, anemia) ICU bundle (monitor hyponatremia) Plan DVT/Prophylaxis: mechanical
--- NOTE | 2017-02-13 09:37 | PN- CRCU ---
Subjective HPI/Critical Care Issues: Sedated on the Ativan drip Slowly improving Afebrile On 2 L nasal cannula saturating 96% Adequate urine output noted patient is negative by 2 L Patient has been adequately fluid resuscitated appears to be euvolemic Was sleepy did not offer any other complaints SIGNIFICANT DATA Chest x-ray showed hiatal hernia few days ago Abdominal CT showed features suggestive of colovesicular fistula hepatic steatosis Other blood work reviewed potassium 3.4 liver enzymes are elevated total bilirubin is still 5.4 his previous CPK has been slightly high White count 3.8 hemoglobin 8.4 which has been stable platelets are low we will INR was 1.49 before previous ABG reviewed Objective Current Medications: Current Medications Sig/Olivia Start time Last Medication Dose Route Stop Time Status Admin Ciprofloxacin 400 MG Q12H 02/10 1200 AC 02/12 Dextrose/Water 200 ML IV 2320 Cyanocobalamin/ 1 BAG DAILY 02/10 1041 AC / Thiamine/Pyridoxine IV 1549 Sodium Chloride 1,000 ML Lorazepam 100 MG Q20H / 1700 AC 05/ Sodium Chloride 1,000 ML IV 1739 Lorazepam 100 MG Q24H / 1715 DC 05/06 Sodium Chloride 1,000 ML IV 1755 Metronidazole 500 MG IQ8 / 1600 AC 05/08 N/A 1 UNIT IV 0858 Nicotine 21 MG DAILY / 1000 AC /08 TOP 0901 Pantoprazole Sodium 40 MG DAILY /08 1000 AC /08 IV 0902 Pantoprazole Sodium 40 MG BID / 2250 DC 05/07 IV 0808 Potassium Chloride 40 MEQ Q13H /08 0900 AC Sodium Chloride 1,000 ML IV Potassium Chloride 10 MEQ Q1H / 0745 DC IV / 0846 Potassium Chloride 20 MEQ Q1H /08 0730 DC IV / 0831 Potassium Chloride 10 MEQ Q1H /07 1845 DC 05/07 IV / 1946 2034 Potassium Chloride 40 MEQ Q13H /07 1730 DC 05/07 Sodium Chloride 1,000 ML IV 2333 Potassium Chloride 40 MEQ Q8H 05/05 1315 DC 05/06 Sodium Chloride 1,000 ML IV 2215 Potassium Chloride 20 MEQ BID 05/05 1000 AC 05/07 PO 1000 Sodium Phosphate 15 mMol ONE ONE 02/12 0815 DC 05/07 Sodium Chloride 250 ML IV 05/ 1218 1057 Trimethobenzamide HCl 200 MG TID PRN 02/10 1630 AC 02/10 IM 1710 Vital Signs & I&O Last 24 Hrs of Vitals and I&O: Vital Signs Date Time Temp Pulse Resp B/P B/P Pulse O2 O2 Flow FiO2 Mean Ox Delivery Rate 02/13 0600 71 18 127/68 02/13 0400 98.0 84 24 112/60 02/13 0400 95 Nasal 2.0L Cannula 02/13 0200 98 26 120/75 02/13 0145 98.0 108 22 128/70 02/13 0145 94 Nasal 2.0L Cannula 02/13 0145 98.0 108 22 128/70 94 Nasal 2.0L Cannula 02/12 2200 98.4 90 28 115/60 02/12 2000 98.4 112 30 11/78 02/12 2000 95 Nasal 2.0L Cannula 02/12 1800 101 24 116/77 02/12 1600 98.6 99 24 104/65 02/12 1600 98.6 99 24 100/70 96 Nasal 2.0L Cannula 02/12 1600 96 Nasal 2.0L Cannula 02/12 1400 95 24 92/49 02/12 1200 97.8 104 24 108/62 02/12 1200 97 Nasal 2.0L Cannula 02/12 1100 100 24 100/57 0507 1000 102 22 112/72 Intake & Output 02/13 1600 02/13 0800 02/13 0000 Intake Total 951 1520 Output Total 1750 2150 Balance -799 -630 Intake, IV 951 1520 Output, Urine 1750 2150 Patient 178 lb Weight Impression/Plan Impression/Plan Impression/Plan: General Appearance: no apparent distress, alert, anxious, lethargic Head: atraumatic, normal appearance Respiratory: normal breath sounds, chest non-tender, no respiratory distress, quiet respiration, lungs clear Cardiovascular: regular rate/rhythm Gastrointestinal: normal bowel sounds, soft, non-tender Extremities: normal capillary refill, Bilaterral Upper Extremity Edema Cranial Nerves: normal hearing Skin: intact 36-year-old man with background of alcoholism, alcoholic hepatitis, schizophrenia, polydipsia among other problems as noted above, with history of recurrent admissions for acute kidney injury and multiple electrolyte disturbances. He now comes in with the same series of events preceded by alcohol intake, nausea, vomiting and very high free water intake Issues include SIg electrolyte abnormality due to multiple factors improving Sig etoh use with etoh hepatitis Sig etoh with ongoing DT Resolved Severe acidosis with combined metabolic alkalosis with profound hypokalemia due to polydipsia free water with worsening hyponatremia due to persistent ADH secretion related to his psychoactive medications Resolved Acute renal failure Significant schizophrenia with multiple issues Recent suspicion for a colovesicular fistula but the patient did have evaluation and patient did have a biopsy of the bladder which was nonrevealing. GI is following Hiatal hernia Significant hepatomegaly with ongoing alcoholism prior to admission Recurrent urinary tract infection with multiple gram-negative organisms now with citrobacter Previous history of cardiomyopathy with preserved ejection fraction PLAN Continue Ativan, and reduce drip by one mg q 8 hrs, ok to use ativan boluses when needed but decrease the dose Aggressively replace magnesium and potassium When more awake swallow eval DC ivf except the ativan drip which can prob go with d5 normal saline if possible REplace mag DC nicotine patch DC abx and ask ID to see pt Pt still critically ill tts40 mins
--- NOTE | 2017-02-13 11:42 | PN- Psychiatry ---
Assessment/Plan Impression: Identifying Info: 36-year-old single conserved male well-known to this service presents to [facility] emergency department by ambulance on 02/10/2017 with a question of GI bleed. Subsequently found to have an STEPHANIE with metabolic acidosis as well as severe electrolyte abnormalities and transferred to critical care unit. SUBJECTIVE (pt is sedated) Collateral information obtained from the patient's mother Merly Woo ). She reports the patient is due for his next consta shot on 02/20/2015. She reports in terms of mood and functioning this is the worst she is ever seen her son "every time he gets worse" he was refusing to go to meetings at [facility] and he expressed to her the wish to . 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 Brief ROS Gait: Unobserved Sleep: Adequate Appetite: Did not assess OBJECTIVE Mental Status Exam Presentation/Appearance: Lying in hospital bed, sedated, 4 point soft wrist restraints and posy vest in place. Orientation: ESE Sensorium: Sedated Eye contact: None Affect: Flat Mood: ESE, per staff report aggitated Depression: ESE Anxiety: ESE Thought Content: - Per reports SI - ESE Thought Process: Poverty of content at present Associations: ESE Speech:None Judgment: Impaired Insight: Impaired Cognition: Memory: ESE Attention/Concentration: ESE Fund of Knowledge: ESE Abstractions:ESE MMSE: ESE Per nursing report the patient has been stable now on Ativan 6mg/hr. No actue concerns. ASSESSMENT 36-year-old single conserved male well-known to this service with a history of similar presentations today reported to be experiencing suicidality. While the patient presently denies it his suicidality is confirmed by his outpatient care providers who state the patient has been actively trying to kill himself by consuming alcohol and not eating. This is a departure from his baseline and normal presentation. At present he represents a serious threat to self and may be gravely disabled as well which necessitates psychiatric hospitalization once medically stable. His treaters are planning to find the patient long-term placement. Differential diagnosis Schizophrenia Polydipsia Alcohol use disorder, severe Cannabis use disorder Suggestion: 1. Stable at current ativan dose. Plan to reduce by 20% daily. 6/mg/hr at present plan to reduce gradually to 5mg/hr for tomorrow. 2. Please order Risperidone Consta 37.5mg for Monday02/20/17. 3. Continue 1:[address] Patient may not leave hospital AMA without psychiatric clearance. Plan for inpatient psychiatry. 5. Continue CIWA protocol. Thank you for including psychiatry in this case we'll continue to follow. Subjective Subjective: as above Objective Last 24 Hrs of Vital Signs/I&O Current Medications Sig/Olivia Start time Last Medication Dose Route Stop Time Status Admin Ciprofloxacin 400 MG Q12H 02/10 1200 DC 02/12 Dextrose/Water 200 ML IV 2320 Cyanocobalamin/ 1 BAG DAILY 02/10 1041 AC / Thiamine/Pyridoxine IV 1052 Sodium Chloride 1,000 ML Lorazepam 100 MG Q16H / 1100 AC / Dextrose/Water 1,000 ML IV 1051 Lorazepam 100 MG Q20H / 1700 DC 05/ Sodium Chloride 1,000 ML IV 1739 Lorazepam 100 MG Q24H / 1715 DC 05/ Sodium Chloride 1,000 ML IV 1755 Magnesium Sulfate 1 GM ONCE ONE 02/13 0945 AC / Dextrose/Water 100 ML IV / 1344 0959 Metronidazole 500 MG IQ8 / 1600 DC 05/08 N/A 1 UNIT IV 0858 Nicotine 21 MG DAILY / 1000 DC /08 TOP 0901 Pantoprazole Sodium 40 MG DAILY / 1000 AC / IV 0902 Pantoprazole Sodium 40 MG BID / 2250 DC 05/ IV 0808 Potassium Chloride 40 MEQ Q13H / 0900 DC Sodium Chloride 1,000 ML IV Potassium Chloride 10 MEQ Q1H 02/13 0745 DC 02/13 IV 02/13 0846 1053 Potassium Chloride 20 MEQ Q1H 02/13 0730 DC IV 02/13 0831 Potassium Chloride 10 MEQ Q1H /07 1845 DC 05/ IV 02/12 1946 2034 Potassium Chloride 40 MEQ Q13H / 1730 DC 05/ Sodium Chloride 1,000 ML IV 2333 Potassium Chloride 40 MEQ Q8H /05 1315 DC 05/ Sodium Chloride 1,000 ML IV 2215 Potassium Chloride 20 MEQ BID 05/05 1000 AC 05/07 PO 1000 Sodium Phosphate 15 mMol ONE ONE 02/12 0815 DC 02/12 Sodium Chloride 250 ML IV 02/12 1218 1057 Trimethobenzamide HCl 200 MG TID PRN 02/10 1630 AC 02/10 IM 1710 Laboratory Tests 02/13/17 0400: Anion Gap 8, Estimated GFR > 60, Glucose 78, Calcium 7.3 L, Phosphorus 2.2 L, Magnesium 1.6, Total Bilirubin 5.4 H, Direct Bilirubin 3.8 H, AST 228 H, ALT 81 H, Alkaline Phosphatase 114, Total Protein 5.7 L, Albumin 2.5 L, CBC w Diff NO MAN DIFF REQ, RBC 2.88 L, MCV 89.3, MCH 29.2, RDW 18.8 H, MPV 8.4, Gran % 68.3, Lymphocytes % 14.2 L, Monocytes % 11.9 H, Eosinophils % 4.5, Basophils % 1.1, Absolute Granulocytes 2.6, Absolute Lymphocytes 0.5 L, Absolute Monocytes 0.5, Absolute Eosinophils 0.2, Absolute Basophils 0, PUBS MCHC 32.8 L 02/12/17 2030: CBC w Diff NO MAN DIFF REQ, RBC 2.87 L, MCV 89.1, MCH 29.2, RDW 18.7 H, MPV 8.4, Gran % 74.6, Lymphocytes % 10.7 L, Monocytes % 10.1 H, Eosinophils % 4.4, Basophils % 0.2, Absolute Granulocytes 3.1, Absolute Lymphocytes 0.4 L, Absolute Monocytes 0.4, Absolute Eosinophils 0.2, Absolute Basophils 0, PUBS MCHC 32.7 L 02/12/17 1615: Anion Gap 8, Estimated GFR > 60, Glucose 78, Calcium 7.2 L, Phosphorus 2.5, Magnesium 1.9, Total Bilirubin 4.4 H, AST 262 H, ALT 85 H, Albumin 2.5 L 02/12/17 1515: Urinalysis LIGHT H, Urine Color YEL, Urine Clarity CLEAR, Urine pH 7.5, Ur Specific [place] 1.015, Urine Protein NEG, Urine Ketones NEG, Urine Nitrite NEG, Urine Bilirubin NEG, Urine Urobilinogen 1.0, Ur Leukocyte Esterase TRACE H, Ur Microscopic SEDIMENT EXAMINED, Urine RBC 3-5, Urine WBC RARE, Urine Bacteria FEW H, Urine Hemoglobin TRACE-INTACT H, Urine Glucose NEG 02/12/17 0415: Anion Gap 8, Estimated GFR > 60, Glucose 84, Calcium 6.7 L, Phosphorus 2.0 L, Magnesium 2.2, Total Bilirubin 3.9 H, AST 232 H, ALT 73 H, Creatine Kinase 533 H, Albumin 2.4 L, CBC w Diff NO MAN DIFF REQ, RBC 2.88 L, MCV 89.3, MCH 29.1, RDW 19.0 H, MPV 8.8, Gran % 59.4, Lymphocytes % 22.9, Monocytes % 12.7 H , Eosinophils % 4.3, Basophils % 0.7, Absolute Granulocytes 2.1, Absolute Lymphocytes 0.8 L, Absolute Monocytes 0.4, Absolute Eosinophils 0.1, Absolute Basophils 0, PUBS MCHC 32.6 L 02/11/17 2230: Sodium Cancelled, Potassium Cancelled, Chloride Cancelled, Carbon Dioxide Cancelled, Anion Gap Cancelled, BUN Cancelled, Creatinine Cancelled, Glucose Cancelled, Calcium Cancelled, Phosphorus Cancelled, Magnesium Cancelled, Total Bilirubin Cancelled, AST Cancelled, ALT Cancelled, Albumin Cancelled 02/11/17 1830: Sodium Cancelled, Potassium Cancelled, Chloride Cancelled, Carbon Dioxide Cancelled, Anion Gap Cancelled, BUN Cancelled, Creatinine Cancelled, Glucose Cancelled, Calcium Cancelled, Phosphorus Cancelled, Magnesium Cancelled, Total Bilirubin Cancelled, AST Cancelled, ALT Cancelled, Albumin Cancelled 02/11/17 1645: Anion Gap 9, Estimated GFR > 60, Glucose 75, Calcium 6.7 L, Phosphorus 1.0 L, Magnesium 2.2, Total Bilirubin 4.5 H, AST 242 H, ALT 69, Albumin 2.6 L 02/11/17 1020: Anion Gap 7, Estimated GFR > 60, Glucose 72, Calcium 6.5 L, Phosphorus 0.7 *L, Magnesium 2.2, Total Bilirubin 4.0 H, AST 209 H, ALT 70, Creatine Kinase 890 H, Albumin 2.4 L, PT 15.6 H, INR 1.49 H, APTT 27, CBC w Diff NO MAN DIFF REQ, RBC 2.88 L, MCV 87.9, MCH 29.1, RDW 18.8 H, MPV 9.7, Gran % 75.2, Lymphocytes % 10.9 L, Monocytes % 12.2 H, Eosinophils % 1.5, Basophils % 0.2, Absolute Granulocytes 4.2, Absolute Lymphocytes 0.6 L, Absolute Monocytes 0.7 H, Absolute Eosinophils 0.1, Absolute Basophils 0, [facility] MCHC 33.1 02/11/17 0615: Anion Gap 8, Estimated GFR > 60, Glucose 81, Calcium 6.3 L, Phosphorus 1.0 L, Magnesium 2.2, Total Bilirubin 3.9 H, AST 199 H, ALT 66, Albumin 2.4 L, TSH 1.160, Free T4 1.85, CBC w Diff NO MAN DIFF REQ, RBC 2.82 L, MCV 87.3, MCH 29.2 , RDW 19.0 H, MPV 9.4, Gran % 80.2 H, Lymphocytes % 8.2 L, Monocytes % 10.6 H, Eosinophils % 0.9, Basophils % 0.1, Absolute Granulocytes 5.5, Absolute Lymphocytes 0.6 L, Absolute Monocytes 0.7 H, Absolute Eosinophils 0.1, Absolute Basophils 0, [facility] MCHC 33.5 02/11/17 0129: Anion Gap 5, Estimated GFR > 60, Glucose 97, Calcium 6.2 L, Phosphorus 1.5 L, Magnesium 2.3, Total Bilirubin 3.6 H, AST 182 H, ALT 62, Albumin 2.3 L, CBC w Diff NO MAN DIFF REQ, RBC 2.52 L, MCV 86.0, MCH 28.3, RDW 19.4 H, MPV 9.4, Gran % 82.5 H, Lymphocytes % 6.9 L, Monocytes % 10.2 H, Eosinophils % 0.4, Basophils % 0 L, Absolute Granulocytes 7.5 H, Absolute Lymphocytes 0.6 L, Absolute Monocytes 0.9 H, Absolute Eosinophils 0, Absolute Basophils 0, [facility] MCHC 32.9 L 02/10/172155: Lactic Acid Cancelled 02/10/172129: Anion Gap 7, Estimated GFR 57 L, Glucose 90, Lactic Acid 1.6, Calcium 6.2 L, Phosphorus 1.4 L, Magnesium 1.5 L, Total Bilirubin 3.6 H, AST 204 H, ALT 72, Albumin 2.6 L, CBC w Diff NO MAN DIFF REQ, RBC 2.39 L, MCV 87.0, MCH 28.5, RDW 20.3 H, MPV 10.9 H, Gran % 84.7 H, Lymphocytes % 6.8 L, Monocytes % 8.4, Eosinophils % 0.1, Basophils % 0 L, Absolute Granulocytes 9.3 H, Absolute Lymphocytes 0.7 L, Absolute Monocytes 0.9 H, Absolute Eosinophils 0, Absolute Basophils 0, PUBS MCHC 32.8 L 02/10/17 1655: Anion Gap 9, Estimated GFR 46 L, Glucose 101 H, Calcium 6.2 L, Phosphorus 2.3 L, Magnesium 1.5 L, Total Bilirubin 3.4 H, AST 224 H, ALT 74 H, Creatine Kinase 844 H, Albumin 2.6 L, CBC w Diff NO MAN DIFF REQ, RBC 2.54 L, MCV 89.3 , MCH 29.0, RDW 20.2 H, MPV 11.0 H, Gran % 83.2 H, Lymphocytes % 7.4 L, Monocytes % 9.3, Eosinophils % 0, Basophils % 0.1, Absolute Granulocytes 9.6 H, Absolute Lymphocytes 0.9 L, Absolute Monocytes 1.1 H, Absolute Eosinophils 0, Absolute Basophils 0, PUBS MCHC 32.5 L 02/10/17 1500: Sodium Cancelled, Potassium Cancelled, Chloride Cancelled, Carbon Dioxide Cancelled, Anion Gap Cancelled, BUN Cancelled, Creatinine Cancelled, Glucose Cancelled, Calcium Cancelled, Phosphorus Cancelled, Magnesium Cancelled, Total Bilirubin Cancelled, AST Cancelled, ALT Cancelled, Albumin Cancelled, CBC w Diff Cancelled, WBC Cancelled, RBC Cancelled, Hgb Cancelled, Hct Cancelled, MCV Cancelled, MCH Cancelled, RDW Cancelled, Plt Count Cancelled, MPV Cancelled, PUBS MCHC Cancelled 02/10/17 1255: Lactic Acid 5.9 H 02/10/17 1255: Anion Gap 15, Estimated GFR 38 L, Glucose 118 H, Calcium 6.2 L, Phosphorus 3.0, Magnesium 1.5 L, Total Bilirubin 3.7 H, AST 260 H, ALT 75 H, Albumin 2.7 L Microbiology 02/12 0000 URINE ROUT: Urine Culture - RES 02/10 1140 UPPER RESP: Surveillance Culture - COMP Vital Signs Date Time Temp Pulse Resp B/P B/P Pulse O2 O2 Flow FiO2 Mean Ox Delivery Rate 02/13 1000 98.0 89 25 84/45 02/13 0800 97.4 90 24 108/61 02/13 0800 97.4 90 24 110/70 98 Nasal 2.0L Cannula 05/08 0600 71 18 127/68 05/08 0400 98.0 84 24 112/60 05/08 0400 95 Nasal 2.0L Cannula 05/08 0200 98 26 120/75 05/08 0145 98.0 108 22 128/70 05/08 0145 94 Nasal 2.0L Cannula 05/08 0145 98.0 108 22 128/70 94 Nasal 2.0L Cannula 05/07 2200 98.4 90 28 115/60 05/07 2000 98.4 112 30 11/78 05/07 2000 95 Nasal 2.0L Cannula 05/07 1800 101 24 116/77 05/07 1600 98.6 99 24 104/65 05/07 1600 98.6 99 24 100/70 96 Nasal 2.0L Cannula 05/07 1600 96 Nasal 2.0L Cannula 05/07 1400 95 24 92/49 05/07 1200 97.8 104 24 108/62 05/07 1200 97 Nasal 2.0L Cannula Intake & Output /08 1600 05/08 0800 05/08 0000 Intake Total 951 1520 Output Total 1750 2150 Balance -799 -630 Intake, IV 951 1520 Output, Urine 1750 2150 Patient 178 lb Weight
--- NOTE | 2017-02-13 15:36 | Cons- Infect Disease ---
General Information and HPI Consulting Request Date of Consult: 02/13/17 Requested By: UMANG CARPENTER,DELPHINE Santana Reason for Consult: Rule out colovesical fistula Source of Information: old records Exam Limitations: not alert/orientated, clinical condition, confusion History of Present Illness: This is a 36-year-old man with a history of schizophrenia, alcohol abuse, with serial CT scans dating back at least 4 years revealing sigmoid diverticulosis with a suspicion of a fistula between the proximal and distal sigmoid colon and a colovesical fistula, with a colonoscopy 3 years prior to negative for any fistula and with a cystoscopy/TURBT, performed 6 weeks prior to admission, during his most recent hospitalization, revealing a solid sessile bladder mass ( with pathology revealing chronic inflammation) with no evidence for a fistula and with multiple hospitalizations for electrolyte abnormalities, most recently 6 weeks prior to admission, at which time he was treated with a one week course of Ceftriaxone and Flagyl, admitted on February 10 following a fall with an episode of hematemesis and complaints of dizziness. On admission he was afebrile. Blood pressure 81/43. He was guaiac positive. Laboratory data revealed a white blood cell count of 18,000, platelets 99,000, BUN/creatinine 26 and 2.9, sodium 121, potassium 2.3, lactic acid greater than 24, lipase 497, bilirubin 4.0, alk phosphatase 135, AST/ALT 310 and 87, CPK 661, alcohol level 104, INR 1.44. Urinalysis 25-50 RBC/greater than 75 WBCs. Chest x-ray was negative. CT of the head was negative for any acute process. CT of the abdomen and pelvis revealed a chronic/recurrent sigmoid colon diverticulitis and associated colovesical fistula, with persistent extraluminal gas overlying the bladder dome; diffuse hepatic steatosis and hepatomegaly were also noted. He was given fluids under the direction of Nephrology, with correction of his electrolytes. He was transfused and evaluated by GI, with no intervention felt necessary. He was begun on Ciprofloxacin and Flagyl. His condition has overall improved. He has remained afebrile and his white blood cell count normalized by the evening of admission. At present he remains disoriented and is unable to provide any history. Allergies/Medications Allergies: Coded Allergies: shrimp (BLACKED OUT PER PT 01/22/16) Home Med List: Folic Acid 1 MG TABLET 1 MG PO AT BEDTIME SUPPLEMENT Magnesium Oxide (Magnesium) 400 MG CAPSULE 1 CAP PO BID hypomagnesemia . Multivitamin (One Daily Multivitamin) 1 EACH TABLET 1 TAB PO AT BEDTIME SUPPLEMENT Potassium Chloride 20 MEQ TAB.ER.PRT 1 TAB PO DAILY hypokalemia Risperidone Microspheres (Risperdal Consta) 37.5 MG/2 ML SYRINGE 1 SYR IM Q2W SCHIZOPHRENIA (Reported) Thiamine HCl (Vitamin B-1) 100 MG TABLET 100 MG PO AT BEDTIME SUPPLEMENTS Past History Travel History Traveled to [place] past 21 day No Medical History Blood Transfusion Hx: No Neurological: seizure (during alcohol detox) EENT: NONE Cardiovascular: alcoholic cardiomyopathy stage II Respiratory: history of aspiration pneumonia Gastrointestinal: alcoholic hepatitis, GERD, hiatal hernia, upper GI bleed Hepatic: ALCOHOLIC LIVER DISEASE Renal: NONE Musculoskeletal: NONE Psychiatric: alcohol dependence, anxiety, depression, substance abuse, SCHIZOPHRENIA alcohol abuse Endocrine: psychogenic polydipsia HYPOKALEMIA, HYPOMAGNESEMIA, HYPONATREMIA hypoK+, hypoNa, hypoMg hx hyponatremia hx hypokalemia Blood Disorders: anemia, coagulopathy (intermittent), thrombocytopenia ( intermittent) Cancer(s): NONE COLLECTION MANAGER/Reproductive: N/A Other Medical Hx: Hypokalemia and hypomagnesemia History of MRSA: No History of VRE: Yes History of CDIFF: No Isolation History: Contact Tetanus Vaccine: 05/15/13 Surgical History Surgical History: cholecystectomy Family History Relations & Conditions If Any: FATHER, , Age 27; Cause: Heroin overdose. MOTHER (diabetic). Age 60+. SISTER (healthy). Psychosocial History Where Do You Live? Home Who Do You Live With? spouse (mother), parent Services at Home: Nursing Primary Language: Lithuanian Smoking Status: Current Everyday Smoker ETOH Use: heavy use Illicit Drug Use: marijuana Living Will? no Power of B2B Sales Manager/HCP? yes Name of POA/HCP: Pt's motherMerly [phone] Functional Ability ADLs Independent: dressing, eating, toileting, bathing. Ambulation: independent IADLs Needs Assist: shopping, housework, finances, food prep, telephone, transportation, medication admin. Review of Systems Comments Unobtainable Exam & Diagnostic Data Last 24 Hrs of Vital Signs/I&O Vital Signs Date Time Temp Pulse Resp B/P B/P Pulse O2 O2 Flow FiO2 Mean Ox Delivery Rate 05/08 1400 98.3 76 22 93/50 05/ 1200 98.3 112 33 110/70 05/ 1200 92 Nasal 2.0L Cannula 02/13 1000 98.0 89 25 84/45 05/08 0800 97.4 90 24 108/61 05/08 0800 97.4 90 24 110/70 98 Nasal 2.0L Cannula / 0800 99 Nasal 2.0L Cannula / 0600 71 18 127/68 05/08 0400 98.0 84 24 112/60 05/08 0400 95 Nasal 2.0L Cannula / 0200 98 26 120/75 05/08 0145 98.0 108 22 128/70 05/08 0145 94 Nasal 2.0L Cannula / 0145 98.0 108 22 128/70 94 Nasal 2.0L Cannula 02/12 2200 98.4 90 28 115/60 / 2000 98.4 112 30 11/78 02/12 2000 95 Nasal 2.0L Cannula 02/12 1800 101 24 116/77 05 1600 98.6 99 24 104/65 05/ 1600 98.6 99 24 100/70 96 Nasal 2.0L Cannula 02/12 1600 96 Nasal 2.0L Cannula Intake & Output 02/13 1600 05/08 0800 05/08 0000 Intake Total 1011 588 3092 Output Total 1150 1750 2150 Balance 175 -799 -630 Intake, IV 6964 369 5239 Intake, Oral 0 Number 0 Bowel Movements Output, Urine 1150 1750 2150 Patient 178 lb Weight Physical Exam Other Physical Findings: He is lethargic but arousable, confused and disoriented, but in no acute distress. He is afebrile. Skin reveals scattered ecchymoses. HEENT exam is negative. Neck is supple with no adenopathy. Lungs are clear. Heart regular rhythm with no murmur. Abdomen is soft, nontender with positive bowel sounds. Back no CVA tenderness. Extremities no cyanosis, clubbing or edema. Neuro is without focality. Silva catheter is in place. Last 24 Hours of Lab Results: Laboratory Tests 02/13 02/12 0400 2030 Chemistry Sodium (137 - 145 mmol/L) 135 L Potassium (3.5 - 5.1 mmol/L) 3.4 L Chloride (98 - 107 mmol/L) 102 Carbon Dioxide (22 - 30 mmol/L) 25 Anion Gap (5 - 16) 8 BUN (9 - 20 mg/dL) 3 L Creatinine (0.7 - 1.2 mg/dL) 0.6 L Estimated GFR (>60 ml/min) > 60 Glucose (65 - 99 mg/dL) 78 Calcium (8.4 - 10.2 mg/dL) 7.3 L Phosphorus (2.5 - 4.5 mg/dL) 2.2 L Magnesium (1.6 - 2.3 mg/dL) 1.6 Total Bilirubin (0.2 - 1.3 mg/dL) 5.4 H Direct Bilirubin (< 0.4 mg/dL) 3.8 H AST (17 - 59 U/L) 228 H ALT (21 - 72 U/L) 81 H Alkaline Phosphatase (< 127 U/L) 114 Total Protein (6.3 - 8.2 g/dL) 5.7 L Albumin (3.5 - 5.0 g/dL) 2.5 L Hematology CBC w Diff NO MAN DIFF REQ NO MAN DIFF REQ WBC (4.8 - 10.8 /CUMM) 3.8 L 4.1 L RBC (4.70 - 6.10 /CUMM) 2.88 L 2.87 L Hgb (14.0 - 18.0 G/DL) 8.4 L 8.4 L Hct (42 - 52 %) 25.7 L 25.6 L MCV (80.0 - 94.0 FL) 89.3 89.1 MCH (27.0 - 31.0 PG) 29.2 29.2 RDW (11.5 - 14.5 %) 18.8 H 18.7 H Plt Count (130 - 400 /CUMM) 58 L 45 L MPV (7.4 - 10.4 FL) 8.4 8.4 Gran % (42.2 - 75.2 %) 68.3 74.6 Lymphocytes % (20.5 - 51.1 %) 14.2 L 10.7 L Monocytes % (1.7 - 9.3 %) 11.9 H 10.1 H Eosinophils % (0 - 5 %) 4.5 4.4 Basophils % (0.0 - 2.0 %) 1.1 0.2 Absolute Granulocytes (1.4 - 6.5 /CUMM) 2.6 3.1 Absolute Lymphocytes (1.2 - 3.4 /CUMM) 0.5 L 0.4 L Absolute Monocytes (0.10 - 0.60 /CUMM) 0.5 0.4 Absolute Eosinophils (0.0 - 0.7 /CUMM) 0.2 0.2 Absolute Basophils (0.0 - 0.2 /CUMM) 0 0 PUBS MCHC (33.0 - 37.0 G/DL) 32.8 L 32.7 L 02/12 1615 Chemistry Sodium (137 - 145 mmol/L) 136 L Potassium (3.5 - 5.1 mmol/L) 3.7 Chloride (98 - 107 mmol/L) 102 Carbon Dioxide (22 - 30 mmol/L) 26 Anion Gap (5 - 16) 8 BUN (9 - 20 mg/dL) 6 L Creatinine (0.7 - 1.2 mg/dL) 0.7 Estimated GFR (>60 ml/min) > 60 Glucose (65 - 99 mg/dL) 78 Calcium (8.4 - 10.2 mg/dL) 7.2 L Phosphorus (2.5 - 4.5 mg/dL) 2.5 Magnesium (1.6 - 2.3 mg/dL) 1.9 Total Bilirubin (0.2 - 1.3 mg/dL) 4.4 H AST (17 - 59 U/L) 262 H ALT (21 - 72 U/L) 85 H Albumin (3.5 - 5.0 g/dL) 2.5 L Last 24 Hours of Guru Results: Blood cultures 2 February 10 negative Urine culture February 10 greater than 100,000 colonies of Citrobacter sensitive to Ceftazidime, Ceftriaxone, Nitrofurantoin and Bactrim and resistant to Ciprofloxacin Urine culture February 12 negative Diagnostic Data Recent Imaging Findings: Chest x-ray February [address] of the head February 10 negative for any acute process. CT of the abdomen and pelvis February 10 revealed a chronic/recurrent sigmoid colon diverticulitis and associated colovesical fistula, with persistent extraluminal gas overlying the bladder dome; diffuse hepatic steatosis and hepatomegaly were also noted. Assessment/Plan Assessment/Plan Impression: This is a 36-year-old man with a history of alcohol abuse, schizophrenia, with chronic findings of a fistulous tract between the proximal and distal sigmoid colon and a colovesical fistula on CT scans dating back at least 4 years, with evaluation including a colonoscopy several years prior to admission and a more recent cystoscopy negative for evidence of a fistula, admitted on February 10 with hematemesis and weakness, found to have marked electrolyte abnormalities with a leukocytosis, lactic acidosis and renal insufficiency, all of which have resolved, and found to have a positive urine culture. The significance of this culture is unclear. He is unable to provide any history with regard to urinary symptoms, but I suspect that the positive urine culture may reflect colonization , perhaps related to the abnormalities seen on the CT scan. Further evaluation for a fistula may be reasonable, though workup to date has been nonrevealing, and, given the chronic findings, do not feel there is any role of antibiotics for this at this time. As he has remained afebrile, white blood cell count is normal, and his repeat urinalysis and urine culture are negative after empiric treatment with Ciprofloxacin and Flagyl, to which the Citrobacter is resistant, I feel he can be followed off antibiotics pending further evaluation. Suggestion: 1. Would discuss possible further workup for a colovesical fistula with Radiology 2. Would remove Silva catheter if okay with Renal 3. Continue to follow off antibiotics pending above Consult Acknowledgment - Thank you for your consult request.
[2017-02-14] VITALS (14 sets, daily range): BP systolic 90–112; BP diastolic 50–62
[2017-02-14 05:23] LABS: ABSOLUTE BASOPHIL COUNT 0 /CUMM (0.0-0.2); ABSOLUTE EOSINOPHIL COUNT 0.2 /CUMM (0.0-0.7); ABSOLUTE GRANULOCYTE CT 2.1 /CUMM (1.4-6.5); ABSOLUTE LYMPH COUNT 0.6 /CUMM (1.2-3.4); ABSOLUTE MONOCYTE COUNT 0.5 /CUMM (0.10-0.60); BASOPHIL % 0.7 % (0.0-2.0); EOSINOPHIL % 4.7 % (0-5); GRANULOCYTE % 61.9 % (42.2-75.2); HEMATOCRIT 26.2 % (42-52); MEAN CORPUSCULAR HGB 28.9 PG (27.0-31.0); MEAN CORPUSCULAR HGB CONC 32.1 G/DL (33.0-37.0); MEAN CORPUSCULAR VOLUME 90.1 FL (80.0-94.0); MEAN PLATELET VOLUME 9.3 FL (7.4-10.4); PLATELET COUNT 80 /CUMM (130-400); RBC DISTRIBUTION WIDTH 19.9 % (11.5-14.5); RED BLOOD CELL CT 2.91 /CUMM (4.70-6.10); WHITE BLOOD CELL COUNT 3.4 /CUMM (4.8-10.8)
--- NOTE | 2017-02-14 06:45 | PN- Resident CRCU ---
Subjective HPI/CRCU Issues: Mr. Woo was resting comfortably in bed this AM upon evaluation, he only noted hunger on questioning. He denied fever, chest pain, shortness of breath, weakness. 24 Hour Events: Patient had one episode of vomiting earlier this AM without further episodes of nausea. Ativan continues to be tapered and is currently dropped from 4 mg/h to 2 mg/h. Will introduce librium today and taper ativan off completely. Last 24 hours of vitals: T 97.4-98.3, HR 71-112, RR 20-33, SBP 82-108, DBP 44-78, O2 92-100% on 1 L NC. Objective Vital Signs & I&O Last 8 Hrs of Vitals and I&O: T 97.4-98.3, HR 71-112, RR 20-33, SBP 82-108, DBP 44-78, O2 92-100% on 1 L NC Exam General Appearance: no apparent distress, comfortable, sedated Head: atraumatic, normal appearance Ears, Nose, Throat: normal pharynx Neck: normal inspection Respiratory: normal breath sounds, chest non-tender Cardiovascular: regular rate/rhythm Gastrointestinal: normal bowel sounds, soft, non-tender Extremities: normal inspection, normal capillary refill, no edema Cranial Nerves: normal hearing, normal speech Skin: intact, warm/dry Skin Temp/Moisture Exam: Warm/Dry Nutrition Nutrition: P.O. diet Current Medications: Current Medications Sig/Olivia Start time Last Medication Dose Route Stop Time Status Admin Bisacodyl 5 MG ONE ONE 02/14 1015 DC PO 02/14 1016 Chlordiazepoxide HCl 50 MG Q8 02/14 1400 AC PO Cyanocobalamin/ 1 BAG DAILY 02/10 1041 DC 02/13 Thiamine/Pyridoxine IV 1052 Sodium Chloride 1,000 ML Docusate Sodium 100 MG DAILY NEEDED PRN 02/14 1015 AC PO Lorazepam 100 MG Q24H 02/15 0500 AC Dextrose/Water 1,000 ML IV Lorazepam 100 MG Q16H 02/13 1100 AC 02/14 Dextrose/Water 1,000 ML IV 02/15 0459 0519 Magnesium Sulfate 1 GM ONCE ONE 02/13 2145 DC 02/13 Dextrose/Water 100 ML IV 02/14 0144 2310 Magnesium Sulfate 1 GM ONCE ONE 02/13 0945 DC 02/13 Dextrose/Water 100 ML IV 02/13 1344 0959 Pantoprazole Sodium 40 MG DAILY 02/13 1000 AC 02/14 IV 0952 Potassium Chloride 10 MEQ ONCE ONE 02/14 0830 DC 02/14 IV 02/14 0831 0953 Potassium Chloride 10 MEQ ONCE ONE 02/13 2145 DC 02/13 IV 02/13 2146 2140 Potassium Chloride 20 MEQ BID 02/10 1000 AC 02/12 PO 1000 Senna 187 MG AT BEDTIME PRN 02/14 1015 AC PO Trimethobenzamide HCl 200 MG TID PRN 02/10 1630 AC 02/[address] Scan Findings: IMPRESSION: 1. Chronic and/or recurrent sigmoid colon diverticulitis and associated colovesical fistula. The persistent extraluminal gas overlying the bladder dome could be located within the fistula tract and/or within a chronic, small abscess cavity; this remains similar in appearance compared to 01/02/2017. 2. Diffuse hepatic steatosis and hepatosplenomegaly. Note that hepatic steatosis can be due to alcoholic and/or nonalcoholic etiologies. 3. Moderate-to large hiatal hernia. Impression/Plan Impression/Problem List Impression: Mr. Woo is a 36 year old male with PMH schizophrenia, chronic alcoholism, alcoholic hepatitis, alcoholic cardiomyopathy, polydipsia, chronic colovesicle fistula, multiple admissions with electrolyte abnormalities (hyponatremia, hypokalemia, metabolic alkalosis), seizures and GI bleed who presents with weakness, dizziness and hematemesis found to have severe electrolyte abnormalities. Patient is currently in the ICU for the following issues: Respiratory 1. Stable * Patient remains stable on O2 via NC * Ativan for sedation, titrating off today * Ativan boluses as needed once off drip Infectious 1. Leukocytosis with + urine culture * Resolved, WBC this AM 3.4 * Though patient has + urine cultures, unable to obtain symptoms from the patient at this time given his clinical condition * ID consult appreciated, suggested this may be 2/2 chronic colonization from colovesicle fistula * I have discussed this case with Dr. Zeny MD in regards to CT findings suggesting colovesicle fistula and colonoscopy without such findings- she suggested we may consider CT with rectal contrast (water soluble). Will order once patient slightly more stable and consider surigcal consult * Hold off antibiotics at this time * BC x 2 show no growth to date Cardiac 1. Cardiomyopathy with preserved ejection fraction * Hemodynamically stable * Tele monitoring to continue Heme 1. Hematemsis, resolving * Likely 2/2 erosive gastritis vs dirk friend tear * GI consult appreciated, notify them with any overt GI bleed * Continue IV protonix daily * Avoid NSAIDS * Periodic LFTs * Banana bag discontinued and have started oral MV, foliac acid, thiamine 2. Anemia * Likely 2/2 both GI losses and chronic ETOH abuse * Type and screen sent * Trend CBC, transfuse if Hgb<7 Metabolic 1. STEPHANIE and electrolyte disturbances, including hyponatremia/hypokalemia/ hypophosphatemia * STEPHANIE prerenal (hypotension/dehydration) and has resolved, monitor BEP daily * Hyponatremia likely 2/2 volume contraction and possibly secondary to ADH secretion from psychoactive medications, improved * Continue repleting K aggressively, given 10 meq x 3 today for a K of 3.7 2. Metabolic alkalosis with lactic acidosis * 2/2 combination of volume contraction with hypotension on admission * Improved * Nephro rec's appreciated * Continue to monitor ICU bundle frequently 4. ETOH abuse and hepatitis * WA protocol * Librium started today, 50 mg Q8, taper off ativan taper and use ativan boluses as needed for acute agitation * Appreciate GI input Alimentary * Patient s/p swallow eval yesterday * Regular diet with puree and thins Neuro 1. Suicidaility * PEC in chart * Continue to follow psych recommendations * 1:1 sitter to continue 2. Schizophrenia * Risperidone Consta 37.5 mg to be ordered for 02/10/17 Skin * Continue repositioning while on mechanical ventilation FULL CODE DVTP: ALPS Mild pain pathway Diet: puree and regular Problem List: 1. ALCOHOL WITHDRAWAL 2. Hypokalemia 3. Hyponatremia 4. Schizophrenia 5. DVT prophylaxis 6. Elevated bilirubin 7. Elevated liver enzymes 8. Leukocytosis 9. Psychogenic polydipsia 10. Hyperchloremic metabolic acidosis Pain Ratin Tomorrow's Labs & Rationales: CBC (Trend low WBC, anemia) ICU bundle Plan DVT/Prophylaxis: mechanical
--- NOTE | 2017-02-14 09:39 | RADIOLOGY REPORT ---
EXAMINATION: XR PORTABLE CHEST CLINICAL INFORMATION: Critically ill patient in ICU on mechanical ventilation. Endotracheal tube positioning. COMPARISON: Several prior chest x-rays, most recent of which is dated 02/10/2017. TECHNIQUE: Portable AP semierect view of the chest was obtained. FINDINGS: No endotracheal tube is seen in place. The cardiomediastinal silhouette appears enlarged, likely accentuated by technique of the exam. The lungs bilaterally are symmetrically expanded without significant focal pulmonary process seen. No effusion or pneumothorax is noted. Retrocardiac density is seen, consistent with a large hiatal hernia. Bony structures are unremarkable. IMPRESSION: 1. Unchanged appearance of the chest with no acute pulmonary process seen. 2. No endotracheal tube is seen on this exam. It was verified in discussion with Dr. Brissa Child that the patient does not have an endotracheal tube.
--- NOTE | 2017-02-14 09:54 | PN- Psychiatry ---
Assessment/Plan Impression: Identifying Info: 36-year-old single conserved male well-known to this service presents to [facility] emergency department by ambulance on 02/10/2017 with a question of GI bleed. Subsequently found to have an STEPHANIE with metabolic acidosis as well as severe electrolyte abnormalities and transferred to critical care unit. SUBJECTIVE "Stressed... tired" Brief ROS Gait: Unobserved Sleep: Adequate Appetite: Adequate OBJECTIVE Mental Status Exam Presentation/Appearance: Lying in hospital bed, sedated and is able to participate in interview briefly when aroused, 4 point soft wrist restraints and posy vest in place. Orientation: Self, place and year Sensorium: Sedated Eye contact: None Affect: Flat Mood: "stressed" Depression: ESE Anxiety: ESE Thought Content: - Denies SI/HI/AVH Thought Process: Per report confused Associations: ESE Speech:Minimal Judgment: Impaired Insight: Impaired Cognition: Memory: ESE Attention/Concentration: ESE Fund of Knowledge: ESE Abstractions:ESE MMSE: ESE Per nursing report the patient now on Ativan 4mg/hr. Patient has been confusied and delusional without aggitation. Some improvement in mentaltion but still altered. Has stated [place] ASSESSMENT 36-year-old single conserved male well-known to this service with a history of similar presentations today reported to be experiencing suicidality. While the patient presently denies it his suicidality is confirmed by his outpatient care providers who state the patient has been actively trying to kill himself by consuming alcohol and not eating. This is a departure from his baseline and normal presentation. At present he represents a serious threat to self and may be gravely disabled as well which necessitates psychiatric hospitalization once medically stable. His treaters are planning to find the patient long-term placement. Differential diagnosis Schizophrenia Polydipsia Alcohol use disorder, severe Cannabis use disorder Suggestion: 1. Stable at current ativan dose. Plan to reduce by 20% daily. 2. Please order Risperidone Consta 37.5mg for Monday02/20/17. 3. Continue 1:[address] Patient may not leave hospital AMA without psychiatric clearance. Plan for inpatient psychiatry. 5. Continue CIWA protocol. Thank you for including psychiatry in this case we'll continue to follow. Subjective Subjective: as above Objective Last 24 Hrs of Vital Signs/I&O Current Medications Sig/Olivia Start time Last Medication Dose Route Stop Time Status Admin Cyanocobalamin/ 1 BAG DAILY 02/10 1041 DC 02/13 Thiamine/Pyridoxine IV 1052 Sodium Chloride 1,000 ML Lorazepam 100 MG Q24H 02/15 0500 Dextrose/Water 1,000 ML IV Lorazepam 100 MG Q16H 02/13 1100 AC 02/14 Dextrose/Water 1,000 ML IV 02/15 0459 0519 Magnesium Sulfate 1 GM ONCE ONE 02/13 2145 DC 02/13 Dextrose/Water 100 ML IV 02/14 0144 2310 Magnesium Sulfate 1 GM ONCE ONE 02/13 0945 DC 02/13 Dextrose/Water 100 ML IV 02/13 1344 0959 Pantoprazole Sodium 40 MG DAILY 02/13 1000 AC 02/13 IV 0902 Potassium Chloride 10 MEQ ONCE ONE 02/14 0830 DC IV 02/14 0831 Potassium Chloride 10 MEQ ONCE ONE 02/13 2145 DC 02/13 IV 02/13 2146 2140 Potassium Chloride 20 MEQ BID 02/10 1000 AC 02/12 PO 1000 Trimethobenzamide HCl 200 MG TID PRN 02/10 1630 AC 02/13 IM 1730 Laboratory Tests 02/14/17 0430: Anion Gap 8, Estimated GFR > 60, Glucose 102 H, Calcium 7.7 L, Phosphorus 3.5, Magnesium 2.2, Total Bilirubin 4.0 H, AST 158 H, ALT 80 H, Albumin 2.3 L, CBC w Diff NO MAN DIFF REQ, RBC 2.91 L, MCV 90.1, MCH 28.9, RDW 19.9 H, MPV 9.3, Gran % 61.9, Lymphocytes % 18.2 L, Monocytes % 14.5 H, Eosinophils % 4.7, Basophils % 0.7, Absolute Granulocytes 2.1, Absolute Lymphocytes 0.6 L, Absolute Monocytes 0.5, Absolute Eosinophils 0.2, Absolute Basophils 0, PUBS MCHC 32.1 L 02/13/17 1750: Anion Gap 8, Estimated GFR > 60, Glucose 136 H, Calcium 7.8 L, Phosphorus 2.7, Magnesium 1.9, Total Bilirubin 5.0 H, AST 212 H, ALT 88 H, Albumin 2.6 L Vital Signs Date Time Temp Pulse Resp B/P B/P Pulse O2 O2 Flow FiO2 Mean Ox Delivery Rate 02/14 600 98.1 80 20 99/56 05/ 0400 98.1 84 20 95/50 05/ 0400 96 Nasal 1.0L Cannula 02/14 0200 98.2 84 20 90/53 05/ 0000 98.2 88 24 90/50 05/ 0000 92 Room Air Room Air 05/ 0000 98.2 88 24 112/58 92 Room Air Room Air / 2200 98 30 98/68 05/1999 97.7 84 30 105/61 05/08 1999 98 Nasal 2.0L Cannula 02/13 1600 97.6 82 82 115/70 05/08 1600 97.6 82 20 115/70 97 Nasal 2.0L Cannula 02/13 1600 97 Nasal 2.0L Cannula / 1400 98.3 76 22 93/50 05/08 1200 98.3 112 33 110/70 05/08 1200 92 Nasal 2.0L Cannula 02/13 1000 98.0 89 25 84/45 Intake & Output / 1600 02/14 0800 05/ 0000 Intake Total 685 1420 Output Total 2100 1200 Balance -1415 220 Intake, IV 685 1420 Intake, Oral 0 Number 0 0 Bowel Movements Output, Urine 2100 1200
--- NOTE | 2017-02-14 10:26 | PN- Infect Dx ---
Subjective Subjective: Afebrile. He complains of fatigue but offers no other complaints. Objective Last 24 Hrs of Vital Signs/I&O Vital Signs Date Time Temp Pulse Resp B/P B/P Pulse O2 O2 Flow FiO2 Mean Ox Delivery Rate 02/14 0600 98.1 80 20 99/56 02/14 0400 98.1 84 20 95/50 02/14 0400 96 Nasal 1.0L Cannula 02/14 0200 98.2 84 20 90/53 05/ 0000 98.2 88 24 90/50 05 0000 92 Room Air Room Air 02/14 0000 98.2 88 24 112/58 92 Room Air Room Air 02/13 2200 98 30 98/68 02/13 2000 97.7 84 30 105/61 02/13 2000 98 Nasal 2.0L Cannula 02/13 1600 97.6 82 82 115/70 05 1600 97.6 82 20 115/70 97 Nasal 2.0L Cannula 02/13 1600 97 Nasal 2.0L Cannula 02/13 1400 98.3 76 22 93/50 02/13 1200 98.3 112 33 110/70 02/13 1200 92 Nasal 2.0L Cannula Intake & Output 02/14 1600 02/14 0800 05 0000 Intake Total 685 1420 Output Total 2100 1200 Balance -1415 220 Intake, IV 685 1420 Intake, Oral 0 Number 0 0 Bowel Movements Output, Urine 2100 1200 Physical Exam Other Physical Findings: He is lethargic but easily arousable and appears in no acute distress Lungs scattered rhonchi bilaterally Heart regular rhythm with no murmur Abdomen is soft, nontender with positive bowel sounds Extremities no cyanosis, clubbing or edema Silva catheter remains in place Results Last 24 Hours of Lab Results: Laboratory Tests 02/14 02/13 0430 1750 Chemistry Sodium (137 - 145 mmol/L) 138 132 L Potassium (3.5 - 5.1 mmol/L) 3.7 3.7 Chloride (98 - 107 mmol/L) 106 101 Carbon Dioxide (22 - 30 mmol/L) 24 23 Anion Gap (5 - 16) 8 8 BUN (9 - 20 mg/dL) < 2 L 2 L Creatinine (0.7 - 1.2 mg/dL) 0.6 L 0.6 L Estimated GFR (>60 ml/min) > 60 > 60 Glucose (65 - 99 mg/dL) 102 H 136 H Calcium (8.4 - 10.2 mg/dL) 7.7 L 7.8 L Phosphorus (2.5 - 4.5 mg/dL) 3.5 2.7 Magnesium (1.6 - 2.3 mg/dL) 2.2 1.9 Total Bilirubin (0.2 - 1.3 mg/dL) 4.0 H 5.0 H AST (17 - 59 U/L) 158 H 212 H ALT (21 - 72 U/L) 80 H 88 H Albumin (3.5 - 5.0 g/dL) 2.3 L 2.6 L Hematology CBC w Diff NO MAN DIFF REQ WBC (4.8 - 10.8 /CUMM) 3.4 L RBC (4.70 - 6.10 /CUMM) 2.91 L Hgb (14.0 - 18.0 G/DL) 8.4 L Hct (42 - 52 %) 26.2 L MCV (80.0 - 94.0 FL) 90.1 MCH (27.0 - 31.0 PG) 28.9 RDW (11.5 - 14.5 %) 19.9 H Plt Count (130 - 400 /CUMM) 80 L MPV (7.4 - 10.4 FL) 9.3 Gran % (42.2 - 75.2 %) 61.9 Lymphocytes % (20.5 - 51.1 %) 18.2 L Monocytes % (1.7 - 9.3 %) 14.5 H Eosinophils % (0 - 5 %) 4.7 Basophils % (0.0 - 2.0 %) 0.7 Absolute Granulocytes (1.4 - 6.5 /CUMM) 2.1 Absolute Lymphocytes (1.2 - 3.4 /CUMM) 0.6 L Absolute Monocytes (0.10 - 0.60 /CUMM) 0.5 Absolute Eosinophils (0.0 - 0.7 /CUMM) 0.2 Absolute Basophils (0.0 - 0.2 /CUMM) 0 PUBS MCHC (33.0 - 37.0 G/DL) 32.1 L Last 24 Hours of Guru Results: Blood cultures 2 February 10 negative Urine culture February 12 negative Recent Imaging Studies: Chest x-ray February 14, personally reviewed, negative Assessment/Plan Impression: Stable with temperatures remaining normal off antibiotics with repeat urine culture, obtained while he was on Ciprofloxacin and Flagyl, negative and initial blood cultures remaining negative. He remains pancytopenic, likely secondary to underlying cirrhosis or alcohol, though other possibilities, including B12/ folate deficiency are possible. With regard to his chronic colovesical and colocolonic fistulas further evaluation could be pursued but, as discussed, would only do so if he is felt to be a surgical candidate. Suggestion: 1. Would consider further workup for a colovesical fistula /can discuss with GI and Surgery 2. Would remove Silva catheter if okay with Renal 3. Continue to follow off antibiotics
--- NOTE | 2017-02-14 10:55 | PN- CRCU ---
Subjective HPI/Critical Care Issues: Afebrile. He complains of fatigue but offers no other complaints. Fatigued Objective Current Medications: Current Medications Sig/Olivia Start time Last Medication Dose Route Stop Time Status Admin Bisacodyl 5 MG ONE ONE 02/14 1015 DC PO 02/14 1016 Chlordiazepoxide HCl 50 MG Q8 02/14 1400 AC PO Cyanocobalamin/ 1 BAG DAILY 02/10 1041 DC 02/13 Thiamine/Pyridoxine IV 1052 Sodium Chloride 1,000 ML Docusate Sodium 100 MG DAILY NEEDED PRN 02/14 1015 AC PO Lorazepam 100 MG Q24H 02/15 0500 AC Dextrose/Water 1,000 ML IV Lorazepam 100 MG Q16H 02/13 1100 AC 02/14 Dextrose/Water 1,000 ML IV 02/15 0459 0519 Magnesium Sulfate 1 GM ONCE ONE 02/13 2145 DC 02/13 Dextrose/Water 100 ML IV 02/14 0144 2310 Magnesium Sulfate 1 GM ONCE ONE 02/13 0945 DC 02/13 Dextrose/Water 100 ML IV 02/13 1344 0959 Pantoprazole Sodium 40 MG DAILY 02/13 1000 AC 02/14 IV 0952 Potassium Chloride 10 MEQ ONCE ONE 02/14 0830 DC 02/14 IV 02/14 0831 0953 Potassium Chloride 10 MEQ ONCE ONE 02/13 2145 DC 02/13 IV 02/13 2146 2140 Potassium Chloride 20 MEQ BID 02/10 1000 AC 02/12 PO 1000 Senna 187 MG AT BEDTIME PRN 02/14 1015 AC PO Trimethobenzamide HCl 200 MG TID PRN 02/10 1630 AC 02/13 IM 1730 Vital Signs & I&O Last 24 Hrs of Vitals and I&O: Vital Signs Date Time Temp Pulse Resp B/P B/P Pulse O2 O2 Flow FiO2 Mean Ox Delivery Rate 02/14 08 99 Nasal 1.0L Cannula 02/14 0600 98.1 80 20 99/56 02/14 0400 98.1 84 20 95/50 02/14 0400 96 Nasal 1.0L Cannula 02/14 0200 98.2 84 20 90/53 02/14 0000 98.2 88 24 90/50 02/14 0000 92 Room Air Room Air 02/14 0000 98.2 88 24 112/58 92 Room Air Room Air 02/13 2200 98 30 98/68 05/08 2000 97.7 84 30 105/61 02/14 2000 98 Nasal 2.0L Cannula 02/13 1600 97.6 82 82 115/70 02/13 1600 97.6 82 20 115/70 97 Nasal 2.0L Cannula 02/13 1600 97 Nasal 2.0L Cannula 02/13 1400 98.3 76 22 93/50 02/13 1200 98.3 112 33 110/70 02/13 1200 92 Nasal 2.0L Cannula Intake & Output 02/14 1600 02/14 0800 05 0000 Intake Total 685 1420 Output Total 2100 1200 Balance -1415 220 Intake, IV 685 1420 Intake, Oral 0 Number 0 0 Bowel Movements Output, Urine 2100 1200 Impression/Plan Impression/Plan Impression/Plan: General Appearance: no apparent distress, alert, anxious, lethargic Head: atraumatic, normal appearance Respiratory: normal breath sounds, chest non-tender, no respiratory distress, quiet respiration, lungs clear Cardiovascular: regular rate/rhythm Gastrointestinal: normal bowel sounds, soft, non-tender Extremities: normal capillary refill, Bilaterral Upper Extremity Edema Cranial Nerves: normal hearing Skin: intact 36-year-old man with background of alcoholism, alcoholic hepatitis, schizophrenia, polydipsia among other problems as noted above, with history of recurrent admissions for acute kidney injury and multiple electrolyte disturbances. He now comes in with the same series of events preceded by alcohol intake, nausea, vomiting and very high free water intake Issues include SIg electrolyte abnormality due to multiple factors improving Sig etoh use with etoh hepatitis Sig etoh with ongoing DT Resolved Severe acidosis with combined metabolic alkalosis with profound hypokalemia due to polydipsia free water with worsening hyponatremia due to persistent ADH secretion related to his psychoactive medications Resolved Acute renal failure Significant schizophrenia with multiple issues Recent suspicion for a colovesicular fistula but the patient did have evaluation and patient did have a biopsy of the bladder which was nonrevealing. GI is following Hiatal hernia Significant hepatomegaly with ongoing alcoholism prior to admission Recurrent urinary tract infection with multiple gram-negative organisms now with citrobacter Previous history of cardiomyopathy with preserved ejection fraction PLAN Continue Ativan, and reduce drip and change to chlordiazepoxide Aggressively replace magnesium and potassium REplace mag COnt to monitor her in icu
--- NOTE | 2017-02-14 21:49 | RADIOLOGY REPORT ---
EXAMINATION: XR PORTABLE CHEST CLINICAL INFORMATION: Shortness of breath. COMPARISON: Portable chest 02/14/2017 , 6:27 AM TECHNIQUE: Portable frontal view of the chest was obtained. 9:20 PM FINDINGS: Heart size enlarged. Lung volume low. No acute change. No pulmonary vascular congestion. No infiltrate or pleural effusion. There is no pneumothorax. Compared to prior study there is no change. IMPRESSION: No acute abnormality the chest.
[2017-02-15 05:11] LABS: ABSOLUTE BASOPHIL COUNT 0 /CUMM (0.0-0.2); ABSOLUTE EOSINOPHIL COUNT 0.1 /CUMM (0.0-0.7); ABSOLUTE GRANULOCYTE CT 2.5 /CUMM (1.4-6.5); ABSOLUTE LYMPH COUNT 0.8 /CUMM (1.2-3.4); ABSOLUTE MONOCYTE COUNT 0.8 /CUMM (0.10-0.60); BASOPHIL % 0.9 % (0.0-2.0); EOSINOPHIL % 2.3 % (0-5); GRANULOCYTE % 59.3 % (42.2-75.2); HEMATOCRIT 27.8 % (42-52); MEAN CORPUSCULAR HGB 29.5 PG (27.0-31.0); MEAN CORPUSCULAR HGB CONC 32.5 G/DL (33.0-37.0); MEAN CORPUSCULAR VOLUME 90.8 FL (80.0-94.0); MEAN PLATELET VOLUME 9.5 FL (7.4-10.4); PLATELET COUNT 108 /CUMM (130-400); RBC DISTRIBUTION WIDTH 20.5 % (11.5-14.5); RED BLOOD CELL CT 3.07 /CUMM (4.70-6.10); WHITE BLOOD CELL COUNT 4.3 /CUMM (4.8-10.8)
--- NOTE | 2017-02-15 07:02 | PN- Resident CRCU ---
Subjective HPI/CRCU Issues: Patient seen and examined at bedside this AM. He continues to endorse slight lethargy as well as mild cough. He continues to request a cigarette. He denies nausea, vomiting or abdominal pain after his pureed diet. 24 Hour Events: Patient had low grade temp to 100.2 at 20:47 last evening, at which time a CXR was performed and patient was pancultured. Will follow. Vital signs for the last 24 hours: Tmax 100.2, HR 80-98, RR 20-30, O2 95-98% on 1 L NC, BP 82-112/46-60. Objective Vital Signs & I&O Last 8 Hrs of Vitals and I&O: Intake & Output 02/15 1600 Intake Total 730 Output Total 485 Balance 245 Intake, IV 130 Intake, Oral 600 Output, Urine 485 Tmax 100.2, HR 80-98, RR 20-30, O2 95-98% on 1 L NC, BP 82-112/46-60. Exam General Appearance: well developed/nourished, no apparent distress, awake, comfortable Head: atraumatic Ears, Nose, Throat: normal pharynx, hearing grossly normal Neck: normal inspection Respiratory: normal breath sounds, chest non-tender Cardiovascular: regular rate/rhythm Gastrointestinal: normal bowel sounds, soft, non-tender Extremities: normal inspection, normal capillary refill Cranial Nerves: normal hearing, normal speech Skin: warm/dry Nutrition Nutrition: P.O. diet Current Medications: Current Medications Sig/Olivia Start time Last Medication Dose Route Stop Time Status Admin Acetaminophen 650 MG ONCE ONE 02/14 2030 DC 02/14 PO 02/14 Chlordiazepoxide HCl 40 MG Q8 02/15 1400 AC PO Chlordiazepoxide HCl 50 MG Q8 02/14 1400 DC 02/15 PO 0632 Docusate Sodium 100 MG DAILY NEEDED PRN 02/14 1015 AC PO Folic Acid 1 MG DAILY 02/14 1301 AC 02/15 PO 1011 Lorazepam 100 MG Q24H 02/15 0500 CAN Dextrose/Water 1,000 ML IV Lorazepam 0 Q1P PRN 02/14 2015 AC IV Lorazepam 100 MG Q16H 02/13 1100 DC 02/14 Dextrose/Water 1,000 ML IV 02/15 0459 0519 Magnesium Sulfate 1 GM ONCE ONE 02/15 0815 DC 02/15 Dextrose/Water 100 ML IV 02/15 1214 0829 Multivitamins 1 TAB DAILY 02/14 1301 AC 02/15 PO 1011 Pantoprazole Sodium 40 MG DAILY 02/13 1000 AC 02/15 IV 1011 Potassium Chloride 20 MEQ BID 02/10 1000 AC 02/15 PO 1011 Risperidone 37.5 MG Q 2 WEEKS 02/20 1000 AC IM Senna 187 MG AT BEDTIME PRN 02/14 1015 AC 02/14 PO 1538 Sodium Chloride 1,000 ML BOLUS ONE 02/14 2215 DC 02/14 IV 02/15 0014 2220 Thiamine HCl 50 MG DAILY 02/14 1301 AC 02/14 PO 1537 Trimethobenzamide HCl 200 MG TID PRN 02/10 1630 AC 02/[address] Scan Findings: Abd/pelvis CT: IMPRESSION: 1. Chronic and/or recurrent sigmoid colon diverticulitis and associated colovesical fistula. The persistent extraluminal gas overlying the bladder dome could be located within the fistula tract and/or within a chronic, small abscess cavity; this remains similar in appearance compared to 01/02/2017. 2. Diffuse hepatic steatosis and hepatosplenomegaly. Note that hepatic steatosis can be due to alcoholic and/or nonalcoholic etiologies. 3. Moderate-to large hiatal hernia. Impression/Plan Impression/Problem List Impression: Mr. Woo is a 36 year old male with PMH schizophrenia, chronic alcoholism, alcoholic hepatitis, alcoholic cardiomyopathy, polydipsia, chronic colovesicle fistula, multiple admissions with electrolyte abnormalities (hyponatremia, hypokalemia, metabolic alkalosis), seizures and GI bleed who presents with weakness, dizziness and hematemesis found to have severe electrolyte abnormalities. Patient is currently in the ICU AND STABLE FOR DOWNGRADE TO GENERAL MEDICINE. We are currently addressing the following issues: Respiratory 1. Stable * Patient remains stable on O2 via NC at 1L * Vital signs Q shift Infectious 1. Leukocytosis with + urine culture * Resolved, WBC this AM 4.3 * Though patient has + urine cultures, may be 2/2 chronic colonization from colovesicle fistula * I have discussed this case with Dr. Zeny MD in regards to CT findings suggesting colovesicle fistula and colonoscopy without such findings- she suggested we may consider CT with rectal contrast (water soluble). Will order once patient slightly more stable and consider surigcal consult * Hold off antibiotics at this time * BC x 2 show no growth to date * Appreciate ID input * Silva catheter removed today Cardiac 1. Cardiomyopathy with preserved ejection fraction * Hemodynamically stable * Tele monitoring to continue Heme 1. Hematemsis, resolving * Likely 2/2 erosive gastritis vs dirk friend tear * GI consult appreciated, notify them with any overt GI bleed * Continue IV protonix daily * Avoid NSAIDS * Periodic LFTs * Banana bag discontinued and have started oral MV, foliac acid, thiamine 2. Anemia * Likely 2/2 both GI losses and chronic ETOH abuse * Type and screen sent * Trend CBC, transfuse if Hgb<7 Metabolic 1. STEPHANIE and electrolyte disturbances, including hyponatremia/hypokalemia/ hypophosphatemia * STEPHANIE prerenal (hypotension/dehydration) and has resolved, monitor BEP daily * Hyponatremia likely 2/2 volume contraction and possibly secondary to ADH secretion from psychoactive medications, improved * Continue repleting K aggressively as needed 2. Metabolic alkalosis with lactic acidosis * 2/2 combination of volume contraction with hypotension on admission * Improved * Nephro rec's appreciated * Continue to monitor ICU bundle frequently 4. ETOH abuse and hepatitis * CIWA protocol * Librium continued today, decreased to 40 mg Q8, ativan drip off and use ativan boluses as needed for acute agitation * Appreciate GI input Alimentary * Patient s/p follow up swallow eval today * Upgraded to chopped and thins Neuro 1. Suicidaility * PEC in chart * Continue to follow psych recommendations * 1:1 sitter to continue * Plan for inpatient psych once medically clear 2. Schizophrenia * Risperidone Consta 37.5 mg to be ordered for 02/10/17 * Continue renzo for unsafe ambulation Skin * Continue repositioning while on mechanical ventilation FULL CODE DVTP: ALPS Mild pain pathway Diet: chopped and regular Problem List: 1. Lactic acid acidosis 2. Hyperchloremic metabolic acidosis 3. Colovesical fistula 4. Cannabis abuse 5. Alcohol intoxication delirium 6. Psychosis 7. STEPHANIE (acute kidney injury) Pain Ratin Tomorrow's Labs & Rationales: CBC, BEP with BUN/cre Plan DVT/Prophylaxis: mechanical
[2017-02-15 08:00] VITALS: BP 110/67
[2017-02-15 10:00] VITALS: BP 112/63
--- NOTE | 2017-02-15 10:11 | PN- Psychiatry ---
Assessment/Plan Impression: Identifying Info: 36-year-old single conserved male well-known to this service presents to [facility] emergency department by ambulance on 02/10/2017 with a question of GI bleed. Subsequently found to have an STEPHANIE with metabolic acidosis as well as severe electrolyte abnormalities and transferred to critical care unit. SUBJECTIVE "I'm tired... I'm okay. I want to go home." Patient verbalizes understanding of need for continued medical clearance and psychiatric clearance, is agreeable to stay in hospital. Requesting reduction of restraints. Brief ROS Gait: Unobserved Sleep: Adequate Appetite: Adequate OBJECTIVE Mental Status Exam Presentation/Appearance: Lying in hospital bed, sedated and is able to participate in interview briefly when aroused, 4 point soft wrist restraints and posy vest in place. Orientation: Self, place, month and situation Sensorium: Somnolent but arousable Eye contact: None Affect: Blunted Mood: "Okay" Depression: Denies Anxiety: Denies Thought Content: - Denies SI/HI/AVH Thought Process: More linear Associations: More appropriate Speech: Soft, imrpoved Judgment: Impaired Insight: Impaired Cognition: Memory: Appears more intact Attention/Concentration: Appears more intact, improved participation in interview Fund of Knowledge: Did not assess Abstractions: Did not assess MMSE: Did nto assess Per nursing report the patient now on Ativan 1mg/hr. He is actively being transitioned to oral benzodiazepines. Mentation and behavioral regulation has improved. Per sitter report patient has been more oriented today with no confusion regarding his location or situation. He has not been pulling at lines. ASSESSMENT 36-year-old single conserved male well-known to this service with a history of similar presentations today reported to be experiencing suicidality. While the patient presently denies it his suicidality is confirmed by his outpatient care providers who state the patient has been actively trying to kill himself by consuming alcohol and not eating. This is a departure from his baseline and normal presentation. At present he represents a serious threat to self and may be gravely disabled as well which necessitates psychiatric hospitalization once medically stable. His outpatient treaters are planning to find the patient long-term placement. Mentation is improving. Differential diagnosis Schizophrenia Delirium due to alcohol withdrawal and electrolyte abnormalities, improving Alcohol use disorder, severe Cannabis use disorder Suggestion: 1. Stable at current ativan dose. Plan to continue to reduce total benzodiazepine dosing by 20% daily. 2. Please order Risperidone Consta 37.5mg for Monday02/20/17. 3. Continue 1:[address] Patient may not leave hospital AMA without psychiatric clearance. Plan for inpatient psychiatry. 5. Continue CIDE protocol. 6. Please continue to attempt to reduce restraints as tolerated. Thank you for including psychiatry in this case we'll continue to follow. Subjective Subjective: as above Objective Last 24 Hrs of Vital Signs/I&O Current Medications Sig/Olivia Start time Last Medication Dose Route Stop Time Status Admin Acetaminophen 650 MG ONCE ONE 02/14 2030 DC 02/14 PO 02/14 2031 2047 Bisacodyl 5 MG ONE ONE 02/14 1015 DC 02/14 PO 02/14 1016 1535 Chlordiazepoxide HCl 50 MG Q8 02/14 1400 AC 02/15 PO 0632 Docusate Sodium 100 MG DAILY NEEDED PRN 02/14 1015 AC PO Folic Acid 1 MG DAILY 02/14 1301 AC 02/14 PO 1537 Lorazepam 100 MG Q24H 02/15 0500 CAN Dextrose/Water 1,000 ML IV Lorazepam 0 Q1P PRN 02/14 2015 AC IV Lorazepam 100 MG Q16H 02/13 1100 DC 02/14 Dextrose/Water 1,000 ML IV 02/15 0459 0519 Magnesium Sulfate 1 GM ONCE ONE 02/15 0815 AC 02/15 Dextrose/Water 100 ML IV 02/15 1214 0829 Multivitamins 1 TAB DAILY 02/14 1301 AC 02/14 PO 1537 Pantoprazole Sodium 40 MG DAILY 02/13 1000 AC 02/14 IV 0952 Potassium Chloride 10 MEQ Q1H 02/14 1145 DC 02/14 IV 02/14 1246 1535 Potassium Chloride 20 MEQ BID 02/10 1000 AC 02/12 PO 1000 Senna 187 MG AT BEDTIME PRN 02/14 1015 AC 02/14 PO 1538 Sodium Chloride 1,000 ML BOLUS ONE 02/14 2215 DC 02/14 IV 02/15 0014 2220 Thiamine HCl 50 MG DAILY 02/14 1301 AC 02/14 PO 1537 Trimethobenzamide HCl 200 MG TID PRN 02/10 1630 AC 02/13 IM 1730 Laboratory Tests 02/15/17 0415: Anion Gap 7, Estimated GFR > 60, Glucose 89, Calcium 7.9 L, Phosphorus 3.3, Magnesium 1.8, Total Bilirubin 3.7 H, AST 114 H, ALT 75 H, Albumin 2.4 L, CBC w Diff NO MAN DIFF REQ, RBC 3.07 L, MCV 90.8, MCH 29.5, RDW 20.5 H, MPV 9.5, Gran % 59.3, Lymphocytes % 18.5 L, Monocytes % 19.0 H, Eosinophils % 2.3, Basophils % 0.9, Absolute Granulocytes 2.5, Absolute Lymphocytes 0.8 L, Absolute Monocytes 0.8 H, Absolute Eosinophils 0.1, Absolute Basophils 0, PUBS MCHC 32.5 L Vital Signs Date Time Temp Pulse Resp B/P B/P Pulse O2 O2 Flow FiO2 Mean Ox Delivery Rate 02/15 08 99.3 95 24 110/67 02/15 0800 97 Nasal 1.0L Cannula 02/15 0800 99.3 95 24 110/67 97 Nasal 1.0L Cannula 02/15 0400 Nasal 1.0L Cannula 02/15 0000 Nasal 1.0L Cannula 02/14 2300 99.0 90 22 96/60 93 Room Air 02/14 2200 99.3 02/14 2047 100.2 02/14 2000 Nasal 1.0L Cannula 02/14 1930 98.4 88 16 91/51 02/14 1900 98.9 86 24 91/51 02/14 1800 99.0 86 24 94/56 02/14 1600 99.0 88 34 98/50 02/14 1600 98 Nasal 1.0L Cannula 02/14 1600 99.0 88 32 98/50 98 Nasal 1.0L Cannula 02/14 1400 97.9 86 26 102/52 02/14 1200 97.9 96 21 100/62 02/14 1200 98 Nasal 1.0L Cannula 02/14 1100 97.6 90 21 94/61 Intake & Output 02/15 1600 05 0800 02/15 0000 Intake Total 1220 1050 Output Total 1480 910 Balance -260 140 Intake, IV 500 570 Intake, Oral 720 480 Output, Urine 1480 910
--- NOTE | 2017-02-15 10:20 | PN- Pulmonary ---
Subjective HPI/Critical Care Issues: Patient seen and examined at bedside this AM. He continues to endorse slight lethargy as well as mild cough. He continues to request a cigarette. He denies nausea, vomiting or abdominal pain after his pureed diet. 24 Hour Events: Patient had low grade temp to 100.2 at 20:47 last evening, at which time a CXR was performed and patient was pancultured. Will follow. Vital signs for the last 24 hours: Tmax 100.2, HR 80-98, RR 20-30, O2 95-98% on 1 L NC, BP 82-112/46-60. Objective Current Medications: Current Medications Sig/Olivia Start time Last Medication Dose Route Stop Time Status Admin Acetaminophen 650 MG ONCE ONE 02/14 2030 DC 02/14 PO 02/14 203 204 Chlordiazepoxide HCl 50 MG Q8 02/14 1400 AC 02/15 PO 0632 Docusate Sodium 100 MG DAILY NEEDED PRN 02/14 1015 AC PO Folic Acid 1 MG DAILY 02/14 1301 AC 02/15 PO 1011 Lorazepam 100 MG Q24H 02/15 0500 CAN Dextrose/Water 1,000 ML IV Lorazepam 0 Q1P PRN 02/14 2015 AC IV Lorazepam 100 MG Q16H 02/13 1100 DC 02/14 Dextrose/Water 1,000 ML IV 02/15 0459 0519 Magnesium Sulfate 1 GM ONCE ONE 02/15 0815 AC 02/15 Dextrose/Water 100 ML IV 02/15 1214 0829 Multivitamins 1 TAB DAILY 02/14 1301 AC 02/15 PO 1011 Pantoprazole Sodium 40 MG DAILY 02/13 1000 AC 02/15 IV 1011 Potassium Chloride 10 MEQ Q1H 02/14 1145 DC 02/14 IV 02/14 1246 1535 Potassium Chloride 20 MEQ BID 02/10 1000 AC 02/15 PO 1011 Senna 187 MG AT BEDTIME PRN 02/14 1015 AC 02/14 PO 1538 Sodium Chloride 1,000 ML BOLUS ONE 02/14 2215 DC 02/14 IV 02/15 0014 2220 Thiamine HCl 50 MG DAILY 02/14 1301 AC 02/15 PO 1011 Trimethobenzamide HCl 200 MG TID PRN 02/10 1630 AC 02/13 IM 1730 Vital Signs & I&O Last 24 Hrs of Vitals and I&O: Vital Signs Date Time Temp Pulse Resp B/P B/P Pulse O2 O2 Flow FiO2 Mean Ox Delivery Rate 02/15 08 99.3 95 24 110/67 02/15 0800 97 Nasal 1.0L Cannula 02/15 0800 99.3 95 24 110/ 97 Nasal 1.0L Cannula 02/15 0400 Nasal 1.0L Cannula 02/15 0000 Nasal 1.0L Cannula 02/14 2300 99.0 90 22 96/60 93 Room Air 02/14 2200 99.3 02/14 2047 100.2 02/14 2000 Nasal 1.0L Cannula 02/14 1930 98.4 88 16 91/51 02/14 1900 98.9 86 24 91/51 02/14 1800 99.0 86 24 94/56 02/14 1600 99.0 88 34 98/50 02/14 1600 98 Nasal 1.0L Cannula 02/14 1600 99.0 88 32 98/50 98 Nasal 1.0L Cannula 02/14 1400 97.9 86 26 102/52 02/14 1200 97.9 96 21 100/62 02/14 1200 98 Nasal 1.0L Cannula 02/14 1100 97.6 90 21 94/61 Intake & Output 02/15 1600 02/15 0800 05 0000 Intake Total 1220 1050 Output Total 1480 910 Balance -260 140 Intake, IV 500 570 Intake, Oral 720 480 Output, Urine 1480 910 Impression/Plan Impression/Plan Impression/Plan: General Appearance: no apparent distress, alert, anxious, lethargic Head: atraumatic, normal appearance Respiratory: normal breath sounds, chest non-tender, no respiratory distress, quiet respiration, lungs clear Cardiovascular: regular rate/rhythm Gastrointestinal: normal bowel sounds, soft, non-tender Extremities: normal capillary refill, Bilaterral Upper Extremity Edema Cranial Nerves: normal hearing Skin: intact 36-year-old man with background of alcoholism, alcoholic hepatitis, schizophrenia, polydipsia among other problems as noted above, with history of recurrent admissions for acute kidney injury and multiple electrolyte disturbances. He now comes in with the same series of events preceded by alcohol intake, nausea, vomiting and very high free water intake Issues include SIg electrolyte abnormality due to multiple factors improving Sig etoh use with etoh hepatitis Sig etoh with ongoing DT Resolved Severe acidosis with combined metabolic alkalosis with profound hypokalemia due to polydipsia free water with worsening hyponatremia due to persistent ADH secretion related to his psychoactive medications Resolved Acute renal failure Significant schizophrenia with multiple issues Recent suspicion for a colovesicular fistula but the patient did have evaluation and patient did have a biopsy of the bladder which was nonrevealing. GI is following Hiatal hernia Significant hepatomegaly with ongoing alcoholism prior to admission Recurrent urinary tract infection with multiple gram-negative organisms now with citrobacter Previous history of cardiomyopathy with preserved ejection fraction PLAN cont librium and reduce by 25 mg daily if pt is stable Aggressively replace magnesium and potassium REplace mag Can be downgraded today Will eval for transfer to the floor depending on the nursing requirements
--- NOTE | 2017-02-15 10:58 | PN- Infect Dx ---
Subjective Subjective: MAXIMUM TEMPERATURE 100.2. He offers no complaints Objective Last 24 Hrs of Vital Signs/I&O Vital Signs Date Time Temp Pulse Resp B/P B/P Pulse O2 O2 Flow FiO2 Mean Ox Delivery Rate 02/15 0800 99.3 95 24 110/67 02/15 0800 97 Nasal 1.0L Cannula 02/15 0800 99.3 95 24 110/67 97 Nasal 1.0L Cannula 02/15 0400 Nasal 1.0L Cannula 02/15 0000 Nasal 1.0L Cannula 02/14 2300 99.0 90 22 96/60 93 Room Air 02/14 2200 99.3 02/14 2047 100.2 02/14 2000 Nasal 1.0L Cannula 02/14 1930 98.4 88 16 91/51 02/14 1900 98.9 86 24 91/51 02/14 1800 99.0 86 24 94/56 02/14 1600 99.0 88 34 98/50 02/14 1600 98 Nasal 1.0L Cannula 02/14 1600 99.0 88 32 98/50 98 Nasal 1.0L Cannula 02/14 1400 97.9 86 26 102/52 02/14 1200 97.9 96 21 100/62 02/14 1200 98 Nasal 1.0L Cannula 02/14 1100 97.6 90 21 94/61 Intake & Output 02/15 1600 02/15 0800 02/15 0000 Intake Total 1220 1050 Output Total 1480 910 Balance -260 140 Intake, IV 500 570 Intake, Oral 720 480 Output, Urine 1480 910 Physical Exam Other Physical Findings: He is somewhat more alert and appears in no acute distress Lungs mostly clear Heart regular rhythm with no murmur Abdomen is soft, nontender with positive bowel sounds Extremities no cyanosis, clubbing or edema Silva catheter remains in place Results Last 24 Hours of Lab Results: Laboratory Tests 02/15 0415 Chemistry Sodium (137 - 145 mmol/L) 138 Potassium (3.5 - 5.1 mmol/L) 4.2 Chloride (98 - 107 mmol/L) 104 Carbon Dioxide (22 - 30 mmol/L) 26 Anion Gap (5 - 16) 7 BUN (9 - 20 mg/dL) < 2 L Creatinine (0.7 - 1.2 mg/dL) 0.7 Estimated GFR (>60 ml/min) > 60 Glucose (65 - 99 mg/dL) 89 Calcium (8.4 - 10.2 mg/dL) 7.9 L Phosphorus (2.5 - 4.5 mg/dL) 3.3 Magnesium (1.6 - 2.3 mg/dL) 1.8 Total Bilirubin (0.2 - 1.3 mg/dL) 3.7 H AST (17 - 59 U/L) 114 H ALT (21 - 72 U/L) 75 H Albumin (3.5 - 5.0 g/dL) 2.4 L Hematology CBC w Diff NO MAN DIFF REQ WBC (4.8 - 10.8 /CUMM) 4.3 L RBC (4.70 - 6.10 /CUMM) 3.07 L Hgb (14.0 - 18.0 G/DL) 9.1 L Hct (42 - 52 %) 27.8 L MCV (80.0 - 94.0 FL) 90.8 MCH (27.0 - 31.0 PG) 29.5 RDW (11.5 - 14.5 %) 20.5 H Plt Count (130 - 400 /CUMM) 108 L MPV (7.4 - 10.4 FL) 9.5 Gran % (42.2 - 75.2 %) 59.3 Lymphocytes % (20.5 - 51.1 %) 18.5 L Monocytes % (1.7 - 9.3 %) 19.0 H Eosinophils % (0 - 5 %) 2.3 Basophils % (0.0 - 2.0 %) 0.9 Absolute Granulocytes (1.4 - 6.5 /CUMM) 2.5 Absolute Lymphocytes (1.2 - 3.4 /CUMM) 0.8 L Absolute Monocytes (0.10 - 0.60 /CUMM) 0.8 H Absolute Eosinophils (0.0 - 0.7 /CUMM) 0.1 Absolute Basophils (0.0 - 0.2 /CUMM) 0 PUBS MCHC (33.0 - 37.0 G/DL) 32.5 L Last 24 Hours of Guru Results: Blood cultures 2 February 14 negative Urine culture february 14 negative Recent Imaging Studies: Chest x-ray February 14, personally reviewed, reveals possible left lower lobe density Assessment/Plan Impression: Stable overall with a low-grade fever overnight of unclear significance. His recent chest x-ray does reveal a questionable left lower lobe density, possibly secondary to atelectasis. His white blood cell count remains low normal and platelet count is increasing, though still decreased, presumably secondary to his underlying cirrhosis or alcohol. His liver enzymes, elevated likely secondary to alcohol, are decreasing. With regard to his chronic colovesical and colocolonic fistulas further evaluation could be considered once he has stabilized, but should be done in conjunction with GI/Surgery. Suggestion: 1. Further workup for a colocolonic/colovesical fistula when stable per GI and Surgery 2. Follow-up recent cultures 3. Avoid oversedation and increase activity/out of bed 4. Would remove Silva catheter 5. Continue to follow off antibiotics
[2017-02-15 12:00] VITALS: BP 118/76
[2017-02-15 14:00] VITALS: BP 118/76
[2017-02-15 16:00] VITALS: BP 100/56
[2017-02-15 18:00] VITALS: BP 100/56
[2017-02-16] VITALS: BP 94/56
[2017-02-16 05:45] LABS: ABSOLUTE BASOPHIL COUNT 0.1 /CUMM (0.0-0.2); ABSOLUTE EOSINOPHIL COUNT 0.1 /CUMM (0.0-0.7); ABSOLUTE GRANULOCYTE CT 2.8 /CUMM (1.4-6.5); ABSOLUTE LYMPH COUNT 1.1 /CUMM (1.2-3.4); ABSOLUTE MONOCYTE COUNT 1.1 /CUMM (0.10-0.60); BASOPHIL % 1.1 % (0.0-2.0); EOSINOPHIL % 2.4 % (0-5); GRANULOCYTE % 53.5 % (42.2-75.2); HEMATOCRIT 28.6 % (42-52); MEAN CORPUSCULAR HGB 29.4 PG (27.0-31.0); MEAN CORPUSCULAR HGB CONC 32.3 G/DL (33.0-37.0); MEAN CORPUSCULAR VOLUME 91.1 FL (80.0-94.0); MEAN PLATELET VOLUME 9.6 FL (7.4-10.4); PLATELET COUNT 130 /CUMM (130-400); RBC DISTRIBUTION WIDTH 20.8 % (11.5-14.5); RED BLOOD CELL CT 3.15 /CUMM (4.70-6.10); WHITE BLOOD CELL COUNT 5.2 /CUMM (4.8-10.8)
--- NOTE | 2017-02-16 06:50 | PN- Housestaff ---
Subjective Follow-up For: Significant electrolyte abnormality Lactic acidosis with metabolic alkalosis STEPHANEI, resolved Hypokalemia Colovesical fistula with bacteriuria ETOH abuse with ongoing DT and ehpatomegaly Schizophrenia Cardiomyopathy with preserved EF Subjective: Patient seen and examined at bedside this AM. He reports he slept well and is tolerating his ground diet well without nausea or vomiting. Patient did report that he does not want to go to an inpatient psychiatric unit because his threats about killing himself were made in jest. He then mentioned he does not care if he lives or dies because he has gone through too much during his life. Patient denies fever, chills, chest pain, shortness of breath or abdominal pain. Review of Systems Constitutional: Denies: chills, fever, malaise. EENTM: Denies: visual changes, hearing changes, nasal congestion. Cardiovascular: Denies: chest pain, palpitations, peripheral edema. Respiratory: Reports: cough (Chronic). Denies: short of breath, wheezing. Gastrointestinal: Denies: abdominal pain, nausea, vomiting. Genitourinary: Denies: dysuria. Musculoskeletal: Denies: back pain. Skin: Denies: rash. Neurological/Psychological: Denies: confusion, numbness. Hematologic/Endocrine: Denies: bruising, bleeding. Immunologic/Allergic: Denies: splenectomy. Objective Last 24 Hrs of Vital Signs/I&O Vital Signs Date Time Temp Pulse Resp B/P B/P Pulse O2 O2 Flow FiO2 Mean Ox Delivery Rate 02/16 0600 78 16 02/16 0400 80 12 02/16 0000 98.5 95 16 94/56 02/16 0000 93 Room Air 02/16 0000 98.5 95 16 94/56 93 Room Air 02/15 2200 88 12 02/15 2000 88 12 02/15 1800 98.4 92 20 100/56 10 1600 98.4 92 20 100/56 10 1600 96 Nasal 1.0L Cannula 02/15 1600 98.4 92 20 100/56 96 Nasal 1.0L Cannula 02/15 1400 99.3 98 20 118/76 05/10 1200 99.3 98 20 118/76 02/15 1000 99.3 94 20 112/63 Intake & Output 02/16 1600 02/16 0800 02/16 0000 Intake Total 360 360 Output Total 1250 400 Balance -890 -40 Intake, Blood Product Intake, IV 0 0 Intake, Oral 360 360 Number 0 0 Bowel Movements Output, Urine 1250 400 Physical Exam General Appearance: Alert, Oriented X3, Cooperative, No Acute Distress Skin: No Significant Lesion Skin Temp/Moisture Exam: Warm/Dry HEENT: Atraumatic, EOMI, Mucous Membr. moist/pink Neck: Supple, No thryomegaly Lymphatic: Cervical nl Cardiovascular: Regular Rate, Normal S1, Normal S2, No Murmurs Lungs: Normal Air Movement, No respiratory distress, quiet respirations Abdomen: Normal Bowel Sounds, Soft, No Tenderness Neurological: Normal Speech, Normal Tone Extremities: No Clubbing, No Cyanosis, No Edema Vascular: Pulses Symmetrical Current Medications: Current Medications Sig/Olivia Start time Last Medication Dose Route Stop Time Status Admin Chlordiazepoxide HCl 40 MG Q8 02/15 1400 AC 02/16 PO 0552 Chlordiazepoxide HCl 50 MG Q8 02/14 1400 DC 02/15 PO 0632 Docusate Sodium 100 MG DAILY NEEDED PRN 02/14 1015 AC PO Folic Acid 1 MG DAILY 02/14 1301 AC 02/15 PO 1011 Lorazepam 0 Q1P PRN 02/14 2015 AC IV Magnesium Sulfate 1 GM ONCE ONE 02/15 0815 DC 02/15 Dextrose/Water 100 ML IV 02/15 1214 0829 Multivitamins 1 TAB DAILY 02/14 1301 AC 02/15 PO 1011 Pantoprazole Sodium 40 MG DAILY 02/13 1000 AC 02/15 IV 1011 Potassium Chloride 20 MEQ BID 02/10 1000 AC 02/15 PO 2141 Risperidone 37.5 MG Q 2 WEEKS 02/20 1000 AC IM Senna 187 MG AT BEDTIME PRN 02/14 1015 AC 02/14 PO 1538 Thiamine HCl 50 MG DAILY 02/14 1301 AC 02/14 PO 1537 Trimethobenzamide HCl 200 MG TID PRN 02/10 1630 AC 02/13 IM 1730 Last 24 Hrs of Lab/Guru Results Last 24 Hrs of Labs/Mics: Laboratory Tests 02/16/17 0445: Anion Gap 8, Estimated GFR > 60, BUN/Creatinine Ratio 5.7 L, CBC w Diff MAN DIFF ORDERED, RBC 3.15 L, MCV 91.1, MCH 29.4, RDW 20.8 H, MPV 9.6, Gran % 53.5 , Lymphocytes % 21.2, Monocytes % 21.8 H, Eosinophils % 2.4, Basophils % 1.1, Absolute Granulocytes 2.8, Segmented Neutrophils 50, Band Neutrophils 4, Absolute Lymphocytes 1.1 L, Lymphocytes 21, Monocytes 19 H, Absolute Monocytes 1.1 H, Eosinophils 5, Absolute Eosinophils 0.1, Absolute Basophils 0.1, Myelocytes 1 H, Platelet Estimate ADEQUATE, Polychromasia 1+, Hypochromic- Microcytic 2+, Poikilocytosis 1+, Anisocytosis 1+, PUBS MCHC 32.3 L Orders CIWA Score (last 24 hrs): 0-6 Stool Guaiac Testing: POSITIVE Radiology Findings: CXR: IMPRESSION: 1. Unchanged appearance of the chest with no acute pulmonary process seen. Miscellaneous Findings: Abdominal/pelvis CT: IMPRESSION: 1. Chronic and/or recurrent sigmoid colon diverticulitis and associated colovesical fistula. The persistent extraluminal gas overlying the bladder dome could be located within the fistula tract and/or within a chronic, small abscess cavity; this remains similar in appearance compared to 01/02/2017. 2. Diffuse hepatic steatosis and hepatosplenomegaly. Note that hepatic steatosis can be due to alcoholic and/or nonalcoholic etiologies. 3. Moderate-to large hiatal hernia. Head CT: IMPRESSION: 1. There are no acute intracranial findings. 2. There is a right parietal scalp contusion. Assessment/Plan Assessment: Mr. Woo is a 36 year old male with PMH schizophrenia, chronic alcoholism, alcoholic hepatitis, alcoholic cardiomyopathy, polydipsia, chronic colovesicle fistula, multiple admissions with electrolyte abnormalities (hyponatremia, hypokalemia, metabolic alkalosis), seizures and GI bleed who presents with weakness, dizziness and hematemesis found to have severe electrolyte abnormalities. Patient is currently in the ICU AND STABLE FOR DOWNGRADE TO GENERAL MEDICINE. We are currently addressing the following issues: Respiratory 1. Stable * Patient remains stable on O2 via NC at 1L * Vital signs Q shift Infectious 1. Leukocytosis with + urine culture * Resolved, WBC this AM 5.2 * Though patient has + urine cultures, may be 2/2 chronic colonization from colovesicle fistula * I have discussed this case with Dr. Zeny MD in regards to CT findings suggesting colovesicle fistula and colonoscopy without such findings- she suggested we may consider CT with rectal contrast (water soluble). Will order once patient slightly more stable and consider surigcal consult * Hold off antibiotics at this time * BC x 2 show no growth to date * Appreciate ID input * Silva catheter removed yesterday Cardiac 1. Cardiomyopathy with preserved ejection fraction * Hemodynamically stable * Tele monitoring no longer needed, downgrade to GM Heme 1. Hematemsis, resolving * Likely 2/2 erosive gastritis vs dirk friend tear * GI consult appreciated, notify them with any overt GI bleed * Continue IV protonix daily * Avoid NSAIDS * Periodic LFTs * Banana bag discontinued and have started oral MV, foliac acid, thiamine 2. Anemia * Likely 2/2 both GI losses and chronic ETOH abuse * Type and screen sent * Trend CBC, transfuse if Hgb<7 Metabolic 1. STEPHANIE and electrolyte disturbances, including hyponatremia/hypokalemia/ hypophosphatemia * STEPHANIE prerenal (hypotension/dehydration) and has resolved, monitor BEP daily * Hyponatremia likely 2/2 volume contraction and possibly secondary to ADH secretion from psychoactive medications, improved * Continue repleting K aggressively as needed 2. Metabolic alkalosis with lactic acidosis * 2/2 combination of volume contraction with hypotension on admission * Improved * Nephro rec's appreciated * Continue to monitor ICU bundle frequently 4. ETOH abuse and hepatitis * CIWA protocol * Continue to decrease librium daily, ativan drip off and use ativan boluses as needed for acute agitation * Appreciate GI input Alimentary * Patient s/p follow up swallow eval yesterday * Continue chopped and thins Neuro 1. Suicidaility * PEC in chart * Continue to follow psych recommendations * 1:1 sitter to continue * Plan for inpatient psych once medically clear 2. Schizophrenia * Risperidone Consta 37.5 mg ordered for 02/10/17 * Continue renzo for unsafe ambulation Skin * Continue repositioning while on mechanical ventilation FULL CODE DVTP: ALPS Mild pain pathway Diet: chopped and regular Problem List: 1. ALCOHOL WITHDRAWAL 2. Hypokalemia 3. Hyponatremia 4. Schizophrenia 5. DVT prophylaxis 6. Anemia 7. Elevated liver enzymes 8. Alcoholic ketoacidosis 9. Hiatal hernia 10. STEPHANIE (acute kidney injury) 11. Alcohol intoxication delirium 12. Hyperchloremic metabolic acidosis 13. Lactic acid acidosis Pain Ratin Pain Location: n/a Pain Goal: Remain pain free Pain Plan: PRN mild pathway. Tomorrow's Labs & Rationales: CBC (monitor WBC, plt) BEP (hyponatremia, initial STEPHANIE) Consulting Request: Consulting Specialty: Nephrology Consulting Physician: Tom Morales MD
--- NOTE | 2017-02-16 10:50 | PN- Infect Dx ---
Subjective Subjective: Afebrile. He apparently vomited this morning but denies any abdominal pain or diarrhea. He does note pneumaturia which he states has been a chronic problem Objective Last 24 Hrs of Vital Signs/I&O Vital Signs Date Time Temp Pulse Resp B/P B/P Pulse O2 O2 Flow FiO2 Mean Ox Delivery Rate 02/16 0600 78 16 02/16 0400 80 12 02/16 0000 98.5 95 16 94/56 02/16 0000 93 Room Air 02/16 0000 98.5 95 16 94/56 93 Room Air 02/15 2200 88 12 02/15 2000 88 12 02/15 1800 98.4 92 20 100/56 10 1600 98.4 92 20 100/56 /10 1600 96 Nasal 1.0L Cannula 02/15 1600 98.4 92 20 100/56 96 Nasal 1.0L Cannula 02/15 1400 99.3 98 20 118/76 02/15 1200 99.3 98 20 118/76 Intake & Output 02/16 1600 02/16 0800 02/16 0000 Intake Total 360 360 Output Total 1250 400 Balance -890 -40 Intake, Blood Product Intake, IV 0 0 Intake, Oral 360 360 Number 0 0 Bowel Movements Output, Urine 1250 400 Physical Exam Other Physical Findings: He is more awake and alert in no acute distress Lungs are clear Heart regular rhythm with no murmur Abdomen is soft, nontender with positive bowel sounds Results Last 24 Hours of Lab Results: Laboratory Tests 02/16 0445 Chemistry Sodium (137 - 145 mmol/L) 135 L Potassium (3.5 - 5.1 mmol/L) 4.1 Chloride (98 - 107 mmol/L) 102 Carbon Dioxide (22 - 30 mmol/L) 24 Anion Gap (5 - 16) 8 BUN (9 - 20 mg/dL) 4 L Creatinine (0.7 - 1.2 mg/dL) 0.7 Estimated GFR (>60 ml/min) > 60 BUN/Creatinine Ratio (7 - 25 %) 5.7 L Hematology CBC w Diff MAN DIFF ORDERED WBC (4.8 - 10.8 /CUMM) 5.2 RBC (4.70 - 6.10 /CUMM) 3.15 L Hgb (14.0 - 18.0 G/DL) 9.3 L Hct (42 - 52 %) 28.6 L MCV (80.0 - 94.0 FL) 91.1 MCH (27.0 - 31.0 PG) 29.4 RDW (11.5 - 14.5 %) 20.8 H Plt Count (130 - 400 /CUMM) 130 MPV (7.4 - 10.4 FL) 9.6 Gran % (42.2 - 75.2 %) 53.5 Lymphocytes % (20.5 - 51.1 %) 21.2 Monocytes % (1.7 - 9.3 %) 21.8 H Eosinophils % (0 - 5 %) 2.4 Basophils % (0.0 - 2.0 %) 1.1 Absolute Granulocytes (1.4 - 6.5 /CUMM) 2.8 Segmented Neutrophils (42.2 - 75.2 %) 50 Band Neutrophils (0.0 - 5.0 %) 4 Absolute Lymphocytes (1.2 - 3.4 /CUMM) 1.1 L Lymphocytes (20.5 - 51.1 %) 21 Monocytes (1.7 - 9.3 %) 19 H Absolute Monocytes (0.10 - 0.60 /CUMM) 1.1 H Eosinophils (0 - 5.0 %) 5 Absolute Eosinophils (0.0 - 0.7 /CUMM) 0.1 Absolute Basophils (0.0 - 0.2 /CUMM) 0.1 Myelocytes (0 - 0 %) 1 H Platelet Estimate (ADEQUATE) ADEQUATE Polychromasia 1+ Hypochromic-Microcytic 2+ Poikilocytosis 1+ Anisocytosis 1+ PUBS MCHC (33.0 - 37.0 G/DL) 32.3 L Last 24 Hours of Guru Results: Blood cultures 2 February 14 negative Urine culture February 14 negative Assessment/Plan Impression: Stable overall with temperatures and white blood cell count remaining normal off antibiotics. He does report pneumaturia, which is suggestive of a colovesical fistula, which, along with the possible colocolonic fistula, has been noted on serial CT scans for the last several years, though workup including a cystoscopy 6 days prior to admission and a more remote colonoscopy 3 years prior to admission was negative for any evidence of fistulas. Suggestion: 1. Further workup for a colocolonic/colovesical fistula per GI and Surgery 2. Continue to follow off antibiotics Will no longer follow at this time, but please call with any questions
--- NOTE | 2017-02-16 11:02 | Transfer of Care Summary ---
Hospital Course Course Hospital Course: Mr. Woo is a 36 year old male with PMH schizophrenia, chronic alcoholism, alcoholic hepatitis, alcoholic cardiomyopathy, polydipsia, chronic colovesicle fistula, multiple admissions with electrolyte abnormalities (hyponatremia, hypokalemia, metabolic alkalosis), seizures and GI bleed who presents with weakness, dizziness and hematemesis found to have severe electrolyte abnormalities. Vital signs on admission: T 98.5, HR 98, RR 20, BP 81/43, O2 99% room air. Labs were significant for WBC 17.8, H&H 11/33.9, Plt 99, Na 121, K 2.3, Cl <50, HCO3 30, BUN/cre 26/2.9, anion gap >41, lactic acid >24, TBili 4, AST 310, ALT 87, Alk phos 135, CK 661, lipase 497, INR 1.44, serum alcohol 104. Head CT was obtained and showed no acute intracranial findings, right parietal scalp contusion. Abdomen/pelvis CT showed chronic sigmoid diverticulitis with colovesical fistula adn possible small abscess cavity. Diffuse hepatic steatosis /hepatosplenomegaly. Moderate to large hiatal hernia. Patient was admitted to the ICU and the following was addressed: 1. Severe metabolic derangements, including metabolic alkalosis with lactic acidosis: Alkalosis on admission likely 2/2 hypokalemia and volume contraction due to vomiting. Patient was given IV fluids and nephro consult obtained. Acidosis secondary to lactic acidosis from alcohol and hypotension. As hypotension on admission improved with fluids noted above, metabolic status improved drastically. Of note, patient has presented similarly in the past and alcohol cessation is very important to prevent further episodes. Continue to emphasize this to patient while he is admitted and consider close follow up after discharge. 2. STEPHANIE and electrolyte disturbances on admission: STEPHANIE noted to be likely 2/2 nausea and vomiting pre-hospital. IV fluids administered and renal function slowly improved. Hyponatremia noted on admission likely 2/2 polydipsia from chronic psychiatric medication usage. Na was slowly increased with use of IVF and monitored closely. Hypokalemia aggressively repleted. Nephrology input was obtained and recommendations followed. Labs should continue to be checked while patient is in the hospital, though his STEPHANIE and electrolyte disturbances have mostly resolved. 3. ETOH abuse and detoxification: Patient has extensive drinking history and has been to [place] for similar issues in the past. Patient was started on CIWA protocol and ativan drip. Banana bags were given. Ativan drip ultimately titrated off as PO librium was introduced. Librium was titrated daily. Current dose is 40 mg Q8 and trisha be decreased pending attending recommendations. Alcohol cessation counseling performed. 4. Suicidality: Patient was noted to report suicidal thoughts to family prior to admissino. Patient had 1:1 sitter and psychiatric consultation. PEC form was signed and placed in his chart. Once medically clear, patient to be sent to inpatient psychiatric unit for further treatment. 5. Schizophrenia: Patient was acutely agitated intermittently during his stay requiring renzo vest and restraints. Psychiatry evalauted patient daily and as patient returned to a less agitated state, Risperidone Consta 37.5 mg was ordered for 02/10/17. Patient will likely require inpatient psychiatric admission once medically cleared. 6. Hematemesis with anemia: No noted episodes of hematemesis since admission but patient had stat GI consult placed and CBC was trended Q8h. Patient was initially on IV protonix drip and NSAIDs were avoided. Guiac was positive x 3. 2 U PRBC transfused on February 10 and and H&H remained stable afterwards. IV protonix was switched to daily. Continue to trend CBC and monitor for signs of bleeding. If patient becomes unstable, notify GI stat. 7. Bacteriuria in the setting of colovesicular fistula: Patient was initially started on ciprofloxacin and flagyl for possible abscess and fistula. ID was consuled and recommendations appreciated. Urine cultures showed citrobacter freundii, which may represent chronic colonization. Due to the fact that the fistula was chronic and WBC normalized soon after admission, antibiotics were discontinued on February 13 and patient was followed off antibiotics. Once patient is more stable, consider CT abdomen/pelvis with rectal water-soluble contrast to definitively outline fistula. If this is done, discuss findings with surgery for possible correction. 8. DVT prophylaxis: ALPS 9. Diet: Ground and thins 10. Code: FULL Complications: None. Significant Procedures: CXR: No acute abnormality the chest. Abdomen/Pelvis CT: IMPRESSION: 1. Chronic and/or recurrent sigmoid colon diverticulitis and associated colovesical fistula. The persistent extraluminal gas overlying the bladder dome could be located within the fistula tract and/or within a chronic, small abscess cavity; this remains similar in appearance compared to 01/02/2017. 2. Diffuse hepatic steatosis and hepatosplenomegaly. Note that hepatic steatosis can be due to alcoholic and/or nonalcoholic etiologies. 3. Moderate-to large hiatal hernia. Assessment/Plan: 1. Continue to maintain 1:1 sitter, PEC form in chart, follow psych recommendations on inpatient psychiatric admission after discharge. 2. Follow the following commercial sales consultant notes: GI, psych, nephro, ID 3. Continue to taper librium as outlined by attending 4. Continue to follow CIWA 5. Continue daily CBC (to monitor H&H) and BEP (monitor electrolytes). 6. Risperidone Consta 37.5 mg ordered for 02/10/17
--- NOTE | 2017-02-16 11:33 | PN- Psychiatry ---
Assessment/Plan Impression: Identifying Info: 36-year-old single conserved male well-known to this service presents to [facility] emergency department by ambulance on 02/10/2017 with a question of GI bleed. Subsequently found to have an STEPHANIE with metabolic acidosis as well as severe electrolyte abnormalities and transferred to critical care unit now downgraded to [facility]. SUBJECTIVE "I'm okay... it was an accident... I just knocked the bucket over when I was sleeping so my mom sent me here." Pt again denies mood disturbance. States he would like to continue drinking "maybe just at night... maybe my mom could take it and keep it for me." States he feels the Sulaiman Olea fault in is head at times. Feels stressed out because he is in [place] instead of [place]. Brief ROS Gait: Unobserved Sleep: Adequate Appetite: Adequate OBJECTIVE Mental Status Exam Presentation/Appearance: Lying in hospital bed, posy vest in place, 1:1. Participates in interview to best of his ability but often answers questions inappropriately. Orientation: Self, place, month and situation Sensorium: Alert Eye contact: Appropriate Affect: Somewhat consitricted Mood: "I'm good" Depression: Denies Anxiety: Denies Thought Content: - Denies SI/HI/AVH Thought Process: Tangential Associations: Somewhat loose Speech: Soft Judgment: Impaired Insight: Impaired Cognition: Memory: Appears more intact Attention/Concentration: Appears more intact, improved participation in interview Fund of Knowledge: Did not assess Abstractions: Did not assess MMSE: Did nto assess Per nursing report Ativan taper discontinued yesterday, now on oral Librium . Mentation and behavioral regulation have continued to improve. He however, is continuing to eat his meals very quickly resulting in vomiting leading to a change in diet order. House staff reports medical clearance likely later today. ASSESSMENT 36-year-old single conserved male well-known to this service with a history of similar presentations today reported to be experiencing suicidality. While the patient presently denies it his suicidality is confirmed by his outpatient care providers who state the patient has been actively trying to kill himself by consuming alcohol and not eating. This is a departure from his baseline and normal presentation. At present he represents a serious threat to self and may be gravely disabled as well which necessitates psychiatric hospitalization once medically stable. His outpatient treaters are planning to find the patient long-term placement. Mentation is improving but insight remains poor. Differential diagnosis Schizophrenia Delirium due to alcohol withdrawal and electrolyte abnormalities, improving Alcohol use disorder, severe Cannabis use disorder Suggestion: 1. Plan to continue to reduce total benzodiazepine dosing by 20% daily. 2. Continue risperal as ordered 3. Continue 1:[address] Patient may not leave hospital AMA without psychiatric clearance. Plan for inpatient psychiatry. 5. Continue CIWA protocol. 6. Please continue to attempt to reduce restraints as tolerated. Thank you for including psychiatry in this case we'll continue to follow. Subjective Subjective: as above Objective Last 24 Hrs of Vital Signs/I&O Current Medications Sig/Olivia Start time Last Medication Dose Route Stop Time Status Admin Chlordiazepoxide HCl 40 MG Q8 02/15 1400 AC 02/16 PO 0552 Chlordiazepoxide HCl 50 MG Q8 02/14 1400 DC 02/15 PO 0632 Docusate Sodium 100 MG DAILY NEEDED PRN 02/14 1015 AC PO Folic Acid 1 MG DAILY 02/14 1301 AC 02/16 PO 0900 Lorazepam 0 Q1P PRN 02/14 2015 AC IV Magnesium Sulfate 1 GM ONCE ONE 02/15 0815 DC 02/15 Dextrose/Water 100 ML IV 02/15 1214 0829 Multivitamins 1 TAB DAILY 02/14 1301 AC 02/16 PO 0900 Pantoprazole Sodium 40 MG DAILY 02/13 1000 AC 02/16 IV 0900 Potassium Chloride 20 MEQ BID 02/10 1000 AC 02/16 PO 0900 Risperidone 37.5 MG Q 2 WEEKS 02/20 1000 AC IM Senna 187 MG AT BEDTIME PRN 02/14 1015 AC 02/14 PO 1538 Thiamine HCl 50 MG DAILY 02/14 1301 AC 02/16 PO 0858 Trimethobenzamide HCl 200 MG TID PRN 02/10 1630 AC 02/13 IM 1730 Laboratory Tests 02/16/17 0445: Anion Gap 8, Estimated GFR > 60, BUN/Creatinine Ratio 5.7 L, CBC w Diff MAN DIFF ORDERED, RBC 3.15 L, MCV 91.1, MCH 29.4, RDW 20.8 H, MPV 9.6, Gran % 53.5 , Lymphocytes % 21.2, Monocytes % 21.8 H, Eosinophils % 2.4, Basophils % 1.1, Absolute Granulocytes 2.8, Segmented Neutrophils 50, Band Neutrophils 4, Absolute Lymphocytes 1.1 L, Lymphocytes 21, Monocytes 19 H, Absolute Monocytes 1.1 H, Eosinophils 5, Absolute Eosinophils 0.1, Absolute Basophils 0.1, Myelocytes 1 H, Platelet Estimate ADEQUATE, Polychromasia 1+, Hypochromic- Microcytic 2+, Poikilocytosis 1+, Anisocytosis 1+, PUBS MCHC 32.3 L Vital Signs Date Time Temp Pulse Resp B/P B/P Pulse O2 O2 Flow FiO2 Mean Ox Delivery Rate 02/16 0800 96 Room Air 02/16 0600 78 16 02/16 0400 80 12 02/16 0000 98.5 95 16 94/56 02/16 0000 93 Room Air 02/16 0000 98.5 95 16 93 Room Air 02/15 2200 88 12 02/15 2000 88 12 02/15 1800 98.4 92 20 100/56 02/15 1600 98.4 92 20 100/56 02/15 1600 96 Nasal 1.0L Cannula 02/15 1600 98.4 92 20 56 96 Nasal 1.0L Cannula 02/15 1400 99.3 98 20 118/76 02/15 1200 99.3 98 20 118/76 Intake & Output 02/16 1600 02/16 0800 02/16 0000 Intake Total 360 360 Output Total 1250 400 Balance -890 -40 Intake, Blood Product Intake, IV 0 0 Intake, Oral 360 360 Number 0 0 Bowel Movements Output, Urine 1250 400
[2017-02-16 12:23] VITALS: BP 120/70
--- NOTE | 2017-02-16 14:06 | PN- Pulmonary ---
Subjective HPI/Critical Care Issues: Afebrile. He apparently vomited this morning but denies any abdominal pain or diarrhea. He does note pneumaturia which he states has been a chronic problem Objective Current Medications: Current Medications Sig/Olivia Start time Last Medication Dose Route Stop Time Status Admin Chlordiazepoxide HCl 40 MG Q8 02/15 1400 AC 02/16 PO 0552 Docusate Sodium 100 MG DAILY NEEDED PRN 02/14 1015 AC PO Folic Acid 1 MG DAILY 02/14 1301 AC 02/16 PO 0900 Lorazepam 0 Q1P PRN 02/14 2015 AC IV Multivitamins 1 TAB DAILY 02/14 1301 AC 02/16 PO 0900 Pantoprazole Sodium 40 MG DAILY 02/13 1000 AC 02/16 IV 0900 Potassium Chloride 20 MEQ BID 02/10 1000 AC 02/16 PO 0900 Risperidone 37.5 MG Q 2 WEEKS 02/20 1000 AC IM Senna 187 MG AT BEDTIME PRN 02/14 1015 AC 02/14 PO 1538 Thiamine HCl 50 MG DAILY 02/14 1301 AC 02/16 PO 0858 Trimethobenzamide HCl 200 MG TID PRN 02/10 1630 AC 02/13 IM 1730 Vital Signs & I&O Last 24 Hrs of Vitals and I&O: Vital Signs Date Time Temp Pulse Resp B/P B/P Pulse O2 O2 Flow FiO2 Mean Ox Delivery Rate 02/16 1223 99.1 108 20 120/70 97 02/16 0800 96 Room Air 02/16 0600 78 16 02/16 0400 80 12 02/16 0000 98.5 95 16 94/56 02/16 0000 93 Room Air 02/16 0000 98.5 95 16 9456 93 Room Air 02/15 2200 88 12 02/15 2000 88 12 02/15 1800 98.4 92 20 100/56 02/15 1600 98.4 92 20 100/56 02/15 1600 96 Nasal 1.0L Cannula 02/15 1600 98.4 92 20 100/56 96 Nasal 1.0L Cannula Intake & Output 02/16 1600 02/16 0800 02/16 0000 Intake Total 360 360 Output Total 1250 400 Balance -890 -40 Intake, Blood Product Intake, IV 0 0 Intake, Oral 360 360 Number 0 0 Bowel Movements Output, Urine 1250 400 Impression/Plan Impression/Plan Impression/Plan: General Appearance: no apparent distress, alert, anxious, lethargic Head: atraumatic, normal appearance Respiratory: normal breath sounds, chest non-tender, no respiratory distress, quiet respiration, lungs clear Cardiovascular: regular rate/rhythm Gastrointestinal: normal bowel sounds, soft, non-tender Extremities: normal capillary refill, Bilaterral Upper Extremity Edema Cranial Nerves: normal hearing Skin: intact 36-year-old man with background of alcoholism, alcoholic hepatitis, schizophrenia, polydipsia among other problems as noted above, with history of recurrent admissions for acute kidney injury and multiple electrolyte disturbances. He now comes in with the same series of events preceded by alcohol intake, nausea, vomiting and very high free water intake Issues include Resolve SIg electrolyte abnormality due to multiple factors improving Sig etoh use with etoh hepatitis Sig etoh with ongoing DT Resolved Severe acidosis with combined metabolic alkalosis with profound hypokalemia due to polydipsia free water with worsening hyponatremia due to persistent ADH secretion related to his psychoactive medications Resolved Acute renal failure Significant schizophrenia with multiple issues Recent suspicion for a colovesicular fistula but the patient did have evaluation and patient did have a biopsy of the bladder which was nonrevealing. GI is following Hiatal hernia Significant hepatomegaly with ongoing alcoholism prior to admission Recurrent urinary tract infection with multiple gram-negative organisms now with citrobacter Previous history of cardiomyopathy with preserved ejection fraction PLAN cont librium and reduce by 25 mg daily if pt is stable Aggressively replace magnesium and potassium REplace mag Can be downgraded discussed with Hospitalist oncindy Wharton and they will assume care
[2017-02-16 20:00] VITALS: BP 120/70
[2017-02-16 22:00] VITALS: BP 120/70
[2017-02-16 22:37] VITALS: BP 110/66
[2017-02-17] VITALS (8 sets, daily range): BP systolic 100–112; BP diastolic 60–70
--- NOTE | 2017-02-17 07:02 | PN- Housestaff ---
ZACHERY CARPENTER,SAMMI 02/17/17 0702: Subjective Follow-up For: Alcohol detox, Metabolic abnormalities, Suicidal ideation Complaints: no complaints, denies suicidal ideation Subjective: I followed up and examined the patient today. He is resting comfortably by the side of his bed, arranging his clothes, appears more functional than yesterday ( I had a 20 minute conversation yesterday with the patient after the transfer and he still had suicidal ideation.). Vitals have been stable overnight, CIWA score 0 currently, remains in past 24 hours is 0-7, mostly for nausea/vomiting. He complained of some left-sided shoulder pain for which she was given Tylenol. He does have a bruise from midline towards the left shoulder since his admission. Of note, he denied any suicidal ideation or homicidal ideation today. Review of Systems Constitutional: Reports: see HPI. Objective Last 24 Hrs of Vital Signs/I&O Vital Signs Date Time Temp Pulse Resp B/P B/P Pulse O2 O2 Flow FiO2 Mean Ox Delivery Rate 02/17 0630 99.0 90 18 112/68 100 Room Air 02/17 0600 98.0 95 18 100/60 02/17 0400 98.0 95 18 100/60 02/17 0200 98.0 95 18 100/60 / 0200 98.0 95 18 100/60 100 Room Air 02/17 0000 99.5 95 20 110/66 02/17 0000 97 Room Air 02/16 2237 99.5 95 20 110/66 97 Room Air 02/16 2200 99.1 108 20 120/70 02/17 2000 99.1 108 20 120/70 02/16 1223 99.1 108 20 120/70 97 Intake & Output 02/17 1600 02/17 0800 02/17 0000 Intake Total 1999 700 Output Total Balance 1999 700 Intake, Oral 1999 700 Physical Exam General Appearance: Alert, Oriented X3, Cooperative, No Acute Distress Other Physical Findings: Physical examnination: General: well nourished patient, not in distress Head: Normocephalic, atraumatic Eyes: Pupils normal in size, regular, reacting to light and accommodation, EOM normal Ears: B/l normal on inspection Throat/mouth: Moist mucosa Neck: Supple, full range of motion Heart: Regular rate, regular rhythm Lung: Normal breath sound bilaterally Added sound not heard Abd: Soft, non-tender, no distention appreciated Back: Normal range of motion Extremities: Normal knee exam bilaterally, no pedal edema, Distal neurovascular intact Neurologic: Alert, oriented x3, Cranial exam grossly intact, Speech is clear and coherent Skin: Warm and dry, bruise over midline to left shoulder (?resolving) since admission Psychiatric: Calm, cooperative, coherant, no SI, no HI today Current Medications: Current Medications Sig/Olivia Start time Last Medication Dose Route Stop Time Status Admin Acetaminophen 650 MG ONCE ONE 02/16 2100 DC 02/16 PO 02/16 2101 205 Chlordiazepoxide HCl 40 MG Q8 02/15 1400 AC 02/17 PO 0537 Docusate Sodium 100 MG DAILY NEEDED PRN 02/14 1015 AC PO Folic Acid 1 MG DAILY 02/14 1301 AC 02/16 PO 0900 Lorazepam 0 Q1P PRN 02/14 2015 AC IV Multivitamins 1 TAB DAILY 02/14 1301 AC 02/16 PO 0900 Nicotine 21 MG DAILY 02/16 2007 AC 02/16 TOP 2322 Pantoprazole Sodium 40 MG DAILY 02/13 1000 AC 02/16 IV 0900 Potassium Chloride 20 MEQ BID 02/10 1000 AC 02/16 PO 205 Risperidone 37.5 MG Q 2 WEEKS 02/20 1000 AC IM Senna 187 MG AT BEDTIME PRN 02/14 1015 AC 02/14 PO 1538 Thiamine HCl 50 MG DAILY 02/14 1301 AC 02/16 PO 0858 Tramadol HCl 50 MG ONCE ONE 02/16 2015 CAN PO 02/17 2016 Trimethobenzamide HCl 200 MG .STK-MED ONE 02/16 1426 DC IM 02/16 1427 Trimethobenzamide HCl 200 MG TID PRN 02/10 1630 AC 02/16 IM 1427 Last 24 Hrs of Lab/Guru Results Last 24 Hrs of Labs/Mics: Laboratory Tests 02/17/17 0723: Sodium Pending, Potassium Pending, Chloride Pending, Carbon Dioxide Pending, Anion Gap Pending, BUN Pending, Creatinine Pending, BUN/Creatinine Ratio Pending , Phosphorus Pending, Magnesium Pending, PT 14.0 H, INR 1.34 H Orders CIWA Score (last 24 hrs): 0-7, now 0 Assessment/Plan Assessment: Mr. Woo is a 36 year old male with PMH schizophrenia, chronic alcoholism, alcoholic hepatitis, alcoholic cardiomyopathy, polydipsia, chronic colovesicle fistula, multiple admissions with electrolyte abnormalities (hyponatremia, hypokalemia, metabolic alkalosis), seizures and GI bleed who presents with weakness, dizziness and hematemesis and found to have severe electrolyte abnormalities, was initially managed in the ICU and later transferred to general medical floor on 02/16/2017, after getting medically better. Patient is currently in the general medical floor and is being managed for the following issues: # STEPHANIE and electrolyte disturbances, including hyponatremia/hypokalemia/ hypophosphatemia * STEPHANIE prerenal (hypotension/dehydration) and has resolved, monitor BEP daily * Hyponatremia likely 2/2 volume contraction and possibly secondary to ADH secretion from psychoactive medications, improved * Continue repleting K as needed # Metabolic alkalosis with lactic acidosis * 2/2 combination of volume contraction with hypotension on admission * Improved * Nephro rec's appreciated * Continue to monitor BEP daily # ETOH abuse and hepatitis * CIWA protocol, score this morning was 0, and 2-7 in past 24 hr. * Continue to decrease librium daily, ativan drip was turned off on 02/15/17, and use ativan boluses as needed for acute agitation * Appreciate GI input #Suicidal ideation * Patient had suicidal ideation yesterday, although denies it today * Has 1-[address], continue that * Patient cannot leave AMA/AGAINST MEDICAL ADVICE #Chronic colovesical fistula * Radiological findings discussed with Dr. Zeny MD in regards to CT findings suggesting colovesicle fistula and colonoscopy without such findings- she suggested we may consider CT with rectal contrast (water soluble). Patient has not had fevers/chills, signs and symptoms of urinary tract infection thus will not pursue at this time. If required, will request a surgical consult. #Acute on chronic blood loss anemia secondary to GI bleeding * Patient had symptomatic anemia, and was transfused 2 units of packed RBCs. His H&H has remained stable even though the initial guaiac test were positive. GI consultation was made. And recommended a transfusion, and further testing/ scoping only if patient is bleeding significantly, which has not occurred. #History of cardiomyopathy with preserved ejection fraction, alcoholic hepatitis #Suicidal ideation * Patient was signed off to me from the ICU as having active thoughts of suicide , thus had 1:[address] Yesterday he did admit to suicidal ideations. This morning he denied any palpitations as such. At this point of time, continuing 1:1 sitter for patient's safety. * Following psychiatric service suggestions. * Plan to discharge to inpatient psychiatry inside or outside [place] according to availablity. #Schizophrenia * Risperidone Consta 37.5 mg ordered for 02/10/17 #Discharge disposition: Patient's medical condition is already getting better, monitoring him for any seizures/delirium tremens, and watching him for his symptoms. He still has suicidal ideations, has 1:1 sitter currently, and will require further help as an inpatient to psychiatry reid. FULL CODE DVTP: ALPS Mild pain pathway Diet: chopped and regular Problem List: 1. ALCOHOL WITHDRAWAL 2. Abnormal metabolic function 3. Suicidal ideations Pain Ratin Pain Location: left shoulder when present Pain Goal: Pain 4 or less Pain Plan: prn Tomorrow's Labs & Rationales: BEP to follow/replete alfred Consulting Request: Consulting Specialty: Nephrology Consulting Physician: MD JATINDER Joe MD,[facility] 02/17/17 1149: Attending MD Review Statement Attending Statement Attending MD Statement: examined this patient, discuss w/resident/PA/PERSONAL CARE SERVICE PROVIDER, agreed w/resident/PA/PERSONAL CARE SERVICE PROVIDER, reviewed EMR data (avail), discussed with nursing, discussed with case mgmt, amended to note Attending Assessment/Plan: Patient seen and examined. Resting comfortably not in any acute distress. Records from ICU stay reviewed. Patient's current antihypertensive not in any acute distress. His CIWA has been 0 overnight. He is calm and conversing appropriately. He is eager to be discharged home. He states that he is reluctant to follow-up with an outpatient alcohol rehabilitation program. On examination he is not tremulous. He is not agitated. Abdomen issoft nontender with right upper quadrant fullness. He has no peripheral edema. Recommendations: -Continue benzodiazepine taper as recommended by the psychiatric service. -Psychiatric service is currently recommending inpatient psychiatric admission for further management. Patient is reluctant to proceed with this. His hemoglobin level has been stable since transfusion. Likely combination of myelosuppression from alcohol use and gastrointestinal bleeding. Stool guaiac was positive Case was reviewed by the gastroenterology service. Due to the stable hemoglobin levels no inpatient endoscopic studies are planned for now. -Patient seen for a medical standpoint to discharge. Disposition to be decided by the psychiatric service. stable hemoglobin levels no inpatient endoscopic studies are planned for now. -Patient seen for a medical standpoint to discharge. Disposition to be decided by the psychiatric service. appropriately. He is eager to be discharged home. He states that he is reluctant to follow-up with an outpatient alcohol rehabilitation program. On examination he is not tremulous. He is not agitated. Abdomen issoft nontender with right upper quadrant fullness. He has no peripheral edema. Recommendations: -Continue benzodiazepine taper as recommended by the psychiatric service. -Psychiatric service is currently recommending inpatient psychiatric admission for further management. Patient is reluctant to proceed with this. His hemoglobin level has been stable since transfusion. Likely combination of myelosuppression from alcohol use and gastrointestinal bleeding. Stool guaiac was positive Case was reviewed by the gastroenterology service. Due to the stable hemoglobin levels no inpatient endoscopic studies are planned for now. -Patient seen for a medical standpoint to discharge. Disposition to be decided by the psychiatric service. MD JATINDER Joe MD,[facility] 02/17/17 1149: Attending MD Review Statement Attending Statement Attending MD Statement: examined this patient, discuss w/resident/PA/PERSONAL CARE SERVICE PROVIDER, agreed w/resident/PA/PERSONAL CARE SERVICE PROVIDER, reviewed EMR data (avail), discussed with nursing, discussed with case mgmt, amended to note Attending Assessment/Plan: Patient seen and examined. Resting comfortably not in any acute distress. Records from ICU stay reviewed. Patient's current antihypertensive not in any acute distress. His CIWA has been 0 overnight. He is calm and conversing appropriately. He is eager to be discharged home. He states that he is reluctant to follow-up with an outpatient alcohol rehabilitation program. On examination he is not tremulous. He is not agitated. Abdomen issoft nontender with right upper quadrant fullness. He has no peripheral edema. Recommendations: -Continue benzodiazepine taper as recommended by the psychiatric service. -Psychiatric service is currently recommending inpatient psychiatric admission for further management. Patient is reluctant to proceed with this. His hemoglobin level has been stable since transfusion. Likely combination of myelosuppression from alcohol use and gastrointestinal bleeding. Stool guaiac was positive Case was reviewed by the gastroenterology service. Due to the stable hemoglobin levels no inpatient endoscopic studies are planned for now. -Patient seen for a medical standpoint to discharge. Disposition to be decided by the psychiatric service. stable hemoglobin levels no inpatient endoscopic studies are planned for now. -Patient seen for a medical standpoint to discharge. Disposition to be decided by the psychiatric service.
--- NOTE | 2017-02-17 15:39 | Patient Discharge Instructions ---
Discharge Instructions General Discharge Information You were seen/treated for: Abnormal metabolic function secondary to alcohol, alcohol detoxification, suicidal ideation. Special Instructions: Please visit your primary care physician within 7 days of discharge. Please call and make a follow-up with basket weaver Dr. Antonio contact address and phone number provided. His visit your mental health services provider within 7 days of discharge or as instructed. AVOID ALCOHOL AND MARIJUANA. We have discussed about this during this stay. Please return to emergency if symptoms worsen. Diet Continue normal diet: Yes Recommended Diet: Heart Healthy Activity Full Activity/No Limits: No Activity Self Limited: Yes Acute Coronary Syndrome Inclusion Criteria At DC or during hospital stay patient has or had the following: ACS DIAGNOSIS No Discharge Core Measures Meds if any: Prescribed or Continued at Discharge Meds if any: NOT Prescribed or Continued at Discharge Congestive Heart Failure Inclusion Criteria At DC or during hospital stay patient has or had the following: CHF DIAGNOSIS No Discharge Core Measures Meds if any: Prescribed or Continued at Discharge Meds if any: NOT Prescribed or Continued at Discharge Cerebrovascular accident Inclusion Criteria At DC or during hospital stay patient has or had the following: CVA/TIA Diagnosis No Discharge Core Measures Meds if any: Prescribed or Continued at Discharge Meds if any: NOT Prescribed or Continued at Discharge Venous thromboembolism Inclusion Criteria VTE Diagnosis No VTE Type NONE VTE Confirmed by (Test) NONE Discharge Core Measures - Per Current guidelines, there needs to be overlap - treatment for the first 5 days of Warfarin therapy. - If discharged on Warfarin prior to 5 days of - overlap therapy, the patient will need to be - assessed for post discharge needs including - *Post discharge parental anticoagulation - *Warfarin and/or parental anticoagulation education - *Follow up date to check INR post discharge At least 5 days overlap therapy as Inpatient No Meds if any: Prescribed or Continued at Discharge Note: Overlap Therapy is Warfarin and Anticoagulant Meds if any: NOT Prescribed or Continued at Discharge
--- NOTE | 2017-02-17 15:52 | PN- Psychiatry ---
Assessment/Plan Impression: Identifying Info: 36-year-old single conserved male well-known to this service presents to [facility] emergency department by ambulance on 02/10/2017 with a question of GI bleed. Subsequently found to have an STEPHANIE with metabolic acidosis as well as severe electrolyte abnormalities and transferred to critical care unit now downgraded to [facility]. SUBJECTIVE Patient again denies suicidality today. Perseverates on not wanting to go to psychiatry. States "this is unfair all I did was knock over bucket and then I had to go to the hospital." Patient is agreeable to stay in hospital until alcohol detox is completed. Discussed with patient's mother Merly Woo the patient's current disposition and plan to likely discharge early next week once alcohol detox is completed. She stated he was not welcome back in her house. She asked if he could go to a private rehabilitation but informed most of those are self-pay so we agreed to both speak to care to work on disposition planning. Spoke to Rosa M of [facility] about challenges with disposition. Agreed that I would discuss case with [facility] social work and that she would attempt to obtain a respite bed for Prasanna. Informed Prasanna of the above and encouraged him to open dialogue with his family and outpatient treaters. Brief ROS Gait: Unobserved Sleep: Adequate Appetite: Adequate OBJECTIVE Mental Status Exam Presentation/Appearance: Awake and alert sitting in hospital room. Cooperative with interview to the best of his ability. Wearing street clothes Orientation: Self, place, month and situation Sensorium: Alert Eye contact: Appropriate Affect: Somewhat consitricted Mood: "I'm not suicidal." Irritable frequently expressing frustration with his mother. Depression: Denies Anxiety: Denies Thought Content: - Denies SI/HI, AH/VH, PI. States and also believes they will not kill themselves. - Denies Hopeless/Helpless Thoughts Thought Process: Circumstantial Associations: Somewhat loose Speech: Soft Judgment: Impaired Insight: Impaired Cognition: Memory: Appears more intact Attention/Concentration: Appears more intact, improved participation in interview Fund of Knowledge: Did not assess Abstractions: Did not assess MMSE: Did not assess ASSESSMENT 36-year-old single conserved male well-known to this service with a history of similar presentations today reported to be experiencing suicidality. His outpatient treaters are planning to find the patient long-term placement. Mentation is improving but insight remains poor. He is not actively suicidal at this time. Differential diagnosis Schizophrenia Delirium due to alcohol withdrawal and electrolyte abnormalities, improving Alcohol use disorder, severe Cannabis use disorder Suggestion: Discuss case with Chief of Psychiatry Prakash Landis MD 1. Plan to continue to reduce total benzodiazepine dosing by 20% daily. 2. Continue risperal as ordered 3. Continue 1:1 4. Continue CIWA protocol. 5. Plan for placement in community once alcohol detox is completed Thank you for including psychiatry in this case we'll continue to follow. Subjective Subjective: as above Objective Last 24 Hrs of Vital Signs/I&O Current Medications Sig/Olivia Start time Last Medication Dose Route Stop Time Status Admin Acetaminophen 650 MG ONCE ONE 02/16 2100 DC 02/16 PO 02/16 2101 205 Chlordiazepoxide HCl 40 MG Q8 02/15 1400 AC 02/17 PO 1328 Docusate Sodium 100 MG DAILY NEEDED PRN 02/14 1015 AC PO Folic Acid 1 MG DAILY 02/14 1301 AC 02/17 PO 0902 Lorazepam 0 Q1P PRN 02/14 2015 AC IV Multivitamins 1 TAB DAILY 02/14 1301 AC 02/17 PO 0902 Nicotine 21 MG DAILY 02/16 2007 AC 02/17 TOP 1315 Pantoprazole Sodium 40 MG DAILY 02/13 1000 AC 02/17 IV 0902 Patient Medication 1 ED .STK-MED ONE 02/17 1356 DC Teaching ED 02/17 1357 Potassium Chloride 20 MEQ BID 02/10 1000 AC 02/17 PO 0902 Risperidone 37.5 MG Q 2 WEEKS 02/20 1000 AC IM Senna 187 MG AT BEDTIME PRN 02/14 1015 AC 02/14 PO 1538 Thiamine HCl 50 MG DAILY 02/14 1301 AC 02/17 PO 0903 Tramadol HCl 50 MG ONCE ONE 02/16 2015 CAN PO 02/16 2016 Trimethobenzamide HCl 200 MG TID PRN 02/10 1630 AC 02/16 IM 1427 Laboratory Tests 02/17/17 0723: Anion Gap 10, Estimated GFR > 60, BUN/Creatinine Ratio 10.0, Phosphorus 4.0, Magnesium 2.0, PT 14.0 H, INR 1.34 H 02/17/17 0500: CBC w Diff Cancelled, WBC Cancelled, RBC Cancelled, Hgb Cancelled, Hct Cancelled , MCV Cancelled, MCH Cancelled, RDW Cancelled, Plt Count Cancelled, MPV Cancelled, PUBS MCHC Cancelled Vital Signs Date Time Temp Pulse Resp B/P B/P Pulse O2 O2 Flow FiO2 Mean Ox Delivery Rate 02/17 1531 99.7 97 18 100/70 99 05/ 0800 99.0 90 18 112/68 05/ 0630 99.0 90 18 112/68 100 Room Air 02/17 0600 98.0 95 18 100/60 02/17 0400 98.0 95 18 100/60 02/17 0200 98.0 95 18 100/60 / 0200 98.0 95 18 100/60 100 Room Air 05 0000 99.5 95 20 110/66 05 0000 97 Room Air 02/16 2237 99.5 95 20 110/66 97 Room Air 02/16 2200 99.1 108 20 120/70 02/17 2000 99.1 108 20 120/70 Intake & Output 02/17 1600 02/17 0800 02/17 0000 Intake Total 1999 700 Output Total Balance 1999 Intake, Oral 1999
[2017-02-18] VITALS (7 sets, daily range): BP systolic 92–100; BP diastolic 54–62
--- NOTE | 2017-02-18 07:51 | PN- Housestaff ---
See Addendum ERICA CARPENTER,NADEEN 02/18/17 0751: Subjective Follow-up For: Suicidal ideation Alcohol use disorder Subjective: I saw and examined the patient today mornig He is lying in the bed. He threw up several times, unsure whether intentional as he did in the restroom. He is very aggressive about discharge during my conversation. Reports he is not suicidal, claims hospital is making more money by making him stay in the hospital. Sitter in place. Review of Systems Constitutional: Reports: see HPI. Comments: ROS negative except the above. Objective Last 24 Hrs of Vital Signs/I&O Vital Signs Date Time Temp Pulse Resp B/P B/P Pulse O2 O2 Flow FiO2 Mean Ox Delivery Rate 02/18 0600 99.0 94 18 /60 02/18 0400 99.0 94 18 /60 02/18 0200 99.0 94 18 /60 02/18 0000 99.0 94 18 /60 02/17 2123 99.0 94 20 100/60 99 02/17 1531 99.7 97 18 100/70 99 02/17 0800 99.0 90 18 112/68 Intake & Output 02/18 0800 02/18 0000 02/17 1600 Intake Total 500 800 700 Output Total Balance 500 800 700 Intake, Oral 500 800 700 Physical Exam General Appearance: Alert, Oriented X3, Mild Distress Skin: No Rashes HEENT: Atraumatic, PERRLA, EOMI Neck: Supple Cardiovascular: Normal S1, Normal S2 Lungs: Clear to Auscultation, Normal Air Movement Abdomen: Normal Bowel Sounds, Soft, No Tenderness Neurological: Normal Speech, Strength at 5/5 X4 Ext, Normal Tone, Sensation Intact Extremities: No Clubbing, No Cyanosis, No Edema Vascular: Normal Pulses, Pulses Symmetrical Current Medications: Current Medications Sig/Olivia Start time Last Medication Dose Route Stop Time Status Admin Acetaminophen 650 MG ONCE ONE 02/18 0200 DC 02/18 PO 02/18 020 0207 Chlordiazepoxide HCl 10 MG DAILY 02/19 1000 AC PO Chlordiazepoxide HCl 20 MG BID 02/18 1000 AC PO 02/18 2300 Chlordiazepoxide HCl 40 MG Q8 02/15 1400 DC 02/17 PO 02/17 2300 2104 Docusate Sodium 100 MG DAILY NEEDED PRN 02/14 1015 AC PO Folic Acid 1 MG DAILY 02/14 1301 AC 02/17 PO 0902 Lorazepam 0 Q1P PRN 02/14 2015 AC IV Multivitamins 1 TAB DAILY 02/14 1301 AC 02/17 PO 0902 Nicotine 21 MG DAILY 02/16 2007 AC 02/17 TOP 2240 Pantoprazole Sodium 40 MG DAILY 02/13 1000 AC 02/17 IV 0902 Patient Medication 1 ED .STK-MED ONE 02/17 1356 OR Teaching ED 02/17 1357 Potassium Chloride 20 MEQ BID 02/10 1000 AC 02/17 PO 2104 Risperidone 37.5 MG Q 2 WEEKS 02/20 1000 AC IM Senna 187 MG AT BEDTIME PRN 02/14 1015 AC 02/14 PO 1538 Thiamine HCl 50 MG DAILY 02/14 1301 AC 02/17 PO 0903 Trimethobenzamide HCl 200 MG TID PRN 02/10 1630 AC 02/16 IM 1427 Assessment/Plan Assessment: Mr. Woo is a 36 year old male with PMH schizophrenia, chronic alcoholism, alcoholic hepatitis, alcoholic cardiomyopathy, polydipsia, chronic colovesicle fistula, multiple admissions with electrolyte abnormalities (hyponatremia, hypokalemia, metabolic alkalosis), seizures and GI bleed who presents with weakness, dizziness and hematemesis and found to have severe electrolyte abnormalities, was initially managed in the ICU and later transferred to general medical floor on 02/16/2017, after getting medically better. Patient is currently in the general medical floor and is being managed for the following issues: STEPHANIE and electrolyte disturbances * Resolved, daily BEP to monitor K levels. Metabolic alkalosis with lactic acidosis * Resolved * Patient started thrwoing up on his own, we will monitor his BEP daily ETOH abuse and hepatitis * CIWA protocol, score this morning was 0, and 2-7 in past 24 hr. * Continue to decrease librium daily - changed to librium 20mg BID from 40mg Q8. * ativan drip was turned off on 02/15/17, and use ativan boluses as needed for acute agitation * Appreciate GI input Suicidal ideation * Patient had suicidal ideation yesterday, although denies it today * Has 1-[address], continue that * Patient cannot leave AMA/AGAINST MEDICAL ADVICE * Following psychiatric service suggestions. * Plan to discharge to inpatient psychiatry inside or outside [place] according to availablity. Acute on chronic blood loss anemia secondary to GI bleeding * Patient had symptomatic anemia s/p 2 units PRBC's. * His H&H has remained stable. Chronic conditions: Chronic colovesical fistula * Radiological findings discussed with Dr. Zeny MD in regards to CT findings suggesting colovesicle fistula and colonoscopy without such findings- she suggested we may consider CT with rectal contrast (water soluble). Patient has not had fevers/chills, signs and symptoms of urinary tract infection thus will not pursue at this time. History of cardiomyopathy with preserved ejection fraction, alcoholic hepatitis Schizophrenia: Risperidone Consta 37.5 mg ordered for 02/10/17 #Discharge disposition: Patient's medical condition is already getting better, monitoring him for any seizures/delirium tremens, and watching him for his symptoms. He still has suicidal ideations, has 1:1 sitter currently, and will require further help as an inpatient to psychiatry reid. FULL CODE DVTP: ALPS Mild pain pathway Diet: chopped and regular Problem List: 1. ALCOHOL WITHDRAWAL 2. Hypokalemia 3. Schizophrenia Pain Ratin Pain Location: n/a Pain Goal: Pain 4 or less Pain Plan: tylenol prn Tomorrow's Labs & Rationales: NONE Consulting Request: Consulting Specialty: Nephrology Consulting Physician: MD FABRIZIO Joe MD,[facility] 02/18/17 1002: Attending MD Review Statement Attending Statement Attending MD Statement: examined this patient, discuss w/resident/PA/COPY WORKER, agreed w/resident/PA/COPY WORKER, reviewed EMR data (avail), discussed with nursing Attending Assessment/Plan: Pt refused to have blood work done today. Intermittent body shivering, however, reports doing well. F/u Psych recs. rest of the plan as per resident's note
[2017-02-19] VITALS (8 sets, daily range): BP systolic 90–98; BP diastolic 58–64
[2017-02-19 07:59] LABS: ABSOLUTE BASOPHIL COUNT 0 /CUMM (0.0-0.2); ABSOLUTE EOSINOPHIL COUNT 0 /CUMM (0.0-0.7); ABSOLUTE GRANULOCYTE CT 4.8 /CUMM (1.4-6.5); ABSOLUTE LYMPH COUNT 0.9 /CUMM (1.2-3.4); ABSOLUTE MONOCYTE COUNT 0.8 /CUMM (0.10-0.60); BASOPHIL % 0.4 % (0.0-2.0); EOSINOPHIL % 0.5 % (0-5); GRANULOCYTE % 72.9 % (42.2-75.2); HEMATOCRIT 25.7 % (42-52); MEAN CORPUSCULAR HGB 29.1 PG (27.0-31.0); MEAN CORPUSCULAR HGB CONC 32.2 G/DL (33.0-37.0); MEAN CORPUSCULAR VOLUME 90.6 FL (80.0-94.0); MEAN PLATELET VOLUME 10.7 FL (7.4-10.4); PLATELET COUNT 162 /CUMM (130-400); RBC DISTRIBUTION WIDTH 19.4 % (11.5-14.5); RED BLOOD CELL CT 2.84 /CUMM (4.70-6.10); WHITE BLOOD CELL COUNT 6.6 /CUMM (4.8-10.8)
--- NOTE | 2017-02-19 08:59 | PN- Housestaff ---
ZACHERY CARPENTER,SAMMI 02/19/17 0859: Subjective Follow-up For: Suicidal ideation Alcohol use disorder Complaints: no complaints Subjective: I followed up and examined the patient today. He is resting comfortably, walking around, has a 1:1 sitter, is a level anxious about why he still in the hospital, vitals have been stable otherwise, no overnight event. Patient denied any suicidal ideation today. His mother was by the bedside, was updated about his medical condition and the need to continue treatment for his mental health, which she understood and is agreeable to. Review of Systems Constitutional: Reports: no symptoms. Objective Last 24 Hrs of Vital Signs/I&O Vital Signs Date Time Temp Pulse Resp B/P B/P Pulse O2 O2 Flow FiO2 Mean Ox Delivery Rate 02/19 0727 98.7 94 20 90/58 99 Room Air 02/19 0600 99.2 94 18 02/19 0400 99.2 94 18 02/19 0200 99.2 94 18 02/19 0000 99.2 94 18 02/18 2238 99.2 94 20 99 Intake & Output 02/19 1600 02/19 0800 02/19 0000 Intake Total 905 835 3777 Output Total Balance 283 983 1369 Intake, Oral 275 944 8000 Number 3 Bowel Movements Physical Exam General Appearance: Alert, Oriented X3, Cooperative, No Acute Distress Other Physical Findings: Skin: No Rashes, has tattoos over most his body (since admission) HEENT: Atraumatic, PERRLA, EOMI Neck: Supple Cardiovascular: Normal S1, Normal S2 Lungs: Clear to Auscultation, Normal Air Movement Abdomen: Normal Bowel Sounds, Soft, No Tenderness Neurological: Normal Speech, Strength at 5/5 X4 Ext, Normal Tone, Sensation Intact Extremities: No Clubbing, No Cyanosis, No Edema Vascular: Normal Pulses, Pulses Symmetrical Psychiatric: Normal affect, slightly anxious about discharge disposition, quadrant, no hallucinations currently Current Medications: Current Medications Sig/Olivia Start time Last Medication Dose Route Stop Time Status Admin Chlordiazepoxide HCl 10 MG DAILY 02/19 1000 DC 02/19 PO 1045 Chlordiazepoxide HCl 20 MG BID 02/18 1000 DC 02/18 PO 02/18 2300 2109 Docusate Sodium 100 MG DAILY NEEDED PRN 02/14 1015 AC PO Folic Acid 1 MG DAILY 02/14 1301 AC 02/17 PO 0902 Lorazepam 0 Q1P PRN 02/14 2015 AC IV Multivitamins 1 TAB DAILY 02/14 1301 AC 02/19 PO 1044 Nicotine 21 MG DAILY 02/16 2007 02/19 TOP 1045 Omeprazole 40 MG DAILY AC 02/18 1325 AC 02/19 PO 0557 Potassium Chloride 20 MEQ BID 02/10 1000 AC 02/19 PO 2050 Risperidone 37.5 MG Q 2 WEEKS 02/20 1000 AC IM Senna 187 MG AT BEDTIME PRN 02/14 1015 AC 02/14 PO 1538 Thiamine HCl 50 MG DAILY 02/14 1301 AC 02/17 PO 0903 Trimethobenzamide HCl 200 MG TID PRN 02/10 1630 AC 02/16 IM 1427 Last 24 Hrs of Lab/Guru Results Last 24 Hrs of Labs/Mics: Laboratory Tests 02/19/17 0630: Anion Gap 11, Estimated GFR > 60, BUN/Creatinine Ratio 8.3, CBC w Diff NO MAN DIFF REQ, RBC 2.84 L, MCV 90.6, MCH 29.1, RDW 19.4 H, MPV 10.7 H, Gran % 72.9 , Lymphocytes % 14.0 L, Monocytes % 12.2 H, Eosinophils % 0.5, Basophils % 0.4 , Absolute Granulocytes 4.8, Absolute Lymphocytes 0.9 L, Absolute Monocytes 0.8 H, Absolute Eosinophils 0, Absolute Basophils 0, PUBS MCHC 32.2 L Assessment/Plan Assessment: Mr. Woo is a 36 year old male with PMH schizophrenia, chronic alcoholism, alcoholic hepatitis, alcoholic cardiomyopathy, polydipsia, chronic colovesicle fistula, multiple admissions with electrolyte abnormalities (hyponatremia, hypokalemia, metabolic alkalosis), seizures and GI bleed who presents with weakness, dizziness and hematemesis and found to have severe electrolyte abnormalities, was initially managed in the ICU and later transferred to general medical floor on 02/16/2017, after getting medically better. Patient is currently in the general medical floor and is being managed for the following issues: STEPHANIE and electrolyte disturbances * Resolved, daily BEP to monitor K levels. Metabolic alkalosis with lactic acidosis * Resolved * will monitor his BEP daily ETOH abuse and hepatitis * CIWA protocol, score this morning was 0, and 2-7 in past 24 hr. * Continue to decrease librium daily - changed to librium 10mg daily per Psych input on Monday. Will wait for psych service to advise further plan. * ativan drip was turned off on 02/15/17, and use ativan boluses as needed for acute agitation * Appreciate GI input Suicidal ideation * Patient had suicidal ideation on Monday, although denies it today, awaiting Psych input * Has 1-[address], continue that * Patient cannot leave AMA/AGAINST MEDICAL ADVICE * Following psychiatric service suggestions. * Plan to discharge to inpatient psychiatry inside or outside [place] according to availablity. Acute on chronic blood loss anemia secondary to GI bleeding * Patient had symptomatic anemia s/p 2 units PRBC's. * His H&H has remained stable. Chronic conditions: Chronic colovesical fistula * Radiological findings discussed with Dr. Zeny MD in regards to CT findings suggesting colovesicle fistula and colonoscopy without such findings- she suggested we may consider CT with rectal contrast (water soluble). Patient has not had fevers/chills, signs and symptoms of urinary tract infection thus will not pursue at this time. History of cardiomyopathy with preserved ejection fraction, alcoholic hepatitis Schizophrenia: Risperidone 37.5 mg ordered every 2 weeks, next is on 02/20/17 ( tomorrow) #Discharge disposition: Patient's medical condition is already getting better, monitoring him for any seizures/delirium tremens, and watching him for his symptoms. He still has suicidal ideations, has 1:1 sitter currently, and will require further help as an inpatient to psychiatry reid. FULL CODE DVTP: ALPS Mild pain pathway Diet: chopped and regular Problem List: 1. Abnormal metabolic function 2. Suicidal ideations 3. GI bleed 4. Alcohol abuse 5. Schizophrenia 6. Colovesical fistula Pain Ratin Pain Location: - Pain Goal: Pain 4 or less Pain Plan: prn Tomorrow's Labs & Rationales: BEP to f/u and replete lytes Consulting Request: Consulting Specialty: Nephrology Consulting Physician: MD FABRIZIO Joe MD,[facility]IR 02/19/17 1035: Attending MD Review Statement Attending Statement Attending MD Statement: examined this patient, discuss w/resident/PA/NATIONAL FLATBED TRUCK DRIVER, agreed w/resident/PA/NATIONAL FLATBED TRUCK DRIVER, reviewed EMR data (avail), discussed with nursing
--- NOTE | 2017-02-19 09:03 | PN- Student ---
Subjective Subjective: Today, patient notes he is doing well. Admits to vomiting yesterday, but no vomiting overnight or this morning. Notes that his mother does not want him to be discharged from hospital to her home, and she wants him to go to rehabilitation. Patient is frustrated because he would like to be discharged to his mother's home. Does not want to go rehab. Denies suicidal thoughts, denies homicidal thoughts. Denies fevers, chills, nausea, abdominal pain. Current Medications Sig/Olivia Start time Last Medication Dose Route Stop Time Status Admin Chlordiazepoxide HCl 10 MG DAILY 02/19 1000 AC PO Chlordiazepoxide HCl 20 MG BID 02/18 1000 DC 02/18 PO 02/18 2300 2109 Docusate Sodium 100 MG DAILY NEEDED PRN 02/14 1015 AC PO Folic Acid 1 MG DAILY 02/14 1301 AC 02/17 PO 0902 Lorazepam 1 MG ONE ONE 02/18 1715 DC PO 02/18 1716 Lorazepam 0 Q1P PRN 02/14 2015 AC IV Multivitamins 1 TAB DAILY 02/14 1301 AC 02/18 PO 1021 Nicotine 21 MG DAILY 02/16 2007 AC 02/18 TOP 1021 Omeprazole 40 MG DAILY AC 02/18 1325 AC 02/19 PO 0557 Pantoprazole Sodium 40 MG DAILY 02/13 1000 DC 02/17 IV 0902 Potassium Chloride 20 MEQ BID 02/10 1000 AC 02/18 PO 2109 Risperidone 37.5 MG Q 2 WEEKS 02/20 1000 AC IM Senna 187 MG AT BEDTIME PRN 02/14 1015 AC 02/14 PO 1538 Thiamine HCl 50 MG DAILY 02/14 1301 AC 02/17 PO 0903 Trimethobenzamide HCl 200 MG TID PRN 02/10 1630 AC 02/16 IM 1427 Objective Objective: Vital Signs Date Time Temp Pulse Resp B/P B/P Pulse O2 O2 Flow FiO2 Mean Ox Delivery Rate 02/19 0727 98.7 94 20 90/58 99 Room Air 02/19 0600 99.2 94 18 02/19 0400 99.2 94 18 02/19 0200 99.2 94 18 62 02/19 0000 99.2 94 18 92/64 02/18 2238 99.2 94 20 62 99 Intake & Output 02/19 1600 05/14 0800 05 0000 Intake Total 600 1000 Output Total Balance 600 1000 Intake, Oral 600 1000 Physical Exam: General appearance: alert and oriented x3, cooperative, appears mildly anxious Cardiovascular: regular rate and rhythm, S2, S2, no murmurs, rubs, or gallops Pulmonary: lungs clear to auscultation bilaterally, good air entry throughout Abdomen: soft, non-tender, bowel sounds normal Extremities: no clubbing, no cyanosis, no edema Currently has sitter in place. Results Results: Laboratory Tests 02/19/17 0630: Anion Gap 11, Estimated GFR > 60, BUN/Creatinine Ratio 8.3, CBC w Diff NO MAN DIFF REQ, RBC 2.84 L, MCV 90.6, MCH 29.1, RDW 19.4 H, MPV 10.7 H, Gran % 72.9 , Lymphocytes % 14.0 L, Monocytes % 12.2 H, Eosinophils % 0.5, Basophils % 0.4 , Absolute Granulocytes 4.8, Absolute Lymphocytes 0.9 L, Absolute Monocytes 0.8 H, Absolute Eosinophils 0, Absolute Basophils 0, PUBS MCHC 32.2 L 02/18/17 0600: Sodium Cancelled, Potassium Cancelled, Chloride Cancelled, Carbon Dioxide Cancelled, Anion Gap Cancelled, BUN Cancelled, Creatinine Cancelled, BUN/ Creatinine Ratio Cancelled 02/17/17 0723: Anion Gap 10, Estimated GFR > 60, BUN/Creatinine Ratio 10.0, Phosphorus 4.0, Magnesium 2.0, PT 14.0 H, INR 1.34 H 02/17/17 0500: Sodium Cancelled, Potassium Cancelled, Chloride Cancelled, Carbon Dioxide Cancelled, Anion Gap Cancelled, BUN Cancelled, Creatinine Cancelled, BUN/ Creatinine Ratio Cancelled, CBC w Diff Cancelled, WBC Cancelled, RBC Cancelled, Hgb Cancelled, Hct Cancelled, MCV Cancelled, MCH Cancelled, RDW Cancelled, Plt Count Cancelled, MPV Cancelled, PUBS MCHC Cancelled Assessment/Plan Assessment: This is a 36 year-old male with PMH of schizophrenia, chronic alcoholism, alcoholic hepatitis, alcoholic cardiomyopathy, polydipisa, chronic colovesicle fistula, multiple admissions with electolyte abnormalities, seizures, and GI bleeding, who presented to the ED on 02/10/17 with weakness, dizziness, and hematemesis, and was found to have severe electrolyte abnormalities. Admitted to ICU and transferred to general medicine floor 02/16/17. Medically, patient is improving. Today, he is frustrated because his mother does not want him to return home upon discharge, and would like him to go to rehab. Patient does not want to go to rehab, and does not think he has a problem with alcohol consumption. Not actively suicidal at this time. Plan: Patient is currently being managed for the following issues: 1. STEPHANIE and electrolyte abnormalities: -Resolved. Monitor daily BEP. 2. Metabolic alkalosis with lactic acidosis: -Patient continues to note vomiting. Continue to monitor BEP. -Alcohol cessation is very important to prevent further episodes. 3. Alcohol abuse: -Patient has extensive drinking history and has been got GH for similar issues in the past. -Continue CIWA protocol. -Ativan drip was discontinued on 02/15/17. -Continue to taper chlordiazepoxide daily. Reduce from 20mg PO daily to 10mg PO daily today. -Patient currently denies the desire to drink alcohol ever again. 4. Suicidal ideation: -Patient currently denies suicidal thoughts. -Continue 1-1 sitter. -Patient cannot leave against medical advice. PEC in chart. -Follow psychiatry recommendations. -Plan to discharge patient to inpatient psychiatry in or outside [facility] based on availability once alcohol detox is completed. 5. Blood loss from GI bleeding resulting in anemia: -s/p 2 units pRBCs. -Hb today is 8.3, 9.3 yesterday; Hct today is 25.7, was 28.6 yesterday. -Continue to trend CBC and monitor for signes of bleeding. -If patient becomes unstable, notify GI. 6. Chronic colovesical fistula: -Findings discussed with Dr. Zeny MD in regards to CT findings suggesting colovesicle fistula and colonoscopy without such findings. Dr. Moura suggested we may consider CT with rectal contrast. Patient has not had fevers/chills, signs and symptoms of urinary tract infection thus will not pursue at this time. 7. Schizophrenia: continue risperidone IM injection 37.5mg Q2WKS Roc Simmons, MS3
[2017-02-20] VITALS: BP 98/58
[2017-02-20 04:00] VITALS: BP 98/58
[2017-02-20 06:00] VITALS: BP 100/68
[2017-02-20 06:48] VITALS: BP 100/68
--- NOTE | 2017-02-20 07:34 | PN- Housestaff ---
ZACHERY CARPENTER,SAMMI 02/20/17 0733: Subjective Follow-up For: Suicidal ideation Alcohol use disorder Complaints: concerned about discharge Subjective: I followed up and examined the patient today. He is resting comfortably, walking around, has a 1:1 sitter, is a level anxious about his discharge, vitals have been stable otherwise, no overnight event. Patient denied any suicidal ideation today. Review of Systems Constitutional: Reports: no symptoms. Objective Last 24 Hrs of Vital Signs/I&O Vital Signs Date Time Temp Pulse Resp B/P B/P Pulse O2 O2 Flow FiO2 Mean Ox Delivery Rate 02/20 2232 99.2 97 19 100/60 99 Room Air 02/20 1531 99.0 18 18 100/70 98 02/20 0648 99.0 96 18 100/68 100 Room Air 02/20 0600 99.0 96 18 100/68 02/20 0400 99.3 98 20 98/58 02/20 0000 99.3 98 20 98/58 Intake & Output 02/20 1600 02/20 0800 02/20 0000 Intake Total 720 720 720 Output Total Balance 720 720 720 Intake, Oral 720 720 720 Number 0 Bowel Movements Physical Exam General Appearance: Alert, Oriented X3, Cooperative, No Acute Distress Other Physical Findings: Skin: No Rashes, has tattoos over most his body (since admission) HEENT: Atraumatic, PERRLA, EOMI Neck: Supple Cardiovascular: Normal S1, Normal S2 Lungs: Clear to Auscultation, Normal Air Movement Abdomen: Normal Bowel Sounds, Soft, No Tenderness Neurological: Normal Speech, Strength at 5/5 X4 Ext, Normal Tone, Sensation Intact Extremities: No Clubbing, No Cyanosis, No Edema Vascular: Normal Pulses, Pulses Symmetrical Psychiatric: Normal affect, slightly anxious about discharge disposition, quadrant, no hallucinations currently Current Medications: Current Medications Sig/Olivia Start time Last Medication Dose Route Stop Time Status Admin Docusate Sodium 100 MG DAILY NEEDED PRN 02/14 1015 AC PO Folic Acid 1 MG DAILY 02/14 1301 AC 02/17 PO 09 Lorazepam 0 Q1P PRN 02/14 2015 DC IV Multivitamins 1 TAB DAILY 02/14 1301 AC 02/20 PO 0920 Nicotine 21 MG DAILY 02/16 2007 AC 02/20 TOP 0920 Omeprazole 40 MG DAILY AC 02/18 1325 AC 02/20 PO 0528 Potassium Chloride 20 MEQ BID 02/10 1000 AC 02/20 PO 215 Risperidone 37.5 MG Q 2 WEEKS 02/20 1000 AC 02/20 IM 09 Senna 187 MG AT BEDTIME PRN 02/14 1015 AC 02/14 PO 1538 Thiamine HCl 50 MG DAILY 02/14 1301 AC 02/17 PO 0903 Trimethobenzamide HCl 200 MG TID PRN 02/10 1630 AC 02/16 IM 1427 Last 24 Hrs of Lab/Guru Results Last 24 Hrs of Labs/Mics: Laboratory Tests 02/20/17 0932: CBC w Diff NO MAN DIFF REQ, RBC 3.01 L, MCV 90.1, MCH 29.0, RDW 19.6 H, MPV 10.5 H, Gran % 78.9 H, Lymphocytes % 11.8 L, Monocytes % 7.8, Eosinophils % 0.9, Basophils % 0.6, Absolute Granulocytes 7.1 H, Absolute Lymphocytes 1.1 L, Absolute Monocytes 0.7 H, Absolute Eosinophils 0.1, Absolute Basophils 0.1, PUBS MCHC 32.2 L 02/20/17 0725: Anion Gap 9, Estimated GFR > 60, BUN/Creatinine Ratio 6.7 L Assessment/Plan Assessment: Mr. Woo is a 36 year old male with PMH schizophrenia, chronic alcoholism, alcoholic hepatitis, alcoholic cardiomyopathy, polydipsia, chronic colovesicle fistula, multiple admissions with electrolyte abnormalities (hyponatremia, hypokalemia, metabolic alkalosis), seizures and GI bleed who presents with weakness, dizziness and hematemesis and found to have severe electrolyte abnormalities, was initially managed in the ICU and later transferred to general medical floor on 02/16/2017, after getting medically better. Patient is currently in the general medical floor and is being managed for the following issues: STEPHANIE and electrolyte disturbances * Resolved, daily BEP to monitor K levels. Metabolic alkalosis with lactic acidosis * Resolved * will monitor his BEP daily ETOH abuse and hepatitis * CIWA protocol, score this morning was 0, and 2-7 in past 24 hr. * Librium dose was tapered to nil today per Psych input on Monday. Will wait for psych service to advise further plan. * ativan drip was turned off on 02/15/17, and use ativan boluses as needed for acute agitation, has not required recently. * Appreciate GI input Suicidal ideation * Patient had suicidal ideation on Monday, although denies it today, awaiting Psych input * Has 1-[address], continue that * Patient cannot leave AMA/AGAINST MEDICAL ADVICE * Following psychiatric service suggestions. * Plan to discharge to inpatient psychiatry inside or outside [facility] according to availablity. Acute on chronic blood loss anemia secondary to GI bleeding * Patient had symptomatic anemia s/p 2 units PRBC's. * His H&H has remained stable. Chronic conditions: Chronic colovesical fistula * Radiological findings discussed with Dr. Zeny MD in regards to CT findings suggesting colovesicle fistula and colonoscopy without such findings- she suggested we may consider CT with rectal contrast (water soluble). Patient has not had fevers/chills, signs and symptoms of urinary tract infection thus will not pursue at this time. History of cardiomyopathy with preserved ejection fraction, alcoholic hepatitis Schizophrenia: Risperidone 37.5 mg ordered every 2 weeks, received today, #Discharge disposition: Patient's medical condition is already getting better, monitoring him for any seizures/delirium tremens, and watching him for his symptoms. He still has suicidal ideations intermittantly, has 1:1 sitter currently, and will require further help as an inpatient to psychiatry reid. FULL CODE DVTP: ALPS Mild pain pathway Diet: regular thins, finger food only Problem List: 1. Abnormal metabolic function 2. Suicidal ideations 3. GI bleed 4. Schizophrenia 5. Colovesical fistula 6. Alcohol abuse Pain Ratin Pain Location: - Pain Goal: Pain 4 or less Pain Plan: prn Tomorrow's Labs & Rationales: BEP and LFT to replete lytes and LFT per psych recommendation for naltrexone commencement Consulting Request: Consulting Specialty: Nephrology Consulting Physician: MD JATINDER Joe MD,[facility] 02/20/17 1253: Attending MD Review Statement Attending Statement Attending MD Statement: examined this patient, discuss w/resident/PA/MAINTENANCE JOB TITLES, agreed w/resident/PA/MAINTENANCE JOB TITLES, reviewed EMR data (avail), discussed with nursing, discussed with case mgmt, amended to note Attending Assessment/Plan: Patient seen and examined. He has been weaned off benzodiazepine therapy. He is ambulating freely around the unit. Currently not receiving any active medical treatment in the hospital. The psychiatry service has cleared him for discharge stating he no longer needs to be admitted to the inpatient psychiatric service. He is medically stable to be discharged however his mother declines to have the patient return home. Recommendations: -Coordinates family meeting with the patient, his mother, social work coordinator and psychiatric service. -Is H&H is stable. Blood pressure is borderline but stable. -Continue supportive care.
--- NOTE | 2017-02-20 07:40 | PN- Student ---
Subjective Subjective: Patient notes that he is doing okay today. He met with his mother yesterday, and she told him that she does not want him to be discharged home. Patient was initially upset about not being able to return home upon discharge, but now feels "okay" about it. I spoke with his mother yesterday, and she notes that he has been admitted to hospital on numerous occasions related to alcohol abuse, and would like him to go to inpatient psychiatry or rehabilitation. His mother notes that he is due for his risperidone injection today (02/20/17). Denies suicidal and homicidal thoughts today. Notes one episode of vomiting yesterday afternoon after eating a sandwich. Denies fevers/chills, nausea, abdominal pain currently. Current Medications Sig/Olivia Start time Last Medication Dose Route Stop Time Status Admin Chlordiazepoxide HCl 10 MG DAILY 02/19 1000 DC 02/19 PO 1045 Docusate Sodium 100 MG DAILY NEEDED PRN 02/14 1015 AC PO Folic Acid 1 MG DAILY 02/14 1301 AC 02/17 PO 0902 Lorazepam 0 Q1P PRN 02/14 2015 DC IV Multivitamins 1 TAB DAILY 02/14 1301 AC 02/19 PO 1044 Nicotine 21 MG DAILY 02/16 2007 AC 02/19 TOP 1045 Omeprazole 40 MG DAILY AC 02/18 1325 AC 02/20 PO 0528 Potassium Chloride 20 MEQ BID 02/10 1000 AC 02/19 PO 2050 Risperidone 37.5 MG Q 2 WEEKS 02/20 1000 AC IM Senna 187 MG AT BEDTIME PRN 02/14 1015 AC 02/14 PO 1538 Thiamine HCl 50 MG DAILY 02/14 1301 AC 02/17 PO 0903 Trimethobenzamide HCl 200 MG TID PRN 02/10 1630 AC 02/16 IM 1427 Physical Exam: General appearance: alert and oriented x3, cooperative, in no acute distress Cardiovascular: regular rate and rhythm, S2, S2, no murmurs, rubs, or gallops Pulmonary: lungs clear to auscultation bilaterally, good air entry throughout Abdomen: soft, non-tender, no masses, bowel sounds normal Extremities: no clubbing, no cyanosis, no edema Currently has sitter in place. Objective Objective: Vital Signs Date Time Temp Pulse Resp B/P B/P Pulse O2 O2 Flow FiO2 Mean Ox Delivery Rate 02/20 0648 99.0 96 18 100/68 100 Room Air 02/20 0600 99.0 96 18 100/68 02/20 0400 99.3 98 20 98/58 02/20 0000 99.3 98 20 98/58 02/19 2221 99.3 98 20 98/58 100 Room Air 02/19 2200 99.3 98 20 98/58 02/19 2000 98.7 94 20 90/58 Intake & Output 02/20 1600 02/20 0800 02/20 0000 Intake Total 720 720 Output Total Balance 720 720 Intake, Oral 720 720 Physical Exam: General: alert and oriented x3, cooperative, in no acute distress Cardiovascular: S1, S2, no murmurs, rubs, or gallops Pulmonary: clear to auscultation bilaterally, good air entry throughout Abdomen: soft, non-tender, no masses Extremities: no clubbing, no cyanosis, no edema Currently has 1-[address] Assessment/Plan Assessment: This is a 36 year-old male with PMH of schizophrenia, chronic alcoholism, alcoholic hepatitis, alcoholic cardiomyopathy, polydipisa, chronic colovesicle fistula, multiple admissions with electolyte abnormalities (hyponatremia, hypokalemia, metabolic alkalosis), seizures, and GI bleeding, who presented to the ED on 02/10/17 with weakness, dizziness, and hematemesis, and was found to have severe electrolyte abnormalities. Admitted to ICU and transferred to general medicine floor 02/16/17. Medically, patient is improving. Today, he notes that he is doing okay. His mother met with him yesterday and does not want him to return home after hospital discharge. Not actively suicidal at this time. Plan: Patient is currently being managed for the following issues: 1. STEPHANIE and electrolyte abnormalities: -Resolved. Monitor daily BEP. 2. Metabolic alkalosis with lactic acidosis: -Patient continues to note vomiting. Continue to monitor BEP. -Alcohol cessation is very important to prevent further episodes. 3. Alcohol abuse: -Patient has extensive drinking history and has been got for similar issues in the past. -Continue CIDC protocol. -Ativan drip was discontinued on 02/15/17. -Continue to taper chlordiazepoxide daily. Currently on 10mg PO daily. 4. Suicidal ideation: -Patient currently denies suicidal thoughts. -Continue 1-1 sitter. -Patient cannot leave against medical advice. PEC in chart. -Follow psychiatry recommendations. -Plan to discharge patient to inpatient psychiatry in or outside [facility] based on availability once alcohol detox is completed. 5. Blood loss from GI bleeding resulting in anemia: -s/p 2 units pRBCs. -Hb yesterday was 8.3; Hct yesterday was 25.7. -Continue to trend CBC and monitor for signes of bleeding. -If patient becomes unstable, notify GI. 6. Chronic colovesical fistula: -Findings discussed with Dr. Zeny MD in regards to CT findings suggesting colovesicle fistula and colonoscopy without such findings. Dr. Moura suggested we may consider CT with rectal contrast. Patient has not had fevers/chills, signs and symptoms of urinary tract infection thus will not pursue at this time. 7. Schizophrenia: continue risperidone IM injection 37.5mg Q2WKS. Patient is due for injection today.
[2017-02-20 10:43] LABS: ABSOLUTE BASOPHIL COUNT 0.1 /CUMM (0.0-0.2); ABSOLUTE EOSINOPHIL COUNT 0.1 /CUMM (0.0-0.7); ABSOLUTE GRANULOCYTE CT 7.1 /CUMM (1.4-6.5); ABSOLUTE LYMPH COUNT 1.1 /CUMM (1.2-3.4); ABSOLUTE MONOCYTE COUNT 0.7 /CUMM (0.10-0.60); BASOPHIL % 0.6 % (0.0-2.0); EOSINOPHIL % 0.9 % (0-5); GRANULOCYTE % 78.9 % (42.2-75.2); HEMATOCRIT 27.1 % (42-52); MEAN CORPUSCULAR HGB CONC 32.2 G/DL (33.0-37.0); MEAN CORPUSCULAR VOLUME 90.1 FL (80.0-94.0); MEAN PLATELET VOLUME 10.5 FL (7.4-10.4); PLATELET COUNT 183 /CUMM (130-400); RBC DISTRIBUTION WIDTH 19.6 % (11.5-14.5); RED BLOOD CELL CT 3.01 /CUMM (4.70-6.10); WHITE BLOOD CELL COUNT 9.1 /CUMM (4.8-10.8)
--- NOTE | 2017-02-20 12:08 | PN- Psychiatry ---
Assessment/Plan Impression: Identifying Info: 36-year-old single conserved male well-known to this service presents to [facility] emergency department by ambulance on 02/10/2017 with a question of GI bleed. Subsequently found to have an STEPHANIE with metabolic acidosis as well as severe electrolyte abnormalities and transferred to critical care unit now downgraded to [facility]. SUBJECTIVE Patient again denies suicidality today. Has no complaints, states he would like to stay a few more days. Reports he would not like to go to rehab but that his mother wont let him return home until he goes. Pt is agreeable to a trial of Naltrexone in the hope it may help his chances of staying sober and going home. Discussed with patient's mother, Merly Woo, the patient's current plan. She states that the patient will not be allowed back at her house. Spoke to Rosa M Clinical Coordinator of [facility]. She states she would be open to a treatment team meeting and will reach out to potential places for placement. Brief ROS Gait: Steady Sleep: Adequate Appetite: Adequate OBJECTIVE Mental Status Exam Presentation/Appearance: Awake and alert sitting in hospital room. Cooperative with interview to the best of his ability. Wearing street clothes Orientation: Self, place, month and situation Sensorium: Alert Eye contact: Appropriate Affect: Somewhat consitricted Mood: "I'm not suicidal." Irritable frequently expressing frustration with his mother. Depression: Denies Anxiety: Denies Thought Content: - Denies SI/HI, AH/VH, PI. States and also believes they will not kill themselves. - Denies Hopeless/Helpless Thoughts Thought Process: Circumstantial Associations: Somewhat loose Speech: Soft Judgment: Impaired Insight: Impaired Cognition: Memory: Appears more intact Attention/Concentration: Appears more intact, improved participation in interview Fund of Knowledge: Did not assess Abstractions: Did not assess MMSE: Did not assess Per nursing report pt is yelling profanity on the phone with his mother. Spoke to pt who states he will not yell on phone, verbalizes underestand that this behavior may result in loss of phone for a period of time. ASSESSMENT 36-year-old single conserved male well-known to this service with a history of similar presentations today reported to be experiencing suicidality. His outpatient treaters are planning to find the patient long-term placement. Mentation is improving but insight remains poor. He is not actively suicidal at this time. Differential diagnosis Schizophrenia Delirium due to alcohol withdrawal and electrolyte abnormalities, improving Alcohol use disorder, severe Cannabis use disorder Suggestion: 1. Plan to continue to reduce total benzodiazepine dosing by 20% daily. 2. Continue risperal as ordered 3. Continue 1:1 4. Continue CIWA protocol. 5. Plan for placement in community once alcohol detox is completed 6. Plan for treatment team meeting 7. Please redraw LFTs, if they continue to tren downward start naltrexone 50mg daily. Thank you for including psychiatry in this case we'll continue to follow. Subjective Subjective: as above Objective Last 24 Hrs of Vital Signs/I&O Current Medications Sig/Olivia Start time Last Medication Dose Route Stop Time Status Admin Chlordiazepoxide HCl 10 MG DAILY 02/19 1000 DC 02/19 PO 1045 Docusate Sodium 100 MG DAILY NEEDED PRN 02/14 1015 AC PO Folic Acid 1 MG DAILY 02/14 1301 AC 02/17 PO 0902 Lorazepam 0 Q1P PRN 02/14 2015 DC IV Multivitamins 1 TAB DAILY 02/14 1301 AC 02/20 PO 0920 Nicotine 21 MG DAILY 02/16 2007 AC 02/20 TOP 0920 Omeprazole 40 MG DAILY AC 02/18 1325 AC 02/20 PO 0528 Potassium Chloride 20 MEQ BID 02/10 1000 AC 02/20 PO 0920 Risperidone 37.5 MG Q 2 WEEKS 02/20 1000 AC 02/20 IM 0922 Senna 187 MG AT BEDTIME PRN 02/14 1015 AC 02/14 PO 1538 Thiamine HCl 50 MG DAILY 02/14 1301 AC 02/17 PO 0903 Trimethobenzamide HCl 200 MG TID PRN 02/10 1630 AC 02/16 IM 1427 Laboratory Tests 02/20/17 0932: CBC w Diff NO MAN DIFF REQ, RBC 3.01 L, MCV 90.1, MCH 29.0, RDW 19.6 H, MPV 10.5 H, Gran % 78.9 H, Lymphocytes % 11.8 L, Monocytes % 7.8, Eosinophils % 0.9, Basophils % 0.6, Absolute Granulocytes 7.1 H, Absolute Lymphocytes 1.1 L, Absolute Monocytes 0.7 H, Absolute Eosinophils 0.1, Absolute Basophils 0.1, PUBS MCHC 32.2 L 02/20/17 0725: Anion Gap 9, Estimated GFR > 60, BUN/Creatinine Ratio 6.7 L 02/19/17 0630: Anion Gap 11, Estimated GFR > 60, BUN/Creatinine Ratio 8.3, CBC w Diff NO MAN DIFF REQ, RBC 2.84 L, MCV 90.6, MCH 29.1, RDW 19.4 H, MPV 10.7 H, Gran % 72.9 , Lymphocytes % 14.0 L, Monocytes % 12.2 H, Eosinophils % 0.5, Basophils % 0.4 , Absolute Granulocytes 4.8, Absolute Lymphocytes 0.9 L, Absolute Monocytes 0.8 H, Absolute Eosinophils 0, Absolute Basophils 0, PUBS MCHC 32.2 L 02/18/17 0600: Sodium Cancelled, Potassium Cancelled, Chloride Cancelled, Carbon Dioxide Cancelled, Anion Gap Cancelled, BUN Cancelled, Creatinine Cancelled, BUN/ Creatinine Ratio Cancelled Vital Signs Date Time Temp Pulse Resp B/P B/P Pulse O2 O2 Flow FiO2 Mean Ox Delivery Rate 02/20 0648 99.0 96 18 100/68 100 Room Air 02/20 0600 99.0 96 18 100/68 02/20 0400 99.3 98 20 98/58 02/20 0000 99.3 98 20 98/58 02/19 2221 99.3 98 20 98/58 100 Room Air 02/19 2200 99.3 98 20 98/58 02/19 2000 98.7 94 20 90/58 Intake & Output 02/20 1600 02/20 0800 02/20 0000 Intake Total 720 720 Output Total Balance 720 720 Intake, Oral 720 720
[2017-02-20 15:31] VITALS: BP 100/70
[2017-02-20 22:32] VITALS: BP 100/60
[2017-02-21 06:34] VITALS: BP 108/66
--- NOTE | 2017-02-21 07:15 | PN- Housestaff ---
ZACHERY CARPENTER,SAMMI 02/21/17 0715: Subjective Follow-up For: Metabolic derangements Suicidal ideation Alcohol use disorder Complaints: no complaints Subjective: I followed up and examined the patient today. He is resting comfortably, seems somewhat anxious about the proposed family meeting today, has 1:1 sitter, mild septal stable, no overnight event. Patient denies any suicidal ideation today. Review of Systems Constitutional: Reports: see HPI. Objective Last 24 Hrs of Vital Signs/I&O Vital Signs Date Time Temp Pulse Resp B/P B/P Pulse O2 O2 Flow FiO2 Mean Ox Delivery Rate 02/21 1419 99.2 105 18 108/60 10 Room Air 02/21 0634 98.3 90 18 108/66 99 Room Air 02/20 2232 99.2 97 19 100/60 99 Room Air Intake & Output 02/21 1600 02/21 0800 02/21 0000 Intake Total 2000 800 960 Output Total Balance 1999 800 960 Intake, Oral 2000 800 960 Number 1 Bowel Movements Physical Exam General Appearance: Alert, Oriented X3, Cooperative, No Acute Distress, anxious Other Physical Findings: Skin: No Rashes, has tattoos over most his body (since admission) HEENT: Atraumatic, PERRLA, EOMI Neck: Supple Cardiovascular: Normal S1, Normal S2 Lungs: Clear to Auscultation, Normal Air Movement Abdomen: Normal Bowel Sounds, Soft, No Tenderness Neurological: Normal Speech, Strength at 5/5 X4 Ext, Normal Tone, Sensation Intact Extremities: No Clubbing, No Cyanosis, No Edema Vascular: Normal Pulses, Pulses Symmetrical Psychiatric: Normal affect, anxious about plan of disposition/family meeting, coharent speech, no hallucinations currently Current Medications: Current Medications Sig/Olivia Start time Last Medication Dose Route Stop Time Status Admin Docusate Sodium 100 MG DAILY NEEDED PRN 02/14 1015 AC PO Folic Acid 1 MG DAILY 02/14 1301 AC 02/17 PO 0902 Multivitamins 1 TAB DAILY 02/14 1301 AC 02/21 PO 0927 Naltrexone HCl 50 MG DAILY 02/21 1445 AC 02/21 PO 1615 Nicotine 21 MG DAILY 02/16 2007 AC 02/21 TOP 1834 Omeprazole 40 MG DAILY AC 02/18 1325 AC 02/21 PO 0522 Potassium Chloride 20 MEQ BID 02/10 1000 AC 02/21 PO 09 Risperidone 37.5 MG Q 2 WEEKS 02/20 1000 AC 02/20 IM 09 Senna 187 MG AT BEDTIME PRN 02/14 1015 AC 02/14 PO 1538 Thiamine HCl 50 MG DAILY 02/14 1301 AC 02/17 PO 0903 Trimethobenzamide HCl 200 MG TID PRN 02/10 1630 AC 02/16 IM 1427 Last 24 Hrs of Lab/Guru Results Last 24 Hrs of Labs/Mics: Laboratory Tests 02/21/17 0750: Anion Gap 10, Estimated GFR > 60, BUN/Creatinine Ratio 5.7 L, Total Bilirubin 1.7 H, Direct Bilirubin 1.1 H, AST 112 H, ALT 59, Alkaline Phosphatase 132 H , Total Protein 7.4, Albumin 3.0 L Assessment/Plan Assessment: Mr. Woo is a 36 year old male with PMH schizophrenia, chronic alcoholism, alcoholic hepatitis, alcoholic cardiomyopathy, polydipsia, chronic colovesicle fistula, multiple admissions with electrolyte abnormalities (hyponatremia, hypokalemia, metabolic alkalosis), seizures and GI bleed who presents with weakness, dizziness and hematemesis and found to have severe electrolyte abnormalities, was initially managed in the ICU and later transferred to general medical floor on 02/16/2017, after getting medically better. As the patient is medically stable, has completed alcohol detoxification, doesn' t seem to have suicidal ideation all the time although has 1:1 sitter currently, decision has been made to change the service to off teaching from today. Dr. Oden will be following the patient as usual tomorrow morning. Patient is currently in the general medical floor and is being managed for the following issues: #STEPHANIE and electrolyte disturbances * Resolved, daily BEP to monitor K levels. #Metabolic alkalosis with lactic acidosis * Resolved * will monitor his BEP daily #ETOH abuse and hepatitis * CIWA protocol stopped since yesterday. He is much calm and shows no signs of alcohol withdrawal currently. * Not on Librium anymore. Will wait for psych service to advise further plan. * ativan drip was turned off on 02/15/17, and use ativan boluses as needed for acute agitation, has not required recently. * Appreciate GI input #Suicidal ideation * Patient had suicidal ideation on Monday, although denies it today, awaiting Psych input * Has 1-[address], continue that * Patient cannot leave AMA/AGAINST MEDICAL ADVICE * Following psychiatric service suggestions. * Plan to discharge to inpatient psychiatry inside or outside [place] according to availablity. #Acute on chronic blood loss anemia secondary to GI bleeding * Patient had symptomatic anemia s/p 2 units PRBC's. * His H&H has remained stable. #Chronic conditions: -Chronic colovesical fistula * Radiological findings discussed with Dr. Zeny MD in regards to CT findings suggesting colovesicle fistula and colonoscopy without such findings- she suggested we may consider CT with rectal contrast (water soluble). Patient has not had fevers/chills, signs and symptoms of urinary tract infection thus will NOT pursue at this time. -History of cardiomyopathy with preserved ejection fraction, alcoholic hepatitis -Schizophrenia: Risperidone 37.5 mg ordered every 2 weeks, received today, #Discharge disposition: Patient's medical condition is already getting better, monitoring him for any seizures/delirium tremens, and watching him for his symptoms. He still has suicidal ideations intermittantly, has 1:1 sitter currently, and will require further help as an inpatient to psychiatry reid. #Patient's mother seems to be his guardian, who is well aware of patient's condition and has visited him several times during this admission, does not feel comfortable to take care of him at home. Patient himself does not prefer to be in inpatient psychiatry service. Psychiatric service is well aware of the condition and is trying to find a better alternative. FULL CODE DVTP: ALPS Mild pain pathway Diet: regular thins, finger food only Problem List: 1. Abnormal metabolic function 2. Suicidal ideations 3. Alcohol abuse 4. Schizophrenia 5. Colovesical fistula Pain Ratin Pain Location: - Pain Goal: Pain 4 or less Pain Plan: prn Tomorrow's Labs & Rationales: - Consulting Request: Consulting Specialty: Nephrology Consulting Physician: MD JATINDER Joe MD,[facility] 02/21/17 1249: Attending MD Review Statement Attending Statement Attending MD Statement: examined this patient, discuss w/resident/PA/ATTENDING PHYSICIAN, agreed w/resident/PA/ATTENDING PHYSICIAN, reviewed EMR data (avail), discussed with nursing, discussed with case mgmt, amended to note Attending Assessment/Plan: Patient seen and examined. Ambulating freely around the unit. Not in any acute distress. No issues reported by nursing staff. His discuss with the case operator and psychiatric service. Patient's mother who is his conservator does no want to patient returning home for fear of him immediately relapsing into his substance abuse habits. Patient however does not meet criteria for admission to the acute inpatient psychiatric according to evaluation by the psychiatric service. He is not being discharged to a [place] [facility] as he currently has a conservator. Recommendations: -Patient is being placed on the [facility] medical service. -Medical service is available to participate in a family meeting with patient, his mother as well as the social work and psychiatric service in order to come up with a plan that best serves the patient.
--- NOTE | 2017-02-21 08:32 | PN- Student ---
Subjective Subjective: Patient notes today that his mother will not let him return home until he goes to a rehabilitation facility or inpatient psychiatry facility. Patient upset with mother, but notes that he feels okay about going to a facility. He notes that his mother may be visiting him today. Reports one episode of vomiting this morning. Reports wheezing, which he says is his baseline. Denies shortness of breath, chest pain, abdominal pain. Current Medications Sig/Olivia Start time Last Medication Dose Route Stop Time Status Admin Docusate Sodium 100 MG DAILY NEEDED PRN 02/14 1015 AC PO Folic Acid 1 MG DAILY 02/14 1301 AC 02/17 PO 0902 Multivitamins 1 TAB DAILY 02/14 1301 AC 02/21 PO 0927 Nicotine 21 MG DAILY 02/16 2007 AC 02/20 TOP 0920 Omeprazole 40 MG DAILY AC 02/18 1325 AC 02/21 PO 0522 Potassium Chloride 20 MEQ BID 02/10 1000 AC 02/21 PO 0926 Risperidone 37.5 MG Q 2 WEEKS 02/20 1000 AC 02/20 IM 0922 Senna 187 MG AT BEDTIME PRN 02/14 1015 AC 02/14 PO 1538 Thiamine HCl 50 MG DAILY 02/14 1301 AC 02/17 PO 0903 Trimethobenzamide HCl 200 MG TID PRN 02/10 1630 AC 02/16 IM 1427 Objective Objective: Vital Signs Date Time Temp Pulse Resp B/P B/P Pulse O2 O2 Flow FiO2 Mean Ox Delivery Rate 02/21 0634 98.3 90 18 108/66 99 Room Air 02/20 2232 99.2 97 19 100/60 99 Room Air 02/20 1531 99.0 18 18 100/70 98 Intake & Output 02/21 1600 02/21 0800 02/21 0000 Intake Total 800 960 Output Total Balance 800 960 Intake, Oral 800 960 Physical Exam: General: alert and oriented x3, cooperative, in no acute distress Cardiovascular: S1, S2 heard Lungs: wheezing heard diffusely throughout on auscultation bilaterally Abdomen: bowel sounds normal, soft, non-tender, no masses Extremities: no clubbing, cyanosis, or edema Has 1-[address] Results Results: Laboratory Tests 02/21/17 0750: Anion Gap 10, Estimated GFR > 60, BUN/Creatinine Ratio 5.7 L, Total Bilirubin 1.7 H, Direct Bilirubin 1.1 H, AST 112 H, ALT 59, Alkaline Phosphatase 132 H , Total Protein 7.4, Albumin 3.0 L 02/20/17 0932: CBC w Diff NO MAN DIFF REQ, RBC 3.01 L, MCV 90.1, MCH 29.0, RDW 19.6 H, MPV 10.5 H, Gran % 78.9 H, Lymphocytes % 11.8 L, Monocytes % 7.8, Eosinophils % 0.9, Basophils % 0.6, Absolute Granulocytes 7.1 H, Absolute Lymphocytes 1.1 L, Absolute Monocytes 0.7 H, Absolute Eosinophils 0.1, Absolute Basophils 0.1, PUBS MCHC 32.2 L 02/20/17 0725: Anion Gap 9, Estimated GFR > 60, BUN/Creatinine Ratio 6.7 L 02/19/17 0630: Anion Gap 11, Estimated GFR > 60, BUN/Creatinine Ratio 8.3, CBC w Diff NO MAN DIFF REQ, RBC 2.84 L, MCV 90.6, MCH 29.1, RDW 19.4 H, MPV 10.7 H, Gran % 72.9 , Lymphocytes % 14.0 L, Monocytes % 12.2 H, Eosinophils % 0.5, Basophils % 0.4 , Absolute Granulocytes 4.8, Absolute Lymphocytes 0.9 L, Absolute Monocytes 0.8 H, Absolute Eosinophils 0, Absolute Basophils 0, PUBS MCHC 32.2 L Assessment/Plan Assessment: This is a 36 year-old male with PMH of schizophrenia, chronic alcoholism, alcoholic hepatitis, alcoholic cardiomyopathy, polydipisa, chronic colovesicle fistula, multiple admissions with electolyte abnormalities (hyponatremia, hypokalemia, metabolic alkalosis), seizures, and GI bleeding, who presented to the ED on 02/10/17 with weakness, dizziness, and hematemesis, and was found to have severe electrolyte abnormalities. Admitted to ICU and transferred to general medicine floor 02/16/17. Medically, patient is improving. Today, he notes that he is doing okay. His mother does not want him to return home after hospital discharge. Not actively suicidal at this time. Plan: Patient is currently being managed for the following issues: 1. STEPHANIE and electrolyte abnormalities: -Resolved. Monitor daily BEP. 2. Metabolic alkalosis with lactic acidosis: -Patient continues to note vomiting. Continue to monitor BEP. -Alcohol cessation is very important to prevent further episodes. 3. Alcohol abuse: -Patient has extensive drinking history and has been got GH for similar issues in the past. -Continue CIWA protocol. -Ativan drip was discontinued on 02/15/17. -Chlordiazepoxide discontinued 02/20/17. -LFTs pending today. 4. Suicidal ideation: -Patient currently denies suicidal thoughts. -Continue 1-1 sitter. -Patient cannot leave against medical advice. PEC in chart. -Follow psychiatry recommendations. -Plan to discharge patient to inpatient psychiatry in or outside . 5. Blood loss from GI bleeding resulting in anemia: -s/p 2 units pRBCs. -Hb yesterday was 8.3; Hct yesterday was 25.7. -Continue to trend CBC and monitor for signes of bleeding. -If patient becomes unstable, notify GI. 6. Chronic colovesical fistula: -Findings discussed with Dr. Zeny MD in regards to CT findings suggesting colovesicle fistula and colonoscopy without such findings. Dr. Moura suggested we may consider CT with rectal contrast. Patient has not had fevers/chills, signs and symptoms of urinary tract infection thus will not pursue at this time. 7. Schizophrenia: continue risperidone IM injection 37.5mg Q2WKS. Last injection was 02/20/17.
--- NOTE | 2017-02-21 09:06 | PN- Psychiatry ---
See Addendum Assessment/Plan Impression: Identifying Info: 36-year-old single conserved male well-known to this service presents to [facility] emergency department by ambulance on 02/10/2017 with a question of GI bleed. Subsequently found to have an STEPHANIE with metabolic acidosis as well as severe electrolyte abnormalities and transferred to critical care unit now downgraded to gen med. SUBJECTIVE Patient again denies suicidality today. Has no complaints, states he would be open to alcohol rehabilitation treatment, he continues to be open to naltrexone therapy for alcohol. He continues to feel it is unfair that he was hospitalized because he threw up blood and insists he does nto consume much alcohol. Discussed case with social work reports that his insurance will likely not cover a residential program. We may consider IOP treatment if patient's mother is open to him residing at home otherwise we may need to seek alf bed. SW left message with outpatient treaters this AM. Brief ROS Gait: Steady Sleep: Adequate Appetite: Adequate OBJECTIVE Mental Status Exam Presentation/Appearance: Awake and alert sitting in hospital room. Cooperative with interview. Wearing street clothes Orientation: Self, place, month and situation Sensorium: Alert Eye contact: Appropriate Affect: Somewhat consitricted Mood: No complaints this am Depression: Denies Anxiety: Denies Thought Content: - Denies SI/HI, AH/VH, PI. States and also believes they will not kill themselves. - Denies Hopeless/Helpless Thoughts Thought Process: Circumstantial Associations: Somewhat loose Speech: Soft Judgment: Impaired Insight: Impaired Cognition: Memory: Appears more intact Attention/Concentration: Appears more intact, improved participation in interview Fund of Knowledge: Did not assess Abstractions: Did not assess MMSE: Did not assess ASSESSMENT 36-year-old single conserved male well-known to this service with a history of similar presentations today reported to be experiencing suicidality. His outpatient treaters are planning to find the patient long-term placement. Mentation is improving but insight remains poor. He is not actively suicidal at this time. Differential diagnosis Schizophrenia Delirium due to alcohol withdrawal and electrolyte abnormalities, improving Alcohol use disorder, severe Cannabis use disorder Suggestion: 1. Continue risperal as ordered 2. Continue 1:1 3. Plan for placement in community once alcohol detox is completed. AT present we would support dual dx IOP level of care. 4. Plan for treatment team meeting 5. If LFTs drawn this AM continue to trend downward start naltrexone 50mg daily. Thank you for including psychiatry in this case we'll continue to follow. Subjective Subjective: as above Objective Last 24 Hrs of Vital Signs/I&O Current Medications Sig/Olivia Start time Last Medication Dose Route Stop Time Status Admin Docusate Sodium 100 MG DAILY NEEDED PRN 02/14 1015 AC PO Folic Acid 1 MG DAILY 02/14 1301 AC 02/17 PO 0902 Multivitamins 1 TAB DAILY 02/14 1301 AC 02/20 PO 0920 Nicotine 21 MG DAILY 02/16 2007 AC 02/20 TOP 0920 Omeprazole 40 MG DAILY AC 02/18 1325 AC 02/21 PO 0522 Potassium Chloride 20 MEQ BID 02/10 1000 AC 02/20 PO 2152 Risperidone 37.5 MG Q 2 WEEKS 02/20 1000 AC 02/20 IM 0922 Senna 187 MG AT BEDTIME PRN 02/14 1015 AC 02/14 PO 1538 Thiamine HCl 50 MG DAILY 02/14 1301 AC 02/17 PO 0903 Trimethobenzamide HCl 200 MG TID PRN 02/10 1630 AC 02/16 IM 1427 Laboratory Tests 02/21/17 0750: Sodium Pending, Potassium Pending, Chloride Pending, Carbon Dioxide Pending, Anion Gap Pending, BUN Pending, Creatinine Pending, BUN/Creatinine Ratio Pending , Total Bilirubin Pending, Direct Bilirubin Pending, AST Pending, ALT Pending, Alkaline Phosphatase Pending, Total Protein Pending, Albumin Pending 02/20/17 0932: CBC w Diff NO MAN DIFF REQ, RBC 3.01 L, MCV 90.1, MCH 29.0, RDW 19.6 H, MPV 10.5 H, Gran % 78.9 H, Lymphocytes % 11.8 L, Monocytes % 7.8, Eosinophils % 0.9, Basophils % 0.6, Absolute Granulocytes 7.1 H, Absolute Lymphocytes 1.1 L, Absolute Monocytes 0.7 H, Absolute Eosinophils 0.1, Absolute Basophils 0.1, PUBS MCHC 32.2 L Vital Signs Date Time Temp Pulse Resp B/P B/P Pulse O2 O2 Flow FiO2 Mean Ox Delivery Rate 02/21 0634 98.3 90 18 108/66 99 Room Air 02/20 2232 99.2 97 19 100/60 99 Room Air 02/20 1531 99.0 18 18 100/70 98 Intake & Output 02/21 1600 02/21 0800 02/21 0000 Intake Total 800 960 Output Total Balance 800 960 Intake, Oral 800 960
[2017-02-21 14:19] VITALS: BP 108/60
[2017-02-21 22:22] VITALS: BP 108/70
[2017-02-22 07:00] VITALS: BP 100/70
--- NOTE | 2017-02-22 10:58 | Cons- Psychiatry ---
Psychiatric Consult Date of Consult: 02/22/17 Reason for Consult: Patient seen with Pepito Keane APRN at 10:35 a.m. The patient is a 36 yo SWM with schizophrenia, alcohol use d/o and cannabis use d/o who was admitted on 02/10/17 in the context of intractable vomiting. He has an extensive medical hx, including chronic alcohol abuse with alcoholic hepatitis, alcoholic CM, bladder mass s/p bx not significant for any malignancy with questionable colovesical fistula, multiple episodes of severe electrolyte impbalance in the past and hx polydipsia. Problem list on admission included hypotension, severe hypochloremia/ hopochloremic metablic acidosis due to excessive vomiting, hyponatremia with hx of polydipsia, leukocytosis, schizophrenia, alcohol abuse/alcoholic hepatitis, hypokalemia, hypophosphatemia and STEPHANIE. The patient has been detoxed and has improved medically. Current medication list is significant for: Risperdal contsa 37.5 mg IM q 2 weeks Naltrexone 50 mg po daily Significant labs: Sodium 133, potassium 3.8, calcium 7.0, SGOT 112, alkaline phosphatase 132, total bilirubin 1.7, HgB 8.7, HCT 27.1, admission urine drug screen +MJ, head CT 02/10/17 normal except for right scalp contusion. Mother, sister and [facility] staff are coming in today at 3 pm for a family meeting. Mother has reported that the patient posted threatening content on the internet. Mental status examination: The patient is a casually dressed WM sitting on his bed in [facility]. He has multiple tattoos. He is calm, polite and cooperative. There is no psychomotor agitation /retardation. Speech is normal in volume, rate and tone. Affect is calm and blunted to euthymic. States he came here because he was throwing up blood and when he stood up, he felt dizzy. States that [employer], he hadn't eaten or slept for a couple of days. Feels fine now. Eager for discharge. Wants to return to live with mother. States that he takes care of her. The patient used the word "dude" multiple times during this interview. I asked about the reported suicidal comments [employer]ISH[employer]. States he was joking around with his mother and sister and had no suicidal intent then or now. Denies having made threats towards mother. Mood is fine but feels sad because he has been here so long. Rates sad mood 6-7/10. Rates anxiety ~7-8/10 and he attributes it to wanting to go home. Denies feeling hopeless. Feels helpless because he can't control his own life; he would like to live independently. Claims he will quit alcohol use. Does not seem ready to quit MJ use despite my recommendation to quit. Worthless: feels taken advantage of at times. Denies feeling guilty. Denies active and passive SI. Denies HI. Denies HI toward mother and sister. While he reports hx of AH and VH, denies having these today. Denies PI. When asked about magical spears, responded that his eyes glow. The patient has chronically poor insight and judgment. Ox3 except looked at orientation board for date. Thinking is somewhat vacuous, at usual baseline. Cognition is at baseline, somewhat limited. Estimate of intellectual functioning is below average. Sleep: fine. Appetite: kind of hungry. Energy: fine. IMPRESSION: Schizophrenia. Alcohol use disorder. Cannabis use disorder. The patient has returned to his psychiatric baseline. He has chronically poor insight and judgment but does not meet criteria for acute inpatient psychiatric hospitalization. Case discussed with Pepito Keane APRN. Allergies: Coded Allergies: shrimp (BLACKED OUT PER PT 01/22/16) Past History Past Medical History Neurological: seizure (during alcohol detox) EENT: NONE Cardiovascular: alcoholic cardiomyopathy stage II Respiratory: history of aspiration pneumonia Gastrointestinal: alcoholic hepatitis, GERD, hiatal hernia, upper GI bleed Hepatic: ALCOHOLIC LIVER DISEASE Renal: NONE Musculoskeletal: NONE Psychiatric: alcohol dependence, anxiety, depression, substance abuse, SCHIZOPHRENIA alcohol abuse Endocrine: psychogenic polydipsia HYPOKALEMIA, HYPOMAGNESEMIA, HYPONATREMIA hypoK+, hypoNa, hypoMg hx hyponatremia hx hypokalemia Blood Disorders: anemia, coagulopathy (intermittent), thrombocytopenia ( intermittent) Cancer(s): NONE PLUMBER SUPERVISOR/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 Physical Limitations (Interventions): None noted Psychiatric Treatment History Psych Treatment Psychiatric Treatment Yes (as above) Diagnosis: Schizophrenia Alcohol use disorder, severe, recurrent Cannabis use disorder Risk Factors: SA/MH hospitalized, substance abuse, isolate/no social support, poor impulse control, arson, male, Conserved Substance Use/Abuse History Drug Use/Abuse Substances Used/Abused Yes (as above) Substance Abuse Treatment Substance Abuse Treatment Past Substance Abuse [place] Yes
[2017-02-22] MEDS ORDERED: SENNA-TIME S T1 EACH PO (13:12)
[2017-02-22] MEDS ORDERED: DOCUSATE SODIU100 M3 PO (13:12)
[2017-02-22] MEDS ORDERED: NALTREXONE HCL50 M1 PO (13:12)
--- NOTE | 2017-02-22 14:15 | PN- Att Addend ---
Attending Addendum Attending Brief Note Patient seen and examined. Resting comfortably and not in any acute distress. No issues overnight. No new complaints this morning. Apparently family came to pick him up yesterday however they got concerned when they saw some of his posts on social media and declined to take him home. I attended a family meeting from 3-4 pm today with the patients sister, Dr. Landis, Nela Walters, Noa Cleary, Pepito Keane APRN and 3 representatives from [facility] [place]. The patient's mother could not attend the meeting as she was stated to be in the emergency room. Patient's sister was very tearful during the meeting stating that she was of the impression patient will be in a facility for 6-12 months to increase his chance of not returning back to alcohol use. She reports that his mom will be available tomorrow to make decision about taking the patient home. Vital Signs Date Time Temp Pulse Resp B/P B/P Pulse O2 O2 Flow FiO2 Mean Ox Delivery Rate 02/22 0700 97.7 89 20 100/70 100 Room Air 02/21 2222 99.2 90 20 108/70 97 Room Air 02/21 1419 99.2 105 18 108/60 10 Room Air Gen. appearance: Well-developed, not in acute distress. Skin: Diffuse tattooing Lungs: Clear bilaterally Abdomen: Soft and nontender Extremity: No pedal edema Problems: 1. Suicide ideation 2. Alcohol abuse 3. Anemia Plan: -Status post transfusion during this admission. Hemoglobin levels are stable. Gastroenterology service had deferred any further intervention for now. Patient to follow-up with the GI service as an outpatient. -Patient has been cleared by the psychiatric service for discharge home. Patient's mother will be in the hospital tomorrow to make decision about taking the patient home. Referral made to the [facility].
[2017-02-22 14:35] VITALS: BP 114/68
--- NOTE | 2017-02-22 16:37 | Incdntl Nt Psy ---
See Addendum Incidental Note Notation: Case discussed with Chief of Psychiatry Dr. Landis, PEC rescinded.
--- NOTE | 2017-02-22 17:24 | Incdntl Nt Psy ---
Incidental Note Notation: I attended family meeting from 3-4 pm today with sister, Dr. Oden, Nela Walters, Noa Michel, Pepito Keane APRN and 3 representatives from [facility]. Mother could not attend, as she reportedly was in the ER. Sister brought documentation of patient's postings on the internet from around . They included foul language. There was some vague threatening language but there was no clear target identified. There was a vague reference to a .44 or .45 firearm, but sister denies that the patient owns or has access to firearms. I spoke with Dr. Lewis of [facility] at length. He does not believe [facility] respite is appropriate for the patient. He requests that the patient attend our IOP. I informed him that we will make a referral and the patient will be screened for appropriateness.
--- NOTE | 2017-02-23 08:39 | PN- Psychiatry ---
Assessment/Plan Impression: Identifying Info: 36-year-old single conserved male well-known to this service presents to [facility] emergency department by ambulance on 02/10/2017 with a question of GI bleed. Subsequently found to have an STEPHANIE with metabolic acidosis as well as severe electrolyte abnormalities and transferred to critical care unit now downgraded to gen med. He is agreeable to continue taking naltrexone. SUBJECTIVE Patient again denies suicidality today. Has no complaints, states he is going home this AM. Introduced Prasanna to [facility] Observer to screen for IOP admission. Pt declines any treatment that would involve groups and would not like to be part of our dual diagnosis program. He states he would like to continue treatment at [facility]. He states he would no longer like to drink and that the idea of it makes him nauseous. However, there is no way he would discontinue smoking marijuana as it makes him feel "chill It makes me feel connected to [place], where I'm from." As an abstinence only IOP this would exclude Prasanna from treatment there. When asked where he gets his MJ Prasanna states "it just appears in my room," when asked who puts it there vik states "I think it's my mom or one of her friends." Brief ROS Gait: Steady Sleep: Adequate Appetite: Adequate OBJECTIVE Mental Status Exam Presentation/Appearance: Awake and alert sitting in hospital room. Cooperative with interview. Wearing street clothes Orientation: Self, place, month and situation Sensorium: Alert Eye contact: Appropriate Affect: Somewhat consitricted Mood: Euthymic Depression: Denies Anxiety: Denies Thought Content: - Denies SI/HI, AH/VH, PI. States and also believes they will not kill themselves. - Denies Hopeless/Helpless Thoughts Thought Process: Linear but circumstantial at times Associations: Appropriate Speech: WNL Judgment: Impaired Insight: Impaired Cognition: Memory: Appears more intact Attention/Concentration: Appears more intact, improved participation in interview Fund of Knowledge: Did not assess Abstractions: Did not assess MMSE: Did not assess ASSESSMENT 36-year-old single conserved male well-known to this service with a history of similar presentations today reported to be experiencing suicidality. His outpatient treaters are planning to find the patient long-term placement. Mentation is improved to baseline. He is not actively suicidal at this time and would like to continue his medication for alcohol cravings. Differential diagnosis Schizophrenia Alcohol use disorder, severe Cannabis use disorder Delirium due to alcohol withdrawal and electrolyte abnormalities, resolved Suggestion: 1. Continue risperal as ordered 2. Continue Naltrexone. Pt agrees with plan to continue taking and stay abstain from ETOH. 3. Plan for placement in community. He declines IOP treatment. 4. Psychiatrically cleared for dc. Thank you for including psychiatry in this case we are signing off. Subjective Subjective: as above Objective Last 24 Hrs of Vital Signs/I&O Current Medications Sig/Olivia Start time Last Medication Dose Route Stop Time Status Admin Docusate Sodium 100 MG DAILY NEEDED PRN 02/14 1015 AC PO Folic Acid 1 MG DAILY 02/14 1301 AC 02/17 PO 0902 Multivitamins 1 TAB DAILY 02/14 1301 AC 02/23 PO 0833 Naltrexone HCl 50 MG DAILY 02/21 1445 AC 02/23 PO 0833 Nicotine 21 MG DAILY 02/16 2007 AC 02/22 TOP 0911 Omeprazole 40 MG DAILY AC 02/18 1325 AC 02/23 PO 0625 Potassium Chloride 20 MEQ BID 02/10 1000 AC 02/23 PO 0833 Risperidone 37.5 MG Q 2 WEEKS 02/20 1000 AC 02/20 IM 0922 Senna 187 MG AT BEDTIME PRN 02/14 1015 AC 02/14 PO 1538 Thiamine HCl 50 MG DAILY 02/14 1301 AC 02/17 PO 0903 Trimethobenzamide HCl 200 MG TID PRN 02/10 1630 AC 02/16 IM 1427 Laboratory Tests 02/23/17 0834: CBC w Diff NO MAN DIFF REQ, RBC 3.04 L, MCV 88.7, MCH 28.7, RDW 18.5 H, MPV 8.7, Gran % 77.0 H, Lymphocytes % 13.5 L, Monocytes % 6.0, Eosinophils % 3.4, Basophils % 0.1, Absolute Granulocytes 5.0, Absolute Lymphocytes 0.9 L, Absolute Monocytes 0.4, Absolute Eosinophils 0.2, Absolute Basophils 0, PUBS MCHC 32.4 L 02/21/17 0750: Anion Gap 10, Estimated GFR > 60, BUN/Creatinine Ratio 5.7 L, Total Bilirubin 1.7 H, Direct Bilirubin 1.1 H, AST 112 H, ALT 59, Alkaline Phosphatase 132 H , Total Protein 7.4, Albumin 3.0 L 02/20/17 0932: CBC w Diff NO MAN DIFF REQ, RBC 3.01 L, MCV 90.1, MCH 29.0, RDW 19.6 H, MPV 10.5 H, Gran % 78.9 H, Lymphocytes % 11.8 L, Monocytes % 7.8, Eosinophils % 0.9, Basophils % 0.6, Absolute Granulocytes 7.1 H, Absolute Lymphocytes 1.1 L, Absolute Monocytes 0.7 H, Absolute Eosinophils 0.1, Absolute Basophils 0.1, PUBS MCHC 32.2 L Vital Signs Date Time Temp Pulse Resp B/P B/P Pulse O2 O2 Flow FiO2 Mean Ox Delivery Rate 02/22 1435 98.9 92 20 114/68 98 Intake & Output 02/23 1600 02/23 0800 02/23 0000 Intake Total 1000 Output Total Balance 1000 Intake, Oral 1000
[2017-02-23 08:46] LABS: ABSOLUTE BASOPHIL COUNT 0 /CUMM (0.0-0.2); ABSOLUTE EOSINOPHIL COUNT 0.2 /CUMM (0.0-0.7); ABSOLUTE LYMPH COUNT 0.9 /CUMM (1.2-3.4); ABSOLUTE MONOCYTE COUNT 0.4 /CUMM (0.10-0.60); BASOPHIL % 0.1 % (0.0-2.0); EOSINOPHIL % 3.4 % (0-5); MEAN CORPUSCULAR HGB 28.7 PG (27.0-31.0); MEAN CORPUSCULAR HGB CONC 32.4 G/DL (33.0-37.0); MEAN CORPUSCULAR VOLUME 88.7 FL (80.0-94.0); MEAN PLATELET VOLUME 8.7 FL (7.4-10.4); PLATELET COUNT 230 /CUMM (130-400); RBC DISTRIBUTION WIDTH 18.5 % (11.5-14.5); RED BLOOD CELL CT 3.04 /CUMM (4.70-6.10); WHITE BLOOD CELL COUNT 6.4 /CUMM (4.8-10.8)
--- NOTE | 2017-02-23 10:48 | IOP PROGRESS NOTE ---
Psych (IOP) Progress Note Date of Group or Service 02/23/17 Details This database report writer met with patient Dinesh Woo at the request of Pepito Keane APRN from the consult service. The purpose of our meeting was to screen pt for IOP as it is the treatment recommendation. Prasanna indicated he has no plan or interest in stopping cannabis use as it keeps him connected to [place], "it's just what we do there and it keeps me connected". Advised Prasanna that [facility] would request he have at least the desire or a goal to stop cannabis use in order to allow our treatment team to effectively treat him. He declined stating that although he has no desire to drink alcohol any more, he will not stop smoking. Additionally, he stated, "I don't want to be around anyone who talks about drugs and alcohol because I'm not doing that anymore. I don't want rehab or any other place that has people talking about that". He expressed his desire to continue treatment at [facility], "I have been going there a long time and I'll go there".
--- NOTE | 2017-02-23 11:24 | PN- Att Addend ---
Attending Addendum Attending Brief Note Patient seen and examined. Resting comfortably and not in any acute distress. No issues overnight. He remains afebrile hemodynamically stable. Laboratory today shows that he is hemoglobin level is stable. He denies any black or bloody stools. His mother called and accepted to have the patient discharged home today into her custody. Vital Signs Date Time Temp Pulse Resp B/P B/P Pulse O2 O2 Flow FiO2 Mean Ox Delivery Rate 02/22 1435 98.9 92 20 114/68 98 Gen. appearance: Not in any distress Heart: S1-S2 regular Lungs: Clear bilaterally Abdomen: Soft and nontender Extremities: No pedal edema. Problems: 1. Suicide ideation 2. Alcohol abuse 3. Anemia 4. Schizophrenia Plan: -Patient remains medically stable to be discharged home today. He'll be discharged into of his mother. -He has been instructed to follow-up with the gastroenterology service as an outpatient. -He has been instructed to follow-up with the [facility] following discharge.
--- NOTE | 2017-03-09 10:26 | Discharge Summary ---
Visit Information Visit Dates Admission Date: 02/10/17 Discharge Date: 02/23/17 Hospital Course Course Attending Physician: SHAE TOBIAS M.D Primary Care Physician: DRAKE CARPENTER,TAMIKA Other Care Providers: Atul Antonio MD, gastroenterology Trav Gore MD, infectious disease Tom Morales MD, nephrology Psychiatry services Colby Edgar MD, Pulmonary and Critical care Hospital Course: Mr. Woo is a 36 year old male with PMH schizophrenia, anemia, cannabis use, chronic alcoholism, alcoholic hepatitis, alcoholic cardiomyopathy, polydipsia, chronic colovesicle fistula, multiple admissions with electrolyte abnormalities (hyponatremia, hypokalemia, metabolic alkalosis), seizures and GI bleed who presents with weakness, dizziness and hematemesis found to have severe electrolyte abnormalities. Vital signs on admission: T 98.5, HR 98, RR 20, BP 81/43, O2 99% room air. Labs were significant for WBC 17.8, H&H 11/33.9, Plt 99, Na 121, K 2.3, Cl <50, HCO3 30, BUN/cre 26/2.9, anion gap >41, lactic acid >24, TBili 4, AST 310, ALT 87, Alk phos 135, CK 661, lipase 497, INR 1.44, serum alcohol 104. Head CT was obtained and showed no acute intracranial findings, right parietal scalp contusion. Abdomen/pelvis CT showed chronic sigmoid diverticulitis with colovesical fistula adn possible small abscess cavity. Diffuse hepatic steatosis /hepatosplenomegaly. Moderate to large hiatal hernia. Patient was initially admitted to the ICU then to the general medical floor and the following issues were addressed: 1. Severe metabolic derangements, including metabolic alkalosis with lactic acidosis: Alkalosis on admission likely 2/2 hypokalemia and volume contraction due to vomiting. Patient was given IV fluids and nephro consult obtained. Acidosis secondary to lactic acidosis from alcohol and hypotension. As hypotension on admission improved with fluids noted above, metabolic status improved drastically. Of note, patient has presented similarly in the past and alcohol cessation is very important to prevent further episodes. Continued to emphasize this to patient while he is admitted and consider close follow up after discharge. 2. STEPHANIE and electrolyte disturbances on admission: STEPHANIE noted to be likely 2/2 nausea and vomiting pre-hospital. IV fluids administered and renal function slowly improved. Hyponatremia noted on admission likely 2/2 polydipsia from chronic psychiatric medication usage. Na was slowly increased with use of IVF and monitored closely. Hypokalemia aggressively repleted. Nephrology input was obtained and recommendations followed. Labs checked regularly while patient was in the hospital, although his STEPHANIE and electrolyte disturbances had resolved. 3. Alcohol abuse and detoxification: Patient has extensive drinking history and has been to [facility] for similar issues in the past. Patient was started on CIWA protocol and ativan drip. Banana bags were given. Ativan drip ultimately titrated off as PO librium was introduced. Librium was titrated daily and finally stopped. Alcohol cessation counseling performed. 4. Suicidality: Patient was noted to report suicidal thoughts to family prior to admissinon. Patient had 1:1 sitter and psychiatric consultation. PEC form was signed and placed in his chart. Psychiatry consultation followed, who cleared for discharge to to [facility], as the patient declined IOP treatment. Patient was discharged to his mother, who assured that the patient would follow up in out patient psychiatry service. 5. Schizophrenia: Patient was acutely agitated intermittently during his stay requiring renzo vest and restraints. Psychiatry evalauted patient daily and as patient returned to a less agitated state, Risperidone Consta 37.5 mg was ordered for 02/10/17. Patient will require psychiatric outpatient follow up, which he has agreed to. 6. Hematemesis with anemia: No noted episodes of hematemesis since admission but patient had stat GI consult placed and CBC was trended Q8h. Patient was initially on IV protonix drip and NSAIDs were avoided. Guiac was positive x 3. 2 U PRBC transfused on February 10 and and H&H remained stable afterwards. IV protonix was switched to daily. Continued to trend CBC and monitor for signs of bleeding. Patient was stable since. Patient needs outpatient GI follow up. 7. Bacteriuria in the setting of colovesicular fistula: Patient was initially started on ciprofloxacin and flagyl for possible abscess and fistula. ID was consuled and recommendations appreciated. Urine cultures showed citrobacter freundii, which may represent chronic colonization. Due to the fact that the fistula was chronic and WBC normalized soon after admission, antibiotics were discontinued on February 13 and patient was followed off antibiotics. In outpatient basis, please consider CT abdomen/pelvis with rectal water-soluble contrast to definitively outline fistula. If this is done, discuss findings with surgery for possible correction. 8. DVT prophylaxis: ALPS 9. Diet: mechanical ground solids and and thin liquid 10. Code: FULL CODE Allergies: Coded Allergies: shrimp (BLACKED OUT PER PT 01/22/16) Disposition Summary Disposition Principal Diagnosis: Abnormal metabolic function secondary to alcohol; Alcohol detoxification; Suicidal ideation. Additional Diagnosis: Schizophrenia, anemia, cannabis use, chronic alcoholism, alcoholic hepatitis, alcoholic cardiomyopathy, polydipsia, chronic colovesicle fistula, multiple admissions with electrolyte abnormalities (hyponatremia, hypokalemia, metabolic alkalosis), seizures and GI bleed. Discharge Disposition: home health services Discharge Instructions General Discharge Information Code Status: Full Code Patient's Diet: Heart healthy Patient's Activity: As tolerated Follow-Up Instructions/Appts: Please visit your primary care physician within 7 days of discharge. Please call and make a follow-up with pouncing machine operator Dr. Antonio contact address and phone number provided. His visit your mental health services provider within 7 days of discharge or as instructed. AVOID ALCOHOL AND MARIJUANA. We have discussed about this during this stay. Please return to emergency if symptoms worsen. Medications at Discharge Discharge Medications: Continue taking these medications: Risperidone Microspheres (Risperdal Consta) 37.5 MG/2 ML SYRINGE 1 Syringe INTRAMUSC EVERY 2 WEEKS Qty = 1 Comments: DID NOT RECEIVE IN HOSPITAL Potassium Chloride (Potassium Chloride) 20 MEQ TAB.ER.PRT 1 Tablet ORAL DAILY Qty = 15 Comments: Last Taken:02/23/17 Time:0830 Folic Acid (Folic Acid) 1 MG TABLET 1 Milligram ORAL AT BEDTIME Qty = 30 Comments: Last Taken: Time:REFUSED AT THE HOSP Thiamine HCl (Vitamin B-1) 100 MG TABLET 100 Milligram ORAL AT BEDTIME Qty = 30 Comments: REFUSED IN HOSPITAL Multivitamin (One Daily Multivitamin) 1 EACH TABLET 1 Tablet ORAL AT BEDTIME Qty = 30 Comments: Last Taken:02/23/17 Time:0830 Magnesium Oxide (Magnesium) 400 MG CAPSULE 1 Capsule ORAL TWICE DAILY Qty = 30 Instructions: . Comments: DID NOT RECEIVE IN HOSPITAL Start taking the following new medications: Naltrexone HCl (Naltrexone HCl) 50 MG TABLET 50 Milligram ORAL DAILY Qty = 30 No Refills Comments: Last Taken:02/23/17 Time:0830 Docusate Sodium (Docusate Sodium) 100 MG CAPSULE 100 Milligram ORAL DAILY NEEDED as needed for CONSTIPATION Qty = 15 No Refills Comments: DID NOT RECEIVE HOSPITAL Sennosides/Docusate Sodium (Senna-Time S Tablet) 8.6 MG-50 MG TABLET 187 Milligram ORAL AT BEDTIME as needed for CONSTIPATION Qty = 30 No Refills Comments: DID NOT RECEIVE IN HOSPITAL Copies To: DRAKE CARPENTER,TAMIKA Attending Review Statement Documenting Attending: SHAE TOBIAS M.D Other Findings: I have reviewed the discharge summary.
== END 2017-02-23 09:50 | disposition home health service (06) | DRG 641 ==
LOC: ERH 07:04 → 2NA 08:54 → CRI 08:54 → ERHI 08:54 → ENRESERV 09:39 → CRI 11:05 → CMPBEDREQ 13:04 → 2NA 02-16 12:05 → ENPENDDIS 02-23 09:27 → 2NA 02-23 09:50
PROVIDERS: Emergency Medicine; Internal Medicine; Ophthalmology; Preventive Medicine Public Health & General Preventive Medicine; Student in an Organized Health Care Education/Training Program; ADMIT Internal Medicine Pulmonary Disease
PROC: 30233N1 Transfusion of Nonautologous Red Blood Cells into Peripheral Vein, Percutaneous Approach (ICD-10-PCS; principal; 2017-02-10)
DX: E87.2 Acidosis (principal); N17.9 Acute kidney failure, unspecified; K92.0 Hematemesis; E88.89 Other specified metabolic disorders; I95.9 Hypotension, unspecified; I42.6 Alcoholic cardiomyopathy; R45.851 Suicidal ideations; D62 Acute posthemorrhagic anemia; N32.1 Vesicointestinal fistula; F10.239 Alcohol dependence with withdrawal, unspecified; F20.9 Schizophrenia, unspecified; K70.10 Alcoholic hepatitis without ascites; F10.20 Alcohol dependence, uncomplicated; E87.3 Alkalosis; E87.1 Hypo-osmolality and hyponatremia; Y90.5 Blood alcohol level of 100-119 mg/100 ml; R63.1 Polydipsia; K21.9 Gastro-esophageal reflux disease without esophagitis; K44.9 Diaphragmatic hernia without obstruction or gangrene; F17.200 Nicotine dependence, unspecified, uncomplicated
CPT/HCPCS: 2NAP; CCU; 36415; 74176; 80307; 81001; 82436; 86920; 87040; 87070; 87086; 87147; 93005; 93010; 96361; 96365; 96375; 96376; 99291; G0480; J0696; J0744; J2060; J2765; J3250; J3490; J7040; J7060; P9016